=== PATIENT | male | born 1950 | race Caucasian/White ===

== ENCOUNTER 2016-07-05 11:19 | Observation (INO) | payer OTHER ==
[~2016-07-05] VITALS: Ht 162.6 cm; Wt 55.0 kg
[~2016-07-05 11:19] MED LIST: ASPI81TA82 PO; CHOLESTEROL MED PO; GLIP5 PO; GLUCTAB PO; INSULIN SQ; METH2.5 PO
[2016-07-05 11:20] VITALS: BP 139/84; PULSE 98; RESP 17; TEMP 97.7; O2SAT 96
[2016-07-05] MEDS ORDERED: SODIUM CHLOR 0.9% 1000 ML INJ 1,000 ML IV ONE ×2 (11:39→11:45)
[2016-07-05 11:42] VITALS: O2SAT 96
[2016-07-05] MEDS ORDERED: SODIUM CHLORIDE 0.9% FLUSH 5 ML FLUSH IVF PRN (11:45)
[2016-07-05 12:06] LABS: AUTOMATED NEUTROPHIL # 3.7 TH/MM3 (1.8-7.7); BASOPHIL % 0.3 % (0.0-2.0); EOSINOPHIL % 0.6 % (0.0-4.0); HEMO FLAGS DIFF FINAL; LYMPH % 19.2 % (9.0-44.0); MEAN CELL VOLUME 94.9 FL (80.0-100.0); MEAN CORPUSCULAR HGB CONC 32.6 % (32.0-36.0); MONO % 10.9 % (0.0-8.0); PLATELET COUNT 205 TH/MM3 (150-450); RED BLOOD COUNT 4.64 MIL/MM3 (4.50-5.90); RED CELL DISTRIBUTION WIDTH 14.5 % (11.6-17.2); WHITE BLOOD COUNT 5.4 TH/MM3 (4.0-11.0)
[2016-07-05 12:09] LABS: BLOOD GAS VENOUS BASE EXCESS -0.4 mmol/L (-2-2); BLOOD GAS VENOUS HCO3 26 mmol/L (22-26); BLOOD GAS VENOUS O2 CONTENT 3.1 Vol % (9.0-17.0); BLOOD GAS VENOUS O2 HGB SAT 18 % (70-76); BLOOD GAS VENOUS PCO2 59 mmHg (44-48); BLOOD GAS VENOUS PO2 16 mmHg (35-40); BLOOD GAS VENOUS pH 7.27 (7.360-7.400); TEMP CORR TO 98.6
[2016-07-05 12:10] LABS: CRITICAL VALUE YES; DRAW SITE RN; OXYGEN DEVICE ROOM AIR; STAT YES
[2016-07-05 12:21] LABS: ANION GAP 9 MEQ/L (5-15)
[2016-07-05 12:25] LABS: BLOOD GAS BASE EXCESS -3.9 mmol/L (-2-2); BLOOD GAS HCO3 21 mmol/L (22-26); BLOOD GAS METHEMOGLOBIN 1.9 % (0-2); BLOOD GAS O2 HGB SATURATION 92 % (90-100); BLOOD GAS OXYGEN CONTENT 15.2 Vol % (12.0-20.0); BLOOD GAS PCO2 39 mmHg (38-42); BLOOD GAS PO2 83 mmHG (61-120); BLOOD GAS TOTAL HGB 11.8 G/DL (12.0-16.0); CRITICAL VALUE NO; DRAW SITE RT RADIAL; NUMBER OF ARTERIAL PUNCTURES 1; STAT YES; TEMP CORR TO 98.6; ULNAR PULSE PRESENT
[2016-07-05 12:26] LABS: ALKALINE PHOSPHATASE 88 U/L (45-117); ALT (GPT) 47 U/L (12-78); AST (GOT) 28 U/L (15-37); BETA-HYDROXYBUTYRATE 0.54 MMOL/L (0.00-0.39); BLOOD UREA NITROGEN 33 MG/DL (7-18); CHLORIDE 89 MEQ/L (98-107); GLOMERULAR FILTRATION RATE 61 ML/MIN (>89); MAGNESIUM 2.2 MG/DL (1.5-2.5); POTASSIUM 4.6 MEQ/L (3.5-5.1); SODIUM (NA) 126 MEQ/L (136-145); TOTAL BILIRUBIN ADULT 0.4 MG/DL (0.2-1.0)
[2016-07-05 12:36] LABS: BLOOD, URINE LARGE (NEG); COMMENT (UR) CULT NOT INDICATED; CULTURE IF INDICATED CULT NOT INDICATED; GLUCOSE,URINE 1000 mg/dL (NEG); KETONE, URINE TRACE mg/dL (NEG); NITRITE,URINE NEG (NEG); URINE COLOR LIGHT-YELLOW (YELLW/STRAW)
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
[2016-07-05] MEDS ORDERED: METF1000 PO (12:53)
[2016-07-05] MEDS ORDERED: LISI10TA3 PO (12:58)
[2016-07-05] MEDS ORDERED: EMPA1TAB3 PO (12:58)
[2016-07-05] MEDS ORDERED: ATOR40TA16 PO (12:58)
[2016-07-05] MEDS ORDERED: ASPI81TA11 PO (12:58)
[2016-07-05] MEDS ORDERED: GLIP10TA6 PO (12:58)
[2016-07-05] MEDS ORDERED: MOBI7.5T PO (12:58)
[2016-07-05] MEDS ORDERED: LANTUS2P SQ (12:58)
[2016-07-05] MEDS ORDERED: ALFU10TA2 PO (12:58)
[2016-07-05] MEDS ORDERED: GLUCAGON 1 MG/ML VIAL OTHER PRN ×2 (13:00→13:15)
[2016-07-05] MEDS ORDERED: DEXTROSE 50% IN WATER 50 ML VIAL(D50) IV PUSH PRN ×2 (13:00→13:15)
[2016-07-05] MEDS ORDERED: ONDANSETRON HCL 4 MG/2 ML VIAL IV PUSH PRN (13:00)
[2016-07-05] MEDS: SODIUM CHLOR 0.9% 1000 ML INJ 1,000 ML IV SCH ×2 (13:13→22:08)
--- NOTE | 2016-07-05 13:20 | HHI.HP ---
[facility] [place] [facility] Admission Diagnosis critical hyperglycemia Diagnoses: (1) Hyponatremia Diagnosis: Principal (2) Uncontrolled diabetes mellitus Diagnosis: Principal Chief Complaint: ' my sugar is high'. Travel History International Travel<30 Days: No Contact w/Intl Traveler <30 Da: No Traveled to Known Affected Are: No History of Present Illness patient is a 65 y/o male with history of diabetes mellitus, not a good historian and non-compliant with his medical treatment presented to ER stating that he forgot to use his insulin and oral hypoglycemic medications for the past two weeks and now his blood sugar is high. he denies any abdominal pain, nausea, vomiting. he says that he feels thirsty and has had urinary frequency. Review of Systems Constitutional: DENIES: Fever, Weight loss, Chills, Night Sweats Eyes: DENIES: Blurred vision, Diplopia, Vision loss, Double Vision Ears, nose, mouth, throat: DENIES: Tinnitus, Vertigo, Throat pain, Epistaxis Respiratory: DENIES: Apneas, Cough, Snoring, Wheezing, Hemoptysis, Sputum production, Shortness of breath Cardiovascular: DENIES: Chest pain, Palpitations, Syncope, Dyspnea on Exertion , PND, Lower Extremity Edema, Orthopnea, Claudication Gastrointestinal: DENIES: Abdominal pain, Black stools, Bloody stools, Constipation, Diarrhea, Nausea, Vomiting, Difficulty Swallowing, Anorexia Genitourinary: COMPLAINS OF: Urinary frequency, DENIES: Urgency, Hematuria, Dysuria Musculoskeletal: DENIES: Joint pain, Muscle aches, Stiffness, Joint Swelling Integumentary: DENIES: Rash Neurologic: DENIES: Abnormal gait, Headache, Localized weakness, Paresthesias, Seizures, Speech Problems, Tremor, Poor Balance Psychiatric: DENIES: Anxiety, Confusion, Mood changes, Depression, Hallucinations, Agitation, Suicidal Ideation, Homicidal Ideation, Delusions Past Family Social History Past Medical History diabetes mellitus. hypertension. Past Surgical History none reported. Reported Medications Rheumatrex (Methotrexate) Unknown Strength Tab 7 Tabs PO WEEKLY UNKNOWN DOSE Aspir-81 (Aspirin) 81 Mg Tab 81 Mg PO DAILY [Insulin] 30 Units SQ BID Metformin Hcl (Metformin HCl) Unknown Strength Tab 1 Tab PO BIDPC Glipizide Unknown Strength Tab 1 Tab PO BID Allergies: Coded Allergies: No Known Allergies (Verified , 07/05/16) Active Ordered Medications Current Medications IV Flush 2 ml 2 ml UNSCH PRN IVF FLUSH AFTER USING IV ACCESS; Start 07/05/16 at 11:45 Sodium Chloride 1,000 ml @ 2,000 mls/hr Q30M ONCE IV Last administered on 07/05 11:44; Start 07/05/16 at 11:39; Stop 07/05/16 at 12:11; Status DC Sodium Chloride (NS 1000 ml Inj) 1,000 ml @ 999 mls/hr BOLUS ONCE IV Last administered on 07/05/16 11:45; Start 07/05/16 at 11:45; Stop 07/05/16 at 12:45 ; Status DC Ondansetron HCl 4 mg 4 mg Q8HR PRN IV PUSH NAUSEA; Start 07/05/16 at 13:00 Sodium Chloride (NS 1000 ml Inj) 1,000 ml @ 125 mls/hr Q8H IV ; Start 07/05/16 at 13:00 Dextrose (D50w (Vial) Inj) 25 ml UNSCH PRN IV PUSH HYPOGLYCEMIA-SEE COMMENTS; Start 07/05/16 at 13:00 Glucagon (Glucagon Inj) 1 mg UNSCH PRN OTHER HYPOGLYCEMIA-SEE COMMENTS; Start 07/05/16 at 13:00 Insulin Aspart (NovoLOG SUPPLEMENTAL SCALE) 1 ACHS SLIDING SCALE SQ ; Start at 16:00 Social History no smoking or drinking. Physical Exam Vital Signs Vital Signs Date Time Temp Pulse Resp B/P Pulse Ox O2 Delivery O2 Flow Rate FiO2 07/05/16 11:42 96 Room Air 07/05/16 11:20 97.7 98 17 139/84 96 Physical Exam GENERAL: This is a well-nourished, well-developed patient, in no apparent distress. SKIN: No rashes, ecchymoses or lesions. Cool and dry. HEAD: Atraumatic. Normocephalic. No temporal or scalp tenderness. EYES: Pupils equal round and reactive. Extraocular motions intact. No scleral icterus. No injection or drainage. ENT: Nose without bleeding, purulent drainage or septal hematoma. Throat without erythema, tonsillar hypertrophy or exudate. Uvula midline. Airway patent. NECK: Trachea midline. No JVD or lymphadenopathy. Supple, nontender, no meningeal signs. CARDIOVASCULAR: Regular rate and rhythm without murmurs, gallops, or rubs. RESPIRATORY: Clear to auscultation. Breath sounds equal bilaterally. No wheezes , rales, or rhonchi. GASTROINTESTINAL: Abdomen soft, non-tender, nondistended. No hepato-splenomegaly , or palpable masses. No guarding. MUSCULOSKELETAL: Extremities without clubbing, cyanosis, or edema. No joint tenderness, effusion, or edema noted. No calf tenderness. Negative Homans sign bilaterally. NEUROLOGICAL: Awake and alert. Cranial nerves II through XII intact. Motor and sensory grossly within normal limits. Five out of 5 muscle strength in all muscle groups. Normal speech. Laboratory Laboratory Tests Test 07/05/16 07/05/16 07/05/16 11:30 12:00 12:15 White Blood Count 5.4 Red Blood Count 4.64 Hemoglobin 14.4 Hematocrit 44.0 Mean Corpuscular Volume 94.9 Mean Corpuscular Hemoglobin 31.0 Mean Corpuscular Hemoglobin 32.6 Concent Red Cell Distribution Width 14.5 Platelet Count 205 Mean Platelet Volume 9.0 Neutrophils (%) (Auto) 69.0 Lymphocytes (%) (Auto) 19.2 Monocytes (%) (Auto) 10.9 Eosinophils (%) (Auto) 0.6 Basophils (%) (Auto) 0.3 Neutrophils # (Auto) 3.7 Lymphocytes # (Auto) 1.0 Monocytes # (Auto) 0.6 Eosinophils # (Auto) 0.0 Basophils # (Auto) 0.0 CBC Comment DIFF FINAL Differential Comment Sodium Level 126 Potassium Level 4.6 Chloride Level 89 Carbon Dioxide Level 28.0 Anion Gap 9 Blood Urea Nitrogen 33 Creatinine 1.20 Estimat Glomerular Filtration 61 Rate Random Glucose 834 Calcium Level 9.6 Phosphorus Level 3.4 Magnesium Level 2.2 Total Bilirubin 0.4 Aspartate Amino Transf 28 (AST/SGOT) Alanine Aminotransferase 47 (ALT/SGPT) Alkaline Phosphatase 88 Total Protein 8.0 Albumin 4.2 B-Hydroxybutyrate 0.54 Urine Color LIGHT-YELLOW Urine Turbidity CLEAR Urine pH 6.0 Urine Specific [place] 1.025 Urine Protein NEG Urine Glucose (UA) 1000 Urine Ketones TRACE Urine Occult Blood LARGE Urine Nitrite NEG Urine Bilirubin NEG Urine Urobilinogen LESS THAN 2.0 Urine Leukocyte Esterase NEG Urine RBC 63 Microscopic Urinalysis Comment CULT NOT INDICATED Blood Gas Puncture Site RN RT RADIAL Blood Gas Patient Temperature 98.6 98.6 Venous Blood pH 7.27 Venous Blood Partial Pressure 59 CO2 Venous Blood Partial Pressure 16 O2 Venous Blood HCO3 26 Venous Blood Oxygen Saturation 18 Venous Blood Oxygen Content 3.1 Venous Blood Base Excess -0.4 Oxygen Delivery Device ROOM AIR Blood Gas HCO3 21 Blood Gas Base Excess -3.9 Blood Gas Oxygen Saturation 92 Arterial Blood pH 7.35 Arterial Blood Partial 39 Pressure CO2 Arterial Blood Partial 83 Pressure O2 Arterial Blood Oxygen Content 15.2 Arterial Blood 3.0 Carboxyhemoglobin Arterial Blood Methemoglobin 1.9 Blood Gas Hemoglobin 11.8 Result Diagram: 07/05/16 1130 07/05/16 1130 Assessment and Plan Assessment and Plan A/P - uncontrolled diabetes mellitus due to non-compliance resume long acting insulin- accu-check with SSI- start IV hydration and check A1c counselled on compliance with medical treatment -hyponatremia due to hyperglycemia- will start IV fluid and monitor. -hypertension; resume home meds -DVT prophylaxis with lovenox Discussed Condition With ER physician and the patient. Problem Qualifiers (1) Uncontrolled diabetes mellitus: Qualified Code: E11.65 - Uncontrolled type 2 diabetes mellitus without complication, with long-term current use of insulin Chantelle Doll MD Jul 05, 2016 13:19
[2016-07-05] MEDS ORDERED: ACETAMINOPHEN 325 MG TAB PO PRN (13:30)
[2016-07-05] MEDS: INSULIN DETEMIR 100 UNITS/ML VIAL SQ SCH ×2 (13:39→22:04)
[2016-07-05 15:10] VITALS: BP 133/91; PULSE 91; RESP 20; O2SAT 96
[2016-07-05] MEDS ORDERED: INSULIN ASPART SUPPLEMENTAL SCALE SQ SCH (16:00)
[2016-07-05] MEDS: INSULIN ASPART SUPPLEMENTAL SCALE SQ SCH ×2 (16:00→22:07)
[2016-07-05 17:52] VITALS: BP 136/74
[2016-07-05 19:26] VITALS: BP 119/75; PULSE 68; RESP 18; TEMP 98.7; O2SAT 95
[2016-07-05] MEDS: ATORVASTATIN 40 MG TAB PO SCH (22:04)
[2016-07-06] VITALS: BP 117/62; PULSE 68; RESP 18; TEMP 97.8; O2SAT 97
[2016-07-06 04:00] VITALS: BP 120/74; PULSE 60; RESP 18; TEMP 98.4; O2SAT 97
[2016-07-06] MEDS: INSULIN ASPART SUPPLEMENTAL SCALE SQ SCH ×3 (06:58→20:50)
[2016-07-06] MEDS: SODIUM CHLOR 0.9% 1000 ML INJ 1,000 ML IV SCH ×2 (06:58→13:41)
[2016-07-06 07:22] LABS: POTASSIUM 3.3 MEQ/L (3.5-5.1)
[2016-07-06 07:48] VITALS: BP 108/71; PULSE 76; RESP 22; TEMP 97.6; O2SAT 98
[2016-07-06] MEDS ORDERED: ENOXAPARIN SODIUM 40 MG/0.4 ML SYRINGE SQ SCH (09:00)
[2016-07-06] MEDS: INSULIN DETEMIR 100 UNITS/ML VIAL SQ SCH ×2 (10:22→20:09)
[2016-07-06] MEDS: TAMSULOSIN HCL 0.4 MG CAP PO SCH (10:22)
[2016-07-06] MEDS: LISINOPRIL 10 MG TAB PO SCH (10:22)
[2016-07-06 11:34] VITALS: BP 113/66; PULSE 72; RESP 20; TEMP 97.8; O2SAT 100
--- NOTE | 2016-07-06 11:36 | EKG ---
Date Performed: 07/05/2016 Time Performed: 11:57:37 PTAGE: 65 years EKG: Sinus rhythm NORMAL ECG PREVIOUS TRACING : 02/19/2014 17.39 DOCTOR: Anderson Rodríguez Interpretating Date/Time 07/06/2016 11:34:25
[2016-07-06] MEDS ORDERED: LANTUS2P SQ (12:29)
[2016-07-06] MEDS ORDERED: NOVOLOGSS SQ (12:29)
--- NOTE | 2016-07-06 12:29 | HHI.DCPOC ---
Discharge Care Plan Diagnosis: (1) Uncontrolled diabetes mellitus Your Health Problems Are: Fluctuating Blood Sugars Goals to Promote Your Health * To prevent worsening of your condition and complications * To maintain your health at the optimal level Directions to Meet Your Goals Take your medications as prescribed Follow your dietary instruction Follow activity as directed Keep your appointments as scheduled Take your immunizations and boosters as scheduled If your symptoms worsen call your PCP, if no PCP go to Urgent Care Center or Emergency Room Smoking is Dangerous to Your Health. Avoid second hand smoke Call the 24-hour hour crisis hotline for domestic abuse at Chantelle Doll MD Jul 06, 2016 12:29
--- NOTE | 2016-07-06 12:33 | HHI.PR ---
Subjective Remarks resting comfortably with no distress. noted that was hypoglycemic earlier today. d/w the RN ; reportedly had some ' blood-tinged' urine. Objective Vitals Vital Signs Date Time Temp Pulse Resp B/P Pulse Ox O2 Delivery O2 Flow Rate FiO2 07/06/16 11:34 97.8 72 20 113/66 100 07/06/16 07:48 97.6 76 22 108/71 98 07/06/16 04:00 98.4 60 18 120/74 97 07/06/16 00:00 97.8 68 18 117/62 97 07/05/16 19:26 98.7 68 18 119/75 95 07/05/16 17:52 95 20 136/74 98 07/05/16 15:10 91 20 133/91 96 Room Air I/O 07/05/16 07/05/16 07/05/16 07/06/16 07/06/16 07/06/16 07:00 15:00 23:00 07:00 15:00 23:00 Output Total 300 ml 1600 ml Balance -300 ml -1600 ml Output Urine Total 300 ml 1600 ml # Voids 1 2 Result Diagram: 07/05/16 1130 07/06/16 0556 Objective Remarks GENERAL: This is a well-nourished, well-developed patient, in no apparent distress. CARDIOVASCULAR: Regular rate and regular rhythm without murmurs, gallops, or rubs. RESPIRATORY: Clear to auscultation. Breath sounds equal bilaterally. No wheezes , rales, or rhonchi. GASTROINTESTINAL: Abdomen soft, non-tender, nondistended. Normal, active bowel sounds MUSCULOSKELETAL: Extremities without clubbing, cyanosis, or edema. NEURO: awake and alert Procedures none Medications and IVs Current Medications IV Flush 2 ml 2 ml UNSCH PRN IVF FLUSH AFTER USING IV ACCESS; Start 07/05/16 at 11:45 Sodium Chloride 1,000 ml @ 2,000 mls/hr Q30M ONCE IV Last administered on 07/05 11:44; Start 07/05/16 at 11:39; Stop 07/05/16 at 12:11; Status DC Sodium Chloride (NS 1000 ml Inj) 1,000 ml @ 999 mls/hr BOLUS ONCE IV Last administered on 07/05/16 11:45; Start 07/05/16 at 11:45; Stop 07/05/16 at 12:45 ; Status DC Ondansetron HCl 4 mg 4 mg Q8HR PRN IV PUSH NAUSEA; Start 07/05/16 at 13:00 Sodium Chloride (NS 1000 ml Inj) 1,000 ml @ 125 mls/hr Q8H IV Last administered on 07/06/16 06:58; Start 07/05/16 at 13:00 Dextrose (D50w (Vial) Inj) 25 ml UNSCH PRN IV PUSH HYPOGLYCEMIA-SEE COMMENTS; Start 07/05/16 at 13:00; Stop 07/05/16 at 13:32; Status DC Glucagon (Glucagon Inj) 1 mg UNSCH PRN OTHER HYPOGLYCEMIA-SEE COMMENTS; Start 07/05/16 at 13:00; Stop 07/05/16 at 13:32; Status DC Insulin Aspart (NovoLOG SUPPLEMENTAL SCALE) 1 ACHS SLIDING SCALE SQ ; Start at 16:00; Stop 07/05/16 at 16:00; Status DC Atorvastatin Calcium (Lipitor) 40 mg HS PO Last administered on 07/05/16 22:04 ; Start 07/05/16 at 21:00 Insulin Detemir (Levemir Inj) 30 units BID SQ Last administered on 07/06/16 10: 22; Start 07/05/16 at 13:30 Lisinopril (Prinivil) 10 mg DAILY PO Last administered on 07/06/16 10:22; Start 07/06/16 at 09:00 Tamsulosin HCl (Flomax) 0.4 mg DAILY PO Last administered on 07/06/16 10:22; Start 07/06/16 at 09:00 Dextrose (D50w (Vial) Inj) 25 ml UNSCH PRN IV PUSH HYPOGLYCEMIA-SEE COMMENTS; Start 07/05/16 at 13:15 Glucagon (Glucagon Inj) 1 mg UNSCH PRN OTHER HYPOGLYCEMIA-SEE COMMENTS; Start 07/05/16 at 13:15 Insulin Aspart (NovoLOG SUPPLEMENTAL SCALE) 1 ACHS SLIDING SCALE SQ Last administered on 07/05/16 22:07; Start 07/05/16 at 16:00 Enoxaparin Sodium (Lovenox Inj) 40 mg Q24H SQ Last administered on 07/06/16 10: 21; Start 07/06/16 at 09:00 Acetaminophen (Tylenol) 650 mg Q4H PRN PO FEVER/PAIN 1-10; Start 07/05/16 at 13 :30 A/P Assessment and Plan A/P - uncontrolled diabetes mellitus due to non-compliance- with hypoglycemic episode continue long acting insulin- accu-check with SSI; will change to low scale- continue IV hydration - A1c pending. counselled on compliance with medical treatment -hyponatremia due to hyperglycemia- improved- will monitor. -hypokalemia; will replace as needed. -hematuria; will repeat UA-will consider urology consult if no improvement. -hypertension; resumed home meds -DVT prophylaxis ; hold lovenox for possible hematuria- SCD's Discharge Planning possible discharge in am if stable. case management and PT consulted for dc planning-possible SNF. Chantelle Doll MD Jul 06, 2016 12:33 Chantelle Doll MD Jul 06, 2016 12:33
[2016-07-06] MEDS ORDERED: DEXTROSE 50% IN WATER 50 ML VIAL(D50) IV PUSH PRN (12:45)
[2016-07-06] MEDS ORDERED: GLUCAGON 1 MG/ML VIAL OTHER PRN (12:45)
[2016-07-06] MEDS ORDERED: POTASSIUM CHLORIDE 10 MEQ CONTROLLED RELEASE TAB PO ONE (12:45)
[2016-07-06 16:04] VITALS: BP 123/61; PULSE 81; RESP 18; TEMP 97.7; O2SAT 100
[2016-07-06 19:37] VITALS: BP 146/80; PULSE 75; RESP 20; TEMP 97.6; O2SAT 99
[2016-07-06] MEDS: ATORVASTATIN 40 MG TAB PO SCH (20:07)
[2016-07-06 23:19] LABS: BACTERIA, URINE OCC /hpf; BLOOD, URINE MOD (NEG); COMMENT (UR) CULTURE INDICATED; CULTURE IF INDICATED CULTURE INDICATED; GLUCOSE,URINE 1000 mg/dL (NEG); KETONE, URINE TRACE mg/dL (NEG); MUCUS URINE FEW /lpf (OCC); NITRITE,URINE NEG (NEG); PH, URINE 5.5 (5.0-8.5)
[2016-07-06 23:21] LABS: URINE COLOR RED (YELLW/STRAW)
[2016-07-07 00:43] VITALS: BP 147/73; PULSE 79; RESP 20; TEMP 97.4; O2SAT 99
[2016-07-07] MEDS: SODIUM CHLOR 0.9% 1000 ML INJ 1,000 ML IV SCH ×2 (02:36→15:02)
[2016-07-07 04:00] VITALS: BP 156/87; PULSE 78; RESP 20; TEMP 98.3; O2SAT 99
[2016-07-07] MEDS: INSULIN ASPART SUPPLEMENTAL SCALE SQ SCH ×4 (06:06→20:23)
[2016-07-07 07:32] VITALS: BP 150/78; PULSE 80; RESP 19; TEMP 98.1; O2SAT 100
[2016-07-07] MEDS: TAMSULOSIN HCL 0.4 MG CAP PO SCH (08:58)
[2016-07-07] MEDS: INSULIN DETEMIR 100 UNITS/ML VIAL SQ SCH ×2 (08:58→20:23)
[2016-07-07] MEDS: LISINOPRIL 10 MG TAB PO SCH (08:58)
[2016-07-07 11:42] VITALS: BP 126/63; PULSE 79; RESP 18; TEMP 97.6; O2SAT 99
--- NOTE | 2016-07-07 12:43 | HHI.PR ---
Subjective Remarks in no acute distress. denies pain. no dysuria but has urinary frequency along with some hematuria. no fever. Objective Vitals Vital Signs Date Time Temp Pulse Resp B/P Pulse Ox O2 Delivery O2 Flow Rate FiO2 07/07/16 11:42 97.6 79 18 126/63 99 07/07/16 07:32 98.1 80 19 150/78 100 07/07/16 04:00 98.3 78 20 156/87 99 07/07/16 00:43 97.4 79 20 147/73 99 07/06/16 19:37 97.6 75 20 146/80 99 07/06/16 16:04 97.7 81 18 123/61 100 I/O 07/06/16 07/06/16 07/06/16 07/07/16 07/07/16 07/07/16 07:00 15:00 23:00 07:00 15:00 23:00 Output Total 900 ml Balance -900 ml Output Urine Total 900 ml # Voids 2 Result Diagram: 07/05/16 1130 07/06/16 0556 Objective Remarks GENERAL: This is a well-nourished, well-developed patient, in no apparent distress. CARDIOVASCULAR: Regular rate and regular rhythm without murmurs, gallops, or rubs. RESPIRATORY: Clear to auscultation. Breath sounds equal bilaterally. No wheezes , rales, or rhonchi. GASTROINTESTINAL: Abdomen soft, non-tender, nondistended. Normal, active bowel sounds MUSCULOSKELETAL: Extremities without clubbing, cyanosis, or edema. NEURO: awake and alert Procedures none Medications and IVs Current Medications IV Flush 2 ml 2 ml UNSCH PRN IVF FLUSH AFTER USING IV ACCESS; Start 07/05/16 at 11:45 Sodium Chloride 1,000 ml @ 2,000 mls/hr Q30M ONCE IV Last administered on 07/05 11:44; Start 07/05/16 at 11:39; Stop 07/05/16 at 12:11; Status DC Sodium Chloride (NS 1000 ml Inj) 1,000 ml @ 999 mls/hr BOLUS ONCE IV Last administered on 07/05/16 11:45; Start 07/05/16 at 11:45; Stop 07/05/16 at 12:45 ; Status DC Ondansetron HCl 4 mg 4 mg Q8HR PRN IV PUSH NAUSEA; Start 07/05/16 at 13:00 Sodium Chloride (NS 1000 ml Inj) 1,000 ml @ 75 mls/hr [id number] IV Last administered on 07/07/16 02:36; Start 07/05/16 at 13:00 Dextrose (D50w (Vial) Inj) 25 ml UNSCH PRN IV PUSH HYPOGLYCEMIA-SEE COMMENTS; Start 07/05/16 at 13:00; Stop 07/05/16 at 13:32; Status DC Glucagon (Glucagon Inj) 1 mg UNSCH PRN OTHER HYPOGLYCEMIA-SEE COMMENTS; Start 07/05/16 at 13:00; Stop 07/05/16 at 13:32; Status DC Insulin Aspart (NovoLOG SUPPLEMENTAL SCALE) 1 ACHS SLIDING SCALE SQ ; Start at 16:00; Stop 07/05/16 at 16:00; Status DC Atorvastatin Calcium (Lipitor) 40 mg HS PO Last administered on 07/06/16 20:07 ; Start 07/05/16 at 21:00 Insulin Detemir (Levemir Inj) 30 units BID SQ Last administered on 07/07/16 08: 58; Start 07/05/16 at 13:30 Lisinopril (Prinivil) 10 mg DAILY PO Last administered on 07/07/16 08:58; Start 07/06/16 at 09:00 Tamsulosin HCl (Flomax) 0.4 mg DAILY PO Last administered on 07/07/16 08:58; Start 07/06/16 at 09:00 Dextrose (D50w (Vial) Inj) 25 ml UNSCH PRN IV PUSH HYPOGLYCEMIA-SEE COMMENTS; Start 07/05/16 at 13:15 Glucagon (Glucagon Inj) 1 mg UNSCH PRN OTHER HYPOGLYCEMIA-SEE COMMENTS; Start 07/05/16 at 13:15 Insulin Aspart (NovoLOG SUPPLEMENTAL SCALE) 1 ACHS SLIDING SCALE SQ Last administered on 07/05/16 22:07; Start 07/05/16 at 16:00; Stop 07/06/16 at 12:36 ; Status DC Enoxaparin Sodium (Lovenox Inj) 40 mg Q24H SQ Last administered on 07/06/16 10: 21; Start 07/06/16 at 09:00; Status Hold Acetaminophen (Tylenol) 650 mg Q4H PRN PO FEVER/PAIN 1-10; Start 07/05/16 at 13 :30 Potassium Chloride (KCl) 30 meq ONCE ONCE PO Last administered on 07/06/16 13: 40; Start 07/06/16 at 12:45; Stop 07/06/16 at 12:46; Status DC Dextrose (D50w (Vial) Inj) 25 ml UNSCH PRN IV PUSH HYPOGLYCEMIA-SEE COMMENTS; Start 07/06/16 at 12:45 Glucagon (Glucagon Inj) 1 mg UNSCH PRN OTHER HYPOGLYCEMIA-SEE COMMENTS; Start 07/06/16 at 12:45 Insulin Aspart (NovoLOG SUPPLEMENTAL SCALE) 1 ACHS SLIDING SCALE SQ Last administered on 07/07/16 06:06; Start 07/06/16 at 16:00 A/P Assessment and Plan A/P - uncontrolled diabetes mellitus due to non-compliance- with hypoglycemic episode with no recurrence continue long acting insulin- accu-check with SSI; changed to low scale- continue IV hydration - A1c 17.3. counselled on compliance with medical treatment -hyponatremia due to hyperglycemia- improved- will monitor. -hypokalemia; replaced as needed. -hematuria due to UTI- will start IV antibiotic and follow the UC. almanza cath insertion was unsuccessful yesterday and now the patient is refusing any further attempts. -hypertension; resumed home meds -DVT prophylaxis ; hold lovenox due to hematuria- SCD's Discharge Planning dc home within the next one - two days when hematuria is better and UC is finalized. SNF was offered but the patient refused; will consult case management for [facility]. Chantelle Doll MD Jul 07, 2016 12:43
--- NOTE | 2016-07-07 12:44 | HHI.FF ---
Face to Face Verification Diagnosis: (1) Medical non-compliance (2) Uncontrolled diabetes mellitus Home Health Nursing Order: Medical education Signs/symptoms of disease process Diabetic education Nursing assessment with vital signs I have seen patient Jono Martin on 07/07/16. My clinical findings support the need for the requested home health care services because: Limited ability to care for self I certify that my clinical findings support that this patient is homebound because: Impaired cognitive ability/safety Chantelle Doll MD Jul 07, 2016 12:44
[2016-07-07] MEDS ORDERED: cefTRIAXone INJ 1,000 MG in SODIUM CHLORIDE 0.9% INJ 100 ML IV SCH (14:00)
[2016-07-07] MEDS: FLUCONAZOLE 100 MG TAB PO SCH (15:01)
[2016-07-07 15:44] VITALS: BP 110/64; PULSE 88; RESP 20; TEMP 98.2; O2SAT 98
[2016-07-07 19:37] VITALS: BP 120/69; PULSE 84; RESP 18; TEMP 98.3; O2SAT 98
[2016-07-07] MEDS: ATORVASTATIN 40 MG TAB PO SCH (20:23)
[2016-07-08 00:07] VITALS: BP 151/81; PULSE 82; RESP 19; TEMP 98; O2SAT 98
[2016-07-08 03:43] VITALS: BP 121/64; PULSE 86; RESP 19; TEMP 97.9; O2SAT 97
[2016-07-08] MEDS: SODIUM CHLOR 0.9% 1000 ML INJ 1,000 ML IV SCH (05:55)
[2016-07-08] MEDS: INSULIN ASPART SUPPLEMENTAL SCALE SQ SCH ×2 (05:58→11:00)
[2016-07-08 08:15] VITALS: BP 143/80; PULSE 75; RESP 19; RESP 20; TEMP 98; O2SAT 98
[2016-07-08] MEDS: INSULIN DETEMIR 100 UNITS/ML VIAL SQ SCH (09:00)
[2016-07-08] MEDS: FLUCONAZOLE 100 MG TAB PO SCH (10:10)
[2016-07-08] MEDS: LISINOPRIL 10 MG TAB PO SCH (10:10)
[2016-07-08] MEDS: TAMSULOSIN HCL 0.4 MG CAP PO SCH (10:10)
[2016-07-08 12:02] VITALS: BP 135/73; PULSE 80; RESP 18; TEMP 97.6; O2SAT 97
--- NOTE | 2016-07-08 12:38 | HHI.PR ---
Subjective Remarks resting comfortably with no distress. denies pain. no fever. accu-checks better. Objective Vitals Vital Signs Date Time Temp Pulse Resp B/P Pulse Ox O2 Delivery O2 Flow Rate FiO2 07/08/16 12:02 97.6 80 18 135/73 97 07/08/16 08:15 98.0 75 20 143/80 98 07/08/16 03:43 97.9 86 19 121/64 97 07/08/16 00:07 98.0 82 19 151/81 98 07/07/16 19:37 98.3 84 18 120/69 98 07/07/16 15:44 98.2 88 20 110/64 98 I/O 07/07/16 07/07/16 07/07/16 07/08/16 07/08/16 07/08/16 07:00 15:00 23:00 07:00 15:00 23:00 Output Total 900 ml 350 ml Balance -900 ml -350 ml Output Urine Total 900 ml 350 ml # Voids 5 Result Diagram: 07/05/16 1130 07/06/16 0556 Objective Remarks GENERAL: This is a well-nourished, well-developed patient, in no apparent distress. CARDIOVASCULAR: Regular rate and regular rhythm without murmurs, gallops, or rubs. RESPIRATORY: Clear to auscultation. Breath sounds equal bilaterally. No wheezes , rales, or rhonchi. GASTROINTESTINAL: Abdomen soft, non-tender, nondistended. Normal, active bowel sounds MUSCULOSKELETAL: Extremities without clubbing, cyanosis, or edema. NEURO: awake and alert Procedures none Medications and IVs Current Medications IV Flush 2 ml 2 ml UNSCH PRN IVF FLUSH AFTER USING IV ACCESS; Start 07/05/16 at 11:45 Sodium Chloride 1,000 ml @ 2,000 mls/hr Q30M ONCE IV Last administered on 07/05 11:44; Start 07/05/16 at 11:39; Stop 07/05/16 at 12:11; Status DC Sodium Chloride (NS 1000 ml Inj) 1,000 ml @ 999 mls/hr BOLUS ONCE IV Last administered on 07/05/16 11:45; Start 07/05/16 at 11:45; Stop 07/05/16 at 12:45 ; Status DC Ondansetron HCl 4 mg 4 mg Q8HR PRN IV PUSH NAUSEA; Start 07/05/16 at 13:00 Sodium Chloride (NS 1000 ml Inj) 1,000 ml @ 75 mls/hr [id number] IV Last administered on 07/08/16 05:55; Start 07/05/16 at 13:00 Dextrose (D50w (Vial) Inj) 25 ml UNSCH PRN IV PUSH HYPOGLYCEMIA-SEE COMMENTS; Start 07/05/16 at 13:00; Stop 07/05/16 at 13:32; Status DC Glucagon (Glucagon Inj) 1 mg UNSCH PRN OTHER HYPOGLYCEMIA-SEE COMMENTS; Start 07/05/16 at 13:00; Stop 07/05/16 at 13:32; Status DC Insulin Aspart (NovoLOG SUPPLEMENTAL SCALE) 1 ACHS SLIDING SCALE SQ ; Start at 16:00; Stop 07/05/16 at 16:00; Status DC Atorvastatin Calcium (Lipitor) 40 mg HS PO Last administered on 07/07/16 20:23 ; Start 07/05/16 at 21:00 Insulin Detemir (Levemir Inj) 30 units BID SQ Last administered on 07/08/16 09: 00; Start 07/05/16 at 13:30 Lisinopril (Prinivil) 10 mg DAILY PO Last administered on 07/08/16 10:10; Start 07/06/16 at 09:00 Tamsulosin HCl (Flomax) 0.4 mg DAILY PO Last administered on 07/08/16 10:10; Start 07/06/16 at 09:00 Dextrose (D50w (Vial) Inj) 25 ml UNSCH PRN IV PUSH HYPOGLYCEMIA-SEE COMMENTS; Start 07/05/16 at 13:15 Glucagon (Glucagon Inj) 1 mg UNSCH PRN OTHER HYPOGLYCEMIA-SEE COMMENTS; Start 07/05/16 at 13:15 Insulin Aspart (NovoLOG SUPPLEMENTAL SCALE) 1 ACHS SLIDING SCALE SQ Last administered on 07/05/16 22:07; Start 07/05/16 at 16:00; Stop 07/06/16 at 12:36 ; Status DC Enoxaparin Sodium (Lovenox Inj) 40 mg Q24H SQ Last administered on 07/06/16 10: 21; Start 07/06/16 at 09:00; Status Hold Acetaminophen (Tylenol) 650 mg Q4H PRN PO FEVER/PAIN 1-10; Start 07/05/16 at 13 :30 Potassium Chloride (KCl) 30 meq ONCE ONCE PO Last administered on 07/06/16 13: 40; Start 07/06/16 at 12:45; Stop 07/06/16 at 12:46; Status DC Dextrose (D50w (Vial) Inj) 25 ml UNSCH PRN IV PUSH HYPOGLYCEMIA-SEE COMMENTS; Start 07/06/16 at 12:45 Glucagon (Glucagon Inj) 1 mg UNSCH PRN OTHER HYPOGLYCEMIA-SEE COMMENTS; Start 07/06/16 at 12:45 Insulin Aspart 1 1 ACHS SLIDING SCALE SQ Last administered on 07/07/16 20:23; Start 07/06/16 at 16:00 Ceftriaxone Sodium/Sodium Chloride (Rocephin Inj/NS Inj) 100 ml @ 200 mls/hr Q24H IV Last administered on 07/07/16 15:01; Start 07/07/16 at 14:00 Fluconazole (Diflucan) 100 mg DAILY PO Last administered on 07/08/16 10:10; Start 07/07/16 at 13:00 A/P Assessment and Plan A/P - uncontrolled diabetes mellitus due to non-compliance- with hypoglycemic episode - now with no recurrence continue long acting insulin- accu-check with SSI; - continue IV hydration - A1c 17.3. counselled on compliance with medical treatment- diabetes education provided. -hyponatremia due to hyperglycemia- improved- will monitor. -hypokalemia; replaced as needed. -hematuria due to UTI- continue with antibiotic. almanza cath insertion was unsuccessful and the patient is refusing any further attempts. urology evaluation was recommended but the patient wants to go home and [facility]; he does not want any further work-up. -hypertension; resumed home meds Discharge Planning dc home today. see med list. will have HHC. f/u; pcp and urology. d/w the patient. Chantelle Doll MD Jul 08, 2016 12:38
[2016-07-08] MEDS ORDERED: DIFL200T PO (12:41)
[2016-07-08] MEDS ORDERED: CIPR250T52 PO (12:43)
--- NOTE | 2016-07-08 12:49 | HHI.DS ---
Discharge Summary Admission Date Jul 05, 2016 at 12:55 Discharge Date: Jul 08, 2016 Admitting Diagnosis critical hyperglycemia (1) Hyponatremia ICD Code: E87.1 Diagnosis: Principal (2) Uncontrolled diabetes mellitus ICD Code: E11.9 Diagnosis: Principal Procedures none Brief History - From Admission patient is a 65 y/o male with history of diabetes mellitus, not a good historian and non-compliant with his medical treatment presented to ER stating that he forgot to use his insulin and oral hypoglycemic medications for the past two weeks and now his blood sugar is high. he denies any abdominal pain, nausea, vomiting. he says that he feels thirsty and has had urinary frequency. CBC/BMP: 07/05/16 1130 07/06/16 0556 Significant Findings Laboratory Tests Test 07/05/16 07/06/16 07/06/16 21:20 05:56 20:55 Random Glucose 231 MG/DL 64 MG/DL (74-106) (74-106) Potassium Level 3.3 MEQ/L (3.5-5.1) Chloride Level 108 MEQ/L (98-107) Calcium Level 8.3 MG/DL (8.5-10.1) Urine Color RED (YELLW/STRAW) Urine Turbidity HAZY (CLEAR) Urine Protein 30 mg/dL (NEG-TRACE) Urine Glucose (UA) 1000 mg/dL (NEG) Urine Ketones TRACE mg/dL (NEG) Urine Occult Blood MOD (NEG) Urine Leukocyte Esterase SMALL (NEG) Urine Bacteria OCC /hpf (NONE) Urine Mucus FEW /lpf (OCC) Urine Yeast (Budding) MANY (NONE) PE at Discharge GENERAL: This is a well-nourished, well-developed patient, in no apparent distress. CARDIOVASCULAR: Regular rate and regular rhythm without murmurs, gallops, or rubs. RESPIRATORY: Clear to auscultation. Breath sounds equal bilaterally. No wheezes , rales, or rhonchi. GASTROINTESTINAL: Abdomen soft, non-tender, nondistended. Normal, active bowel sounds MUSCULOSKELETAL: Extremities without clubbing, cyanosis, or edema. NEURO: awake and alert Hospital Course - uncontrolled diabetes mellitus due to non-compliance- with hypoglycemic episode - now with no recurrence continue long acting insulin- accu-check with SSI; - continue IV hydration - A1c 17.3. counselled on compliance with medical treatment- diabetes education provided. -hyponatremia due to hyperglycemia- improved- will monitor. -hypokalemia; replaced as needed. -hematuria due to UTI- continue with antibiotic. almanza cath insertion was unsuccessful and the patient is refusing any further attempts. urology evaluation was recommended but the patient wants to go home and [facility]; he does not want any further work-up. -hypertension; resumed home meds Pt Condition on Discharge: Fair Discharge Disposition: Disch w/ Home Health Serv Discharge Time: <= 30 minutes Discharge Instructions DIET: Follow Instructions for: Heart Healthy Diet, Diabetic Diet Activities you can perform: Regular-No Restrictions Follow up Referrals: PCP Follow-up Urology New Medications: Ciprofloxacin (Cipro) 250 Mg Tab 250 MG PO BID Infection Days 3 Ref 0 TAB Fluconazole (Diflucan) 200 Mg Tab 200 MG PO DAILY Infection #12 Ref 0 TAB Insulin Aspart Inj (Novolog Inj) 100 Unit/Ml Inj 1 UNITS SQ ACHS SLIDING SCALE accu-check AC/HS with novolog sliding scale covergae; 150-200 two units 201-250 four units 251-300 six units 301-350 eight units 351- 400 ten units inform PCP if < 70 or > 400. diabetes Days 14 Ref 0 INJECTION Continued Medications: Alfuzosin ER 24 HR (Alfuzosin ER 24 HR) 10 Mg Tab 10 MG PO DAILY BPH #[address] Ref [address] (Aspirin EC) 81 Mg Tabdr 81 MG PO DAILY Ref 0 TAB Atorvastatin (Atorvastatin) 40 Mg Tab 40 MG PO HS Cholesterol Management #30 Ref 0 TAB Empagliflozin (Jardiance) 25 Mg Tab 12.5 MG PO DAILYAC Blood Sugar Management #30 Ref 0 TAB Insulin Glargine Inj (Lantus Inj) 1,000 Unit/10 Ml Vial 30 UNITS SQ BID Blood Sugar Management Days 30 Ref 0 VIAL (This prescription has been renewed) Lisinopril (Lisinopril) 10 Mg Tab 10 MG PO DAILY #30 Ref 0 TAB Discontinued Medications: Glipizide (Glipizide) 10 Mg Tab 20 MG PO BIDAC Take 30 minutes before a meal Blood Sugar Management #60 Ref 0 TAB Meloxicam (Mobic) 7.5 Mg Tab 7.5 MG PO DAILY ARTHRITIS Ref 0 TAB Metformin (Metformin) 1,000 Mg Tab 1000 MG PO BIDAC With meals Blood Sugar Management #60 Ref 0 TAB Chantelle Doll MD Jul 08, 2016 12:49
== END 2016-07-08 21:45 | disposition home or self-care (01) ==
LOC: NEPE 11:19 → NEDA 12:55 → INTOOBSV 12:55 → NEPGCP 17:42
PROVIDERS: ADMIT Internal Medicine; ATTEND Internal Medicine
DX: E11.65 Type 2 diabetes mellitus with hyperglycemia (principal); R31.9 Hematuria, unspecified; E78.00 Pure hypercholesterolemia, unspecified; I10 Essential (primary) hypertension; E87.1 Hypo-osmolality and hyponatremia; R63.1 Polydipsia; R35.0 Frequency of micturition; Z79.4 Long term (current) use of insulin; Z87.891 Personal history of nicotine dependence; Z91.19 Patient's noncompliance with other medical treatment and regimen; Z79.82 Long term (current) use of aspirin
CPT/HCPCS: 36600; 80048; 80053; 81001; 82010; 82805; 82947; 82948; 83036; 83735; 84100; 85025; 87086; 93005; 97163; 99285; G0378; G8987; G8988; J0696; J1650; J1815; J7030

== ENCOUNTER 2017-03-16 14:16 | Inpatient (IN) | payer MEDICARE ==
[~2017-03-16] VITALS: Ht 160 cm; Wt 53.5 kg
[~2017-03-16 14:16] MED LIST changes: +ALFU10TA2 PO; +ASPI81TA23 PO; -ASPI81TA82 PO; +ATOR40TA16 PO; -CHOLESTEROL MED PO; +CIPR250T52 PO; +DIFL200T PO; +EMPA1TAB3 PO; -GLIP5 PO; -GLUCTAB PO; -INSULIN SQ; +KPHOS250 PO; +LANTUS2P SQ; +LEVEMIR SQ; +LISI10TA3 PO; -METH2.5 PO; +NOVOLOGSS SQ
[2017-03-16 14:21] VITALS: BP 110/56; PULSE 112; RESP 12; TEMP 98.2; O2SAT 100
[2017-03-16 16:19] LABS: AUTOMATED NEUTROPHIL # 11.6 TH/MM3 (1.8-7.7); BASOPHIL % 0.1 % (0.0-2.0); LYMPH % 6.2 % (9.0-44.0); LYMPHOCYTE # 0.8 TH/MM3 (1.0-4.8); MEAN CELL VOLUME 91.7 FL (80.0-100.0); MEAN CORPUSCULAR HEMOGLOBIN 27.7 PG (27.0-34.0); MEAN CORPUSCULAR HGB CONC 30.2 % (32.0-36.0); MONO % 5.8 % (0.0-8.0); NEUT % 87.9 % (16.0-70.0); PLATELET COUNT 289 TH/MM3 (150-450); RED BLOOD COUNT 2.04 MIL/MM3 (4.50-5.90); RED CELL DISTRIBUTION WIDTH 15.1 % (11.6-17.2); WHITE BLOOD COUNT 13.2 TH/MM3 (4.0-11.0)
[2017-03-16 16:30] LABS: HEMATOCRIT 18.7 % (39.0-51.0); HEMO FLAGS DIFF FINAL
--- NOTE | 2017-03-16 16:30 | RADRPT ---
EXAM DATE/TIME: 03/16/2017 15:56 [facility] COMPARISON: No previous studies available for comparison. INDICATIONS : Hematuria for two days, calculi. ORAL CONTRAST: No oral contrast ingested. RADIATION DOSE: 6.71 CTDIvol (mGy) MEDICAL HISTORY : Hyperparathyroidism. Cardiovascular disease SURGICAL HISTORY : None. ENCOUNTER: Initial ACUITY: 1 day PAIN SCALE: 4/10 LOCATION: Bilateral lower quadrant TECHNIQUE: Volumetric scanning of the abdomen and pelvis was performed. Using automated exposure control and ad justment of the mA and/or kV according to patient size, radiation dose was kept as low as reasonably achievable to obtain optimal diagnostic quality images. DICOM format image data is available electro nically for review and comparison. FINDINGS: LOWER LUNGS: The visualized lower lungs are clear. LIVER: Homogeneous density without lesion. There is no dilation of the biliary tree. No calcified gallston es. SPLEEN: Normal size without lesion. PANCREAS: Within normal limits. KIDNEYS: Normal in size and shape. Bilateral hydronephrosis and hydroureter, left worse than right. No renal o r ureteral calculi, however. ADRENAL GLANDS: Within normal limits. VASCULAR: There is no aortic aneurysm. Standard arthroscopic calcification. BOWEL/MESENTERY: The stomach, small bowel, and colon demonstrate no acute abnormality. There is no free intraperitone al air or fluid. ABDOMINAL WALL: Within normal limits. Calcified injection granulomas are seen in the subcutaneous tissues of the butt ocks bilaterally. RETROPERITONEUM: There is no lymphadenopathy. BLADDER: Urinary bladder is markedly distended. Centrally, there is a 9.5 x 8.5 x 12.7 cm soft tissue density in the urinary bladder which may represent a large thrombus although an associated mass lesion cannot be excluded.. REPRODUCTIVE: Within normal limits. INGUINAL: There is no lymphadenopathy or hernia. MUSCULOSKELETAL: Within normal limits for patient age. CONCLUSION: 1. Distention of the urinary bladder with a prominent, 12.7 cm soft tissue density in the bladder lum en. Most of this may represent thrombus although an underlying mass lesion cannot be excluded. Urolog y consult with possible cystoscopy is recommended. 2. Resulting bilateral hydronephrosis, slightly worse on the left. No associated stone disease. Jono Pisano MD on March 16, 2017 at 16:17 Board Certified Radiologist. This report was verified electronically.
[2017-03-16 16:41] LABS: ANION GAP 18 MEQ/L (5-15)
[2017-03-16 16:46] LABS: BICARBONATE 15.9 MEQ/L (21.0-32.0); BLOOD UREA NITROGEN 59 MG/DL (7-18); CHLORIDE 95 MEQ/L (98-107); GLOMERULAR FILTRATION RATE 23 ML/MIN (>89); POTASSIUM 4.7 MEQ/L (3.5-5.1); SODIUM (NA) 129 MEQ/L (136-145)
[2017-03-16 17:14] VITALS: BP 134/62; PULSE 94; RESP 20; O2SAT 99
--- NOTE | 2017-03-16 17:18 | PD ---
HPI Chief Complaint: Complaint Time Seen by Provider: 17:14 Travel History International Travel<30 days: No Contact w/Intl Traveler<30days: No Traveled to known affect area: No History of Present Illness HPI 66-year-old male with PMH of DM, HTN, CAD presents to the ED for evaluation of 2 day history of gross hematuria. He endorses increased urgency and dysuria 1 day. He endorses accompanying nausea with a few episodes of nonbloody vomiting. Patient endorses previous difficulties with starting and stopping his stream but has never had bloody urine before. He endorses dyspnea on exertion. He denies fever, chills, abdominal pain, changes in bowel habits. States he is compliant with home medications. PFSH Past Medical History Asthma: No Autoimmune Disease: No Blood Disorders: No Heart Rhythm Problems: No Cancer: No Cardiovascular Problems: No High Cholesterol: Yes Chest Pain: No Congestive Heart Failure: No COPD: No Coronary Artery Disease: Yes (THINKS HE HAS, TAKES ASA DAILY(NON COMPLIANT)) Diabetes: Yes Patient Takes Glucophage: Yes Diminished Hearing: No Endocrine: No GERD: No Glaucoma: No Genitourinary: No Hepatitis: No Hiatal Hernia: No Hypertension: Yes Immune Disorder: No Musculoskeletal: No Neurologic: No Psychiatric: No Reproductive: No Respiratory: No Sleep Apnea: No Thyroid Disease: No Ulcer: No Past Surgical History AICD: No Genitourinary Surgery: No Pacemaker: No Other Surgery: No Social History Alcohol Use: No Tobacco Use: No Substance Use: No Allergies-Medications (Allergen,Severity, Reaction): Coded Allergies: No Known Allergies (Verified Allergy, Unknown, 03/16/17) Reported Meds & Prescriptions Reported Meds & Active Scripts Active Lantus Inj (Insulin Glargine) 1,000 Unit/10 Ml Vial 30 Units SQ BID 30 Days Reported Alfuzosin ER 24 HR 10 Mg Tab 10 Mg PO DAILY Aspirin EC (Aspirin) 81 Mg Tabdr 81 Mg PO DAILY Atorvastatin (Atorvastatin Calcium) 40 Mg Tab 40 Mg PO HS Jardiance (Empagliflozin) 25 Mg Tab 12.5 Mg PO DAILYAC Lisinopril 10 Mg Tab 10 Mg PO DAILY Review of Systems Except as stated in HPI: all other systems reviewed are Neg Physical Exam Narrative GENERAL: Thin, chronically ill appearing male in no acute distress. SKIN: Focused skin assessment warm/dry. Jaundiced. HEAD: Normocephalic. EYES: No scleral icterus. No injection or drainage. NECK: Supple, trachea midline. No JVD or lymphadenopathy. CARDIOVASCULAR: Regular rate and rhythm without murmurs, gallops, or rubs. RESPIRATORY: Breath sounds clear and equal bilaterally. No accessory muscle use. GASTROINTESTINAL: Abdomen tender in the lower quadrants. Bladder is distended to the level of the umbilicus. Active bowel sounds. MUSCULOSKELETAL: No cyanosis, or edema. BACK: Nontender without obvious deformity. No CVA tenderness. Data Data Last Documented VS Vital Signs Date Time Temp Pulse Resp B/P (MAP) Pulse Ox O2 Delivery O2 Flow Rate FiO2 03/16/17 17:14 94 20 134/62 (86) 99 Room Air 03/16/17 14:21 98.2 Orders Orders Complete Blood Count With Diff (03/16/17 14:39) Basic Metabolic Panel (Bmp) (03/16/17 14:39) Urinalysis - C+S If Indicated (03/16/17 14:39) Ct Abd/Pel W/O Iv Contrast (03/16/17 14:39) Children'S Attendant / Telemetry JAIME.Q8H (03/16/17 17:29) ^ Insert Iv (03/16/17 17:29) Diet Npo (03/16/17 Dinner) Sodium Chlor 0.9% 1000 Ml Inj (Ns 1000 M (03/16/17 17:29) Dext 5%-Nacl 0.9% 1000 Ml Inj (D5w-Ns 10 (03/16/17 17:29) Insulin Human Regular Inj (Novolin R Inj (03/16/17 17:30) Insulin Regular (Iv Infusion) (Novolin R (03/16/17 17:30) Potassium Chlor 40 Meq Premix (Kcl 40 Me (03/16/17 17:30) Potassium Chlor 40 Meq Premix (Kcl 40 Me (03/16/17 17:30) Potassium Chlor 20 Meq Premix (Kcl 20 Me (03/16/17 17:30) Potassium Chlor 20 Meq Premix (Kcl 20 Me (03/16/17 17:30) Potassium Chlor 20 Meq Premix (Kcl 20 Me (03/16/17 17:30) Potassium Chlor 20 Meq Premix (Kcl 20 Me (03/16/17 17:30) Potassium Chlor 20 Meq Premix (Kcl 20 Me (03/16/17 17:30) Potassium Chlor 20 Meq Premix (Kcl 20 Me (03/16/17 17:30) Sodium Bicarbonate 8.4% Inj (Sodium Bica (03/16/17 17:30) Sodium Bicarbonate 8.4% Inj (Sodium Bica (03/16/17 17:30) Sodium Phosphate Inj (Sodium Phosphate I (03/16/17 17:30) Hemoglobin (Hgb) A1c (03/16/17 17:29) Basic Metabolic Panel (Bmp) (03/16/17 22:29) Basic Metabolic Panel (Bmp) (03/17/17 04:29) Basic Metabolic Panel (Bmp) (03/17/17 10:29) Basic Metabolic Panel (Bmp) (03/17/17 16:29) Magnesium (Mg) (03/16/17 22:29) Magnesium (Mg) (03/17/17 04:29) Magnesium (Mg) (03/17/17 10:29) Magnesium (Mg) (03/17/17 16:29) Phosphorus (Po4) (03/16/17 22:29) Phosphorus (Po4) (03/17/17 04:29) Phosphorus (Po4) (03/17/17 10:29) Phosphorus (Po4) (03/17/17 16:29) Beta Hydroxybutyrate (Acetone) (03/17/17 04:29) Beta Hydroxybutyrate (Acetone) (03/17/17 16:29) Urinary Catheter Insert/Apply (03/16/17 17:25) Type And Screen (03/16/17 17:25) Red Blood Cells (Rbc) (03/16/17 17:25) Blood Product Administration (03/16/17 17:25) Sodium Chlor 0.9% 250 Ml Inj (Ns 250 Ml (03/16/17 17:30) Resp Blood Gas Venous (03/16/17 ) Hepatic Functional Panel (03/16/17 17:31) Consult Urology (03/16/17 ) Blood Gas Venous (Vbg) (03/16/17 17:32) Admit Order (Ed Use Only) (03/16/17 17:43) Troponin I (03/16/17 15:50) Labs Laboratory Tests Test 03/16/17 15:15 03/16/17 15:50 03/16/17 17:32 White Blood Count 13.2 TH/MM3 Red Blood Count 2.04 MIL/MM3 Hemoglobin 5.6 GM/DL Hematocrit 18.7 % Mean Corpuscular Volume 91.7 FL Mean Corpuscular Hemoglobin 27.7 PG Mean Corpuscular Hemoglobin Concent 30.2 % Red Cell Distribution Width 15.1 % Platelet Count 289 TH/MM3 Mean Platelet Volume 9.1 FL Neutrophils (%) (Auto) 87.9 % Lymphocytes (%) (Auto) 6.2 % Monocytes (%) (Auto) 5.8 % Eosinophils (%) (Auto) 0.0 % Basophils (%) (Auto) 0.1 % Neutrophils # (Auto) 11.6 TH/MM3 Lymphocytes # (Auto) 0.8 TH/MM3 Monocytes # (Auto) 0.8 TH/MM3 Eosinophils # (Auto) 0.0 TH/MM3 Basophils # (Auto) 0.0 TH/MM3 CBC Comment DIFF FINAL Differential Comment Blood Urea Nitrogen 59 MG/DL Creatinine 2.77 MG/DL Random Glucose 813 MG/DL Calcium Level 8.7 MG/DL Sodium Level 129 MEQ/L Potassium Level 4.7 MEQ/L Chloride Level 95 MEQ/L Carbon Dioxide Level 15.9 MEQ/L Anion Gap 18 MEQ/L Estimat Glomerular Filtration Rate 23 ML/MIN Blood Gas Puncture Site CENTRAL LINE Blood Gas Patient Temperature 98.6 Venous Blood pH 7.32 Venous Blood Partial Pressure CO2 38 mmHg Venous Blood Partial Pressure O2 26 mmHg Venous Blood HCO3 19 mmol/L Venous Blood Oxygen Saturation 33 % Venous Blood Oxygen Content 2.5 Vol % Venous Blood Base Excess -6.1 mmol/L Blood Gas Inspired Oxygen 21 % [facility] Medical Decision Making Medical Screen Exam Complete: Yes Emergency Medical Condition: Yes Differential Diagnosis BPH versus urinary obstruction versus stone versus DKA versus liver failure versus other Narrative Course 66-year-old male with PMH of DM, HTN, CAD presents to the ED for evaluation of 2 day history of gross hematuria. He endorses increased urgency and dysuria 1 day. He endorses accompanying nausea with a few episodes of nonbloody vomiting. He endorses dyspnea on exertion. He denies fever, chills, abdominal pain, changes in bowel habits. States he is compliant with home medications. Patient is tachycardic on presentation. Physical exam reveals a jaundiced, ill- appearing male in no acute distress. Chest CTAB. Abdomen soft, tender in the lower quadrants, bladder distended to the level of umbilicus. Blood glucose 813. IV was established. Insulin drip initiated. Crabtree inserted, chalino hematuria noted. CBC: WBC 13.2 with a left shift. Hemoglobin 5.6. Hematocrit 18.7. CBC: Sodium 129, chloride 95. CO2 15.9. Anion gap 18. BUN 59, creatinine 2.77. VBG: PH 7.32., O2 26. CT abdomen and pelvis: 12.7cm mass in the bladder lumen, question old thrombus versus mass. Resulting bilateral hydronephrosis, left greater than right. Dr. Guajardo spoke with Dr. Meyer who will accept the patient to the ICU. See medicine notes for disposition. Ashly Ovalle Mar 16, 2017 17:18
[2017-03-16] MEDS ORDERED: DEXT 5%-NACL 0.9% 1000 ML INJ 1,000 ML IV SCH (17:29)
[2017-03-16] MEDS ORDERED: INSULIN HUMAN REGULAR 1,000 UNITS/10 ML VIAL IV PUSH ONE (17:30)
[2017-03-16] MEDS ORDERED: SODIUM CHLOR 0.9% 250 ML INJ 250 ML IV ONE (17:30)
[2017-03-16] MEDS ORDERED: POTASSIUM CHLOR 40 MEQ PREMIX 100 ML IV PRN ×2 (17:30)
[2017-03-16] MEDS ORDERED: SODIUM PHOSPHATE INJ 15 MMOL in SODIUM CHLORIDE 0.9% INJ 100 ML IV PRN (17:30)
[2017-03-16] MEDS ORDERED: POTASSIUM CHLOR 20 MEQ PREMIX 100 ML IV PRN ×6 (17:30)
[2017-03-16] MEDS ORDERED: INSULIN REGULAR (IV INFUSION) 100 UNITS in SODIUM CHLORIDE 0.9% INJ 99 ML IV PRN (17:30)
[2017-03-16] MEDS ORDERED: SODIUM BICARBONATE 8.4% SOLN 50 MEQ/50 ML VIAL IV PUSH PRN ×2 (17:30)
--- NOTE | 2017-03-16 17:37 | PD ---
Physical Exam Date Seen by Provider: Mar 16, 2017 Time Seen by Provider: 17:32 Narrative The patient is a 66-year-old male was initially evaluated by the mid-level provider. Please refer to the initial history, physical, diagnostic evaluation , and treatment modality plan. Data Data Last Documented VS Vital Signs Date Time Temp Pulse Resp B/P (MAP) Pulse Ox O2 Delivery O2 Flow Rate FiO2 03/16/17 17:14 94 20 134/62 (86) 99 Room Air 03/16/17 14:21 98.2 Orders Orders Complete Blood Count With Diff (03/16/17 14:39) Basic Metabolic Panel (Bmp) (03/16/17 14:39) Urinalysis - C+S If Indicated (03/16/17 14:39) Ct Abd/Pel W/O Iv Contrast (03/16/17 14:39) Vallez Filter Operator / Telemetry JAIME.Q8H (03/16/17 17:29) ^ Insert Iv (03/16/17 17:29) Diet Npo (03/16/17 Dinner) Sodium Chlor 0.9% 1000 Ml Inj (Ns 1000 M (03/16/17 17:29) Dext 5%-Nacl 0.9% 1000 Ml Inj (D5w-Ns 10 (03/16/17 17:29) Insulin Human Regular Inj (Novolin R Inj (03/16/17 17:30) Insulin Regular (Iv Infusion) (Novolin R (03/16/17 17:30) Potassium Chlor 40 Meq Premix (Kcl 40 Me (03/16/17 17:30) Potassium Chlor 40 Meq Premix (Kcl 40 Me (03/16/17 17:30) Potassium Chlor 20 Meq Premix (Kcl 20 Me (03/16/17 17:30) Potassium Chlor 20 Meq Premix (Kcl 20 Me (03/16/17 17:30) Potassium Chlor 20 Meq Premix (Kcl 20 Me (03/16/17 17:30) Potassium Chlor 20 Meq Premix (Kcl 20 Me (03/16/17 17:30) Potassium Chlor 20 Meq Premix (Kcl 20 Me (03/16/17 17:30) Potassium Chlor 20 Meq Premix (Kcl 20 Me (03/16/17 17:30) Sodium Bicarbonate 8.4% Inj (Sodium Bica (03/16/17 17:30) Sodium Bicarbonate 8.4% Inj (Sodium Bica (03/16/17 17:30) Sodium Phosphate Inj (Sodium Phosphate I (03/16/17 17:30) Hemoglobin (Hgb) A1c (03/16/17 17:29) Basic Metabolic Panel (Bmp) (03/16/17 22:29) Basic Metabolic Panel (Bmp) (03/17/17 04:29) Basic Metabolic Panel (Bmp) (03/17/17 10:29) Basic Metabolic Panel (Bmp) (03/17/17 16:29) Magnesium (Mg) (03/16/17 22:29) Magnesium (Mg) (03/17/17 04:29) Magnesium (Mg) (03/17/17 10:29) Magnesium (Mg) (03/17/17 16:29) Phosphorus (Po4) (03/16/17 22:29) Phosphorus (Po4) (03/17/17 04:29) Phosphorus (Po4) (03/17/17 10:29) Phosphorus (Po4) (03/17/17 16:29) Beta Hydroxybutyrate (Acetone) (03/17/17 04:29) Beta Hydroxybutyrate (Acetone) (03/17/17 16:29) Urinary Catheter Insert/Apply (03/16/17 17:25) Type And Screen (03/16/17 17:25) Red Blood Cells (Rbc) (03/16/17 17:25) Blood Product Administration (03/16/17 17:25) Sodium Chlor 0.9% 250 Ml Inj (Ns 250 Ml (03/16/17 17:30) Resp Blood Gas Venous (03/16/17 ) Hepatic Functional Panel (03/16/17 17:31) Consult Urology (03/16/17 ) Blood Gas Venous (Vbg) (03/16/17 17:32) Admit Order (Ed Use Only) (03/16/17 17:43) Admit To Inpatient (03/16/17 ) Code Status (03/16/17 17:42) Vital Signs (Adult) JAIME.Q1H (03/16/17 17:42) Activity Bed Rest (03/16/17 17:42) Elevate Head Of Bed (03/16/17 17:42) Neuro Checks . ORDERED (03/16/17 17:42) Intake + Output Q1H (03/16/17 17:42) Sodium Chloride 0.9% Flush (Ns Flush) (03/16/17 17:45) Sodium Chloride 0.9% Flush (Ns Flush) (03/16/17 21:00) Acetaminophen (Tylenol) (03/16/17 17:45) Acetamin-Hydrocod 325-5 Mg ([place] 5-325 (03/16/17 17:45) Morphine Inj (Morphine Inj) (03/16/17 17:45) Pantoprazole (Protonix) (03/17/17 09:00) Ondansetron Inj (Zofran Inj) (03/16/17 17:45) Complete Blood Count With Diff (03/17/17 04:00) Comprehensive Metabolic Panel (03/17/17 04:00) Magnesium (Mg) (03/17/17 04:00) Phosphorus (Po4) (03/17/17 04:00) Resp Incentive Spirometry (03/16/17 ) Resp Oxygen Samuel C Titrat 1-4 L (03/16/17 ) Vallez Filter Operator / Telemetry JAIME.Q8H (03/16/17 17:42) Scd Bilateral/Knee High JAIME.BID (03/16/17 17:42) Pharmacologic Contraindication (03/16/17 17:42) ^ Initiate Protocol (03/16/17 17:42) Instruction (03/16/17 17:42) [facility] Nursing Information (03/16/17 17:45) Chlorhexidine 2% Cloth (Chlorhexidine 2% (03/17/17 04:00) Chlorhexidine 2% Cloth (Chlorhexidine 2% (03/16/17 17:45) Mrsa Pcr Surveillance (03/16/17 17:42) Docusate Sodium-Senna (Debbie-Colace) (03/16/17 21:00) Magnesium Hydroxide Liq (Milk Of Magnesi (03/16/17 17:45) Sennosides (Senokot) (03/16/17 17:45) Bisacodyl Supp (Dulcolax Supp) (03/16/17 17:45) Lactulose Liq (Lactulose Liq) (03/16/17 17:45) Inpatient Certification (03/16/17 ) Magnesium (Mg) (03/16/17 17:46) Phosphorus (Po4) (03/16/17 17:46) Troponin I (03/16/17 17:46) Creatine Kinase (Cpk) (03/16/17 17:46) Thyroid Stimulating Hormone (03/16/17 17:46) Sodium, Random Urine (03/16/17 17:46) Creatinine, Random Urine (03/16/17 17:46) Urine For Eosinophils (03/16/17 17:46) Act Partial Throm Time (Ptt) (03/16/17 17:47) Fibrinogen (03/16/17 17:47) Prothrombin Time / Inr (Pt) (03/16/17 17:47) Labs Laboratory Tests Test 03/16/17 15:15 03/16/17 15:50 03/16/17 17:32 White Blood Count 13.2 TH/MM3 Red Blood Count 2.04 MIL/MM3 Hemoglobin 5.6 GM/DL Hematocrit 18.7 % Mean Corpuscular Volume 91.7 FL Mean Corpuscular Hemoglobin 27.7 PG Mean Corpuscular Hemoglobin Concent 30.2 % Red Cell Distribution Width 15.1 % Platelet Count 289 TH/MM3 Mean Platelet Volume 9.1 FL Neutrophils (%) (Auto) 87.9 % Lymphocytes (%) (Auto) 6.2 % Monocytes (%) (Auto) 5.8 % Eosinophils (%) (Auto) 0.0 % Basophils (%) (Auto) 0.1 % Neutrophils # (Auto) 11.6 TH/MM3 Lymphocytes # (Auto) 0.8 TH/MM3 Monocytes # (Auto) 0.8 TH/MM3 Eosinophils # (Auto) 0.0 TH/MM3 Basophils # (Auto) 0.0 TH/MM3 CBC Comment DIFF FINAL Differential Comment Blood Urea Nitrogen 59 MG/DL Creatinine 2.77 MG/DL Random Glucose 813 MG/DL Calcium Level 8.7 MG/DL Sodium Level 129 MEQ/L Potassium Level 4.7 MEQ/L Chloride Level 95 MEQ/L Carbon Dioxide Level 15.9 MEQ/L Anion Gap 18 MEQ/L Estimat Glomerular Filtration Rate 23 ML/MIN Blood Gas Puncture Site CENTRAL LINE Blood Gas Patient Temperature 98.6 Venous Blood pH 7.32 Venous Blood Partial Pressure CO2 38 mmHg Venous Blood Partial Pressure O2 26 mmHg Venous Blood HCO3 19 mmol/L Venous Blood Oxygen Saturation 33 % Venous Blood Oxygen Content 2.5 Vol % Venous Blood Base Excess -6.1 mmol/L Blood Gas Inspired Oxygen 21 % MDM Medical Record Reviewed: Yes Supervised Visit with GRACIE: Yes Interpretation(s) EKG reveals normal sinus rhythm with a rate in 90. No ischemic changes or ectopy noted. Laboratory Tests Test 03/16/17 15:15 03/16/17 15:50 White Blood Count 13.2 TH/MM3 Red Blood Count 2.04 MIL/MM3 Hemoglobin 5.6 GM/DL Hematocrit 18.7 % Mean Corpuscular Volume 91.7 FL Mean Corpuscular Hemoglobin 27.7 PG Mean Corpuscular Hemoglobin Concent 30.2 % Red Cell Distribution Width 15.1 % Platelet Count 289 TH/MM3 Mean Platelet Volume 9.1 FL Neutrophils (%) (Auto) 87.9 % Lymphocytes (%) (Auto) 6.2 % Monocytes (%) (Auto) 5.8 % Eosinophils (%) (Auto) 0.0 % Basophils (%) (Auto) 0.1 % Neutrophils # (Auto) 11.6 TH/MM3 Lymphocytes # (Auto) 0.8 TH/MM3 Monocytes # (Auto) 0.8 TH/MM3 Eosinophils # (Auto) 0.0 TH/MM3 Basophils # (Auto) 0.0 TH/MM3 CBC Comment DIFF FINAL Differential Comment Blood Urea Nitrogen 59 MG/DL Creatinine 2.77 MG/DL Random Glucose 813 MG/DL Calcium Level 8.7 MG/DL Sodium Level 129 MEQ/L Potassium Level 4.7 MEQ/L Chloride Level 95 MEQ/L Carbon Dioxide Level 15.9 MEQ/L Anion Gap 18 MEQ/L Estimat Glomerular Filtration Rate 23 ML/MIN Differential Diagnosis Differential diagnosis includes DKA, hyperglycemia, dehydration, acute renal failure, left-sided abnormality, symptomatically anemia, bladder cancer, UTI, hemorrhagic cystitis, GI bleed. Narrative Course I, Dr. Guajardo, have reviewed the advance practice practitioner's documentation and am in agreement, met with the patient face to face, made the diagnosis, and the medical decision making was done by me. *My assessment and Findings: The patient is a 66-year-old male who appears his stated age and is in no acute respiratory distress. The patient was initially evaluated by the mid-level provider, please refer to the initial history, physical, diagnostic evaluation, treatment modality plan. Patient was evaluated , he did appear to have pale conjunctiva, slight jaundice light complexion to the skin. The patient was noted to have gross hematuria, CT revealed an enlarged bladder with possible bladder mass, most likely hematuria is related to bladder mass and/or carcinoma. UA was sent to lab for analysis. The patient 's blood sugar was noted be elevated and 1800s, anion gap is elevated at 18, therefore, the patient was administered insulin and placed on an insulin drip. VBG was obtained. A guaiac exam was performed, there is no gross blood, was guaiac negative. The patient may have symptomatic anemia secondary to bladder mass and hematuria. The patient has been placed on insulin drip, will be transfused 2 units of blood, therefore, will be admitted to the intensive care unit. A call was placed to the on-call post office clerk at 5:35 PM. Critical Care Narrative Aggregate critical care time was 40 minutes. Time to perform other separately billable procedures was not included in the critical care time. My time did not include minutes spent treating any other patients simultaneously or on activities that did not directly contribute to the patient's treatment. The services I provided to this patient were to treat and/or prevent clinically significant deterioration that could result in: Hemorrhagic shock, hypotension, diabetic, electrolyte abnormality, arrhythmia. I provided critical care services requiring my management, as noted below: Chart data review, documentation time, medication orders and management, vital sign assessments/reviewing monitor data, ordering and reviewing lab tests, ordering and interpreting/reviewing x-rays and diagnostic studies, care of the patient and discussion of the patient with the admitting physicians. HemaPrompt Test Point of Care Internal Pos. & Neg. Controls: Passed Fecal Specimen Occult Blood: Negative Physician Communication Physician Communication The on-call post office clerk was paged for admission. Diagnosis Primary Impression: Diabetic ketoacidosis Qualified Codes: E13.10 - Other specified diabetes mellitus with ketoacidosis without coma Additional Impressions: Symptomatic anemia Gross hematuria Admitting Information Admitting Physician Requests: Admit Condition: Serious Ulices Guajardo MD Mar 16, 2017 17:37
[2017-03-16 17:44] LABS: BLOOD GAS VENOUS BASE EXCESS -6.1 mmol/L (-2-2); BLOOD GAS VENOUS HCO3 19 mmol/L (22-26); BLOOD GAS VENOUS O2 CONTENT 2.5 Vol % (9.0-17.0); BLOOD GAS VENOUS O2 HGB SAT 33 % (70-76); BLOOD GAS VENOUS PCO2 38 mmHg (44-48); BLOOD GAS VENOUS PO2 26 mmHg (35-40); BLOOD GAS VENOUS pH 7.32 (7.360-7.400); TEMP CORR TO 98.6
[2017-03-16 17:45] LABS: CRITICAL VALUE YES; DRAW SITE CENTRAL LINE; FIO2 21 %; STAT YES
[2017-03-16] MEDS ORDERED: MAGNESIUM HYDROXIDE SUSP 30 ML CUP PO PRN (17:45)
[2017-03-16] MEDS ORDERED: SODIUM CHLORIDE 0.9% FLUSH 10 ML FLUSH IV FLUSH PRN (17:45)
[2017-03-16] MEDS ORDERED: MISCELLANEOUS NURSING INFORMATION XX SCH (17:45)
[2017-03-16] MEDS ORDERED: LACTULOSE SYRUP 20 GM/30 ML CUP PO PRN (17:45)
[2017-03-16] MEDS ORDERED: CHLORHEXIDINE GLUCONATE 2 % 1 PACK (2 CLOTHS) TOP PRN (17:45)
[2017-03-16] MEDS ORDERED: ACETAMINOPHEN 325 MG TAB PO PRN (17:45)
[2017-03-16] MEDS ORDERED: SENNOSIDES 8.6 MG TAB PO PRN (17:45)
[2017-03-16] MEDS ORDERED: ONDANSETRON HCL 4 MG/2 ML VIAL IV PUSH PRN (17:45)
[2017-03-16] MEDS ORDERED: BISACODYL 10 MG SUPP RECTAL PRN (17:45)
--- NOTE | 2017-03-16 17:52 | HHI.HP ---
[facility] Service Critical Care Medicine Primary Care Physician [facility] Admission Diagnosis DKA, symptomatic anemia, gross hematuria rule out bladder carcinoma Diagnosis: (1) Dyslipidemia Diagnosis: Secondary (2) BPH (benign prostatic hyperplasia) Diagnosis: Principal (3) Hydronephrosis Diagnosis: Principal (4) Bladder mass Diagnosis: Principal (5) Acute kidney injury Diagnosis: Principal (6) Leukocytosis Diagnosis: Principal (7) Gross hematuria Diagnosis: Principal (8) Symptomatic anemia Diagnosis: Principal (9) Diabetic ketoacidosis Diagnosis: Principal (10) Hyperglycemia Diagnosis: Principal (11) Hypertension Diagnosis: Secondary Chief Complaint: Generalized weakness/malaise. 2-3 day of history of gross hematuria. Travel History International Travel<30 Days: No Contact w/Intl Traveler <30 Da: No Traveled to Known Affected Are: No History of Present Illness This is a 66-year-old gentleman. Date of admission 03/16/2017.. Past medical history includes diabetes mellitus, hypertension, dyslipidemia, benign prostatic hypertrophy. Patient has a prior history of admission for diabetic ketoacidosis 10/2016. Patient presents to [place] ED with his 96-year-old father with whom he lives with with malaise, weakness. He is currently on room air. He does not know if hetook his scheduled detemir today. Baseline laboratories reveal an elevated blood sugar 813. History was then transferred from triage toc26. He is also states he has a 2-3 history of bright red blood with urination. CT abdomen/culture revealed at 12.7 cm bladder mass with bilateral hydronephrosis. Hemoglobin is 5.6. Coags currently pending. Liver function tests correlate planning. He has been typed and cross 40s. Seasonal be transfused 2 units. Crabtree catheter has been placed with gross hematuria. Will do generalized flushing to maintain patency. Urology be consulted. We are asked to admit to the ICU. Patient was given 7 units IV insulin is currently on insulin drip per DKA protocol. Review of Systems Constitutional: COMPLAINS OF: Fatigue, Weight loss, DENIES: Fever, Weight gain Endocrine: DENIES: Polydipsia, Polyuria Eyes: DENIES: Blurred vision Ears, nose, mouth, throat: DENIES: Tinnitus Respiratory: DENIES: Apneas Cardiovascular: DENIES: Chest pain Gastrointestinal: DENIES: Abdominal pain, Nausea, Vomiting Genitourinary: COMPLAINS OF: Urgency, Hematuria, DENIES: Urinary incontinence, Dysuria Musculoskeletal: DENIES: Joint pain Integumentary: DENIES: Abnormal pigmentation Hematologic/lymphatic: DENIES: Bruising Immunologic/allergic: DENIES: Eczema Neurologic: DENIES: Abnormal gait, Headache Psychiatric: COMPLAINS OF: Confusion, DENIES: Anxiety, Depression Past Family Social History Allergies: Coded Allergies: No Known Allergies (Verified Allergy, Unknown, 03/16/17) Past Medical History BPH Hypertension Dyslipidemia Diabetes mellitus Past Surgical History Appendix T&A Reported Medications Alfuzosin ER 24 HR 10 Mg Tab 10 Mg PO DAILY Aspirin EC (Aspirin) 81 Mg Tabdr 81 Mg PO DAILY Atorvastatin (Atorvastatin Calcium) 40 Mg Tab 40 Mg PO HS Jardiance (Empagliflozin) 25 Mg Tab 12.5 Mg PO DAILYAC Lisinopril 10 Mg Tab 10 Mg PO DAILY Active Ordered Medications Reviewed in EMR Family History Father is alive at age 96. Mother from Alzheimer's at age 80 Social History Quit tobacco 3 years ago. One fifth pack per day 40 years. Denies alcohol or illicit drug use. Physical Exam Vital Signs Vital Signs Date Time Temp Pulse Resp B/P (MAP) Pulse Ox O2 Delivery O2 Flow Rate FiO2 03/16/17 17:14 94 20 134/62 (86) 99 Room Air 03/16/17 14:21 98.2 112 12 110/56 (74) 100 Physical Exam GENERAL: 66-year-old male, currently resting in bed in no acute distress SKIN: Warm and dry. Well perfused. No rash HEAD: Atraumatic. Normocephalic. EYES: Pupils equal and round about 2 mm bilaterally and reactive. No scleral icterus. No injection or drainage. ENT: No nasal bleeding or discharge. Mucous membranes pink and moist. NECK: Trachea midline. No JVD. CARDIOVASCULAR: Regular rate and rhythm. S1, S2 no S4. No murmur RESPIRATORY: Clear to auscultation. Breath sounds equal bilaterally. GASTROINTESTINAL: Abdomen soft, non-tender, nondistended. Hypoactive bowel sounds are appreciated : Crabtree catheter in place with gross hematuria MUSCULOSKELETAL: Extremities without noted in peripheral edema. No obvious deformities. NEUROLOGICAL: Awake and alert. No obvious cranial nerve deficits. Motor grossly within normal limits. Five out of 5 muscle strength in the arms and legs. Normal speech. Laboratory Laboratory Tests Test 03/16/17 15:15 03/16/17 15:50 03/16/17 17:32 White Blood Count 13.2 Red Blood Count 2.04 Hemoglobin 5.6 Hematocrit 18.7 Mean Corpuscular Volume 91.7 Mean Corpuscular Hemoglobin 27.7 Mean Corpuscular Hemoglobin Concent 30.2 Red Cell Distribution Width 15.1 Platelet Count 289 Mean Platelet Volume 9.1 Neutrophils (%) (Auto) 87.9 Lymphocytes (%) (Auto) 6.2 Monocytes (%) (Auto) 5.8 Eosinophils (%) (Auto) 0.0 Basophils (%) (Auto) 0.1 Neutrophils # (Auto) 11.6 Lymphocytes # (Auto) 0.8 Monocytes # (Auto) 0.8 Eosinophils # (Auto) 0.0 Basophils # (Auto) 0.0 CBC Comment DIFF FINAL Differential Comment Blood Urea Nitrogen 59 Creatinine 2.77 Random Glucose 813 Calcium Level 8.7 Sodium Level 129 Potassium Level 4.7 Chloride Level 95 Carbon Dioxide Level 15.9 Anion Gap 18 Estimat Glomerular Filtration Rate 23 Blood Gas Puncture Site CENTRAL LINE Blood Gas Patient Temperature 98.6 Venous Blood pH 7.32 Venous Blood Partial Pressure CO2 38 Venous Blood Partial Pressure O2 26 Venous Blood HCO3 19 Venous Blood Oxygen Saturation 33 Venous Blood Oxygen Content 2.5 Venous Blood Base Excess -6.1 Blood Gas Inspired Oxygen 21 Result Diagram: 03/16/17 1550 03/16/17 1550 Imaging Last Impressions Abdomen/Pelvis CT 03/16/17 1439 Signed Impressions: Service Date/Time: March 15:56 - CONCLUSION: 1. Distention of the urinary bladder with a prominent, 12.7 cm soft tissue density in the bladder lumen. Most of this may represent thrombus although an underlying mass lesion cannot be excluded. Urology consult with possible cystoscopy is recommended. 2. Resulting bilateral hydronephrosis, slightly worse on the left. No associated stone disease. MD Dolores العراقي VTE Risk Assessment Caprini VTE Risk Assessment: Mod/High Risk (score >= 2) VTE Pharm Contraindication: Hemorrhage Caprini Risk Assessment Model Point Value = 1 Point Value = 2 Point Value = 3 Point Value = 5 Age 41-60 Minor surgery BMI > 25 kg/m2 Swollen legs Varicose veins or History of unexplained or recurrent spontaneous Oral contraceptives or hormone replacement Sepsis (< 1 month) Serious lung disease, including pneumonia (< 1 month) Abnormal pulmonary function Acute myocardial infarction Congestive heart failure (< 1 month) History of inflammatory bowel disease Medical patient at bed rest Age 61-74 Arthroscopic surgery Major open surgery (> 45 min) Laparoscopic surgery (> 45 min) Malignancy Confined to bed (> 72 hours) Immobilizing plaster cast Central venous access Age >= 75 History of VTE Family history of VTE Factor V Leiden Prothrombin [id number] Lupus anticoagulant Anticardiolipin antibodies Elevated serum homocysteine Heparin-induced thrombocytopenia Other congenital or acquired thrombophilia Stroke (< 1 month) Elective arthroplasty Hip, pelvis, or leg fracture Acute spinal cord injury (< 1 month) Prophylaxis Regimen Total Risk Factor Score Risk Level Prophylaxis Regimen 0-1 Low Early ambulation 2 Moderate Order ONE of the following: *Sequential Compression Device (SCD) *Heparin 5000 units SQ BID 3-4 Higher Order ONE of the following medications: *Heparin 5000 units SQ TID *Enoxaparin/Lovenox 40 mg SQ daily (WT < 150 kg, CrCl > 30 mL/min) *Enoxaparin/Lovenox 30 mg SQ daily (WT < 150 kg, CrCl > 10-29 mL/min) *Enoxaparin/Lovenox 30 mg SQ BID (WT < 150 kg, CrCl > 30 mL/min) AND/OR *Sequential Compression Device (SCD) 5 or more Highest Order ONE of the following medications: *Heparin 5000 units SQ TID (Preferred with Epidurals) *Enoxaparin/Lovenox 40 mg SQ daily (WT < 150 kg, CrCl > 30 mL/min) *Enoxaparin/Lovenox 30 mg SQ daily (WT < 150 kg, CrCl > 10-29 mL/min) *Enoxaparin/Lovenox 30 mg SQ BID (WT < 150 kg, CrCl > 30 mL/min) AND *Sequential Compression Device (SCD) Assessment and Plan Assessment and Plan Neuro/Psych: Acetaminophen for fever [place]/morphine for pain management CV: History of hypertension History dyslipidemia Currently on normal saline at 250 cc an hour per DKA protocol Holding lisinopril 10 mill grams by mouth daily light of acute kidney injury Holding atorvastatin 40 mg by mouth daily. Awake liver functions. Resume when clinically indicated Holding aspirin 81 mg by mouth daily light of gross hematuria Resp: History of tobaccoism Nasal cannula to maintain saturations greater than equal to 90% Incentive spirometry while awake As needed albuterol aerosols every 2 hours for dyspnea GI: Patient is currently nothing by mouth Pantoprazole for GI prophylaxis Docusate sodium/senna for bowel regimen Guaiac-negative in ED : BPH Gross hematuria 12.[address] abdomen/pelvis revealed a 12.7 centimeter bladder mass. Possible thrombus but rule out mass with cystoscopy recommended Crabtree catheter is in place. Intermittent flushing Urology consultation for likely cystoscopy Holding home medication alfuzosin 10 mill grams daily Endo: DKA History diabetes Received 5 units insulin bolus and currently an insulin drip Every 1 hour MBS BMP 6 hours with magnesium/phosphorus every 12 hours Holding home medication insulin detemir 30 units twice a day and Ertugliflozin 12.5 mg before meals Multiple laboratory still pending including lipase, blood cultures 2 with troponin. Renal: Acute kidney injury Monitor urine output Accurate I's and O's Maintain Crabtree catheter BMPs every 6 hours and monitor creatinine Heme: Leukocytosis Normocytic anemia Typed and crossed 2 units PRBCs Source of bleeding likely hematuria Hemoccult negative. Check iron studies. ID: Monitor for infection Blood cultures 2, UA currently pending FEN: Replace electrolytes as clinically indicated. Unable to use ICU electrolyte protocol secondary to creatinine 2.77 MSK: Physical therapy evaluate and treat Access - Utilize peripheral IV. Central line if indicated. Prophylaxis - GI -pantoprazole - DVT - SCD/holding pharmacological prophylaxis in light of gross hematuria Critical Care: The total critical care time was 35 minutes. Time to perform other separately billable procedures was not included in the critical care time. Code Status Full code Discussed Condition With Dr. Guajardo. ED physician. Patient. Care plan discussed and all questions answered. Problem Qualifiers (1) BPH (benign prostatic hyperplasia): Qualified Codes: N40.1 - Benign prostatic hyperplasia with lower urinary tract symptoms; R35.0 - Frequency of micturition (2) Hydronephrosis: Qualified Codes: N13.30 - Unspecified hydronephrosis (3) Leukocytosis: Qualified Codes: D72.829 - Elevated white blood cell count, unspecified (4) Diabetic ketoacidosis: Qualified Codes: E13.10 - Other specified diabetes mellitus with ketoacidosis without coma (5) Hypertension: Qualified Codes: I10 - Essential (primary) hypertension Austin Meyer MD Mar 16, 2017 17:52
[2017-03-16] MEDS: SODIUM CHLOR 0.9% 1000 ML INJ 1,000 ML IV SCH ×2 (18:28→23:07)
[2017-03-16 18:35] VITALS: BP 138/64; PULSE 103; RESP 20; O2SAT 100
[2017-03-16 19:33] LABS: APTT (PATIENT) 26.6 SEC (24.3-30.1); PROTHROMBIN TIME - PATIENT 10.7 SEC (9.8-11.6)
[2017-03-16 20:00] VITALS: PULSE 106; PULSE 108; RESP 30; TEMP 97.8; O2SAT 100
[2017-03-16] MEDS: MORPHINE SULFATE 2 MG/ML INJ IV PUSH PRN (20:27)
[2017-03-16] MEDS: DOCUSATE SODIUM 50 MG/SENNA 8.6 MG TAB PO SCH (20:27)
[2017-03-16 20:48] LABS: MAGNESIUM 2.2 MG/DL (1.5-2.5)
[2017-03-16 20:51] LABS: CREATINE KINASE 172 U/L (39-308)
[2017-03-16 21:00] VITALS: BP 125/61; PULSE 96; RESP 21; TEMP 98.1; O2SAT 100
[2017-03-16 21:38] LABS: INDIRECT BILIRUBIN 0.2 MG/DL (0.0-0.8); TOTAL BILIRUBIN ADULT 0.3 MG/DL (0.2-1.0)
[2017-03-16 22:00] VITALS: PULSE 86
[2017-03-16 23:50] LABS: BLOOD, URINE LARGE (NEG); GLUCOSE,URINE 1000 mg/dL (NEG); KETONE, URINE 10 mg/dL (NEG); NITRITE,URINE NEG (NEG)
[2017-03-16 23:51] LABS: COMMENT (UR) CULTURE INDICATED; CULTURE IF INDICATED CULTURE INDICATED; URINE COLOR DARK-RED (YELLW/STRAW)
[2017-03-17] VITALS (20 sets, daily range): BP systolic 89–170; BP diastolic 51–78; PULSE 75–107; RESP 14–25; TEMP 97.8–98.6; O2SAT 95–100
[2017-03-17] MEDS: MORPHINE SULFATE 2 MG/ML INJ IV PUSH PRN ×3 (00:40→09:53)
[2017-03-17 02:55] LABS: ANION GAP 12 MEQ/L (5-15); BICARBONATE 20.6 MEQ/L (21.0-32.0); BLOOD UREA NITROGEN 60 MG/DL (7-18); CHLORIDE 106 MEQ/L (98-107); GLOMERULAR FILTRATION RATE 22 ML/MIN (>89); MAGNESIUM 2.1 MG/DL (1.5-2.5); POTASSIUM 3.8 MEQ/L (3.5-5.1); SODIUM (NA) 139 MEQ/L (136-145); TRANSFERRIN IRON PROFILE 200 MG/DL (200-360)
[2017-03-17] MEDS ORDERED: DEXTROSE 50% IN WATER 50 ML VIAL(D50) IV PUSH PRN ×2 (03:45→05:15)
[2017-03-17] MEDS ORDERED: INSULIN REGULAR (IV INFUSION) 100 UNITS in SODIUM CHLORIDE 0.9% INJ 99 ML IV PRN (03:45)
[2017-03-17] MEDS ORDERED: MISC INFORMATION OTHER ONE (03:45)
[2017-03-17] MEDS: DEXT 5%-NACL 0.45% 1000 ML INJ 1,000 ML IV SCH ×2 (03:48→10:21)
[2017-03-17] MEDS: CHLORHEXIDINE GLUCONATE 2 % 1 PACK (2 CLOTHS) TOP SCH (04:00)
[2017-03-17] MEDS: SODIUM CHLORIDE 0.9% FLUSH 10 ML FLUSH IV FLUSH SCH ×3 (04:14→21:01)
[2017-03-17] MEDS ORDERED: GLUCAGON 1 MG/ML VIAL OTHER PRN (05:15)
[2017-03-17] MEDS: INSULIN ASPART SUPPLEMENTAL SCALE SQ SCH ×6 (05:15→23:35)
--- NOTE | 2017-03-17 08:37 | HHI.CCPN ---
Subjective Remarks/Hospital Course This is a 66-year-old gentleman. Date of admission 03/16/2017.. Past medical history includes diabetes mellitus, hypertension, dyslipidemia, benign prostatic hypertrophy. Patient has a prior history of admission for diabetic ketoacidosis 10/2016. Patient presents to [place] ED with his 96-year-old father with whom he lives with with malaise, weakness. He is currently on room air. He does not know if hetook his scheduled detemir today. Baseline laboratories reveal an elevated blood sugar 813. History was then transferred from triage to c26. He is also states he has a 2-3 history of bright red blood with urination. CT abdomen/culture revealed at 12.7 cm bladder mass with bilateral hydronephrosis. Hemoglobin is 5.6. Coags currently pending. Liver function tests correlate planning. He has been typed and cross 40s. Seasonal be transfused 2 units. Crabtree catheter has been placed with gross hematuria. Will do generalized flushing to maintain patency. Urology be consulted. We are asked to admit to the ICU. Patient was given 7 units IV insulin is currently on insulin drip per DKA protocol. Subjective 03/17: Currently on continuous bladder irrigations. This has clotted off a couple of times. Hemoglobin still not drawn. Was transfused 2 units eventually last night. Hemodynamically stable. BMs are brown. Objective Vital Signs Date Time Temp Pulse Resp B/P (MAP) Pulse Ox O2 Delivery O2 Flow Rate FiO2 03/17/17 08:14 99 21 03/17/17 06:00 93 03/17/17 04:00 98.1 24 133/78 (96) 03/16/17 18:35 Room Air Intake and Output 03/17/17 03/17/17 03/18/17 08:00 16:00 00:00 Intake Total 3430 ml Output Total 6200 ml Balance -2770 ml Result Diagram: 03/16/17 1550 03/17/17 0124 Other Results Microbiology Date/Time Source Procedure Growth Status 03/16/17 18:50 Blood Peripheral Aerobic Blood Culture Pending Received 03/16/17 18:50 Blood Peripheral Anaerobic Blood Culture Pending Received 03/16/17 23:10 Urine Clean Catch Urine Culture Pending Received Imaging Last 72 hours Impressions Abdomen/Pelvis CT 03/16/17 7489 Signed Impressions: Service Date/Time: March 15:56 - CONCLUSION: 1. Distention of the urinary bladder with a prominent, 12.7 cm soft tissue density in the bladder lumen. Most of this may represent thrombus although an underlying mass lesion cannot be excluded. Urology consult with possible cystoscopy is recommended. 2. Resulting bilateral hydronephrosis, slightly worse on the left. No associated stone disease. Jono Pisano MD Objective Remarks GENERAL: 66-year-old male, currently resting in bed in no acute distress SKIN: Warm and dry. Well perfused. No rash HEAD: Atraumatic. Normocephalic. EYES: Pupils equal and round about 2 mm bilaterally and reactive. No scleral icterus. No injection or drainage. ENT: No nasal bleeding or discharge. Mucous membranes pink and moist. NECK: Trachea midline. No JVD. CARDIOVASCULAR: Regular rate and rhythm. S1, S2 no S4. No murmur RESPIRATORY: Clear to auscultation. Breath sounds equal bilaterally. GASTROINTESTINAL: Abdomen is slightly distended. Tender to palpation suprapubically. Normal bowel sounds. : Crabtree catheter in place with gross hematuria MUSCULOSKELETAL: Extremities without noted in peripheral edema. No obvious deformities. NEUROLOGICAL: Awake and alert. No obvious cranial nerve deficits. Motor grossly within normal limits. Five out of 5 muscle strength in the arms and legs. Normal speech. A/P Assessment and Plan Neuro/Psych: Acetaminophen for fever [place]/morphine for pain management CV: History of hypertension History dyslipidemia Currently on D5 1 half normal saline at 150 cc an hour Holding lisinopril 10 mill grams by mouth daily light of acute kidney injury Holding atorvastatin 40 mg by mouth daily. Awake liver functions. Resume when clinically indicated Holding aspirin 81 mg by mouth daily light of gross hematuria Resp: History of tobaccoism Nasal cannula to maintain saturations greater than equal to 90% Incentive spirometry while awake As needed albuterol aerosols every 2 hours for dyspnea GI: Patient is currently nothing by mouth. Okay for clear liquids/juices Pantoprazole for GI prophylaxis Docusate sodium/senna for bowel regimen Guaiac-negative in ED : BPH Gross hematuria 12.7 cm bladder mass 03/16 - CT abdomen/pelvis - Urinary bladder is markedly distended. Centrally, there is a 9.5 x 8.5 x 12.7 cm soft tissue density in the urinary bladder which may represent a large thrombus although an associated mass lesion cannot be excluded.. Crabtree catheter is in place. CBI Urology consultation for likely cystoscopy Holding home medication alfuzosin 10 mill grams daily Endo: DKA History diabetes Received 5 units insulin bolus and initially started on insulin drip Currently on Novulog low-dose Accu-Cheks every 4 hours BMP 6 hours with magnesium/phosphorus every 12 hours to be discontinued once laboratories actually are drawn. Holding home medication insulin detemir 30 units twice a day and Ertugliflozin 12.5 mg before meals Multiple laboratory this a.m. still pending Renal: Acute kidney injury likely obstructive Monitor urine output Accurate I's and O's Maintain Crabtree catheter Heme: Leukocytosis Normocytic anemia Typed and crossed 2 units PRBCs. These were transfuse her repeat hemoglobin not done. Hemoglobin at midnight not done. Hemoglobin at 4 AM not done. Hemoglobin ordered at 7 AM not done. Ordered for the fourth time at 846. Source of bleeding likely hematuria Hemoccult negative. Check iron studies. ID: Cefazolin 500 mg IV every 12 hours/renal dosage Monitor for infection Blood cultures 2, UA currently pending FEN: Replace electrolytes as clinically indicated. Unable to use ICU electrolyte protocol secondary to creatinine 2.9 MSK: Physical therapy evaluate and treat Access - Utilize peripheral IV. Central line if indicated. Prophylaxis - GI -pantoprazole - DVT - SCD/holding pharmacological prophylaxis in light of gross hematuria Critical Care: The total critical care time was 35 minutes. Time to perform other separately billable procedures was not included in the critical care time. Austin Meyer MD Mar 17, 2017 08:37
[2017-03-17] MEDS: PANTOPRAZOLE SOD 40 MG DELAYED RELEASE TAB PO SCH (09:52)
[2017-03-17] MEDS: DOCUSATE SODIUM 50 MG/SENNA 8.6 MG TAB PO SCH ×2 (09:52→21:01)
--- NOTE | 2017-03-17 10:04 | RADRPT ---
EXAM DATE/TIME: 03/17/2017 09:34 [facility] COMPARISON: CHEST SINGLE AP, October 30, 2016, 21:18. INDICATIONS : Shortness of breath. MEDICAL HISTORY : Hyperparathyroidism. Cardiovascular disease SURGICAL HISTORY : None. ENCOUNTER: Initial ACUITY: 1 day PAIN SCORE: 0/10 LOCATION: Bilateral chest FINDINGS: Moderate hyperinflation is evident. There is no failure or infiltrate. The cardiomediastinal contou rs are unremarkable. Osseous structures are intact. CONCLUSION: Stable with moderate hyperinflation.. Marquez Menjivar MD FACR on March 17, 2017 at 10:03 Board Certified Radiologist. This report was verified electronically.
[2017-03-17 11:30] LABS: AUTOMATED NEUTROPHIL # 10.8 TH/MM3 (1.8-7.7); BASOPHIL % 0.1 % (0.0-2.0); EOSINOPHIL % 0.1 % (0.0-4.0); HEMATOCRIT 27.7 % (39.0-51.0); HEMO FLAGS DIFF FINAL; LYMPH % 8.3 % (9.0-44.0); LYMPHOCYTE # 1.1 TH/MM3 (1.0-4.8); MEAN CELL VOLUME 86.5 FL (80.0-100.0); MEAN CORPUSCULAR HEMOGLOBIN 29.9 PG (27.0-34.0); MEAN CORPUSCULAR HGB CONC 34.5 % (32.0-36.0); MONO % 7.1 % (0.0-8.0); NEUT % 84.4 % (16.0-70.0); PLATELET COUNT 175 TH/MM3 (150-450); RED CELL DISTRIBUTION WIDTH 14.6 % (11.6-17.2); WHITE BLOOD COUNT 12.8 TH/MM3 (4.0-11.0)
[2017-03-17] MEDS ORDERED: PHENYLEPH/NS 1000 MCG/10 ML SYR IV ONE (12:00)
[2017-03-17] MEDS ORDERED: LIDOCAINE HCL 1% PF 5 ML AMPULE OTHER ONE (12:00)
[2017-03-17] MEDS ORDERED: ePHEDrine/NS 25 MG/5 ML SYR IV ONE (12:00)
[2017-03-17] MEDS ORDERED: ONDANSETRON HCL 4 MG/2 ML VIAL IV PUSH ONE (12:00)
[2017-03-17] MEDS ORDERED: PROPOFOL 200 MG/20 ML AMP IV ONE (12:00)
[2017-03-17] MEDS ORDERED: DEXAMETHASONE SOD PHOS 4 MG/ML VIAL IV ONE (12:00)
[2017-03-17] MEDS ORDERED: NORMOSOL R INJ 1,000 ML IV ONE (12:00)
[2017-03-17 12:08] LABS: ALKALINE PHOSPHATASE 56 U/L (45-117); ALT (GPT) 18 U/L (12-78); ANION GAP 12 MEQ/L (5-15); AST (GOT) 25 U/L (15-37); BETA-HYDROXYBUTYRATE 0.25 MMOL/L (0.00-0.39); BICARBONATE 19.5 MEQ/L (21.0-32.0); BLOOD UREA NITROGEN 61 MG/DL (7-18); CHLORIDE 108 MEQ/L (98-107); GLOMERULAR FILTRATION RATE 22 ML/MIN (>89); POTASSIUM 3.8 MEQ/L (3.5-5.1); SODIUM (NA) 139 MEQ/L (136-145); TOTAL BILIRUBIN ADULT 1.2 MG/DL (0.2-1.0)
[2017-03-17] MEDS: CALCIUM ACETATE 667 MG CAP PO SCH ×3 (12:27→18:00)
[2017-03-17] MEDS: ceFAZolin INJ 500 MG in SODIUM CHLORIDE 0.9% INJ 100 ML IV SCH ×2 (12:30→23:35)
--- NOTE | 2017-03-17 13:28 | MB ---
cc: ADDI LI MD DATE OF CONSULTATION 03/17/2017 REASON FOR CONSULTATION 1. Gross hematuria 2. Clot retention 3. Possible bladder mass HISTORY OF PRESENT ILLNESS The patient is a 66-year-old male with a history of type one diabetes with general malaise and weakness. During workup, he was found to have an elevated blood sugar of 813. He also was noted to have gross hematuria for the last two to three days. He had a CT of the abdomen and pelvis without contrast done which showed a large 12 cm possible blood clot versus bladder mass versus mass in his bladder with bilateral hydronephrosis and an elevated creatinine of 2.7. His hemoglobin was also found to be 5.6. He was admitted. A three-way Crabtree catheter was inserted. He was admitted to the ICU and then transfused. Overnight, his catheter continue clot off despite continuous bladder irrigation. The patient states he has had blood in his urine before several years ago, but he has never seen a urologist in the past. He denies a history of kidney stones or urinary tract infections. He otherwise denies any problems urinating. He has a good stream. He feels like he empties his bladder. Denies fevers or chills, nausea, vomiting, or flank pain at this time. REVIEW OF SYSTEMS See HPI otherwise all systems reviewed are negative. PAST MEDICAL HISTORY Significant for: 1. BPH 2. Hypertension 3. Gross hematuria 4. Dyslipidemia 5. Diabetes ALLERGIES Known drug allergies. PAST SURGICAL HISTORY He has had appendectomy. REPORTED MEDICATIONS He is on: 1. Uroxatral 10 mg p.o. daily 2. Aspirin 81 mg p.o. daily 3. Lisinopril 10 mg p.o. daily FAMILY HISTORY Father is alive at age 96. Denies urolithiasis or genitourinary malignancies. SOCIAL HISTORY Quit tobacco three years ago. Denies alcohol or illicit drug use. PHYSICAL EXAMINATION VITAL SIGNS: Temperature 98.6, pulse 80, respiration 18, BP 142/72, sating 100% on room air. GENERAL: He is oriented times two in mild distress, pleasant and cooperative. He appears his staged age. HEAD: Normocephalic, atraumatic. LUNGS: Clear to auscultation bilaterally. No wheezes, rales or rhonchi. NECK: Supple. Trachea is midline. EYES: No scleral icterus. Extraocular muscles intact. HEART: Regular rate and rhythm with no murmurs, gallops, or rubs. ABDOMEN: Soft, but distended, bladder is full and palpable and slightly tender to palpation. GENITOURINARY: His penis is circumcised. Testes descended bilaterally. Normal size and consistency. RECTAL: Exam deferred to cysto. EXTREMITIES: Nontender. No clubbing, cyanosis or edema. MUSCULOSKELETAL: Rull range of motion all four extremities. SKIN: [place] and moist. No ulcers or rashes. NEUROLOGIC: Cranial II-XII intact. Strength 5/5 bilateral four extremities. LABS White count 12.8, hemoglobin 9.5, hematocrit 27.7, platelet count 175. Sodium 139, potassium 3.8, chloride 108, bicarb 19.5, BUN is 61, creatinine 2.93, glucose 67. Urine showed large blood, 1000 glucose, moderate leukocyte esterase. Culture currently pending. The CT of the abdomen and pelvis without contrast. Images reviewed. Agree with radiologist report. The patient has bilateral hydronephrosis more significant on the right than the left with a large 12 cm mass in his bladder, possible blood clot versus bladder mass. ASSESSMENT AND PLAN The patient is a 66-year-old male with a history of type one diabetes admitted with gross hematuria, DKA and acute blood loss anemia with clot retention and bilateral hydronephrosis. Plan to keep the patient n.p.o. We will take him to the OR today for cystoscopy, clot evacuation, possible TURBT, possible bilateral ureteral stent insertion. I discussed the risks, benefits, and alternatives of the procedure with him. He elected proceed and understands all these risks. MD LAKEISHA Cartagena/FALLON /12:59 PM /1:17 PM
[2017-03-17 14:39] LABS: BICARBONATE 19.5 MEQ/L (21.0-32.0); FREE T3 1.47 PG/ML (2.18-3.98); FREE T4 1.08 NG/DL (0.76-1.46); POTASSIUM 3.9 MEQ/L (3.5-5.1)
[2017-03-17 14:55] LABS: CALCIUM-PROTEIN CORRECTED 8.2 MG/DL (8.5-10.1)
--- NOTE | 2017-03-17 15:10 | PD.OP ---
Operative Report Date of Surgery: Mar 17, 2017 Preoperative Diagnosis: Gross hematuria with clot retention Postoperative Diagnosis: 1. Gross hematuria with clot retention 2. Bladder Perforation 3. Bladder tumor Procedure: cystoscopy, clot evacuation Surgeon: Eliazar Watson Title Department Manager(s): n/a Operation and Findings: Had large blood clot in bladder, which was removed found large bladder tumor on left lateral wall Has bladder perforation near dome of bladder, likely from retention Due to perforation, bladder tumor cannot be safely resected at this time. Will leave almanza catheter in place in order for bladder to heal on its own. As long as the catheter remains patent, bladder should heal. Will schedule for cystoscopy, TURBT end of next week unless condition warrants earlier intervention, such as open bladder repair. Attempted to contact family, but there was no answer. Eliazar Watson MD Mar 17, 2017 15:10
[2017-03-17] MEDS ORDERED: PHENYLEPHRINE HCL 10 MG/ML VIAL ONE (15:28)
[2017-03-17] MEDS ORDERED: DO NOT ADM ANY ANTICOAGULANT DRUGS PRN (15:30)
[2017-03-17] MEDS: PHENYLEPHRINE 40 MG in D5W 500 ML IV PRN ×2 (15:42→16:05)
[2017-03-17 15:45] LABS: HEMOGLOBIN A1a 1.8 %; HEMOGLOBIN A1b 0.9 %; HEMOGLOBIN Ao 76.8 %; HEMOGLOBIN F 1.8 %; HEMOGLOBIN LA1C 3.6 %; HEMOGLOBIN P3 5.8 %
[2017-03-17 16:13] LABS: AUTOMATED NEUTROPHIL # 13.5 TH/MM3 (1.8-7.7); BASOPHIL % 0.2 % (0.0-2.0); EOSINOPHIL % 0.2 % (0.0-4.0); HEMATOCRIT 29.2 % (39.0-51.0); LYMPH % 7.5 % (9.0-44.0); LYMPHOCYTE # 1.2 TH/MM3 (1.0-4.8); MEAN CELL VOLUME 86.9 FL (80.0-100.0); MEAN CORPUSCULAR HEMOGLOBIN 29.4 PG (27.0-34.0); MEAN CORPUSCULAR HGB CONC 33.9 % (32.0-36.0); NEUT % 85.1 % (16.0-70.0); PLATELET COUNT 193 TH/MM3 (150-450); RED BLOOD COUNT 3.35 MIL/MM3 (4.50-5.90); RED CELL DISTRIBUTION WIDTH 14.9 % (11.6-17.2); WHITE BLOOD COUNT 15.9 TH/MM3 (4.0-11.0)
[2017-03-17] MEDS ORDERED: TERBUTALINE INJ 1 MG/ML AMP SQ PRN (16:15)
[2017-03-17 16:32] LABS: BICARBONATE 16.9 MEQ/L (21.0-32.0); POTASSIUM 3.8 MEQ/L (3.5-5.1)
[2017-03-17 16:35] LABS: HEMO FLAGS AUTO DIFF
[2017-03-17 16:50] LABS: CALCIUM-PROTEIN CORRECTED 8.4 MG/DL (8.5-10.1)
[2017-03-17] MEDS ORDERED: DEXT 5%-NACL 0.45% 1000 ML INJ 1,000 ML IV SCH (17:00)
[2017-03-17 17:19] LABS: BANDS 6 % (0-6); NEUTROPHIL # MANUAL DIFF 14.5 TH/MM3 (1.8-7.7); POLYS (SEG NEUTROPHILS) 85 % (16-70); WBC DIFF SAMPLE 100
[2017-03-17 17:20] LABS: CRENATED RBCS 1+ (NORMAL)
[2017-03-17 17:21] LABS: PLATELET ESTIMATE SMEAR NORMAL (NORMAL); PLATELET MORPHOLOGY NORMAL (NORMAL); SCAN/DIFF FINAL DIFF MANUAL
[2017-03-17 17:22] LABS: OVALOCYTES 1+ (NORMAL)
--- NOTE | 2017-03-17 17:40 | MP ---
cc: ELIAZAR LI MD DATE OF SURGERY 03/17/2017 PREOPERATIVE DIAGNOSIS Gross hematuria with clot retention. POSTOPERATIVE DIAGNOSIS 1. Gross hematuria with clot retention. 2. Bladder perforation. 3. Bladder tumor, left lateral wall. PROCEDURE PERFORMED 1. Cystourethroscopy. 2. Clot evacuation. SURGEON MD Walter. ANESTHESIA General. COMPLICATIONS None. PREOP ANTIBIOTICS Ancef 500 milligrams IV. DRAINS 24-Ugandan three-way Crabtree catheter gravity to drainage. SPECIMENS None. BLOOD LOSS Minimal. DISPOSITION Stable to Recovery. INDICATION The patient is a 66-year-old male who presented to the ER last night with a 3 day history of gross hematuria. He was found to have a hemoglobin of 5.8. CT of abdomen and pelvis without contrast done which showed bilateral hydronephrosis with a large 12 cm mass in the bladder which was a possible blood clot. A Crabtree catheter was inserted by the ER staff and had tried to irrigate throughout the night with continuous bladder irrigation but was unsuccessful as the catheter continued to clot off. The patient received 2 units of blood and his hemoglobin was found appropriately. On examination today he was found to have a completely distended bladder. Therefore, due to these findings he was scheduled for cystoscopy, clot evacuation, possible TURBT. After risks, benefits, alternatives were explained to the patient, patient elected to proceed. Informed consent was obtained DETAILS OF THE PROCEDURE The patient appropriately identified, brought back to the cystoscopy suite. He was laid supine on cystoscopy table. Proper time-out was performed. Under direction of anesthesiology the patient was induced under general anesthetic. Preop antibiotics in the form of Ancef 500 milligrams IV were given within one hour the start of the procedure. The patient was then placed in dorsal lithotomy position, prepped and draped in normal sterile surgical fashion. Rigid cystoscope was then carefully passed into the bladder per urethra without any difficulty. ___ the bladder, the was normal. Bladder mucosa was unable to be visualized as he had a humongous large blood clot in his bladder. Using Ellik Evacuator this was carefully ___ out to get this organized clot out of his bladder. At this time I was able to pass the scope into the bladder and visualization was much improved. I did see both the right ___ ureteral orifice. Just lateral to the left ureteral orifice encompassing the left lateral wall was a large bladder tumor. As I carefully inspected the rest of the bladder I did see that there was a decent sized bladder perforation at the right posterior dome. Perivesical fat was seen as well as some blood clot likely bladder perforation from the non-draining continuous bladder irrigation throughout the night. Therefore, at this time I decided that it was not safe to start resection of this bladder tumor due to the bladder perforation. Due to the location and the size of this perforation I did feel like that may be able to manage it conservatively with bladder drainage. Therefore, I carefully inspected the bladder one more time, I did not see any other further clot or active bleeding. The rigid cystoscope was removed. A 24-Ugandan Silastic catheter was then inserted, light pink urine returned, it was started on light continuous bladder irrigation to irrigate the bladder. This concluded the procedure. The patient was extubated and sent to recovery in stable condition. He will be transferred back to the ICU for further evaluation and care. We will then continue the Crabtree catheter for now to give the chance for the bladder to heal. As long as the catheter is draining the bladder will likely heal on its own. He will then need repeat cystoscopy and TURBT in the future to resect the bladder tumor. The case was discussed with critical care, Dr. Meyer. Eliazar Li MD EMF/EO /4:26 PM /4:34 PM
[2017-03-17] MEDS: WATER STERILE FOR IV SCH (18:02)
[2017-03-17] MEDS: SODIUM BICARBONATE IV SCH (18:02)
[2017-03-17] MEDS: BELLADONNA ALKALOIDS/OPIUM 60 MG SUPP RECTAL SCH ×2 (18:02→23:35)
--- NOTE | 2017-03-17 18:16 | EKG ---
Date Performed: 03/16/2017 Time Performed: 17:45:54 PTAGE: 66 years EKG: Sinus rhythm NORMAL ECG PREVIOUS TRACING : 07/05/2016 11.57 DOCTOR: Judi Montoya Interpretating Date/Time 03/17/2017 18:12:44
[2017-03-17 22:02] LABS: HEMATOCRIT 27.3 % (39.0-51.0); REVIEW FLAG FINAL
[2017-03-18] VITALS (15 sets, daily range): BP systolic 121–163; BP diastolic 66–90; PULSE 93–121; RESP 17–27; TEMP 97.6–98.5; O2SAT 94–100
[2017-03-18] MEDS: WATER STERILE FOR IV SCH ×2 (00:20→05:49)
[2017-03-18] MEDS: SODIUM BICARBONATE IV SCH ×2 (00:20→05:49)
[2017-03-18] MEDS: CHLORHEXIDINE GLUCONATE 2 % 1 PACK (2 CLOTHS) TOP SCH (04:00)
[2017-03-18] MEDS: INSULIN ASPART SUPPLEMENTAL SCALE SQ SCH ×5 (05:15→20:41)
[2017-03-18 05:27] LABS: APTT (PATIENT) 32.2 SEC (24.3-30.1); PROTHROMBIN TIME - PATIENT 10.6 SEC (9.8-11.6)
[2017-03-18 05:46] LABS: BICARBONATE 14.9 MEQ/L (21.0-32.0); CALCIUM-PROTEIN CORRECTED 8.4 MG/DL (8.5-10.1); MAGNESIUM 1.8 MG/DL (1.5-2.5); POTASSIUM 4.8 MEQ/L (3.5-5.1); TOTAL BILIRUBIN ADULT 0.5 MG/DL (0.2-1.0)
[2017-03-18] MEDS: BELLADONNA ALKALOIDS/OPIUM 60 MG SUPP RECTAL SCH ×4 (05:50→23:11)
[2017-03-18 06:14] LABS: BASOPHIL % 0.1 % (0.0-2.0); HEMATOCRIT 24.8 % (39.0-51.0); HEMO FLAGS DIFF FINAL; LYMPH % 6.3 % (9.0-44.0); LYMPHOCYTE # 0.7 TH/MM3 (1.0-4.8); MEAN CORPUSCULAR HEMOGLOBIN 30.4 PG (27.0-34.0); MEAN CORPUSCULAR HGB CONC 34.2 % (32.0-36.0); MONO % 5.8 % (0.0-8.0); NEUT % 87.8 % (16.0-70.0); PLATELET COUNT 159 TH/MM3 (150-450); RED BLOOD COUNT 2.78 MIL/MM3 (4.50-5.90); RED CELL DISTRIBUTION WIDTH 15.1 % (11.6-17.2); WHITE BLOOD COUNT 11.4 TH/MM3 (4.0-11.0)
--- NOTE | 2017-03-18 08:16 | HHI.PR ---
Subjective Patient symptoms today c/o bladder spasms. Denies fevers, chills. No issues with catheter overnight. Objective Vital Signs Vital Signs Date Time Temp Pulse Resp B/P (MAP) Pulse Ox O2 Delivery O2 Flow Rate FiO2 03/18/17 06:00 104 03/18/17 04:00 98.0 108 23 163/79 (107) 100 03/18/17 04:00 108 03/18/17 02:00 100 03/18/17 00:00 101 03/18/17 00:00 98.0 101 22 122/70 (87) 99 03/17/17 22:00 96 03/17/17 20:00 97 03/17/17 20:00 97.8 97 19 91/52 (65) 95 03/17/17 19:06 99 21 03/17/17 18:00 84 14 94/53 (67) 98 03/17/17 17:30 85 14 89/51 (64) 96 03/17/17 17:11 82 16 93/55 (68) 96 03/17/17 16:45 82 14 96/60 (72) 100 Nasal Cannula 2 03/17/17 16:30 80 14 102/59 (73) 100 Nasal Cannula 2 03/17/17 16:30 97.4 03/17/17 16:15 97.4 81 15 104/64 (77) 100 Nasal Cannula 2 03/17/17 16:05 78 117/68 03/17/17 16:00 78 15 116/64 (81) 100 Nasal Cannula 2 03/17/17 15:55 78 14 121/69 (86) 95 Nasal Cannula 2 03/17/17 15:50 79 14 122/69 (86) 97 Nasal Cannula 2 03/17/17 15:45 78 14 112/60 (77) 94 Nasal Cannula 3 03/17/17 15:42 79 79/41 03/17/17 15:40 78 12 92/50 (64) 96 Nasal Cannula 3 03/17/17 15:35 80 16 79/41 (54) 95 Nasal Cannula 3 03/17/17 15:30 96.2 77 15 87/45 (59) 92 Nasal Cannula 3 03/17/17 15:25 78 15 77/44 (55) 92 Nasal Cannula 3 03/17/17 15:20 81 14 71/40 (50) 93 Nasal Cannula 3 03/17/17 14:00 80 18 127/63 (84) 100 03/17/17 13:00 77 15 113/63 (80) 100 03/17/17 12:01 97.8 97 140/59 (86) 100 03/17/17 11:00 75 17 141/70 (93) 100 03/17/17 10:00 80 18 142/72 (95) 100 03/17/17 09:00 92 24 155/76 (102) 100 03/17/17 08:14 99 21 Intake & Output 03/18/17 03/18/17 07:00 19:00 Intake Total 1100 ml Output Total 4200 ml Balance -3100 ml IV Total 1100 ml Output Urine Total 4200 ml Result Diagram: 03/18/1742403/18/17424 Objective Remarks NAD. A/O x 3 abd soft, non distended urine light pink on CBI, draining well. Medications and IVs Current Medications Medications (Trade) Dose Ordered Sig/Светлана Route Start Time Stop Time Status Last Admin (NS Flush) 2 ml UNSCH PRN IV FLUSH 03/16/17 17:45 (NS Flush) 2 ml BID IV FLUSH 03/16/17 21:00 03/17/17 21:01 (Tylenol) 650 mg Q6H PRN PO 03/16/17 17:45 (Oxford 5-325 Mg) 1 tab Q4H PRN PO 03/16/17 17:45 (Morphine Inj) 2 mg Q2H PRN IV PUSH 03/16/17 17:45 03/17/17 09:53 (Protonix) 40 mg DAILY PO 03/17/17 09:00 03/17/17 09:52 (Zofran Inj) 4 mg Q6H PRN IV PUSH 03/16/17 17:45 Miscellaneous Information 1 Q361D XX 03/16/17 17:45 (Chlorhexidine 2% Cloth) 3 pack Taper DAILY@04 TOP 03/17/17 04:00 03/13/18 03:59 03/17/17 04:00 (Chlorhexidine 2% Cloth) 3 pack UNSCH PRN TOP 03/16/17 17:45 (Debbie-Colace) 1 tab BID PO 03/16/17 21:00 03/17/17 21:01 (Milk Of Magnesia Liq) 30 ml Q12H PRN PO 03/16/17 17:45 (Senokot) 17.2 mg Q12H PRN PO 03/16/17 17:45 (Dulcolax Supp) 10 mg DAILY PRN RECTAL 03/16/17 17:45 (Lactulose Liq) 30 ml DAILY PRN PO 03/16/17 17:45 (D50w (Vial) Inj) 50 ml UNSCH PRN IV PUSH 03/17/17 05:15 (Glucagon Inj) 1 mg UNSCH PRN OTHER 03/17/17 05:15 (NovoLOG SUPPLEMENTAL SCALE) 1 Q4H SQ 03/17/17 05:15 Cefazolin Sodium 500 mg/Sodium Chloride 100 ml @ 200 mls/hr Q12H IV 03/17/17 11:00 03/17/17 23:35 (Phoslo) 667 mg TID PO 03/17/17 10:00 03/19/17 08:59 03/17/17 13:00 Miscellaneous Information ALL NURSING DEPARTME... UNSCH PRN .XX 03/17/17 15:30 03/18/17 15:29 Phenylephrine HCl 40 mg/Dextrose 500 ml @ 30 mls/hr TITRATE PRN IV 03/17/17 16:15 03/17/17 16:05 (Brethine Inj) 1 mg UNSCH PRN SQ 03/17/17 16:15 (B & O Supp) 60 mg Q6HR RECTAL 03/17/17 18:00 03/18/17 05:50 Sodium Bicarbonate 75 meq/Sterile Water 1,000 ml @ 150 mls/hr Q6H40M IV 03/17/17 18:00 03/18/17 05:49 Assessment and Plan Assessment and Plan s/p cystoscopy, clot evacuation with bladder tumor, bladder perforation -continue almanza catheter, CBI. -slight drop in Hemoglobin. Hemodynamically stable. Repeat in A.M. -Creatinine improved. Hydronephrosis likely from acute urinary retention due to hematuria -B&O suppository for spasms. Eliazar Watson MD Mar 18, 2017 08:16
[2017-03-18] MEDS: DOCUSATE SODIUM 50 MG/SENNA 8.6 MG TAB PO SCH ×2 (08:27→20:41)
[2017-03-18] MEDS: CALCIUM ACETATE 667 MG CAP PO SCH ×3 (08:28→17:23)
[2017-03-18] MEDS: PANTOPRAZOLE SOD 40 MG DELAYED RELEASE TAB PO SCH (08:28)
[2017-03-18] MEDS: SODIUM CHLORIDE 0.9% FLUSH 10 ML FLUSH IV FLUSH SCH ×2 (08:29→20:41)
--- NOTE | 2017-03-18 08:55 | HHI.CCPN ---
Subjective Remarks/Hospital Course This is a 66-year-old gentleman. Date of admission 03/16/2017.. Past medical history includes diabetes mellitus, hypertension, dyslipidemia, benign prostatic hypertrophy. Patient has a prior history of admission for diabetic ketoacidosis 10/2016. Patient presents to [place] [facility] ED with his 96-year-old father with whom he lives with with malaise, weakness. He is currently on room air. He does not know if hetook his scheduled detemir today. Baseline laboratories reveal an elevated blood sugar 813. History was then transferred from triage to c26. He is also states he has a 2-3 history of bright red blood with urination. CT abdomen/culture revealed at 12.7 cm bladder mass with bilateral hydronephrosis. Hemoglobin is 5.6. Coags currently pending. Liver function tests correlate planning. He has been typed and cross 40s. Seasonal be transfused 2 units. Crabtree catheter has been placed with gross hematuria. Will do generalized flushing to maintain patency. Urology be consulted. We are asked to admit to the ICU. Patient was given 7 units IV insulin is currently on insulin drip per DKA protocol. 03/17: Currently on continuous bladder irrigations. This has clotted off a couple of times. Hemoglobin still not drawn. Was transfused 2 units eventually last night. Hemodynamically stable. BMs are brown. Subjective 03/18: Yesterday, patient underwent cystourethroscopy. Results revealed anterior Bladder perforation large Bladder tumor, left lateral wall.Clot status post evacuation evacuation. 24 Portuguese catheter placed with 3 irrigation/ continuous. Clot only once overnight. Hemoglobin currently safe 0.5. Appears much more comfortable this AM. Creatinine slowly normalizing. Objective Vital Signs Date Time Temp Pulse Resp B/P (MAP) Pulse Ox O2 Delivery O2 Flow Rate FiO2 03/18/17 06:00 104 03/18/17 04:00 98.0 23 163/79 (107) 100 03/17/17 19:06 21 03/17/17 16:45 Nasal Cannula 2 Intake and Output 03/18/17 03/18/17 03/19/17 08:00 16:00 00:00 Intake Total 1100 ml Output Total 4200 ml Balance -3100 ml Result Diagram: 03/18/17 0425 03/18/17 0425 Other Results Microbiology Date/Time Source Procedure Growth Status 03/16/17 18:50 Blood Peripheral Aerobic Blood Culture - Preliminary NO GROWTH IN 1 DAY Resulted 03/16/17 18:50 Blood Peripheral Anaerobic Blood Culture - Preliminary NO GROWTH IN 1 DAY Resulted 03/16/17 23:10 Urine Clean Catch Urine Culture - Preliminary RESULTS PENDING Resulted Imaging Last Impressions Chest X-Ray 03/17/17 0000 Signed Impressions: Service Date/Time: Friday, March 17, 2017 09:34 - CONCLUSION: Stable with moderate hyperinflation.. Marquez Menjivar MD FACR Abdomen/Pelvis CT 03/16/17 1439 Signed Impressions: Service Date/Time: March 15:56 - CONCLUSION: 1. Distention of the urinary bladder with a prominent, 12.7 cm soft tissue density in the bladder lumen. Most of this may represent thrombus although an underlying mass lesion cannot be excluded. Urology consult with possible cystoscopy is recommended. 2. Resulting bilateral hydronephrosis, slightly worse on the left. No associated stone disease. Jono Pisano MD Objective Remarks GENERAL: 66-year-old male, currently resting in bed in no acute distress SKIN: Warm and dry. Well perfused. No rash HEAD: Atraumatic. Normocephalic. EYES: Pupils equal and round about 2 mm bilaterally and reactive. No scleral icterus. No injection or drainage. ENT: No nasal bleeding or discharge. Mucous membranes pink and moist. NECK: Trachea midline. No JVD. CARDIOVASCULAR: Regular rate and rhythm. S1, S2 no S4. No murmur RESPIRATORY: Clear to auscultation. Breath sounds equal bilaterally. GASTROINTESTINAL: Abdomen is slightly distended. Tender to palpation suprapubically. Normal bowel sounds. : Crabtree catheter in place with gross hematuria MUSCULOSKELETAL: Extremities without noted in peripheral edema. No obvious deformities. NEUROLOGICAL: Awake and alert. No obvious cranial nerve deficits. Motor grossly within normal limits. Five out of 5 muscle strength in the arms and legs. Normal speech. A/P Assessment and Plan Neuro/Psych: Acetaminophen for fever Hydrocodone/acetaminophen/morphine for pain management CV: History of hypertension History dyslipidemia Currently on sterile water with 75 mEq sodium bicarbonate level decreased to 50 cc an hour Holding lisinopril 10 mill grams by mouth daily light of acute kidney injury Holding atorvastatin 40 mg by mouth daily. Resume when clinically indicated Holding aspirin 81 mg by mouth daily light of gross hematuria Resp: History of tobaccoism Nasal cannula to maintain saturations greater than equal to 90% Incentive spirometry while awake As needed albuterol aerosols every 2 hours for dyspnea GI: ADA diet Pantoprazole for GI prophylaxis Docusate sodium/senna for bowel regimen Guaiac-negative in ED : BPH Gross hematuria 12.7 and 8 cm 9 cm bladder tumor with thrombus 03/17 - Dr. Watson - status post cystourethroscopy - lateral perforation with bladder mass left lateral wall thrombus - 24 Portuguese continuous bladder irrigations. Continue CBI 03/16 - CT abdomen/pelvis - Urinary bladder is markedly distended. Centrally, there is a 9.5 x 8.5 x 12.7 cm soft tissue density in the urinary bladder which may represent a large thrombus although an associated mass lesion cannot be excluded.. Crabtree catheter is in place. CBI Holding home medication alfuzosin 10 mill grams daily Endo: DKA History diabetes Elevated TSH Received 5 units insulin bolus and initially started on insulin drip Currently on Novulog low-dose Accu-Cheks every 4 hours -We'll start on detemir 8 units subcutaneous twice a day BMP 6 hours with magnesium/phosphorus every 12 hours to be discontinued once laboratories actually are drawn. Holding home medication insulin detemir 30 units twice a day and Ertugliflozin 12.5 mg before meals Multiple laboratory this a.m. still pending Low T3. Normal T4. Recommend rechecking thyroid function tests once acute illness past 3-4 weeks. Renal: Acute kidney injury likely obstructive Monitor urine output Accurate I's and O's Maintain Crabtree catheter Heme: Leukocytosis Normocytic anemia Typed and crossed and transfused 2 units PRBCs. Hemoglobin currently 8.5 Source of bleeding likely hematuria Hemoccult negative. Check iron studies. Pending ID: Cefazolin 500 mg IV every 12 hours/renal dosage Monitor for infection Blood cultures 2, UA currently 03/16 pending FEN: Replace electrolytes as clinically indicated. Unable to use ICU electrolyte protocol secondary to creatinine 2.9 MSK: Physical therapy evaluate and treat Access - Utilize peripheral IV. Central line if indicated. Prophylaxis - GI -pantoprazole - DVT - SCD/holding pharmacological prophylaxis in light of gross hematuria level III follow-up Austin Meyer MD Mar 18, 2017 08:55
[2017-03-18] MEDS ORDERED: SODIUM BICARBONATE 8.4% INJ 50 MEQ/50 ML SYR IV PUSH ONE (10:30)
[2017-03-18] MEDS ORDERED: BUMETANIDE INJ 1 MG/4 ML VIAL IV PUSH ONE (10:30)
[2017-03-18] MEDS ORDERED: RESP: ALBUTEROL 2.5 MG/3 ML NEB (PRN) NEB (10:30)
[2017-03-18] MEDS: MORPHINE SULFATE 2 MG/ML INJ IV PUSH PRN (10:49)
--- NOTE | 2017-03-18 11:09 | RADRPT ---
EXAM DATE/TIME: 03/18/2017 10:37 [facility] COMPARISON: CT ABDOMEN & PELVIS W/O CONTRAST, March 16, 2017, 15:56. CHEST SINGLE AP, March 17, 2017, 9:34 . INDICATIONS : Shortness of breath starting today MEDICAL HISTORY : Hyperparathyroidism. Cardiovascular disease SURGICAL HISTORY : None. ENCOUNTER: Initial ACUITY: 1 day PAIN SCORE: Non-responsive. LOCATION: Bilateral chest FINDINGS: The lungs are hypoaerated with bibasilar airspace disease characteristic of atelectasis. Upper lung f ields are clear. Heart remains normal in size. CONCLUSION: Hypoaerated lungs with bibasilar atelectasis. Arnaldo Cruz MD on March 18, 2017 at 11:04 Board Certified Radiologist. This report was verified electronically.
[2017-03-18 11:25] LABS: BLOOD GAS CARBOXYHEMOGLOBIN 1.1 % (0-4); BLOOD GAS HCO3 14 mmol/L (22-26); BLOOD GAS METHEMOGLOBIN 1.1 % (0-2); BLOOD GAS O2 HGB SATURATION 92 % (90-100); BLOOD GAS OXYGEN CONTENT 12.9 Vol % (12.0-20.0); BLOOD GAS PCO2 26 mmHg (38-42); BLOOD GAS PO2 73 mmHg (61-120); TEMP CORR TO 98.6
[2017-03-18 11:26] LABS: CRITICAL VALUE YES; DRAW SITE RT RADIAL; FIO2 40 %; NUMBER OF ARTERIAL PUNCTURES 1; OXYGEN DEVICE BIPAP; ULNAR PULSE PRESENT; VENT SETTINGS 12/+5/
[2017-03-18 11:27] LABS: STAT NO
[2017-03-18] MEDS: ceFAZolin INJ 500 MG in SODIUM CHLORIDE 0.9% INJ 100 ML IV SCH ×2 (11:50→23:11)
[2017-03-18 13:29] LABS: HEMATOCRIT 27.1 % (39.0-51.0); MEAN CELL VOLUME 88.6 FL (80.0-100.0); MEAN CORPUSCULAR HEMOGLOBIN 30.2 PG (27.0-34.0); PLATELET COUNT 196 TH/MM3 (150-450); RED BLOOD COUNT 3.06 MIL/MM3 (4.50-5.90); RED CELL DISTRIBUTION WIDTH 15.2 % (11.6-17.2); REVIEW FLAG FINAL; WHITE BLOOD COUNT 12.7 TH/MM3 (4.0-11.0)
[2017-03-18 13:43] LABS: BICARBONATE 14.8 MEQ/L (21.0-32.0); POTASSIUM 4.4 MEQ/L (3.5-5.1)
--- NOTE | 2017-03-18 14:09 | ECHRPT ---
Indication: EF assessment of CHF CONCLUSIONS Normal left ventricular size. Mild concentric left ventricular hypertrophy. The left ventricular systolic function is hyperdynamic with an estimated ejection fraction in the ra nge of 65- 70%. There is abnormal septal motion. Trace mitral valve regurgitation. Aortic valve sclerosis is present. Trace to mild aortic valve regurgitation. There is mild tricuspid valve regurgitation. The estimated pulmonary arterial pressure is 37.9 mmHg. BP: 125 / 70 HR: Rhythm: Sinus MEASUREMENTS (Male / Female) Normal Values Technical Quality:Poor 2D ECHO LV Diastolic Diameter PLAX 4.8 cm 4.2 - 5.9 / 3.9 - 5.3 cm LV Systolic Diameter PLAX 3.3 cm IVS Diastolic Thickness 1.0 cm 0.6 - 1.0 / 0.6 - 0.9 cm LVPW Diastolic Thickness 1.0 cm 0.6 - 1.0 / 0.6 - 0.9 cm LV Relative Wall Thickness 0.4 LVOT Diameter 1.8 cm Aortic Root Diameter 2.5 cm LA Systolic Diameter LX 1.9 cm 3.0 - 4.0 / 2.7 - 3.8 cm M-MODE AV Cusp Separation MM 1.9 cm DOPPLER AV Peak Velocity 117.0 cm/s AV Peak Gradient 5.5 mmHg AV Mean Gradient 3.0 mmHg AV Velocity Time Integral 14.9 cm LV E' Lateral Velocity 12.8 cm/s LV E' Septal Velocity 5.5 cm/s TR Peak Velocity 264.0 cm/s TR Peak Gradient 27.9 mmHg Right Atrial Pressure 10.0 mmHg Pulmonary Artery Systolic Pressu 37.9 mmHg Right Ventricular Systolic Press 37.9 mmHg FINDINGS LEFT VENTRICLE Normal left ventricular size. Mild concentric left ventricular hypertrophy. The left ventricular systolic function is hyperdynamic with an estimated ejection fraction in the ra nge of 65- 70%. There is abnormal septal motion. RIGHT VENTRICLE Normal right ventricular size and systolic function. LEFT ATRIUM The left atrial size is normal. RIGHT ATRIUM The right atrial size is normal. ATRIAL SEPTUM Normal atrial septal thickness without atrial level shunting by limited color doppler interrogation. AORTA The aortic root and proximal ascending aorta are normal in size on limited imaging. MITRAL VALVE Trace mitral valve regurgitation. AORTIC VALVE Aortic valve sclerosis is present. Trace to mild aortic valve regurgitation. TRICUSPID VALVE There is mild tricuspid valve regurgitation. The estimated pulmonary arterial pressure is 37.9 mmHg. PULMONARY VALVE The pulmonary valve is not well visualized. VESSELS The inferior vena cava is normal in size. PERICARDIUM No pericardial effusion. Anderson Rodríguez MD, FACC (Electronically Signed) Final Date:18 March 2017 14:08
[2017-03-18 14:16] LABS: CALCIUM-PROTEIN CORRECTED 8.2 MG/DL (8.5-10.1)
--- NOTE | 2017-03-18 16:44 | RADRPT ---
EXAM DATE/TIME: 03/18/2017 16:05 [facility] COMPARISON: CT ABDOMEN & PELVIS W/O CONTRAST, March 16, 2017, 15:56. INDICATIONS : Distention; abdomen pain. ORAL CONTRAST: No oral contrast ingested. RADIATION DOSE: 6.64 CTDIvol (mGy) MEDICAL HISTORY : Hypertension. SURGICAL HISTORY : None. ENCOUNTER: Initial ACUITY: 1 day PAIN SCALE: 5/10 LOCATION: abdomen. TECHNIQUE: Volumetric scanning of the abdomen and pelvis was performed. Using automated exposure control and ad justment of the mA and/or kV according to patient size, radiation dose was kept as low as reasonably achievable to obtain optimal diagnostic quality images. DICOM format image data is available electro nically for review and comparison. FINDINGS: LOWER LUNGS: There are new small bilateral pleural effusions with compressive atelectasis in the lower lobes. Low density of the cardiac blood pool is likely related to anemia. LIVER: Homogeneous density without lesion. There is no dilation of the biliary tree. No calcified gallston es. SPLEEN: Normal size without lesion. PANCREAS: There are punctate calcifications in pancreatic head. Otherwise, no abnormalities appreciated on this noncontrast exam. KIDNEYS: There is mild bilateral hydronephrosis, left greater than right. However, this has decreased since e prior examination. No stones are visualized. ADRENAL GLANDS: No definite abnormality is seen. VASCULAR: There is no aortic aneurysm. There is moderate to severe atherosclerotic disease. BOWEL/MESENTERY: Stomach and proximal small bowel demonstrate no abnormality. A presumed bowel in the right lower quad rant has an atypical appearance but it is not opacified. Colon demonstrates no acute finding. There i s a small volume of free fluid in the abdomen and pelvis with areas of dependent blood in the rectove sical space and in Morison's pouch. There is also free intraperitoneal air, new since the prior study . ABDOMINAL WALL: There is anasarca. RETROPERITONEUM: There is no lymphadenopathy. BLADDER: Crabtree catheter is present within a partially decompressed urinary bladder. There is air in the bladde r lumen as well as high density material likely representing blood products. REPRODUCTIVE: Prostate gland demonstrates no abnormality. INGUINAL: There is no lymphadenopathy or hernia. MUSCULOSKELETAL: There are degenerative changes of the lumbar spine. CONCLUSION: 1. There is new free intraperitoneal air from uncertain etiology. Suggest correlating with the patien t's recent surgical history. This could be related to a recent surgery depending on the procedure per formed but could also indicate perforated bowel. 2. Mild bilateral hydronephrosis, decreased from the study from 2 days ago. Urinary bladder is mostly decompressed with small amount of blood products in the bladder lumen. 3. There is a new small volume of free fluid in the abdomen and pelvis containing a small amount of b lood products. 4. Other new finding since the prior study include anasarca and small bilateral pleural effusions. The above findings were relayed to Dr. Meyer via telephone at 4: 41 PM. Asael Alex MD on March 18, 2017 at 16:26 Board Certified Radiologist. This report was verified electronically.
--- NOTE | 2017-03-18 17:49 | RADRPT ---
EXAM DATE/TIME: 03/18/2017 16:30 [facility] COMPARISON: No previous studies available for comparison. INDICATIONS : Bilateral leg edema. MEDICAL HISTORY : Hypercholesterolemia. Hypertension. Coronary artery disease. Hematuria. Diabetes. Substance use. Ant icoagulant therapy, Aspirin. SURGICAL HISTORY : Left rotator cuff repair. Orthopedic surgery, right knee fracture. ENCOUNTER: Initial ACUITY: 1 day PAIN SCORE: 0/10 LOCATION: Bilateral leg. TECHNIQUE: Venous ultrasound of the left and right leg was performed from the inguinal ligament to the proximal calf. Real-time, color Doppler and spectral tracing, compression and augmentation techniques were us ed. FINDINGS: RIGHT LEG: There is normal compressibility of the deep venous system from the inguinal region to the proximal ca lf. No echogenic clot is seen in the lumen of the common femoral, femoral, popliteal, and posterior tibial veins. There is a normal response of the venous system to proximal and distal augmentation an d respiration. LEFT LEG: There is normal compressibility of the deep venous system from the inguinal region to the proximal ca lf. No echogenic clot is seen in the lumen of the common femoral, femoral, popliteal, and posterior tibial veins. There is a normal response of the venous system to proximal and distal augmentation an d respiration. CONCLUSION: No DVT is identified within either lower extremity. Asael Alex MD on March 18, 2017 at 17:47 Board Certified Radiologist. This report was verified electronically.
[2017-03-18 19:16] LABS: REVIEW FLAG FINAL
[2017-03-18 19:32] LABS: BICARBONATE 18.2 MEQ/L (21.0-32.0); MAGNESIUM 1.7 MG/DL (1.5-2.5); POTASSIUM 4.1 MEQ/L (3.5-5.1)
[2017-03-19] VITALS (16 sets, daily range): BP systolic 117–151; BP diastolic 59–90; PULSE 90–101; RESP 11–18; TEMP 98–99.8; O2SAT 90–99
[2017-03-19 00:36] LABS: REVIEW FLAG FINAL
[2017-03-19 00:38] LABS: HEMATOCRIT 20.4 % (39.0-51.0)
[2017-03-19] MEDS: INSULIN ASPART SUPPLEMENTAL SCALE SQ SCH ×5 (03:23→21:00)
[2017-03-19] MEDS: CHLORHEXIDINE GLUCONATE 2 % 1 PACK (2 CLOTHS) TOP SCH (04:00)
[2017-03-19] MEDS: BELLADONNA ALKALOIDS/OPIUM 60 MG SUPP RECTAL SCH ×4 (05:24→23:17)
[2017-03-19 06:41] LABS: AUTOMATED NEUTROPHIL # 8.1 TH/MM3 (1.8-7.7); BASOPHIL % 0.1 % (0.0-2.0); EOSINOPHIL % 0.2 % (0.0-4.0); HEMATOCRIT 24.1 % (39.0-51.0); HEMO FLAGS DIFF FINAL; LYMPHOCYTE # 0.8 TH/MM3 (1.0-4.8); MEAN CELL VOLUME 87.7 FL (80.0-100.0); MEAN CORPUSCULAR HEMOGLOBIN 30.3 PG (27.0-34.0); MEAN CORPUSCULAR HGB CONC 34.6 % (32.0-36.0); MONO % 7.8 % (0.0-8.0); NEUT % 83.9 % (16.0-70.0); PLATELET COUNT 171 TH/MM3 (150-450); RED BLOOD COUNT 2.75 MIL/MM3 (4.50-5.90); RED CELL DISTRIBUTION WIDTH 14.8 % (11.6-17.2); WHITE BLOOD COUNT 9.7 TH/MM3 (4.0-11.0)
[2017-03-19 06:55] LABS: ANION GAP 11 MEQ/L (5-15); AST (GOT) 28 U/L (15-37); BICARBONATE 18.8 MEQ/L (21.0-32.0); BLOOD UREA NITROGEN 37 MG/DL (7-18); CHLORIDE 110 MEQ/L (98-107); GLOMERULAR FILTRATION RATE 49 ML/MIN (>89); MAGNESIUM 1.7 MG/DL (1.5-2.5); POTASSIUM 3.9 MEQ/L (3.5-5.1); SODIUM (NA) 140 MEQ/L (136-145)
[2017-03-19 06:56] LABS: ALT (GPT) 15 U/L (12-78)
[2017-03-19 07:21] LABS: ALKALINE PHOSPHATASE 53 U/L (45-117); TOTAL BILIRUBIN ADULT 0.8 MG/DL (0.2-1.0)
--- NOTE | 2017-03-19 08:08 | HHI.PR ---
Subjective Patient symptoms today c/o mild lower abdominal pain, 4/10. But improved compared to yesterday. Denies fevers, chills, nausea. Has appetite. Passing flatus. Objective Vital Signs Vital Signs Date Time Temp Pulse Resp B/P (MAP) Pulse Ox O2 Delivery O2 Flow Rate FiO2 03/19/17 06:00 90 03/19/17 04:00 93 03/19/17 04:00 99.5 93 14 143/68 (93) 99 03/19/17 03:09 99.8 92 18 129/67 98 03/19/17 02:00 97 03/19/17 01:28 99.2 96 18 121/66 98 03/19/17 01:10 99.4 98 18 117/60 95 03/19/17 00:00 96 03/19/17 00:00 98.5 96 15 125/59 (81) 98 03/18/17 22:00 97 03/18/17 20:11 100 Nasal Cannula 2.00 03/18/17 20:00 98.2 96 17 133/66 (88) 98 03/18/17 20:00 96 03/18/17 18:00 97 03/18/17 16:00 98.3 98 17 121/77 (92) 100 03/18/17 16:00 99 03/18/17 14:00 110 03/18/17 12:00 121 03/18/17 12:00 97.6 121 27 146/90 (108) 95 03/18/17 10:45 94 40 03/18/17 10:00 101 03/18/17 08:47 98 21 Intake & Output 03/19/17 03/19/17 07:00 19:00 Intake Total 515 ml Output Total 1765 ml Balance -1250 ml IV Total 100 ml Packed Cells 400 ml Blood Product IV Normal Saline Flush 15 ml Output Urine Total 1765 ml Result Diagram: 03/19/1751203/19/17512 Objective Remarks NAD. A/O x 3 abd soft, non distended urine clear on slow CBI. Medications and IVs Current Medications Medications (Trade) Dose Ordered Sig/Светлана Route Start Time Stop Time Status Last Admin (NS Flush) 2 ml UNSCH PRN IV FLUSH 03/16/17 17:45 (NS Flush) 2 ml BID IV FLUSH 03/16/17 21:00 03/18/17 20:41 (Tylenol) 650 mg Q6H PRN PO 03/16/17 17:45 ([place] 5-325 Mg) 1 tab Q4H PRN PO 03/16/17 17:45 (Morphine Inj) 2 mg Q2H PRN IV PUSH 03/16/17 17:45 03/18/17 10:49 (Protonix) 40 mg DAILY PO 03/17/17 09:00 03/18/17 08:28 (Zofran Inj) 4 mg Q6H PRN IV PUSH 03/16/17 17:45 Miscellaneous Information 1 Q361D XX 03/16/17 17:45 (Chlorhexidine 2% Cloth) 3 pack Taper DAILY@04 TOP 03/17/17 04:00 03/13/18 03:59 03/19/17 04:00 (Chlorhexidine 2% Cloth) 3 pack UNSCH PRN TOP 03/16/17 17:45 (Debbie-Colace) 1 tab BID PO 03/16/17 21:00 03/18/17 08:27 (Milk Of Magnesia Liq) 30 ml Q12H PRN PO 03/16/17 17:45 (Senokot) 17.2 mg Q12H PRN PO 03/16/17 17:45 (Dulcolax Supp) 10 mg DAILY PRN RECTAL 03/16/17 17:45 (Lactulose Liq) 30 ml DAILY PRN PO 03/16/17 17:45 (D50w (Vial) Inj) 50 ml UNSCH PRN IV PUSH 03/17/17 05:15 (Glucagon Inj) 1 mg UNSCH PRN OTHER 03/17/17 05:15 Cefazolin Sodium 500 mg/Sodium Chloride 100 ml @ 200 mls/hr Q12H IV 03/17/17 11:00 03/18/17 23:11 (Phoslo) 667 mg TID PO 03/17/17 10:00 03/19/17 08:59 03/18/17 17:23 Phenylephrine HCl 40 mg/Dextrose 500 ml @ 30 mls/hr TITRATE PRN IV 03/17/17 16:15 03/17/17 16:05 (Brethine Inj) 1 mg UNSCH PRN SQ 03/17/17 16:15 (B & O Supp) 60 mg Q6HR RECTAL 03/17/17 18:00 03/19/17 05:24 Sodium Bicarbonate 75 meq/Sterile Water 1,000 ml @ 150 mls/hr Q6H40M IV 03/17/17 18:00 Future Hold 03/18/17 05:49 (Albuterol Neb) 2.5 mg Q2HR NEB PRN NEB 03/18/17 10:30 (NovoLOG SUPPLEMENTAL SCALE) 1 ACHS AND 3AM SQ 03/18/17 12:00 03/19/17 03:23 Assessment and Plan Assessment and Plan s/p cystoscopy, clot evacuation with bladder tumor, bladder perforation -CT images reviewed. All findings c/w bladder perforation. -Continue almanza, CBI for now as urine is clearing. As long as he remains hemodynamically stable and catheter consistently draining, will continue conservative management. -Possible repeat cystoscopy, TURBT end of this week. -Follow Hgb -Appreciate other service input. Eliazar Watson MD Mar 19, 2017 08:08
[2017-03-19] MEDS: DOCUSATE SODIUM 50 MG/SENNA 8.6 MG TAB PO SCH ×2 (08:35→21:00)
[2017-03-19] MEDS: PANTOPRAZOLE SOD 40 MG DELAYED RELEASE TAB PO SCH (08:35)
[2017-03-19] MEDS: SODIUM CHLORIDE 0.9% FLUSH 10 ML FLUSH IV FLUSH SCH ×2 (08:36→21:18)
[2017-03-19] MEDS: ceFAZolin INJ 500 MG in SODIUM CHLORIDE 0.9% INJ 100 ML IV SCH (11:21)
--- NOTE | 2017-03-19 12:58 | HHI.CCPN ---
Subjective Remarks/Hospital Course This is a 66-year-old gentleman. Date of admission 03/16/2017.. Past medical history includes diabetes mellitus, hypertension, dyslipidemia, benign prostatic hypertrophy. Patient has a prior history of admission for diabetic ketoacidosis 10/2016. Patient presents to [facility] ED with his 96-year-old father with whom he lives with with malaise, weakness. He is currently on room air. He does not know if hetook his scheduled detemir today. Baseline laboratories reveal an elevated blood sugar 813. History was then transferred from triage to c26. He is also states he has a 2-3 history of bright red blood with urination. CT abdomen/culture revealed at 12.7 cm bladder mass with bilateral hydronephrosis. Hemoglobin is 5.6. Coags currently pending. Liver function tests correlate planning. He has been typed and cross 40s. Seasonal be transfused 2 units. Crabtree catheter has been placed with gross hematuria. Will do generalized flushing to maintain patency. Urology be consulted. We are asked to admit to the ICU. Patient was given 7 units IV insulin is currently on insulin drip per DKA protocol. 03/17: Currently on continuous bladder irrigations. This has clotted off a couple of times. Hemoglobin still not drawn. Was transfused 2 units eventually last night. Hemodynamically stable. BMs are brown. 03/18: Yesterday, patient underwent cystourethroscopy. Results revealed anterior Bladder perforation large Bladder tumor, left lateral wall.Clot status post evacuation evacuation. 24 Iranian catheter placed with 3 irrigation/ continuous. Clot only once overnight. Hemoglobin currently safe 0.5. Appears much more comfortable this AM. Creatinine slowly normalizing. Subjective 03/19: Yesterday, Crabtree catheter occluded with abdominal pain. CT is performed for that reason due to lack of output. Clot was suctioned out and pain/abdominal discomfort much improved. Tolerating diet. On room air. Objective Vital Signs Date Time Temp Pulse Resp B/P (MAP) Pulse Ox O2 Delivery O2 Flow Rate FiO2 03/19/17 12:00 98.9 92 16 137/73 (94) 96 03/19/17 09:00 Nasal Cannula 2.00 03/18/17 10:45 40 Intake and Output 03/19/17 03/19/17 03/20/17 08:00 16:00 00:00 Intake Total 515 ml Output Total 1000 ml Balance -485 ml Result Diagram: 03/19/1751203/19/17512 Other Results Microbiology Date/Time Source Procedure Growth Status 03/16/17 18:50 Blood Peripheral Aerobic Blood Culture - Preliminary NO GROWTH IN 3 DAYS Resulted 03/16/17 18:50 Blood Peripheral Anaerobic Blood Culture - Preliminary NO GROWTH IN 3 DAYS Resulted 03/16/17 23:10 Urine Clean Catch Urine Culture - Final NO GROWTH IN 48 HOURS. Complete Imaging Last Impressions Lower Extremity Ultrasound 03/18/17 0000 Signed Impressions: Service Date/Time: Saturday, March 18, 2017 16:30 - CONCLUSION: No DVT is identified within either lower extremity. Asael Alex MD Chest X-Ray 03/18/17 0000 Signed Impressions: Service Date/Time: Saturday, March 18, 2017 10:37 - CONCLUSION: Hypoaerated lungs with bibasilar atelectasis. Arnaldo Cruz MD Abdomen/Pelvis CT 03/18/17 0000 Signed Impressions: Service Date/Time: Saturday, March 18, 2017 16:05 - CONCLUSION: 1. There is new free intraperitoneal air from uncertain etiology. Suggest correlating with the patient's recent surgical history. This could be related to a recent surgery depending on the procedure performed but could also indicate perforated bowel. 2. Mild bilateral hydronephrosis, decreased from the study from 2 days ago. Urinary bladder is mostly decompressed with small amount of blood products in the bladder lumen. 3. There is a new small volume of free fluid in the abdomen and pelvis containing a small amount of blood products. 4. Other new finding since the prior study include anasarca and small bilateral pleural effusions. The above findings were relayed to Dr. Meyer via telephone at 4: 41 PM. Asael Alex MD Objective Remarks GENERAL: 66-year-old male, currently resting in bed in no acute distress SKIN: Warm and dry. Well perfused. No rash HEAD: Atraumatic. Normocephalic. EYES: Pupils equal and round about 2 mm bilaterally and reactive. No scleral icterus. No injection or drainage. ENT: No nasal bleeding or discharge. Mucous membranes pink and moist. NECK: Trachea midline. No JVD. CARDIOVASCULAR: Regular rate and rhythm. S1, S2 no S4. No murmur RESPIRATORY: Clear to auscultation. Breath sounds equal bilaterally. GASTROINTESTINAL: Abdomen is slightly distended. Tender to palpation suprapubically. Normal bowel sounds. : Crabtree catheter in place with gross hematuria MUSCULOSKELETAL: Extremities without noted in peripheral edema. No obvious deformities. NEUROLOGICAL: Awake and alert. No obvious cranial nerve deficits. Motor grossly within normal limits. Five out of 5 muscle strength in the arms and legs. Normal speech. A/P Assessment and Plan Neuro/Psych: Acetaminophen for fever Hydrocodone/acetaminophen/morphine for pain management CV: History of hypertension History dyslipidemia Currently on sterile water with 75 mEq sodium bicarbonate currently at 50 cc an hour Holding lisinopril 10 mill grams by mouth daily light of acute kidney injury Holding atorvastatin 40 mg by mouth daily. Resume when clinically indicated Holding aspirin 81 mg by mouth daily light of gross hematuria Resp: History of tobaccoism Nasal cannula to maintain saturations greater than equal to 90% Incentive spirometry while awake As needed albuterol aerosols every 2 hours for dyspnea GI: ADA diet Pantoprazole for GI prophylaxis Docusate sodium/senna for bowel regimen Guaiac-negative in ED : BPH Gross hematuria 12.7 and 8 cm 9 cm bladder tumor with thrombus 03/17 - Dr. Watson - status post cystourethroscopy - lateral perforation with bladder mass left lateral wall thrombus - 24 Iranian continuous bladder irrigations. Continue CBI 03/16 - CT abdomen/pelvis - Urinary bladder is markedly distended. Centrally, there is a 9.5 x 8.5 x 12.7 cm soft tissue density in the urinary bladder which may represent a large thrombus although an associated mass lesion cannot be excluded.. Crabtree catheter is in place. CBI Holding home medication alfuzosin 10 mill grams daily Endo: DKA - resolved History diabetes Elevated TSH Received 5 units insulin bolus and initially started on insulin drip . This is discontinued 03/17. Currently on Novulog low-dose Accu-Cheks every before meals/at bedtime -We'll start on detemir 8 units subcutaneous twice a day continue for now BMP 6 hours with magnesium/phosphorus every 12 hours to be discontinued once laboratories actually are drawn. Holding home medication insulin detemir 30 units twice a day and Ertugliflozin 12.5 mg before meals Multiple laboratory this a.m. still pending Low T3. Normal T4. Recommend rechecking thyroid function tests once acute illness past 3-4 weeks. Renal: Acute kidney injury likely obstructive Monitor urine output Accurate I's and O's Maintain Crabtree catheter Heme: Leukocytosis Normocytic anemia Typed and crossed and transfused3 units PRBCs. Since admission. Repeat hemoglobin this afternoon Source of bleeding likely hematuria Hemoccult negative. Iron studies essentially normal ID: Cefazolin 1000 mg IV every 12 hours day #4 Monitor for infection Blood cultures 2, UA currently 03/16 no growth today FEN: Replace electrolytes as clinically indicated. Unable to use ICU electrolyte protocol secondary to creatinine 2.9 MSK: Physical therapy evaluate and treat Access - Utilize peripheral IV. Central line if indicated. Prophylaxis - GI -pantoprazole - DVT - SCD/holding pharmacological prophylaxis in light of gross hematuria level II follow-up Austin Meyer MD Mar 19, 2017 12:58
[2017-03-19] MEDS: MAGNESIUM SULFATE 1 GM PREMIX 100 ML IV SCH ×2 (15:07→16:14)
[2017-03-19 17:58] LABS: HEMATOCRIT 25.4 % (39.0-51.0); REVIEW FLAG FINAL
[2017-03-19] MEDS: ACETAMINOPHEN/HYDROcodone 325 MG/5 MG TAB PO PRN (21:17)
[2017-03-20] VITALS (20 sets, daily range): BP systolic 121–157; BP diastolic 64–81; PULSE 72–98; RESP 14–20; TEMP 98.1–98.8; O2SAT 97–100
[2017-03-20] MEDS: ACETAMINOPHEN/HYDROcodone 325 MG/5 MG TAB PO PRN (01:14)
[2017-03-20] MEDS: INSULIN ASPART SUPPLEMENTAL SCALE SQ SCH ×5 (02:36→21:00)
[2017-03-20] MEDS: CHLORHEXIDINE GLUCONATE 2 % 1 PACK (2 CLOTHS) TOP SCH (02:38)
[2017-03-20] MEDS: BELLADONNA ALKALOIDS/OPIUM 60 MG SUPP RECTAL SCH ×3 (05:40→18:00)
[2017-03-20 05:45] LABS: AUTOMATED NEUTROPHIL # 6.6 TH/MM3 (1.8-7.7); BASOPHIL % 0.1 % (0.0-2.0); EOSINOPHIL # 0.1 TH/MM3 (0-0.4); EOSINOPHIL % 0.8 % (0.0-4.0); HEMATOCRIT 22.8 % (39.0-51.0); HEMO FLAGS DIFF FINAL; LYMPH % 8.4 % (9.0-44.0); LYMPHOCYTE # 0.7 TH/MM3 (1.0-4.8); MEAN CORPUSCULAR HEMOGLOBIN 29.7 PG (27.0-34.0); MEAN CORPUSCULAR HGB CONC 33.7 % (32.0-36.0); NEUT % 81.7 % (16.0-70.0); PLATELET COUNT 179 TH/MM3 (150-450); RED BLOOD COUNT 2.59 MIL/MM3 (4.50-5.90); RED CELL DISTRIBUTION WIDTH 15.4 % (11.6-17.2); WHITE BLOOD COUNT 8.1 TH/MM3 (4.0-11.0)
[2017-03-20 05:59] LABS: APTT (PATIENT) 35.5 SEC (24.3-30.1); INTERNATIONAL NORMALIZED RATIO 0.9 RATIO; PROTHROMBIN TIME - PATIENT 10.3 SEC (9.8-11.6)
[2017-03-20 06:30] LABS: BICARBONATE 20.5 MEQ/L (21.0-32.0); MAGNESIUM 1.9 MG/DL (1.5-2.5)
--- NOTE | 2017-03-20 07:44 | HHI.PR ---
Subjective Patient symptoms today no issues overnight. catheter draining without issue. Abdominal pain minimal. Having BMs. Denies fevers. Objective Vital Signs Vital Signs Date Time Temp Pulse Resp B/P (MAP) Pulse Ox O2 Delivery O2 Flow Rate FiO2 03/20/17 04:00 98.2 92 17 127/72 (90) 99 03/20/17 00:00 98.1 98 20 143/81 (101) 98 03/19/17 20:17 98 Nasal Cannula 2.00 03/19/17 20:00 98.0 100 16 137/69 (91) 98 03/19/17 19:00 Nasal Cannula 2.00 03/19/17 18:00 101 03/19/17 16:00 98.3 98 13 135/90 (105) 98 03/19/17 16:00 98 03/19/17 14:00 101 03/19/17 12:00 98.9 92 16 137/73 (94) 96 03/19/17 12:00 92 03/19/17 10:00 101 03/19/17 09:00 90 Nasal Cannula 2.00 03/19/17 08:00 92 03/19/17 08:00 99.1 92 11 151/72 (98) 98 Intake & Output 03/20/17 03/20/17 07:00 19:00 Intake Total 580 ml Output Total 3300 ml Balance -2720 ml Intake Oral 480 ml IV Total 100 ml Output Urine Total 3300 ml # Bowel Movements 1 Result Diagram: 03/20/1744103/20/17441 Objective Remarks NAD. A/O x 3 abd soft, non distended urine clear on slow CBI. Medications and IVs Current Medications Medications (Trade) Dose Ordered Sig/Светлана Route Start Time Stop Time Status Last Admin (NS Flush) 2 ml UNSCH PRN IV FLUSH 03/16/17 17:45 (NS Flush) 2 ml BID IV FLUSH 03/16/17 21:00 03/19/17 21:18 (Tylenol) 650 mg Q6H PRN PO 03/16/17 17:45 ([place] 5-325 Mg) 1 tab Q4H PRN PO 03/16/17 17:45 03/20/17 01:14 (Morphine Inj) 2 mg Q2H PRN IV PUSH 03/16/17 17:45 03/18/17 10:49 (Protonix) 40 mg DAILY PO 03/17/17 09:00 03/19/17 08:35 (Zofran Inj) 4 mg Q6H PRN IV PUSH 03/16/17 17:45 Miscellaneous Information 1 Q361D XX 03/16/17 17:45 (Chlorhexidine 2% Cloth) 3 pack Taper DAILY@04 TOP 03/17/17 04:00 03/13/18 03:59 03/20/17 02:38 (Chlorhexidine 2% Cloth) 3 pack UNSCH PRN TOP 03/16/17 17:45 (Debbie-Colace) 1 tab BID PO 03/16/17 21:00 03/19/17 08:35 (Milk Of Magnesia Liq) 30 ml Q12H PRN PO 03/16/17 17:45 (Senokot) 17.2 mg Q12H PRN PO 03/16/17 17:45 (Dulcolax Supp) 10 mg DAILY PRN RECTAL 03/16/17 17:45 (Lactulose Liq) 30 ml DAILY PRN PO 03/16/17 17:45 (D50w (Vial) Inj) 50 ml UNSCH PRN IV PUSH 03/17/17 05:15 (Glucagon Inj) 1 mg UNSCH PRN OTHER 03/17/17 05:15 (B & O Supp) 60 mg Q6HR RECTAL 03/17/17 18:00 03/19/17 17:01 Sodium Bicarbonate 75 meq/Sterile Water 1,000 ml @ 150 mls/hr Q6H40M IV 03/17/17 18:00 Future Hold 03/18/17 05:49 (Albuterol Neb) 2.5 mg Q2HR NEB PRN NEB 03/18/17 10:30 (NovoLOG SUPPLEMENTAL SCALE) 1 ACHS AND 3AM SQ 03/18/17 12:00 03/19/17 11:21 Cefazolin Sodium 1000 mg/Sodium Chloride 100 ml @ 200 mls/hr Q12H IV 03/19/17 23:00 03/19/17 23:00 Assessment and Plan Assessment and Plan s/p cystoscopy, clot evacuation with bladder tumor, bladder perforation -He continues to improve. -Continue almanza, CBI -Drop in hemoglobin do not think is from his urine as his urine is clear. -Renal function normal -Will continue to follow. Possible cystoscopy, TURBT end of this week depending upon patient's clinical condition. Eliazar Watson MD Mar 20, 2017 07:44
[2017-03-20] MEDS: PANTOPRAZOLE SOD 40 MG DELAYED RELEASE TAB PO SCH (08:36)
[2017-03-20] MEDS: DOCUSATE SODIUM 50 MG/SENNA 8.6 MG TAB PO SCH ×2 (08:36→21:37)
[2017-03-20] MEDS: SODIUM CHLORIDE 0.9% FLUSH 10 ML FLUSH IV FLUSH SCH ×2 (08:36→21:00)
--- NOTE | 2017-03-20 13:46 | HHI.PR ---
Subjective Remarks Denies cp/sob. denies fevers or chills. c/o pain in lower abdomen and penis due to the almanza catheter. Objective Vitals Vital Signs Date Time Temp Pulse Resp B/P (MAP) Pulse Ox O2 Delivery O2 Flow Rate FiO2 03/20/17 12:00 83 03/20/17 12:00 98.1 83 14 145/78 97 03/20/17 11:00 92 03/20/17 10:00 92 03/20/17 09:00 86 03/20/17 08:00 87 03/20/17 08:00 98.1 87 15 157/78 (104) 97 03/20/17 07:38 99 Nasal Cannula 1.00 03/20/17 07:00 86 03/20/17 07:00 100 Nasal Cannula 2.00 03/20/17 04:00 98.2 92 17 127/72 (90) 99 03/20/17 00:00 98.1 98 20 143/81 (101) 98 03/19/17 20:17 98 Nasal Cannula 2.00 03/19/17 20:00 98.0 100 16 137/69 (91) 98 03/19/17 19:00 Nasal Cannula 2.00 03/19/17 18:00 101 03/19/17 16:00 98.3 98 13 135/90 (105) 98 03/19/17 16:00 98 03/19/17 14:00 101 I/O 03/19/17 03/19/17 03/19/17 03/20/17 03/20/17 03/20/17 07:00 15:00 23:00 07:00 15:00 23:00 Intake Total 515 ml 100 ml 920 ml 580 ml Output Total 1150 ml 1100 ml 3300 ml Balance -635 ml 100 ml -180 ml -2720 ml Intake Oral 720 ml 480 ml IV Total 100 ml 100 ml 200 ml 100 ml Packed Cells 400 ml Blood Product IV Normal Saline Flush 15 ml Output Urine Total 1150 ml 1100 ml 3300 ml # Bowel Movements 1 Result Diagram: 03/20/17 0442 03/20/17 0442 Imaging Last Impressions Lower Extremity Ultrasound 03/18/17 0000 Signed Impressions: Service Date/Time: Saturday, March 18, 2017 16:30 - CONCLUSION: No DVT is identified within either lower extremity. Asael Alex MD Chest X-Ray 03/18/17 0000 Signed Impressions: Service Date/Time: Saturday, March 18, 2017 10:37 - CONCLUSION: Hypoaerated lungs with bibasilar atelectasis. Arnaldo Cruz MD Abdomen/Pelvis CT 03/18/17 0000 Signed Impressions: Service Date/Time: Saturday, March 18, 2017 16:05 - CONCLUSION: 1. There is new free intraperitoneal air from uncertain etiology. Suggest correlating with the patient's recent surgical history. This could be related to a recent surgery depending on the procedure performed but could also indicate perforated bowel. 2. Mild bilateral hydronephrosis, decreased from the study from 2 days ago. Urinary bladder is mostly decompressed with small amount of blood products in the bladder lumen. 3. There is a new small volume of free fluid in the abdomen and pelvis containing a small amount of blood products. 4. Other new finding since the prior study include anasarca and small bilateral pleural effusions. The above findings were relayed to Dr. Meyer via telephone at 4: 41 PM. Asael Alex MD Objective Remarks AAOx3, NAD PERRLA Clear lungs BL S1S2 RRR, no MRG abdomen soft, tender to palpation of hypogastrium no edema in extremities Procedures Date of Surgery: Mar 17, 2017 Preoperative Diagnosis: Gross hematuria with clot retention Postoperative Diagnosis: 1. Gross hematuria with clot retention 2. Bladder Perforation 3. Bladder tumor Procedure: cystoscopy, clot evacuation Surgeon: Eliazar Feltontrino Had large blood clot in bladder, which was removed found large bladder tumor on left lateral wall Has bladder perforation near dome of bladder, likely from retention Due to perforation, bladder tumor cannot be safely resected at this time. Will leave almanza catheter in place in order for bladder to heal on its own. As long as the catheter remains patent, bladder should heal. Will schedule for cystoscopy, TURBT end of next week unless condition warrants earlier intervention, such as open bladder repair. Medications and IVs Current Medications Medications (Trade) Dose Ordered Sig/Светлана Route Start Time Stop Time Status Last Admin (NS Flush) 2 ml UNSCH PRN IV FLUSH 03/16/17 17:45 (NS Flush) 2 ml BID IV FLUSH 03/16/17 21:00 03/20/17 08:36 (Tylenol) 650 mg Q6H PRN PO 03/16/17 17:45 ([place] 5-325 Mg) 1 tab Q4H PRN PO 03/16/17 17:45 03/20/17 01:14 (Morphine Inj) 2 mg Q2H PRN IV PUSH 03/16/17 17:45 03/18/17 10:49 (Protonix) 40 mg DAILY PO 03/17/17 09:00 03/20/17 08:36 (Zofran Inj) 4 mg Q6H PRN IV PUSH 03/16/17 17:45 Miscellaneous Information 1 Q361D XX 03/16/17 17:45 (Chlorhexidine 2% Cloth) 3 pack Taper DAILY@04 TOP 03/17/17 04:00 03/13/18 03:59 03/20/17 02:38 (Chlorhexidine 2% Cloth) 3 pack UNSCH PRN TOP 03/16/17 17:45 (Debbie-Colace) 1 tab BID PO 03/16/17 21:00 03/19/17 08:35 (Milk Of Magnesia Liq) 30 ml Q12H PRN PO 03/16/17 17:45 (Senokot) 17.2 mg Q12H PRN PO 03/16/17 17:45 (Dulcolax Supp) 10 mg DAILY PRN RECTAL 03/16/17 17:45 (Lactulose Liq) 30 ml DAILY PRN PO 03/16/17 17:45 (D50w (Vial) Inj) 50 ml UNSCH PRN IV PUSH 03/17/17 05:15 (Glucagon Inj) 1 mg UNSCH PRN OTHER 03/17/17 05:15 (B & O Supp) 60 mg Q6HR RECTAL 03/17/17 18:00 03/19/17 17:01 Sodium Bicarbonate 75 meq/Sterile Water 1,000 ml @ 150 mls/hr Q6H40M IV 03/17/17 18:00 Future Hold 03/18/17 05:49 (Albuterol Neb) 2.5 mg Q2HR NEB PRN NEB 03/18/17 10:30 (NovoLOG SUPPLEMENTAL SCALE) 1 ACHS AND 3AM SQ 03/18/17 12:00 03/20/17 11:47 Cefazolin Sodium 1000 mg/Sodium Chloride 100 ml @ 200 mls/hr Q12H IV 03/19/17 23:00 03/20/17 11:43 Urinary Catheter: Yes Assessment to: Continue Almanza insert reason: Obstruction/Retention Vascular Central Line Catheter: No A/P Problem List: (1) Diabetic ketoacidosis ICD Code: E13.10 - Other specified diabetes mellitus with ketoacidosis without coma Status: Acute Plan: Patient was admitted to the intensive care unit and 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 The patient received 5 units of IV insulin bolus and was started on an insulin drip which was later discontinued. DKA has resolved. The patient is currently on SSI with insulin NovoLog and blood sugars are still elevated in the 200s. I will start the patient on insulin Levemir 8 units subcutaneous twice a day. Continue to monitor Accu-Cheks. (2) Bladder mass ICD Code: N32.89 - Other specified disorders of bladder Status: Chronic Plan: Urology consulted and following. Patient underwent cystourethroscopy. Results revealed anterior Bladder perforation large Bladder tumor, left lateral wall.Clot status post evacuation evacuation. 24 Lithuanian catheter placed with 3 irrigation/continuous. For now continue Almanza catheter, CBI. As per urology recommendations possible cystoscopy, TURBT end of this week depending on the patient's clinical condition. (3) BPH (benign prostatic hyperplasia) ICD Code: N40.0 - Benign prostatic hyperplasia without lower urinary tract symptoms (4) Hydronephrosis ICD Code: N13.30 - Unspecified hydronephrosis Status: Acute Plan: As seen on initial CT scan. This is likely secondary to bladder mass and clot which have been removed. Repeat CT abdomen and pelvis obtained on 03/18/17 showed some new free intraperitoneal air. Indicated mild bilateral hydronephrosis which was decreased from a study performed 2 days prior. He also reports anasarca and small bilateral pleural effusions. (5) Acute kidney injury ICD Code: N17.9 - Acute kidney failure, unspecified Plan: Likely due to obstruction. Creatinine trending down and improving. Continue to monitor BUN/creatinine, strict I's and O's and avoid nephrotoxins. (6) Leukocytosis ICD Code: D72.829 - Elevated white blood cell count, unspecified Status: Resolved Plan: Cytosis now resolved. Continue to monitor CBC. (7) Gross hematuria ICD Code: R31.0 - Gross hematuria Status: Acute Plan: Management as above as per urology recommendations. For now continue Almanza catheter and CBI. (8) Hypertension ICD Code: I10 - Hypertension Status: Chronic (9) Dyslipidemia ICD Code: E78.5 - Hyperlipidemia, unspecified Status: Chronic (10) Symptomatic anemia ICD Code: D64.9 - Anemia, unspecified Status: Acute Plan: Also bleeding likely hematuria. Hemoccult negative. And studies essentially normal. Continue to monitor CBC. 03/19 hemoglobin is slowly trending down and today 7.7. There is no other site other than the tract with active bleeding. I will transfuse 1 unit of packed red blood cells. Transfuse as needed for hemoglobin less than 7 or hemoglobin less than 8 if active bleeding to a goal hemoglobin of more than 9. Assessment and Plan GI prophylaxis: Continue PPI. DVT prophylaxis: SCDs, chemoprophylaxis contraindicated secondary to anemia and acute bleeding. Discharge Planning Will transfer ot of ICU after blood transfusion Problem Qualifiers (1) Diabetic ketoacidosis: Qualified Codes: E13.10 - Other specified diabetes mellitus with ketoacidosis without coma (2) BPH (benign prostatic hyperplasia): Qualified Codes: N40.1 - Benign prostatic hyperplasia with lower urinary tract symptoms; R35.0 - Frequency of micturition (3) Hydronephrosis: Qualified Codes: N13.30 - Unspecified hydronephrosis (4) Leukocytosis: Qualified Codes: D72.829 - Elevated white blood cell count, unspecified (5) Hypertension: Qualified Codes: I10 - Essential (primary) hypertension Teddy Cisse MD Mar 20, 2017 13:46
[2017-03-20] MEDS ORDERED: ACETAMINOPHEN 325 MG TAB PO PRN (14:45)
[2017-03-20] MEDS ORDERED: SODIUM CHLOR 0.9% 250 ML INJ 250 ML IV ONE (14:45)
[2017-03-20] MEDS ORDERED: diphenhydrAMINE HCL 25 MG CAP PO PRN (14:45)
[2017-03-20] MEDS ORDERED: FUROSEMIDE 20 MG/2 ML VIAL IV PUSH SCH (16:00)
[2017-03-20] MEDS: FUROSEMIDE 40 MG TAB PO SCH (16:25)
[2017-03-20] MEDS: INSULIN DETEMIR 100 UNITS/ML VIAL SQ SCH (21:00)
[2017-03-21] VITALS (20 sets, daily range): BP systolic 103–159; BP diastolic 56–77; PULSE 67–120; RESP 16–30; TEMP 98–99; O2SAT 96–100
[2017-03-21] MEDS: INSULIN ASPART SUPPLEMENTAL SCALE SQ SCH ×5 (03:00→21:00)
[2017-03-21] MEDS: CHLORHEXIDINE GLUCONATE 2 % 1 PACK (2 CLOTHS) TOP SCH (04:00)
[2017-03-21] MEDS: BELLADONNA ALKALOIDS/OPIUM 60 MG SUPP RECTAL SCH ×5 (06:00→23:14)
[2017-03-21] MEDS: FUROSEMIDE 40 MG TAB PO SCH (08:13)
[2017-03-21] MEDS: INSULIN DETEMIR 100 UNITS/ML VIAL SQ SCH (08:13)
[2017-03-21] MEDS: PANTOPRAZOLE SOD 40 MG DELAYED RELEASE TAB PO SCH (08:13)
[2017-03-21] MEDS: DOCUSATE SODIUM 50 MG/SENNA 8.6 MG TAB PO SCH ×2 (08:14→21:00)
[2017-03-21] MEDS: SODIUM CHLORIDE 0.9% FLUSH 10 ML FLUSH IV FLUSH SCH ×2 (08:14→22:17)
--- NOTE | 2017-03-21 08:30 | HHI.PR ---
Subjective Patient symptoms today no acute issues overnight. Denies fevers. Some crampy abdominal pain. Having BMs. Eating breakfast Objective Vital Signs Vital Signs Date Time Temp Pulse Resp B/P (MAP) Pulse Ox O2 Delivery O2 Flow Rate FiO2 03/21/17 07:52 100 Nasal Cannula 2.00 03/21/17 07:00 100 Nasal Cannula 2.00 03/21/17 06:00 67 03/21/17 04:00 68 03/21/17 04:00 98.9 68 16 103/56 (72) 99 03/21/17 02:00 76 03/21/17 00:00 99.0 77 18 128/69 (88) 98 03/21/17 00:00 77 03/20/17 22:00 72 03/20/17 20:00 79 03/20/17 20:00 98.8 79 18 121/64 (83) 100 03/20/17 19:15 98.6 78 16 121/66 100 03/20/17 19:03 100 Nasal Cannula 2.00 03/20/17 19:00 100 Nasal Cannula 2.00 03/20/17 19:00 98.7 78 17 121/66 100 03/20/17 18:00 91 03/20/17 17:00 79 03/20/17 16:00 80 03/20/17 16:00 98.1 80 15 135/72 (93) 100 03/20/17 15:00 80 03/20/17 14:00 83 03/20/17 13:00 92 03/20/17 12:00 83 03/20/17 12:00 98.1 83 14 145/78 97 03/20/17 11:00 92 03/20/17 10:00 92 03/20/17 09:00 86 Intake & Output 03/21/17 03/21/17 07:00 19:00 Intake Total 550 ml Output Total 150 ml Balance 400 ml IV Total 100 ml Packed Cells 400 ml Blood Product IV Normal Saline Flush 50 ml Output Urine Total 150 ml # Bowel Movements 2 Result Diagram: 03/20/1744103/20/17441 Objective Remarks NAD. A/O x 3 abd soft, non distended urine clear on slow CBI. Medications and IVs Current Medications Medications (Trade) Dose Ordered Sig/Светлана Route Start Time Stop Time Status Last Admin (NS Flush) 2 ml UNSCH PRN IV FLUSH 03/16/17 17:45 (NS Flush) 2 ml BID IV FLUSH 03/16/17 21:00 03/21/17 08:14 (Tylenol) 650 mg Q6H PRN PO 03/16/17 17:45 ([place] 5-325 Mg) 1 tab Q4H PRN PO 03/16/17 17:45 03/20/17 01:14 (Morphine Inj) 2 mg Q2H PRN IV PUSH 03/16/17 17:45 03/18/17 10:49 (Protonix) 40 mg DAILY PO 03/17/17 09:00 03/21/17 08:13 (Zofran Inj) 4 mg Q6H PRN IV PUSH 03/16/17 17:45 Miscellaneous Information 1 Q361D XX 03/16/17 17:45 (Chlorhexidine 2% Cloth) 3 pack Taper DAILY@04 TOP 03/17/17 04:00 03/13/18 03:59 03/21/17 04:00 (Chlorhexidine 2% Cloth) 3 pack UNSCH PRN TOP 03/16/17 17:45 (Debbie-Colace) 1 tab BID PO 03/16/17 21:00 03/20/17 21:37 (Milk Of Magnesia Liq) 30 ml Q12H PRN PO 03/16/17 17:45 (Senokot) 17.2 mg Q12H PRN PO 03/16/17 17:45 (Dulcolax Supp) 10 mg DAILY PRN RECTAL 03/16/17 17:45 (Lactulose Liq) 30 ml DAILY PRN PO 03/16/17 17:45 (D50w (Vial) Inj) 50 ml UNSCH PRN IV PUSH 03/17/17 05:15 03/21/17 08:14 (Glucagon Inj) 1 mg UNSCH PRN OTHER 03/17/17 05:15 (B & O Supp) 60 mg Q6HR RECTAL 03/17/17 18:00 03/19/17 17:01 (Albuterol Neb) 2.5 mg Q2HR NEB PRN NEB 03/18/17 10:30 (NovoLOG SUPPLEMENTAL SCALE) 1 ACHS AND 3AM SQ 03/18/17 12:00 11/13/17 21:00 Cefazolin Sodium 1000 mg/Sodium Chloride 100 ml @ 200 mls/hr Q12H IV 03/19/17 23:00 03/20/17 21:38 (Levemir Inj) 8 units Q12HR SQ 03/20/17 21:00 03/20/17 21:00 (Lasix) 40 mg DAILY PO 03/20/17 14:45 03/21/17 08:13 (Benadryl) 25 mg Q4H PRN PO 03/20/17 14:45 03/20/17 18:50 Assessment and Plan Assessment and Plan s/p cystoscopy, clot evacuation with bladder tumor, bladder perforation -He continues to improve. -Continue almanza. Stop CBI -Irrigate as needed. -F/U H/H. Eliazar Watson MD Mar 21, 2017 08:30
[2017-03-21 08:56] LABS: AUTOMATED NEUTROPHIL # 5.6 TH/MM3 (1.8-7.7); BASOPHIL % 0.2 % (0.0-2.0); EOSINOPHIL # 0.1 TH/MM3 (0-0.4); EOSINOPHIL % 1.6 % (0.0-4.0); HEMATOCRIT 31.2 % (39.0-51.0); HEMO FLAGS DIFF FINAL; LYMPH % 10.2 % (9.0-44.0); LYMPHOCYTE # 0.7 TH/MM3 (1.0-4.8); MEAN CORPUSCULAR HEMOGLOBIN 29.7 PG (27.0-34.0); MEAN CORPUSCULAR HGB CONC 33.3 % (32.0-36.0); MONO % 10.4 % (0.0-8.0); NEUT % 77.6 % (16.0-70.0); PLATELET COUNT 224 TH/MM3 (150-450); RED CELL DISTRIBUTION WIDTH 15.4 % (11.6-17.2); WHITE BLOOD COUNT 7.2 TH/MM3 (4.0-11.0)
[2017-03-21 09:24] LABS: BICARBONATE 22.1 MEQ/L (21.0-32.0); POTASSIUM 3.2 MEQ/L (3.5-5.1)
--- NOTE | 2017-03-21 13:45 | HHI.PR ---
Subjective Remarks Patient c/o some back pain. Still has hematuria. Denies nausea or vomiting. denies cp/sob. Abdominal pain better. eating well. afebrile. Objective Vitals Vital Signs Date Time Temp Pulse Resp B/P (MAP) Pulse Ox O2 Delivery O2 Flow Rate FiO2 03/21/17 09:00 70 03/21/17 08:00 77 03/21/17 08:00 98.1 77 30 137/61 (86) 98 03/21/17 07:52 100 Nasal Cannula 2.00 03/21/17 07:00 69 03/21/17 07:00 100 Nasal Cannula 2.00 03/21/17 06:00 67 03/21/17 04:00 68 03/21/17 04:00 98.9 68 16 103/56 (72) 99 03/21/17 02:00 76 03/21/17 00:00 99.0 77 18 128/69 (88) 98 03/21/17 00:00 77 03/20/17 22:00 72 03/20/17 20:00 79 03/20/17 20:00 98.8 79 18 121/64 (83) 100 03/20/17 19:15 98.6 78 16 121/66 100 03/20/17 19:03 100 Nasal Cannula 2.00 03/20/17 19:00 100 Nasal Cannula 2.00 03/20/17 19:00 98.7 78 17 121/66 100 03/20/17 18:00 91 03/20/17 17:00 79 03/20/17 16:00 80 03/20/17 16:00 98.1 80 15 135/72 (93) 100 03/20/17 15:00 80 03/20/17 14:00 83 I/O 03/20/17 03/20/17 03/20/17 03/21/17 03/21/17 03/21/17 07:00 15:00 23:00 07:00 15:00 23:00 Intake Total 580 ml 100 ml 1265 ml Output Total 3300 ml 105 ml 150 ml Balance -2720 ml 100 ml 1160 ml -150 ml Intake Oral 480 ml 700 ml IV Total 100 ml 100 ml 100 ml Packed Cells 400 ml Blood Product IV Normal Saline Flush 65 ml Output Urine Total 3300 ml 100 ml 150 ml Stool Total 5 ml # Bowel Movements 1 2 Result Diagram: 03/21/17 0835 03/21/17 0835 Imaging Last Impressions Lower Extremity Ultrasound 03/18/17 0000 Signed Impressions: Service Date/Time: Saturday, March 18, 2017 16:30 - CONCLUSION: No DVT is identified within either lower extremity. Asael Alex MD Chest X-Ray 03/18/17 0000 Signed Impressions: Service Date/Time: Saturday, March 18, 2017 10:37 - CONCLUSION: Hypoaerated lungs with bibasilar atelectasis. Arnaldo Cruz MD Abdomen/Pelvis CT 03/18/17 0000 Signed Impressions: Service Date/Time: Saturday, March 18, 2017 16:05 - CONCLUSION: 1. There is new free intraperitoneal air from uncertain etiology. Suggest correlating with the patient's recent surgical history. This could be related to a recent surgery depending on the procedure performed but could also indicate perforated bowel. 2. Mild bilateral hydronephrosis, decreased from the study from 2 days ago. Urinary bladder is mostly decompressed with small amount of blood products in the bladder lumen. 3. There is a new small volume of free fluid in the abdomen and pelvis containing a small amount of blood products. 4. Other new finding since the prior study include anasarca and small bilateral pleural effusions. The above findings were relayed to Dr. Meyer via telephone at 4: 41 PM. Asael Alex MD Objective Remarks AAOx3, NAD PERRLA Clear lungs BL S1S2 RRR, no MRG abdomen soft, tender to palpation of hypogastrium no edema in extremities Procedures Date of Surgery: Mar 17, 2017 Preoperative Diagnosis: Gross hematuria with clot retention Postoperative Diagnosis: 1. Gross hematuria with clot retention 2. Bladder Perforation 3. Bladder tumor Procedure: cystoscopy, clot evacuation Surgeon: Eliazar Watson Had large blood clot in bladder, which was removed found large bladder tumor on left lateral wall Has bladder perforation near dome of bladder, likely from retention Due to perforation, bladder tumor cannot be safely resected at this time. Will leave almanza catheter in place in order for bladder to heal on its own. As long as the catheter remains patent, bladder should heal. Will schedule for cystoscopy, TURBT end of next week unless condition warrants earlier intervention, such as open bladder repair. Medications and IVs Current Medications Medications (Trade) Dose Ordered Sig/Светлана Route Start Time Stop Time Status Last Admin (NS Flush) 2 ml UNSCH PRN IV FLUSH 03/16/17 17:45 (NS Flush) 2 ml BID IV FLUSH 03/16/17 21:00 03/21/17 08:14 (Tylenol) 650 mg Q6H PRN PO 03/16/17 17:45 ([place] 5-325 Mg) 1 tab Q4H PRN PO 03/16/17 17:45 03/20/17 01:14 (Morphine Inj) 2 mg Q2H PRN IV PUSH 03/16/17 17:45 03/18/17 10:49 (Protonix) 40 mg DAILY PO 03/17/17 09:00 03/21/17 08:13 (Zofran Inj) 4 mg Q6H PRN IV PUSH 03/16/17 17:45 Miscellaneous Information 1 Q361D XX 03/16/17 17:45 (Chlorhexidine 2% Cloth) 3 pack Taper DAILY@04 TOP 03/17/17 04:00 03/13/18 03:59 03/21/17 04:00 (Chlorhexidine 2% Cloth) 3 pack UNSCH PRN TOP 03/16/17 17:45 (Debbie-Colace) 1 tab BID PO 03/16/17 21:00 03/20/17 21:37 (Milk Of Magnesia Liq) 30 ml Q12H PRN PO 03/16/17 17:45 (Senokot) 17.2 mg Q12H PRN PO 03/16/17 17:45 (Dulcolax Supp) 10 mg DAILY PRN RECTAL 03/16/17 17:45 (Lactulose Liq) 30 ml DAILY PRN PO 03/16/17 17:45 (D50w (Vial) Inj) 50 ml UNSCH PRN IV PUSH 03/17/17 05:15 03/21/17 08:14 (Glucagon Inj) 1 mg UNSCH PRN OTHER 03/17/17 05:15 (B & O Supp) 60 mg Q6HR RECTAL 03/17/17 18:00 03/19/17 17:01 (Albuterol Neb) 2.5 mg Q2HR NEB PRN NEB 03/18/17 10:30 (NovoLOG SUPPLEMENTAL SCALE) 1 ACHS AND 3AM SQ 03/18/17 12:00 03/21/17 11:50 Cefazolin Sodium 1000 mg/Sodium Chloride 100 ml @ 200 mls/hr Q12H IV 03/19/17 23:00 03/21/17 11:00 (Levemir Inj) 8 units Q12HR SQ 03/20/17 21:00 03/20/17 21:00 (Lasix) 40 mg DAILY PO 03/20/17 14:45 03/21/17 08:13 (Benadryl) 25 mg Q4H PRN PO 03/20/17 14:45 03/20/17 18:50 Urinary Catheter: Yes Assessment to: Continue Almanza insert reason: Obstruction/Retention Vascular Central Line Catheter: No A/P Problem List: (1) Diabetic ketoacidosis ICD Code: E13.10 - Other specified diabetes mellitus with ketoacidosis without coma Status: Acute (2) Bladder mass ICD Code: N32.89 - Other specified disorders of bladder Status: Chronic (3) BPH (benign prostatic hyperplasia) ICD Code: N40.0 - Benign prostatic hyperplasia without lower urinary tract symptoms (4) Hydronephrosis ICD Code: N13.30 - Unspecified hydronephrosis Status: Acute (5) Acute kidney injury ICD Code: N17.9 - Acute kidney failure, unspecified (6) Leukocytosis ICD Code: D72.829 - Elevated white blood cell count, unspecified Status: Resolved (7) Gross hematuria ICD Code: R31.0 - Gross hematuria Status: Acute (8) Hypertension ICD Code: I10 - Hypertension Status: Chronic (9) Dyslipidemia ICD Code: E78.5 - Hyperlipidemia, unspecified Status: Chronic (10) Symptomatic anemia ICD Code: D64.9 - Anemia, unspecified Status: Acute Assessment and Plan (1) Diabetic ketoacidosis Plan: Patient was admitted to the intensive care unit and initially was managed by registry np. The patient received 5 units of IV insulin bolus and was started on an insulin drip which was later discontinued. DKA has resolved. The patient is currently on SSI with insulin NovoLog and blood sugars are still elevated in the 200s. I will start the patient on insulin Levemir 8 units subcutaneous twice a day. Continue to monitor Accu-Cheks. 03/21 Patient's blood sugar in the 60's. Decrease insulin Levemir to 4 units SQ BID. (2) Bladder mass Plan: Urology consulted and following. Patient underwent cystourethroscopy. Results revealed anterior Bladder perforation large Bladder tumor, left lateral wall.Clot status post evacuation evacuation. 24 [place] catheter placed with 3 irrigation/continuous. 03/21 s/p cystoscopy, clot evacuation with bladder tumor, bladder perforation. Improving. Continue Almanza. Off CBI as per urology. (3) BPH (benign prostatic hyperplasia) Plan: Resume Alfuzosin. (4) Hydronephrosis Plan: As seen on initial CT scan. This is likely secondary to bladder mass and clot which have been removed. Repeat CT abdomen and pelvis obtained on 03/18/17 showed some new free intraperitoneal air. Indicated mild bilateral hydronephrosis which was decreased from a study performed 2 days prior. He also reports anasarca and small bilateral pleural effusions. (5) Acute kidney injury ICD Code: N17.9 - Acute kidney failure, unspecified Plan: Likely due to obstruction. Creatinine trending down and improving. Continue to monitor BUN/creatinine, strict I's and O's and avoid nephrotoxins. 03/21 Creatinine increased up to 1.5, likely due to diuresis. Will DC lasix. Continue to monitor BUN/Creatinine. (6) Leukocytosis Plan: Now resolved. Continue to monitor CBC. (7) Gross hematuria Plan: Management as above as per urology recommendations. Continue Almanza, Dc CBI as per urology. (9) Dyslipidemia Resume Statin. (10) Symptomatic anemia Plan: Also bleeding likely hematuria. Hemoccult negative. And studies essentially normal. Continue to monitor CBC. hemoglobin is slowly trending down and today 7.7. There is no other site other than the tract with active bleeding. I will transfuse 1 unit of packed red blood cells. Transfuse as needed for hemoglobin less than 7 or hemoglobin less than 8 if active bleeding to a goal hemoglobin of more than 9. 03/11 Hemoglobin slowly trending down on 03/10. SP transfusion of 1 unit of PRBC' s with improvement of hemoglobin. continue to monitor H/H. GI prophylaxis: Continue PPI. DVT prophylaxis: SCDs, chemoprophylaxis contraindicated secondary to anemia and acute bleeding. Discharge Planning Transfer out of ICU. Needs urology clearance. Problem Qualifiers (1) Diabetic ketoacidosis: Qualified Codes: E13.10 - Other specified diabetes mellitus with ketoacidosis without coma (2) BPH (benign prostatic hyperplasia): Qualified Codes: N40.1 - Benign prostatic hyperplasia with lower urinary tract symptoms; R35.0 - Frequency of micturition (3) Hydronephrosis: Qualified Codes: N13.30 - Unspecified hydronephrosis (4) Leukocytosis: Qualified Codes: D72.829 - Elevated white blood cell count, unspecified (5) Hypertension: Qualified Codes: I10 - Essential (primary) hypertension Teddy Cisse MD Mar 21, 2017 13:45
[2017-03-21] MEDS ORDERED: POTASSIUM CHLORIDE 10 MEQ CONTROLLED RELEASE TAB PO ONE (14:00)
--- NOTE | 2017-03-21 15:26 | PD.CONS ---
HPI History of Present Illness This is a 66 year old male who presented to the emergency room with a 3 day history of polyuria and hematuria. He reports that the day prior to his admission, he started having a constant dull ache in his suprapubic area- that seemed to be aggravated with a full bladder/urinating. CT Scan noted a 12.7 cm soft tissue density in the bladder lumen. He had severe anemia on 5.6/18.7 on admission. He was admitted for DKA/hyperglycemia, bladder mass with hematuria, hydronephrosis, acute kidney injury, leukocytosis, hypertension, hyperlipidemia. He was evaluated by and underwent cystourethroscopy and clot evacuation (03/17/17)---> gross hematuria with clot retention, bladder perforation, bladder tumor left lateral wall. Secondary to the bladder perforation, it was felt that it was not safe to start resection of the bladder tumor. He was treated with continuous bladder irrigation and his hematuria improved. The CBI was stopped today. He has received 6 units of PRBC and his HH is currently 10.4/31.2. A Hemoccult stool was positive on 03/20/17. GI was consulted for further evaluation of hemoccult positive stool and anemia. The patient has not seen any obvious GI blood loss. He does report a 40 lb weight loss over the past few months, but attributes this to his poor dentition and inability to eat like he used to. He denies any nausea, vomiting, heartburn, reflux, melena, hematochezia, or diarrhea. He does have mild constipation and complains of suprapubic abdominal pain as described above. He states that he had a colonoscopy 5 years ago at the [facility] and states that had 3 polyps removed at that time. D/W patient further evaluation with egd/colonoscopy, but the patient declines and states that he would prefer to have this done with his regular psych nurse at the [facility]. (Giuliana Rojas) PFSH Past Medical History BPH HTN Hyperlipidemia [facility] Colon polyps Past Surgical History Colonoscopy Recent cystoscopy at [facility] Appendectomy and Tonsillectomy listed in EMR- pt denies. (Giuliana Rojas) Coded Allergies: No Known Allergies (Verified Allergy, Unknown, 03/16/17) Medications Allergies Coded Allergies Type Severity Reaction Last Updated Verified No Known Allergies Allergy Unknown 03/16/17 Yes Active Scripts Medications Dose Route/Sig Max Daily Dose Days Date Category Lantus Inj (Insulin Glargine) 1,000 Unit/10 Ml Vial 30 Units SQ BID 30 07/06/16 Rx Alfuzosin ER 24 HR 10 Mg Tab 10 Mg PO DAILY 07/05/16 Reported Aspirin EC (Aspirin) 81 Mg Tabdr 81 Mg PO DAILY 07/05/16 Reported Atorvastatin (Atorvastatin Calcium) 40 Mg Tab 40 Mg PO HS 07/05/16 Reported Jardiance (Empagliflozin) 25 Mg Tab 12.5 Mg PO DAILYAC 07/05/16 Reported Lisinopril 10 Mg Tab 10 Mg PO DAILY 07/05/16 Reported Family History Father alive and well at age 96. Mother with alzheimer's disease. No family hx of cancer. Social History Quit smoking 1-2 years ago, smoked 10-15 years prior to that Hx ETOH abuse, none currently No illicit drug use (Giuliana Rojas) Review of Systems Constitutional: COMPLAINS OF: Weight loss, DENIES: Change in appetite Respiratory: DENIES: Cough, Shortness of breath Cardiovascular: DENIES: Chest pain, Palpitations Gastrointestinal: COMPLAINS OF: Abdominal pain, Constipation, Swelling of Abdomen, DENIES: Black stools, Bloody stools, Diarrhea, Nausea, Vomiting, Heartburn, Hematemesis Genitourinary: COMPLAINS OF: Hematuria (polyuria) Integumentary: DENIES: Rash Hematologic/lymphatic: DENIES: Bruising Neurologic: DENIES: Headache Psychiatric: DENIES: Confusion (Giuliana Rojas) GI Exam Vitals I&O Vital Signs Date Time Temp Pulse Resp B/P (MAP) Pulse Ox O2 Delivery O2 Flow Rate FiO2 03/21/17 12:00 98.3 91 25 159/75 (103) 99 03/21/17 09:00 70 03/21/17 08:00 77 03/21/17 08:00 98.1 77 30 137/61 (86) 98 03/21/17 07:52 100 Nasal Cannula 2.00 03/21/17 07:00 69 03/21/17 07:00 100 Nasal Cannula 2.00 03/21/17 06:00 67 03/21/17 04:00 68 03/21/17 04:00 98.9 68 16 103/56 (72) 99 03/21/17 02:00 76 03/21/17 00:00 99.0 77 18 128/69 (88) 98 03/21/17 00:00 77 03/20/17 22:00 72 03/20/17 20:00 79 03/20/17 20:00 98.8 79 18 121/64 (83) 100 03/20/17 19:15 98.6 78 16 121/66 100 03/20/17 19:03 100 Nasal Cannula 2.00 03/20/17 19:00 100 Nasal Cannula 2.00 03/20/17 19:00 98.7 78 17 121/66 100 03/20/17 18:00 91 03/20/17 17:00 79 03/20/17 16:00 80 03/20/17 16:00 98.1 80 15 135/72 (93) 100 03/20/17 15:00 80 I/O 03/20/17 03/20/17 03/20/17 03/21/17 03/21/17 03/21/17 07:00 15:00 23:00 07:00 15:00 23:00 Intake Total 580 ml 100 ml 1265 ml Output Total 3300 ml 105 ml 150 ml Balance -2720 ml 100 ml 1160 ml -150 ml Intake Oral 480 ml 700 ml IV Total 100 ml 100 ml 100 ml Packed Cells 400 ml Blood Product IV Normal Saline Flush 65 ml Output Urine Total 3300 ml 100 ml 150 ml Stool Total 5 ml # Bowel Movements 1 2 Imaging Last Impressions Lower Extremity Ultrasound 03/18/17 0000 Signed Impressions: Service Date/Time: Saturday, March 18, 2017 16:30 - CONCLUSION: No DVT is identified within either lower extremity. Asael Alex MD Chest X-Ray 03/18/17 0000 Signed Impressions: Service Date/Time: Saturday, March 18, 2017 10:37 - CONCLUSION: Hypoaerated lungs with bibasilar atelectasis. Arnaldo Cruz MD Abdomen/Pelvis CT 03/18/17 0000 Signed Impressions: Service Date/Time: Saturday, March 18, 2017 16:05 - CONCLUSION: 1. There is new free intraperitoneal air from uncertain etiology. Suggest correlating with the patient's recent surgical history. This could be related to a recent surgery depending on the procedure performed but could also indicate perforated bowel. 2. Mild bilateral hydronephrosis, decreased from the study from 2 days ago. Urinary bladder is mostly decompressed with small amount of blood products in the bladder lumen. 3. There is a new small volume of free fluid in the abdomen and pelvis containing a small amount of blood products. 4. Other new finding since the prior study include anasarca and small bilateral pleural effusions. The above findings were relayed to Dr. Meyer via telephone at 4: 41 PM. Asael Alex MD Laboratory Test 03/21/17 08:35 White Blood Count 7.2 TH/MM3 Red Blood Count 3.50 MIL/MM3 Hemoglobin 10.4 GM/DL Hematocrit 31.2 % Mean Corpuscular Volume 89.0 FL Mean Corpuscular Hemoglobin 29.7 PG Mean Corpuscular Hemoglobin Concent 33.3 % Red Cell Distribution Width 15.4 % Platelet Count 224 TH/MM3 Mean Platelet Volume 7.9 FL Neutrophils (%) (Auto) 77.6 % Lymphocytes (%) (Auto) 10.2 % Monocytes (%) (Auto) 10.4 % Eosinophils (%) (Auto) 1.6 % Basophils (%) (Auto) 0.2 % Neutrophils # (Auto) 5.6 TH/MM3 Lymphocytes # (Auto) 0.7 TH/MM3 Monocytes # (Auto) 0.7 TH/MM3 Eosinophils # (Auto) 0.1 TH/MM3 Basophils # (Auto) 0.0 TH/MM3 CBC Comment DIFF FINAL Differential Comment Blood Urea Nitrogen 32 MG/DL Creatinine 1.51 MG/DL Random Glucose 158 MG/DL Calcium Level 7.8 MG/DL Sodium Level 138 MEQ/L Potassium Level 3.2 MEQ/L Chloride Level 107 MEQ/L Carbon Dioxide Level 22.1 MEQ/L Anion Gap 9 MEQ/L Estimat Glomerular Filtration Rate 47 ML/MIN Date/Time Source Procedure Growth Status 03/16/17 18:50 Blood Peripheral Aerobic Blood Culture - Final NO GROWTH IN 5 DAYS Complete 03/16/17 18:50 Blood Peripheral Anaerobic Blood Culture - Final NO GROWTH IN 5 DAYS Complete 03/20/17 13:00 Stool Stool Stool Occult Blood (HEATH) - Final HEMOCCULT POSITIVE Complete 03/16/17 23:10 Urine Clean Catch Urine Culture - Final NO GROWTH IN 48 HOURS. Complete Physical Examination HEENT: Normocephalic; atraumatic; no jaundice. CHEST: CTA, diminished CARDIAC: RRR. ABDOMEN: Soft, mildly distended, mild diffuse tenderness, worse in suprapubic area; no hepatosplenomegaly; bowel sounds are present in all four quadrants. EXTREMITIES: No clubbing, cyanosis, or edema. SKIN: Normal; no rash; no jaundice. LATHE SPOTTER: No focal deficits; alert and oriented times three. (Giuliana Rojas) Assessment and Plan Plan ASSESSMENT: - Hemoccult (+) Stool. Pt came in with hematuria and was found to have a bladder mass. Denies heartburn, reflux, nausea, vomiting melena, hematochezia. He last had a colonoscopy 5 years ago at [facility], had 3 polyps removed. S/P 6 units PRBC. HH 10..2. D/W patient further evaluation with egd/colonoscopy, but he declines and states that he would prefer to have this done with his regular psych nurse at the [facility]. - Anemia. Pt presented to ER with hematuria. Had cystourethroscopy and clot evacuation with gross hematuria. S/P 6 units PRBC, HH 10..2. - Bladder Mass, Hematuria. following. S/P cystourethroscopy and clot evacuation (03/17/17)---> gross hematuria with clot retention, bladder perforation, bladder tumor left lateral wall. Secondary to the bladder perforation, it was felt that it was not safe to start resection of the bladder tumor. - DKA, Hyperglycemia. Per attending. - EDNA. Creat. 1.51. - Leukocytosis. WBC 7.2. Blood cx no growth 5 days - HTN, Hyperlipidemia. per attending. PLAN: - BON - Monitor HH - Transfuse as necessary - D/W patient further evaluation with EGD/Colonoscopy; pt is declining, states he would prefer to have done with his regular psych nurse. Given the fact that he is not currently having obvious active GI bleeding, this is reasonable. - GI will sign off, please reconsult as needed - Pt seen and examined by Dr. Rodriguez and myself and this note is written on his behalf (Giuliana Rojas) Physician Comments Patient seen and examined Agree with above Continue with current supportive care Monitor labs Patient declining endoscopy at this point in time Therefore we shall sign off (Juvencio Rodriguez MD) Giuliana Rojas 14, 2017 15:26 Juvencio Rodriguez MD Mar 21, 2017 23:45
[2017-03-21] MEDS: TAMSULOSIN HCL 0.4 MG CAP PO SCH (15:31)
[2017-03-21] MEDS ORDERED: INSULIN DETEMIR 100 UNITS/ML VIAL SQ SCH (21:00)
[2017-03-21] MEDS: ATORVASTATIN 40 MG TAB PO SCH (22:17)
[2017-03-22] VITALS (14 sets, daily range): BP systolic 118–155; BP diastolic 59–81; PULSE 81–100; RESP 18–23; TEMP 97.3–98.6; O2SAT 95–99
[2017-03-22] MEDS: INSULIN ASPART SUPPLEMENTAL SCALE SQ SCH ×5 (03:00→19:56)
[2017-03-22] MEDS: CHLORHEXIDINE GLUCONATE 2 % 1 PACK (2 CLOTHS) TOP SCH ×2 (04:00→19:57)
[2017-03-22] MEDS: BELLADONNA ALKALOIDS/OPIUM 60 MG SUPP RECTAL SCH ×4 (06:00→21:04)
[2017-03-22 07:24] LABS: HEMATOCRIT 31.3 % (39.0-51.0); MEAN CELL VOLUME 89.6 FL (80.0-100.0); MEAN CORPUSCULAR HEMOGLOBIN 30.6 PG (27.0-34.0); MEAN CORPUSCULAR HGB CONC 34.1 % (32.0-36.0); PLATELET COUNT 232 TH/MM3 (150-450); RED BLOOD COUNT 3.49 MIL/MM3 (4.50-5.90); RED CELL DISTRIBUTION WIDTH 15.4 % (11.6-17.2); REVIEW FLAG FINAL; WHITE BLOOD COUNT 10.6 TH/MM3 (4.0-11.0)
[2017-03-22 07:28] LABS: BICARBONATE 23.2 MEQ/L (21.0-32.0)
[2017-03-22] MEDS: INSULIN DETEMIR 100 UNITS/ML VIAL SQ SCH ×2 (08:00→19:56)
[2017-03-22] MEDS: TAMSULOSIN HCL 0.4 MG CAP PO SCH (08:28)
[2017-03-22] MEDS: DOCUSATE SODIUM 50 MG/SENNA 8.6 MG TAB PO SCH ×2 (08:28→19:30)
[2017-03-22] MEDS: PANTOPRAZOLE SOD 40 MG DELAYED RELEASE TAB PO SCH (08:28)
[2017-03-22] MEDS: SODIUM CHLORIDE 0.9% FLUSH 10 ML FLUSH IV FLUSH SCH ×2 (08:29→19:56)
[2017-03-22] MEDS ORDERED: SODIUM CHLOR 0.9% 1000 ML INJ 1,000 ML IV SCH (09:30)
[2017-03-22] MEDS: SODIUM CHLOR 0.9% 1000 ML INJ 1,000 ML IV SCH ×2 (10:38→19:56)
--- NOTE | 2017-03-22 18:17 | HHI.PR ---
Subjective Remarks Patient feels better. Denies cp/sob. hematuria is improving. Creatinine trending up. Objective Vitals Vital Signs Date Time Temp Pulse Resp B/P (MAP) Pulse Ox O2 Delivery O2 Flow Rate FiO2 03/22/17 16:00 98.3 86 20 155/81 (105) 97 03/22/17 16:00 81 03/22/17 14:00 86 03/22/17 12:00 98.3 96 23 118/71 (87) 97 03/22/17 12:00 96 03/22/17 10:10 96 Nasal Cannula 2.00 03/22/17 10:00 99 03/22/17 08:00 98 03/22/17 08:00 96 Nasal Cannula 2.00 03/22/17 08:00 98.6 90 19 139/73 (95) 96 03/22/17 06:00 92 03/22/17 04:00 98.1 100 18 126/67 (86) 95 03/22/17 04:00 100 03/22/17 02:00 97 03/22/17 00:00 97 03/22/17 00:00 97.3 97 18 134/74 (94) 99 03/21/17 22:00 120 03/21/17 20:00 98.6 95 18 146/77 (100) 96 03/21/17 20:00 95 03/21/17 20:00 99 Nasal Cannula 2.00 03/21/17 19:03 96 21 I/O 03/21/17 03/21/17 03/21/17 03/22/17 03/22/17 03/22/17 07:00 15:00 23:00 07:00 15:00 23:00 Intake Total 350 ml 220 ml Output Total 150 ml 650 ml 4400 ml Balance -150 ml -300 ml -4180 ml Intake Oral 350 ml 120 ml IV Total 100 ml Output Urine Total 150 ml 650 ml 4400 ml # Bowel Movements 2 3 1 Result Diagram: 03/22/17 0540 03/22/17 0540 Imaging Last Impressions Lower Extremity Ultrasound 03/18/17 0000 Signed Impressions: Service Date/Time: Saturday, March 18, 2017 16:30 - CONCLUSION: No DVT is identified within either lower extremity. Asael Alex MD Chest X-Ray 03/18/17 0000 Signed Impressions: Service Date/Time: Saturday, March 18, 2017 10:37 - CONCLUSION: Hypoaerated lungs with bibasilar atelectasis. Arnaldo Cruz MD Abdomen/Pelvis CT 03/18/17 0000 Signed Impressions: Service Date/Time: Saturday, March 18, 2017 16:05 - CONCLUSION: 1. There is new free intraperitoneal air from uncertain etiology. Suggest correlating with the patient's recent surgical history. This could be related to a recent surgery depending on the procedure performed but could also indicate perforated bowel. 2. Mild bilateral hydronephrosis, decreased from the study from 2 days ago. Urinary bladder is mostly decompressed with small amount of blood products in the bladder lumen. 3. There is a new small volume of free fluid in the abdomen and pelvis containing a small amount of blood products. 4. Other new finding since the prior study include anasarca and small bilateral pleural effusions. The above findings were relayed to Dr. Meyer via telephone at 4: 41 PM. Asael Alex MD Objective Remarks AAOx3, NAD PERRLA Clear lungs BL S1S2 RRR, no MRG abdomen soft, tender to palpation of hypogastrium no edema in extremities Procedures Date of Surgery: Mar 17, 2017 Preoperative Diagnosis: Gross hematuria with clot retention Postoperative Diagnosis: 1. Gross hematuria with clot retention 2. Bladder Perforation 3. Bladder tumor Procedure: cystoscopy, clot evacuation Surgeon: Eliazar Watson Had large blood clot in bladder, which was removed found large bladder tumor on left lateral wall Has bladder perforation near dome of bladder, likely from retention Due to perforation, bladder tumor cannot be safely resected at this time. Will leave almanza catheter in place in order for bladder to heal on its own. As long as the catheter remains patent, bladder should heal. Will schedule for cystoscopy, TURBT end of next week unless condition warrants earlier intervention, such as open bladder repair. Medications and IVs Current Medications Medications (Trade) Dose Ordered Sig/Светлана Route Start Time Stop Time Status Last Admin (NS Flush) 2 ml UNSCH PRN IV FLUSH 03/16/17 17:45 (NS Flush) 2 ml BID IV FLUSH 03/16/17 21:00 03/22/17 08:29 (Tylenol) 650 mg Q6H PRN PO 03/16/17 17:45 ([place] 5-325 Mg) 1 tab Q4H PRN PO 03/16/17 17:45 03/20/17 01:14 (Morphine Inj) 2 mg Q2H PRN IV PUSH 03/16/17 17:45 03/18/17 10:49 (Protonix) 40 mg DAILY PO 03/17/17 09:00 03/22/17 08:28 (Zofran Inj) 4 mg Q6H PRN IV PUSH 03/16/17 17:45 Miscellaneous Information 1 Q361D XX 03/16/17 17:45 (Chlorhexidine 2% Cloth) Taper DAILY@04 TOP 03/17/17 04:00 03/13/18 03:59 03/22/17 04:00 (Chlorhexidine 2% Cloth) 3 pack UNSCH PRN TOP 03/16/17 17:45 (Debbie-Colace) 1 tab BID PO 03/16/17 21:00 03/22/17 08:28 (Milk Of Magnesia Liq) 30 ml Q12H PRN PO 03/16/17 17:45 (Senokot) 17.2 mg Q12H PRN PO 03/16/17 17:45 (Dulcolax Supp) 10 mg DAILY PRN RECTAL 03/16/17 17:45 (Lactulose Liq) 30 ml DAILY PRN PO 03/16/17 17:45 (D50w (Vial) Inj) 50 ml UNSCH PRN IV PUSH 03/17/17 05:15 03/21/17 08:14 (Glucagon Inj) 1 mg UNSCH PRN OTHER 03/17/17 05:15 (B & O Supp) 60 mg Q6HR RECTAL 03/17/17 18:00 03/21/17 23:14 (Albuterol Neb) 2.5 mg Q2HR NEB PRN NEB 03/18/17 10:30 (NovoLOG SUPPLEMENTAL SCALE) 1 ACHS AND 3AM SQ 03/18/17 12:00 03/22/17 13:24 Cefazolin Sodium 1000 mg/Sodium Chloride 100 ml @ 200 mls/hr Q12H IV 03/19/17 23:00 03/22/17 10:38 (Benadryl) 25 mg Q4H PRN PO 03/20/17 14:45 03/20/17 18:50 (Lipitor) 40 mg HS PO 03/21/17 21:00 03/21/17 22:17 (Flomax) 0.4 mg DAILY PO 03/21/17 14:00 03/22/17 08:28 (Levemir Inj) 6 units Q12HR SQ 03/22/17 09:30 03/22/17 08:00 Sodium Chloride 1,000 ml @ 84 mls/hr [id number] IV 03/22/17 09:00 03/22/17 10:38 Urinary Catheter: Yes Assessment to: Continue Almanza insert reason: Obstruction/Retention A/P Problem List: (1) Diabetic ketoacidosis ICD Code: E13.10 - Other specified diabetes mellitus with ketoacidosis without coma Status: Acute (2) Bladder mass ICD Code: N32.89 - Other specified disorders of bladder Status: Chronic (3) BPH (benign prostatic hyperplasia) ICD Code: N40.0 - Benign prostatic hyperplasia without lower urinary tract symptoms (4) Hydronephrosis ICD Code: N13.30 - Unspecified hydronephrosis Status: Acute (5) Acute kidney injury ICD Code: N17.9 - Acute kidney failure, unspecified (6) Leukocytosis ICD Code: D72.829 - Elevated white blood cell count, unspecified Status: Resolved (7) Gross hematuria ICD Code: R31.0 - Gross hematuria Status: Acute (8) Hypertension ICD Code: I10 - Hypertension Status: Chronic (9) Dyslipidemia ICD Code: E78.5 - Hyperlipidemia, unspecified Status: Chronic (10) Symptomatic anemia ICD Code: D64.9 - Anemia, unspecified Status: Acute Assessment and Plan (1) Diabetic ketoacidosis Plan: Patient was admitted to the intensive care unit and initially was managed by activity aid. The patient received 5 units of IV insulin bolus and was started on an insulin drip which was later discontinued. DKA has resolved. The patient is currently on SSI with insulin NovoLog and blood sugars are still elevated in the 200s. I will start the patient on insulin Levemir 8 units subcutaneous twice a day. 03/21 Patient's blood sugar in the 60's. Decrease insulin Levemir to 4 units SQ BID. 03/22 Blood sugars elevated today - Increase levemir to 6 units SQ BID. Continue to monitor Accu-Cheks. Contineu SSI. (2) Bladder mass Plan: Urology consulted and following. Patient underwent cystourethroscopy. Results revealed anterior Bladder perforation large Bladder tumor, left lateral wall.Clot status post evacuation evacuation. 24 [place] catheter placed with 3 irrigation/continuous. 03/21 s/p cystoscopy, clot evacuation with bladder tumor, bladder perforation. Improving. Continue Almanza. Off CBI as per urology. (3) BPH (benign prostatic hyperplasia) Plan: Resume Alfuzosin. (4) Hydronephrosis Plan: As seen on initial CT scan. This is likely secondary to bladder mass and clot which have been removed. Repeat CT abdomen and pelvis obtained on 03/18/17 showed some new free intraperitoneal air. Indicated mild bilateral hydronephrosis which was decreased from a study performed 2 days prior. He also reports anasarca and small bilateral pleural effusions. (5) Acute kidney injury ICD Code: N17.9 - Acute kidney failure, unspecified Plan: Likely due to obstruction. Creatinine trending down and improving. Continue to monitor BUN/creatinine, strict I's and O's and avoid nephrotoxins. 03/21 Creatinine increased up to 1.5, likely due to diuresis. Will DC lasix. Continue to monitor BUN/Creatinine. 03/22 Start IV normal saline. Patient is - 23 liters negative. (6) Leukocytosis Plan: Now resolved. Continue to monitor CBC. (7) Gross hematuria Plan: Management as above as per urology recommendations. Continue Almanza, Dc CBI as per urology. (9) Dyslipidemia Resume Statin. (10) Symptomatic anemia Plan: Also bleeding likely hematuria. Hemoccult negative. And studies essentially normal. Continue to monitor CBC. hemoglobin is slowly trending down and today 7.7. There is no other site other than the tract with active bleeding. I will transfuse 1 unit of packed red blood cells. Transfuse as needed for hemoglobin less than 7 or hemoglobin less than 8 if active bleeding to a goal hemoglobin of more than 9. 03/21 Hemoglobin slowly trending down on 03/10. SP transfusion of 1 unit of PRBC' s with improvement of hemoglobin. continue to monitor H/H. 03/22 hemoglobin stable at 10. Continue to monitor cbc. Hemoccult positive. GI consulted for EGD/Colonoscopy however patient prefers to have it done as an outpatient at the [place]. GI prophylaxis: Continue PPI. DVT prophylaxis: SCDs, chemoprophylaxis contraindicated secondary to anemia and acute bleeding. Discharge Planning Transfer out of ICU. Needs urology clearance for DC and creatinine improvement. Problem Qualifiers (1) Diabetic ketoacidosis: Qualified Codes: E13.10 - Other specified diabetes mellitus with ketoacidosis without coma (2) BPH (benign prostatic hyperplasia): Qualified Codes: N40.1 - Benign prostatic hyperplasia with lower urinary tract symptoms; R35.0 - Frequency of micturition (3) Hydronephrosis: Qualified Codes: N13.30 - Unspecified hydronephrosis (4) Leukocytosis: Qualified Codes: D72.829 - Elevated white blood cell count, unspecified (5) Hypertension: Qualified Codes: I10 - Essential (primary) hypertension Teddy Cisse MD Mar 22, 2017 18:17
[2017-03-22] MEDS: ATORVASTATIN 40 MG TAB PO SCH (19:56)
[2017-03-23] VITALS (7 sets, daily range): BP systolic 119–150; BP diastolic 62–73; PULSE 79–109; RESP 17–20; TEMP 98.2–98.9; O2SAT 97–100
[2017-03-23] MEDS: INSULIN ASPART SUPPLEMENTAL SCALE SQ SCH ×3 (01:54→13:23)
[2017-03-23] MEDS: BELLADONNA ALKALOIDS/OPIUM 60 MG SUPP RECTAL SCH ×2 (02:36→12:00)
[2017-03-23] MEDS: DOCUSATE SODIUM 50 MG/SENNA 8.6 MG TAB PO SCH (08:15)
[2017-03-23] MEDS: SODIUM CHLOR 0.9% 1000 ML INJ 1,000 ML IV SCH (08:15)
[2017-03-23] MEDS: TAMSULOSIN HCL 0.4 MG CAP PO SCH (08:15)
[2017-03-23] MEDS: PANTOPRAZOLE SOD 40 MG DELAYED RELEASE TAB PO SCH (08:15)
[2017-03-23] MEDS: INSULIN DETEMIR 100 UNITS/ML VIAL SQ SCH (08:15)
[2017-03-23] MEDS: SODIUM CHLORIDE 0.9% FLUSH 10 ML FLUSH IV FLUSH SCH (10:12)
[2017-03-23] MEDS ORDERED: POTASSIUM PHOSPHATE/SODIUM PHOSPHATE 250 MG TAB PO SCH (14:30)
--- NOTE | 2017-03-23 14:33 | HHI.DCPOC ---
Discharge Care Plan Diagnosis: (1) Bladder mass (2) Hypertension (3) Leukocytosis (4) Hydronephrosis (5) Acute kidney injury (6) Hyperglycemia (7) Symptomatic anemia (8) Gross hematuria (9) Diabetic ketoacidosis (10) Medical non-compliance (11) Uncontrolled diabetes mellitus (12) Hyponatremia Goals to Promote Your Health * To prevent worsening of your condition and complications * To maintain your health at the optimal level Directions to Meet Your Goals Take your medications as prescribed Follow your dietary instruction Follow activity as directed Keep your appointments as scheduled Take your immunizations and boosters as scheduled If your symptoms worsen call your PCP, if no PCP go to Urgent Care Center or Emergency Room Smoking is Dangerous to Your Health. Avoid second hand smoke Call the 24-hour hour crisis hotline for domestic abuse at Teddy Cisse MD Mar 23, 2017 14:33
--- NOTE | 2017-03-23 14:44 | HHI.PR ---
Subjective Remarks denies cp/sob hematuria resolved Objective Vitals Vital Signs Date Time Temp Pulse Resp B/P (MAP) Pulse Ox O2 Delivery O2 Flow Rate FiO2 03/23/17 12:00 98.6 109 20 129/73 (91) 100 03/23/17 12:00 109 03/23/17 08:58 98 Nasal Cannula 2.00 03/23/17 08:00 98.2 82 18 119/62 (81) 97 03/23/17 08:00 82 03/23/17 07:00 98 Nasal Cannula 2.00 03/23/17 04:00 79 03/23/17 04:00 98.3 79 18 124/70 (88) 98 03/23/17 03:42 100 03/23/17 00:00 98.5 83 18 150/69 (96) 99 03/23/17 00:00 83 03/22/17 23:31 98 03/22/17 20:01 99 03/22/17 20:00 89 03/22/17 20:00 98.3 89 19 120/59 (79) 99 03/22/17 19:00 96 Nasal Cannula 2.00 03/22/17 18:00 87 03/22/17 16:00 98.3 86 20 155/81 (105) 97 03/22/17 16:00 81 I/O 03/22/17 03/22/17 03/22/17 03/23/17 03/23/17 03/23/17 07:00 15:00 23:00 07:00 15:00 23:00 Intake Total 220 ml 1830 ml 650 ml Output Total 4400 ml 1500 ml 1100 ml Balance -4180 ml 330 ml -450 ml Intake Oral 120 ml 240 ml 550 ml IV Total 100 ml 1590 ml 100 ml Output Urine Total 4400 ml 1500 ml 1100 ml # Bowel Movements 1 3 6 Result Diagram: 03/22/17 0540 03/22/17 0540 Imaging Last Impressions Lower Extremity Ultrasound 03/18/17 0000 Signed Impressions: Service Date/Time: Saturday, March 18, 2017 16:30 - CONCLUSION: No DVT is identified within either lower extremity. Asael Alex MD Chest X-Ray 03/18/17 0000 Signed Impressions: Service Date/Time: Saturday, March 18, 2017 10:37 - CONCLUSION: Hypoaerated lungs with bibasilar atelectasis. Arnaldo Cruz MD Abdomen/Pelvis CT 03/18/17 0000 Signed Impressions: Service Date/Time: Monday, March 18, 2017 16:05 - CONCLUSION: 1. There is new free intraperitoneal air from uncertain etiology. Suggest correlating with the patient's recent surgical history. This could be related to a recent surgery depending on the procedure performed but could also indicate perforated bowel. 2. Mild bilateral hydronephrosis, decreased from the study from 2 days ago. Urinary bladder is mostly decompressed with small amount of blood products in the bladder lumen. 3. There is a new small volume of free fluid in the abdomen and pelvis containing a small amount of blood products. 4. Other new finding since the prior study include anasarca and small bilateral pleural effusions. The above findings were relayed to Dr. Meyer via telephone at 4: 41 PM. Asael Alex MD Objective Remarks AAOx3, NAD PERRLA Clear lungs BL S1S2 RRR, no MRG abdomen soft, tender to palpation of hypogastrium no edema in extremities Procedures Date of Surgery: Mar 17, 2017 Preoperative Diagnosis: Gross hematuria with clot retention Postoperative Diagnosis: 1. Gross hematuria with clot retention 2. Bladder Perforation 3. Bladder tumor Procedure: cystoscopy, clot evacuation Surgeon: Eliazar Walter Had large blood clot in bladder, which was removed found large bladder tumor on left lateral wall Has bladder perforation near dome of bladder, likely from retention Due to perforation, bladder tumor cannot be safely resected at this time. Will leave almanza catheter in place in order for bladder to heal on its own. As long as the catheter remains patent, bladder should heal. Will schedule for cystoscopy, TURBT end of next week unless condition warrants earlier intervention, such as open bladder repair. Medications and IVs Current Medications Medications (Trade) Dose Ordered Sig/Светлана Route Start Time Stop Time Status Last Admin (NS Flush) 2 ml UNSCH PRN IV FLUSH 03/16/17 17:45 (NS Flush) 2 ml BID IV FLUSH 03/16/17 21:00 03/23/17 10:12 (Tylenol) 650 mg Q6H PRN PO 03/16/17 17:45 ([place] 5-325 Mg) 1 tab Q4H PRN PO 03/16/17 17:45 03/20/17 01:14 (Morphine Inj) 2 mg Q2H PRN IV PUSH 03/16/17 17:45 03/18/17 10:49 (Protonix) 40 mg DAILY PO 03/17/17 09:00 03/23/17 08:15 (Zofran Inj) 4 mg Q6H PRN IV PUSH 03/16/17 17:45 Miscellaneous Information 1 Q361D XX 03/16/17 17:45 (Chlorhexidine 2% Cloth) Taper DAILY@04 TOP 03/17/17 04:00 03/13/18 03:59 03/22/17 04:00 (Chlorhexidine 2% Cloth) 3 pack UNSCH PRN TOP 03/16/17 17:45 (Debbie-Colace) 1 tab BID PO 03/16/17 21:00 03/22/17 08:28 (Milk Of Magnesia Liq) 30 ml Q12H PRN PO 03/16/17 17:45 (Senokot) 17.2 mg Q12H PRN PO 03/16/17 17:45 (Dulcolax Supp) 10 mg DAILY PRN RECTAL 03/16/17 17:45 (Lactulose Liq) 30 ml DAILY PRN PO 03/16/17 17:45 (D50w (Vial) Inj) 50 ml UNSCH PRN IV PUSH 03/17/17 05:15 03/21/17 08:14 (Glucagon Inj) 1 mg UNSCH PRN OTHER 03/17/17 05:15 (B & O Supp) 60 mg Q6HR RECTAL 03/17/17 18:00 03/21/17 23:14 (Albuterol Neb) 2.5 mg Q2HR NEB PRN NEB 03/18/17 10:30 (NovoLOG SUPPLEMENTAL SCALE) 1 ACHS AND 3AM SQ 03/18/17 12:00 03/23/17 13:23 Cefazolin Sodium 1000 mg/Sodium Chloride 100 ml @ 200 mls/hr Q12H IV 03/19/17 23:00 03/23/17 10:12 (Benadryl) 25 mg Q4H PRN PO 03/20/17 14:45 03/20/17 18:50 (Lipitor) 40 mg HS PO 03/21/17 21:00 03/22/17 19:56 (Flomax) 0.4 mg DAILY PO 03/21/17 14:00 03/23/17 08:15 (K-Phos Neutral) 250 mg Q8HR PO 03/23/17 14:30 (Levemir Inj) 12 units Q12HR SQ 03/23/17 21:00 A/P Problem List: (1) Diabetic ketoacidosis ICD Code: E13.10 - Other specified diabetes mellitus with ketoacidosis without coma Status: Acute (2) Bladder mass ICD Code: N32.89 - Other specified disorders of bladder Status: Chronic (3) BPH (benign prostatic hyperplasia) ICD Code: N40.0 - Benign prostatic hyperplasia without lower urinary tract symptoms (4) Hydronephrosis ICD Code: N13.30 - Unspecified hydronephrosis Status: Acute (5) Acute kidney injury ICD Code: N17.9 - Acute kidney failure, unspecified (6) Leukocytosis ICD Code: D72.829 - Elevated white blood cell count, unspecified Status: Resolved (7) Gross hematuria ICD Code: R31.0 - Gross hematuria Status: Acute (8) Hypertension ICD Code: I10 - Hypertension Status: Chronic (9) Dyslipidemia ICD Code: E78.5 - Hyperlipidemia, unspecified Status: Chronic (10) Symptomatic anemia ICD Code: D64.9 - Anemia, unspecified Status: Acute Assessment and Plan (1) Diabetic ketoacidosis Plan: Patient was admitted to the intensive care unit and initially was managed by brand analyst. The patient received 5 units of IV insulin bolus and was started on an insulin drip which was later discontinued. DKA has resolved. The patient is currently on SSI with insulin NovoLog and blood sugars are still elevated in the 200s. I will start the patient on insulin Levemir 8 units subcutaneous twice a day. 03/21 Patient's blood sugar in the 60's. Decrease insulin Levemir to 4 units SQ BID. 03/22 Blood sugars elevated today - Increase levemir to 6 units SQ BID. Continue to monitor Accu-Cheks. Contineu SSI. 03/23 Blood sugars still elevated - increase Levemir dose to 12 unts SQ BID. (2) Bladder mass Plan: Urology consulted and following. Patient underwent cystourethroscopy. Results revealed anterior Bladder perforation large Bladder tumor, left lateral wall.Clot status post evacuation evacuation. 24 [place] catheter placed with 3 irrigation/continuous. 03/21 s/p cystoscopy, clot evacuation with bladder tumor, bladder perforation. Improving. Continue Almanza. Off CBI as per urology. 03/[address] Watson. Ok to DC as per urology with almanza catheter. Plan is for patient to get a cystogram on Monday and then urology will decide if almanza can be discontinued. (3) BPH (benign prostatic hyperplasia) Plan: Continue Alfuzosin. (4) Hydronephrosis Plan: As seen on initial CT scan. This is likely secondary to bladder mass and clot which have been removed. Repeat CT abdomen and pelvis obtained on 03/18/17 showed some new free intraperitoneal air. Indicated mild bilateral hydronephrosis which was decreased from a study performed 2 days prior. He also reports anasarca and small bilateral pleural effusions. (5) Acute kidney injury ICD Code: N17.9 - Acute kidney failure, unspecified Plan: Likely due to obstruction. Creatinine trending down and improving. Continue to monitor BUN/creatinine, strict I's and O's and avoid nephrotoxins. 03/21 Creatinine increased up to 1.5, likely due to diuresis. Will DC lasix. Continue to monitor BUN/Creatinine. 03/22 Start IV normal saline. Patient is - 23 liters negative. 03/23 awaiting BMP Dc if creatinine stable (6) Leukocytosis Plan: Now resolved. Continue to monitor CBC. (7) Gross hematuria Plan: Management as above as per urology recommendations. Continue Almanza, Dc CBI as per urology. (9) Dyslipidemia Continue Statin. (10) Symptomatic anemia Plan: Also bleeding likely hematuria. Hemoccult negative. And studies essentially normal. Continue to monitor CBC. hemoglobin is slowly trending down and today 7.7. There is no other site other than the tract with active bleeding. I will transfuse 1 unit of packed red blood cells. Transfuse as needed for hemoglobin less than 7 or hemoglobin less than 8 if active bleeding to a goal hemoglobin of more than 9. 03/21 Hemoglobin slowly trending down on 03/10. SP transfusion of 1 unit of PRBC' s with improvement of hemoglobin. continue to monitor H/H. 03/22 hemoglobin stable at 10. Continue to monitor cbc. Hemoccult positive. GI consulted for EGD/Colonoscopy however patient prefers to have it done as an outpatient at the [facility]. GI prophylaxis: Continue PPI. DVT prophylaxis: SCDs, chemoprophylaxis contraindicated secondary to anemia and acute bleeding. Discharge Planning DC today if creatinine stable. Problem Qualifiers (1) Diabetic ketoacidosis: Qualified Codes: E13.10 - Other specified diabetes mellitus with ketoacidosis without coma (2) BPH (benign prostatic hyperplasia): Qualified Codes: N40.1 - Benign prostatic hyperplasia with lower urinary tract symptoms; R35.0 - Frequency of micturition (3) Hydronephrosis: Qualified Codes: N13.30 - Unspecified hydronephrosis (4) Leukocytosis: Qualified Codes: D72.829 - Elevated white blood cell count, unspecified (5) Hypertension: Qualified Codes: I10 - Essential (primary) hypertension Teddy Cisse MD Mar 23, 2017 14:44
--- NOTE | 2017-03-23 15:11 | HHI.PR ---
Subjective Patient symptoms today denies any new complaints. catheter draining without issue. Denies abdominal pain, fevers. Objective Vital Signs Vital Signs Date Time Temp Pulse Resp B/P (MAP) Pulse Ox O2 Delivery O2 Flow Rate FiO2 03/23/17 12:00 98.6 109 20 129/73 (91) 100 03/23/17 12:00 109 03/23/17 08:58 98 Nasal Cannula 2.00 03/23/17 08:00 98.2 82 18 119/62 (81) 97 03/23/17 08:00 82 03/23/17 07:00 98 Nasal Cannula 2.00 03/23/17 04:00 79 03/23/17 04:00 98.3 79 18 124/70 (88) 98 03/23/17 03:42 100 03/23/17 00:00 98.5 83 18 150/69 (96) 99 03/23/17 00:00 83 03/22/17 23:31 98 03/22/17 20:01 99 03/22/17 20:00 89 03/22/17 20:00 98.3 89 19 120/59 (79) 99 03/22/17 19:00 96 Nasal Cannula 2.00 03/22/17 18:00 87 03/22/17 16:00 98.3 86 20 155/81 (105) 97 03/22/17 16:00 81 Intake & Output 03/23/17 03/23/17 07:00 19:00 Intake Total 1650 ml Output Total 1100 ml Balance 550 ml Intake Oral 550 ml IV Total 1100 ml Output Urine Total 1100 ml # Bowel Movements 6 Result Diagram: 03/22/1753903/22/1740 Objective Remarks NAD. A/O x 3 abd soft, non distended urine dark yellow. Medications and IVs Current Medications Medications (Trade) Dose Ordered Sig/Светлана Route Start Time Stop Time Status Last Admin (NS Flush) 2 ml UNSCH PRN IV FLUSH 03/16/17 17:45 (NS Flush) 2 ml BID IV FLUSH 03/16/17 21:00 03/23/17 10:12 (Tylenol) 650 mg Q6H PRN PO 03/16/17 17:45 ([place] 5-325 Mg) 1 tab Q4H PRN PO 03/16/17 17:45 03/20/17 01:14 (Morphine Inj) 2 mg Q2H PRN IV PUSH 03/16/17 17:45 03/18/17 10:49 (Protonix) 40 mg DAILY PO 03/17/17 09:00 03/23/17 08:15 (Zofran Inj) 4 mg Q6H PRN IV PUSH 03/16/17 17:45 Miscellaneous Information 1 Q361D XX 03/16/17 17:45 (Chlorhexidine 2% Cloth) Taper DAILY@04 TOP 03/17/17 04:00 03/13/18 03:59 03/22/17 04:00 (Chlorhexidine 2% Cloth) 3 pack UNSCH PRN TOP 03/16/17 17:45 (Debbie-Colace) 1 tab BID PO 03/16/17 21:00 03/22/17 08:28 (Milk Of Magnesia Liq) 30 ml Q12H PRN PO 03/16/17 17:45 (Senokot) 17.2 mg Q12H PRN PO 03/16/17 17:45 (Dulcolax Supp) 10 mg DAILY PRN RECTAL 03/16/17 17:45 (Lactulose Liq) 30 ml DAILY PRN PO 03/16/17 17:45 (D50w (Vial) Inj) 50 ml UNSCH PRN IV PUSH 03/17/17 05:15 03/21/17 08:14 (Glucagon Inj) 1 mg UNSCH PRN OTHER 03/17/17 05:15 (B & O Supp) 60 mg Q6HR RECTAL 03/17/17 18:00 03/21/17 23:14 (Albuterol Neb) 2.5 mg Q2HR NEB PRN NEB 03/18/17 10:30 (NovoLOG SUPPLEMENTAL SCALE) 1 ACHS AND 3AM SQ 03/18/17 12:00 03/23/17 13:23 Cefazolin Sodium 1000 mg/Sodium Chloride 100 ml @ 200 mls/hr Q12H IV 03/19/17 23:00 03/23/17 10:12 (Benadryl) 25 mg Q4H PRN PO 03/20/17 14:45 03/20/17 18:50 (Lipitor) 40 mg HS PO 03/21/17 21:00 03/22/17 19:56 (Flomax) 0.4 mg DAILY PO 03/21/17 14:00 03/23/17 08:15 (K-Phos Neutral) 250 mg Q8HR PO 03/23/17 14:30 (Levemir Inj) 12 units Q12HR SQ 03/23/17 21:00 Assessment and Plan Assessment and Plan s/p cystoscopy, clot evacuation with bladder tumor, bladder perforation -ok to d/c home with almanza. F/U next week with cystogram prior to catheter removal. Eliazar Watson MD Mar 23, 2017 15:11
--- NOTE | 2017-03-23 15:12 | HHI.FF ---
Face to Face Verification Diagnosis: (1) Gross hematuria (2) Bladder mass Home Health Nursing Order: [facility] catheter maintenance I have seen patient Jono Martin on 03/23/17. My clinical findings support the need for the requested home health care services because: Deconditioned w/ increased weakness Limited ability to care for self I certify that my clinical findings support that this patient is homebound because: Post-op weakness Eliazar Watson MD Mar 23, 2017 15:12
[2017-03-23] MEDS ORDERED: CIPR-9 PO (15:13)
[2017-03-23] MEDS ORDERED: KPHOS250 PO (15:28)
[2017-03-23] MEDS ORDERED: ATOR40TA16 PO (15:28)
[2017-03-23] MEDS ORDERED: PANT40TA3 PO (15:28)
[2017-03-23] MEDS ORDERED: ALFU10TA2 PO (15:28)
[2017-03-23] MEDS ORDERED: NOVOLOGSS SQ (15:28)
[2017-03-23] MEDS ORDERED: LEVEMIR SQ (15:28)
--- NOTE | 2017-03-23 15:32 | HHI.DS ---
Discharge Summary Admission Date Mar 16, 2017 at 17:44 Discharge Date: Mar 23, 2017 Admitting Diagnosis DKA, symptomatic anemia, gross hematuria rule out bladder carcinoma (1) Diabetic ketoacidosis ICD Code: E13.10 - Other specified diabetes mellitus with ketoacidosis without coma Diagnosis: Principal Status: Resolved (2) Bladder mass ICD Code: N32.89 - Other specified disorders of bladder Diagnosis: Principal Status: Chronic (3) BPH (benign prostatic hyperplasia) ICD Code: N40.0 - Benign prostatic hyperplasia without lower urinary tract symptoms Diagnosis: Secondary Status: Chronic (4) Hydronephrosis ICD Code: N13.30 - Unspecified hydronephrosis Diagnosis: Principal Status: Acute (5) Acute kidney injury ICD Code: N17.9 - Acute kidney failure, unspecified Diagnosis: Principal Status: Acute (6) Leukocytosis ICD Code: D72.829 - Elevated white blood cell count, unspecified Status: Resolved (7) Gross hematuria ICD Code: R31.0 - Gross hematuria Status: Resolved (8) Hypertension ICD Code: I10 - Hypertension Status: Chronic (9) Dyslipidemia ICD Code: E78.5 - Hyperlipidemia, unspecified Status: Chronic (10) Symptomatic anemia ICD Code: D64.9 - Anemia, unspecified Status: Resolved Procedures Date of Surgery: Mar 17, 2017 Preoperative Diagnosis: Gross hematuria with clot retention Postoperative Diagnosis: 1. Gross hematuria with clot retention 2. Bladder Perforation 3. Bladder tumor Procedure: cystoscopy, clot evacuation Surgeon: Eliazar Watson Had large blood clot in bladder, which was removed found large bladder tumor on left lateral wall Has bladder perforation near dome of bladder, likely from retention Due to perforation, bladder tumor cannot be safely resected at this time. Will leave almanza catheter in place in order for bladder to heal on its own. As long as the catheter remains patent, bladder should heal. Will schedule for cystoscopy, TURBT end of next week unless condition warrants earlier intervention, such as open bladder repair. Brief History - From Admission This is a 66-year-old gentleman. Date of admission 03/16/2017.. Past medical history includes diabetes mellitus, hypertension, dyslipidemia, benign prostatic hypertrophy. Patient has a prior history of admission for diabetic ketoacidosis 10/2016. Patient presents to [facility] with his 96-year-old father with whom he lives with with malaise, weakness. He is currently on room air. He does not know if hetook his scheduled detemir today. Baseline laboratories reveal an elevated blood sugar 813. History was then transferred from triage toc26. He is also states he has a 2-3 history of bright red blood with urination. CT abdomen/culture revealed at 12.7 cm bladder mass with bilateral hydronephrosis. Hemoglobin is 5.6. Coags currently pending. Liver function tests correlate planning. He has been typed and cross 40s. Seasonal be transfused 2 units. Almanza catheter has been placed with gross hematuria. Will do generalized flushing to maintain patency. Urology be consulted. We are asked to admit to the ICU. Patient was given 7 units IV insulin is currently on insulin drip per DKA protocol. CBC/BMP: 03/22/17 0540 03/22/17 0540 Significant Findings Laboratory Tests Test 03/21/17 08:35 03/22/17 05:40 Red Blood Count 3.50 MIL/MM3 (4.50-5.90) 3.49 MIL/MM3 (4.50-5.90) Hemoglobin 10.4 GM/DL (13.0-17.0) 10.7 GM/DL (13.0-17.0) Hematocrit 31.2 % (39.0-51.0) 31.3 % (39.0-51.0) Neutrophils (%) (Auto) 77.6 % (16.0-70.0) Monocytes (%) (Auto) 10.4 % (0.0-8.0) Lymphocytes # (Auto) 0.7 TH/MM3 (1.0-4.8) Blood Urea Nitrogen 32 MG/DL (7-18) 35 MG/DL (7-18) Creatinine 1.51 MG/DL (0.60-1.30) 1.56 MG/DL (0.60-1.30) Random Glucose 158 MG/DL (74-106) 206 MG/DL (74-106) Calcium Level 7.8 MG/DL (8.5-10.1) 7.9 MG/DL (8.5-10.1) Potassium Level 3.2 MEQ/L (3.5-5.1) Estimat Glomerular Filtration Rate 47 ML/MIN (>89) 45 ML/MIN (>89) Phosphorus Level 1.4 MG/DL (2.5-4.9) Imaging Last Impressions Lower Extremity Ultrasound 03/18/17 0000 Signed Impressions: Service Date/Time: Saturday, March 18, 2017 16:30 - CONCLUSION: No DVT is identified within either lower extremity. Asael Alex MD Chest X-Ray 03/18/17 0000 Signed Impressions: Service Date/Time: Saturday, March 18, 2017 10:37 - CONCLUSION: Hypoaerated lungs with bibasilar atelectasis. Arnaldo Cruz MD Abdomen/Pelvis CT 03/18/17 0000 Signed Impressions: Service Date/Time: Saturday, March 18, 2017 16:05 - CONCLUSION: 1. There is new free intraperitoneal air from uncertain etiology. Suggest correlating with the patient's recent surgical history. This could be related to a recent surgery depending on the procedure performed but could also indicate perforated bowel. 2. Mild bilateral hydronephrosis, decreased from the study from 2 days ago. Urinary bladder is mostly decompressed with small amount of blood products in the bladder lumen. 3. There is a new small volume of free fluid in the abdomen and pelvis containing a small amount of blood products. 4. Other new finding since the prior study include anasarca and small bilateral pleural effusions. The above findings were relayed to Dr. Meyer via telephone at 4: 41 PM. Asael Alex MD PE at Discharge AAOx3, NAD PERRLA Clear lungs BL S1S2 RRR, no MRG abdomen soft, tender to palpation of hypogastrium no edema in extremities Pt update on day of discharge Hematuria resolved. Denies fevers, chills, no diarrhea. Hospital Course (1) Diabetic ketoacidosis Patient was admitted to the intensive care unit and initially was managed by steel engraver. The patient received 5 units of IV insulin bolus and was started on an insulin drip which was later discontinued. DKA has resolved. Patient was placed SSI with insulin NovoLog and blood sugars are still elevated in the 200s. I will start the patient on insulin Levemir 8 units subcutaneous twice a day. 03/21 Patient's blood sugar in the 60's. Decreased insulin Levemir to 4 units SQ BID. 03/22 Blood sugars elevated - Increase levemir to 6 units SQ BID. Continue to monitor Accu-Cheks. Contineu SSI. 03/23 Blood sugars still elevated - increase Levemir dose to 12 unts SQ BID. (2) Bladder mass Urology consulted and following. Patient underwent cystourethroscopy. Results revealed anterior Bladder perforation large Bladder tumor, left lateral wall.Clot status post evacuation evacuation. 24 Singaporean catheter placed with 3 irrigation/continuous. 03/21 s/p cystoscopy, clot evacuation with bladder tumor, bladder perforation. Improving. Continue Almanza. Off CBI as per urology. 03/[address] Watson. Ok to DC as per urology with almanza catheter. Plan is for patient to get a cystogram on Monday and then urology will decide if almanza can be discontinued. (3) BPH (benign prostatic hyperplasia) Continued Alfuzosin. (4) Hydronephrosis As seen on initial CT scan. This is likely secondary to bladder mass and clot which have been removed. Repeat CT abdomen and pelvis obtained on 03/18/17 showed some new free intraperitoneal air. Indicated mild bilateral hydronephrosis which was decreased from a study performed 2 days prior. He also reports anasarca and small bilateral pleural effusions. (5) Acute kidney injury Likely due to obstruction. Creatinine trending down and improving. Continue to monitor BUN/creatinine, strict I's and O's and avoid nephrotoxins. 03/21 Creatinine increased up to 1.5, likely due to diuresis. Will DC lasix. Continue to monitor BUN/Creatinine. 03/22 Start IV normal saline. Patient is - 23 liters negative. 03/23 awaiting BMP Dc if creatinine stable (6) Leukocytosis Now resolved. Continue to monitor CBC. (7) Gross hematuria Management as above as per urology recommendations. Continue Almanza, Dc CBI as per urology. (9) Dyslipidemia Continue Statin. (10) Symptomatic anemia Plan: Also bleeding likely hematuria. Hemoccult negative. And studies essentially normal. Continue to monitor CBC. hemoglobin is slowly trending down and today 7.7. There is no other site other than the tract with active bleeding. I will transfuse 1 unit of packed red blood cells. Transfuse as needed for hemoglobin less than 7 or hemoglobin less than 8 if active bleeding to a goal hemoglobin of more than 9. 03/21 Hemoglobin slowly trending down on 03/10. SP transfusion of 1 unit of PRBC' s with improvement of hemoglobin. 03/22 hemoglobin monitored and stable. Continue to monitor cbc. Hemoccult positive. GI consulted for EGD/Colonoscopy however patient prefers to have it done as an outpatient at the [facility] prophylaxis: PPI. DVT prophylaxis: SCDs, chemoprophylaxis contraindicated secondary to anemia and acute bleeding. Pt Condition on Discharge: Stable Discharge Disposition: Disch w/ Home Health Serv Discharge Time: > 30 minutes Discharge Instructions DIET: Follow Instructions for: Diabetic Diet Activities you can perform: Regular-No Restrictions Activities to Avoid: Prolonged Standing, Strenuous Activity Other Activity Instructions: out of bed with assistance Follow up Referrals: Gastroenterology - 2 Weeks PCP Follow-up - 2 Weeks Urology - 1 Week New Medications: Ciprofloxacin (Cipro) 500 Mg Tab 500 MG PO BID for Infection for 7 Days, #14 TAB 0 Refills Insulin Aspart Inj (Novolog Inj) 100 Unit/Ml Inj 1 UNIT SQ ACHS AND 3AM for Blood Sugar Management, #1 VIAL Fasting Sugar <200=No coverage Max Dose HS: 4U Max Dose @ 3am=0 U Bld. Sugar <70=No Insulin 150-199=1 U 200-249=3 U 250-299=5 U 300-349=7 U >349=9 U Insulin Detemir Inj (Levemir Inj) 1,000 unit/ 10 ML Vial 12 UNITS SQ Q12HR for Blood Sugar Management, #1 VIAL 1 Refill Do not mix with any other Insulin. Pantoprazole (Pantoprazole) 40 Mg Tab 40 MG PO DAILY for hemocult positive stool, #31 TAB Potassium Phosphate-Sodium Phosphate (K-Phos Neutral) 155-852-130 Mg Tab 250 MG PO Q8HR for low phosphorus, #10 TAB Continued Medications: Alfuzosin ER 24 HR (Alfuzosin ER 24 HR) 10 Mg Tab 10 MG PO DAILY for BPH, #30 TAB 0 Refills (This prescription has been renewed) Atorvastatin (Atorvastatin) 40 Mg Tab 40 MG PO HS for Cholesterol Management, #30 TAB 0 Refills (This prescription has been renewed) Empagliflozin (Jardiance) 25 Mg Tab 12.5 MG PO DAILYAC for Blood Sugar Management, #30 TAB 0 Refills Discontinued Medications: Aspirin DR (Aspirin EC) 81 Mg Tabdr 81 MG PO DAILY, TAB 0 Refills Insulin Glargine Inj (Lantus Inj) 1,000 Unit/10 Ml Vial 30 UNITS SQ BID for Blood Sugar Management for 30 Days, VIAL 0 Refills Lisinopril (Lisinopril) 10 Mg Tab 10 MG PO DAILY, #30 TAB 0 Refills Teddy Cisse MD Mar 23, 2017 15:32
[2017-03-23 16:53] LABS: BICARBONATE 25.2 MEQ/L (21.0-32.0); POTASSIUM 3.9 MEQ/L (3.5-5.1)
[2017-03-23] MEDS ORDERED: INSULIN DETEMIR 100 UNITS/ML VIAL SQ SCH ×3 (21:00)
== END 2017-03-23 17:29 | disposition home health service (06) | DRG 686 ==
LOC: NEPC 14:16 → NEDA 17:44 → HIMN 18:55
PROVIDERS: ADMIT Hospitalist; ATTEND Hospitalist
PROC: 0T9B70Z Drainage of Bladder with Drainage Device, Via Natural or Artificial Opening (ICD-10-PCS; principal; 2017-03-16)
PROC: 30233N1 Transfusion of Nonautologous Red Blood Cells into Peripheral Vein, Percutaneous Approach (ICD-10-PCS; 2017-03-16)
PROC: 0TCB8ZZ Extirpation of Matter from Bladder, Via Natural or Artificial Opening Endoscopic (ICD-10-PCS; 2017-03-17)
DX: D49.4 Neoplasm of unspecified behavior of bladder (principal); E11.10 Type 2 diabetes mellitus with ketoacidosis without coma; N17.9 Acute kidney failure, unspecified; N13.30 Unspecified hydronephrosis; R17 Unspecified jaundice; E87.1 Hypo-osmolality and hyponatremia; N32.89 Other specified disorders of bladder; I10 Essential (primary) hypertension; R31.0 Gross hematuria; I25.10 Atherosclerotic heart disease of native coronary artery without angina pectoris; R06.09 Other forms of dyspnea; D64.9 Anemia, unspecified; E78.5 Hyperlipidemia, unspecified; N40.1 Benign prostatic hyperplasia with lower urinary tract symptoms; R35.0 Frequency of micturition; Z87.891 Personal history of nicotine dependence; K59.00 Constipation, unspecified; Z86.010 Personal history of colon polyps; D72.829 Elevated white blood cell count, unspecified; Z91.19 Patient's noncompliance with other medical treatment and regimen; Z79.4 Long term (current) use of insulin
CPT/HCPCS: 36430; 36600; 51702; 71010; 74176; 80048; 80053; 80076; 81001; 82010; 82272; 82550; 82570; 82805; 82948; 83036; 83540; 83550; 83605; 83690; 83735; 84100; 84155; 84300; 84439; 84443; 84481; 84484; 85007; 85014; 85018; 85025; 85027; 85384; 85610; 85730; 86850; 86900; 86901; 86920; 87040; 87086; 87205; 87641; 93005; 93308; 93970; 94150; J0690; J1100; J1815; J1817; J2270; J2370; J2405; J3010; J3475; J7030; J7042; J7050; J7060; P9016

== ENCOUNTER 2017-03-26 13:56 | Emergency (ER) | payer MEDICARE ==
[~2017-03-26] VITALS: Ht 160 cm; Wt 57.0 kg
[~2017-03-26 13:56] MED LIST changes: -ASPI81TA23 PO; +CIPR-9 PO; -CIPR250T52 PO; -DIFL200T PO; -LANTUS2P SQ; -LISI10TA3 PO; +PANT40TA3 PO
[2017-03-26 13:58] VITALS: BP 132/66; PULSE 87; RESP 18; TEMP 97.9; O2SAT 99
--- NOTE | 2017-03-26 14:46 | PD ---
HPI Chief Complaint: Bleeding Time Seen by Provider: 14:31 Travel History International Travel<30 days: No Contact w/Intl Traveler<30days: No Traveled to known affect area: No History of Present Illness HPI 66-year-old male complains of hematuria. Patient has history of insulin- dependent diabetes, bladder mass. Patient was admitted to [facility] March 16 and discharged March 23 with diagnosis of diabetic ketoacidosis, bladder mass, BPH, hydronephrosis, acute kidney injury, leukocytosis, gross hematuria, hypertension, hyperlipidemia. Patient was seen by urologist and had cystoscopy and blood clot evacuation from the bladder. Patient has indwelling Crabtree catheter. Patient was advised to follow-up with urologist. Patient states that he has not seen any urologist since discharge. Patient noticed hematuria from the Crabtree catheter for the past 2 days. Patient denies any headache. Patient denies any chest pain or shortness of breath. Patient denies abdominal pain. Patient denies any nausea vomiting diarrhea. Patient denies any fever chills. Patient denies any back pain. Patient states that his blood sugar has been running in 200 range. PFSH Past Medical History Hx Anticoagulant Therapy: No Asthma: No Autoimmune Disease: No Blood Disorders: No Heart Rhythm Problems: No Cancer: No Cardiovascular Problems: No High Cholesterol: Yes Chest Pain: No Congestive Heart Failure: No COPD: No Coronary Artery Disease: Yes (THINKS HE HAS, TAKES ASA DAILY(NON COMPLIANT)) Diabetes: Yes Patient Takes Glucophage: No Diminished Hearing: No Endocrine: No Gastrointestinal Disorders: No GERD: No Glaucoma: No Genitourinary: No Hepatitis: No Hiatal Hernia: No Hypertension: Yes Immune Disorder: No Implanted Vascular Access Dvce: No Musculoskeletal: No Neurologic: No Psychiatric: No Reproductive: No Respiratory: No Sleep Apnea: No Thyroid Disease: No Ulcer: No Past Surgical History Abdominal Surgery: No AICD: No Cardiac Surgery: No Ear Surgery: No Endocrine Surgery: No Eye Surgery: No Genitourinary Surgery: No Gynecologic Surgery: No Neurologic Surgery: No Oral Surgery: No Pacemaker: No Thoracic Surgery: No Other Surgery: No Social History Alcohol Use: No Tobacco Use: No Substance Use: Yes Allergies-Medications (Allergen,Severity, Reaction): Coded Allergies: No Known Allergies (Verified Allergy, Unknown, 03/26/17) Reported Meds & Prescriptions Reported Meds & Active Scripts Active K-Phos Neutral (Potassium Phos/Sodium Phos) 155-852-130 Mg Tab 250 Mg PO Q8HR Pantoprazole (Pantoprazole Sodium) 40 Mg Tab 40 Mg PO DAILY Novolog Inj (Insulin Aspart) 100 Unit/Ml Inj 1 Unit SQ ACHS AND 3AM Fasting Sugar <200=No coverage Max Dose HS: 4U Max Dose @ 3am=0 U Bld. Sugar <70=No Insulin 150-199=1 U 200-249=3 U 250-299=5 U 300-349=7 U >349=9 U Levemir Inj (Insulin Detemir) 1,000 unit/ 10 ML Vial 12 Units SQ Q12HR Do not mix with any other Insulin. Alfuzosin ER 24 HR 10 Mg Tab 10 Mg PO DAILY Atorvastatin (Atorvastatin Calcium) 40 Mg Tab 40 Mg PO HS Cipro (Ciprofloxacin HCl) 500 Mg Tab 500 Mg PO BID 7 Days Reported Jardiance (Empagliflozin) 25 Mg Tab 12.5 Mg PO DAILYAC Review of Systems General / Constitutional: No: Fever Eyes: No: Visual changes HENT: No: Headaches Cardiovascular: No: Chest Pain or Discomfort Respiratory: No: Shortness of Breath Gastrointestinal: No: Abdominal Pain Genitourinary: Positive: Hematuria, No: Dysuria Musculoskeletal: No: Pain Skin: No Rash Neurologic: No: Weakness Psychiatric: No: Depression Endocrine: No: Polydipsia Hematologic/Lymphatic: No: Easy Bruising Physical Exam Narrative GENERAL: Well-nourished, well-developed patient. SKIN: Focused skin assessment warm/dry. HEAD: Normocephalic. EYES: No scleral icterus. No injection or drainage. NECK: Supple, trachea midline. No JVD or lymphadenopathy. CARDIOVASCULAR: Regular rate and rhythm without murmurs, gallops, or rubs. RESPIRATORY: Breath sounds equal bilaterally. No accessory muscle use. GASTROINTESTINAL: Abdomen soft, non-tender, nondistended. MUSCULOSKELETAL: No cyanosis, or edema. BACK: Nontender without obvious deformity. No CVA tenderness. exam: Crabtree catheter in place. Patient has reddish urine. Crabtree catheter draining well. Neurologic exam normal. Data Data Last Documented VS Vital Signs Date Time Temp Pulse Resp B/P (MAP) Pulse Ox O2 Delivery O2 Flow Rate FiO2 03/26/17 14:51 97 Nasal Cannula 2.00 03/26/17 14:51 18 03/26/17 13:58 97.9 87 Orders Orders Complete Blood Count With Diff (03/26/17 14:40) Comprehensive Metabolic Panel (03/26/17 14:40) Urinalysis - C+S If Indicated (03/26/17 14:40) Iv Access Insert/Monitor (03/26/17 14:40) Ecg Monitoring (03/26/17 14:40) Oximetry (03/26/17 14:40) Prothrombin Time / Inr (Pt) (03/26/17 14:40) Act Partial Throm Time (Ptt) (03/26/17 14:40) Labs Laboratory Tests Test 03/26/17 14:40 03/26/17 14:45 Urine Color RED Urine Turbidity CLOUDY Urine pH 6.0 Urine Specific [place] 1.029 Urine Protein 100 mg/dL Urine Glucose (UA) 1000 mg/dL Urine Ketones NEG mg/dL Urine Occult Blood LARGE Urine Nitrite NEG Urine Bilirubin NEG Urine Urobilinogen LESS THAN 2.0 MG/DL Urine Leukocyte Esterase NEG Urine RBC /hpf Urine WBC 0-2 /hpf Urine Bacteria FEW /hpf Microscopic Urinalysis Comment CULT NOT INDICATED White Blood Count 7.6 TH/MM3 Red Blood Count 3.26 MIL/MM3 Hemoglobin 10.0 GM/DL Hematocrit 29.5 % Mean Corpuscular Volume 90.5 FL Mean Corpuscular Hemoglobin 30.7 PG Mean Corpuscular Hemoglobin Concent 33.9 % Red Cell Distribution Width 14.9 % Platelet Count 419 TH/MM3 Mean Platelet Volume 7.8 FL Neutrophils (%) (Auto) 76.9 % Lymphocytes (%) (Auto) 13.2 % Monocytes (%) (Auto) 6.7 % Eosinophils (%) (Auto) 2.2 % Basophils (%) (Auto) 1.0 % Neutrophils # (Auto) 5.8 TH/MM3 Lymphocytes # (Auto) 1.0 TH/MM3 Monocytes # (Auto) 0.5 TH/MM3 Eosinophils # (Auto) 0.2 TH/MM3 Basophils # (Auto) 0.1 TH/MM3 CBC Comment DIFF FINAL Differential Comment Prothrombin Time 10.4 SEC Prothromb Time International Ratio 0.9 RATIO Activated Partial Thromboplast Time 25.4 SEC Blood Urea Nitrogen 14 MG/DL Creatinine 1.10 MG/DL Random Glucose 328 MG/DL Total Protein 5.7 GM/DL Albumin 2.1 GM/DL Calcium Level 7.6 MG/DL Alkaline Phosphatase 78 U/L Aspartate Amino Transf (AST/SGOT) 27 U/L Alanine Aminotransferase (ALT/SGPT) 20 U/L Total Bilirubin 0.4 MG/DL Sodium Level 137 MEQ/L Potassium Level 4.2 MEQ/L Chloride Level 107 MEQ/L Carbon Dioxide Level 24.6 MEQ/L Anion Gap 5 MEQ/L Estimat Glomerular Filtration Rate 67 ML/MIN MDM Medical Decision Making Medical Screen Exam Complete: Yes Emergency Medical Condition: Yes Interpretation(s) 1558 PM. CBC WBC 7.6. Hemoglobin 10.0 hematocrit 29.5. 76 neutrophil. GFR 67. Glucose 328. Calcium 7.6. Differential Diagnosis Differential diagnosis including hematuria, UTI, bladder mass with bleeding, anemia, DKA. Narrative Course 66-year-old male with hematuria. History of bladder mass and hematuria. Patient has indwelling Crabtree catheter. Patient also has history of diabetes. Diagnosis Primary Impression: Hematuria Qualified Codes: R31.9 - Hematuria, unspecified Additional Impression: Bladder mass Patient Instructions: General Instructions Additional Instructions: Follow with urologist. Return if worse. Return if not draining urine from the catheter. Med/Other Pt SpecificInfo: No Change to Meds Disposition: 01 DISCHARGE HOME Condition: Stable Patrick Alvarez MD Mar 26, 2017 14:46
[2017-03-26 14:51] VITALS: O2SAT 97
[2017-03-26 15:17] LABS: AUTOMATED NEUTROPHIL # 5.8 TH/MM3 (1.8-7.7); BASOPHIL # 0.1 TH/MM3 (0-0.2); EOSINOPHIL # 0.2 TH/MM3 (0-0.4); EOSINOPHIL % 2.2 % (0.0-4.0); HEMATOCRIT 29.5 % (39.0-51.0); HEMO FLAGS DIFF FINAL; LYMPH % 13.2 % (9.0-44.0); MEAN CELL VOLUME 90.5 FL (80.0-100.0); MEAN CORPUSCULAR HEMOGLOBIN 30.7 PG (27.0-34.0); MEAN CORPUSCULAR HGB CONC 33.9 % (32.0-36.0); MONO % 6.7 % (0.0-8.0); NEUT % 76.9 % (16.0-70.0); PLATELET COUNT 419 TH/MM3 (150-450); RED BLOOD COUNT 3.26 MIL/MM3 (4.50-5.90); RED CELL DISTRIBUTION WIDTH 14.9 % (11.6-17.2); WHITE BLOOD COUNT 7.6 TH/MM3 (4.0-11.0)
[2017-03-26 15:35] LABS: APTT (PATIENT) 25.4 SEC (24.3-30.1); INTERNATIONAL NORMALIZED RATIO 0.9 RATIO; PROTHROMBIN TIME - PATIENT 10.4 SEC (9.8-11.6)
[2017-03-26 15:36] LABS: ALKALINE PHOSPHATASE 78 U/L (45-117); ALT (GPT) 20 U/L (12-78); ANION GAP 5 MEQ/L (5-15); AST (GOT) 27 U/L (15-37); BICARBONATE 24.6 MEQ/L (21.0-32.0); BLOOD UREA NITROGEN 14 MG/DL (7-18); CHLORIDE 107 MEQ/L (98-107); GLOMERULAR FILTRATION RATE 67 ML/MIN (>89); POTASSIUM 4.2 MEQ/L (3.5-5.1); SODIUM (NA) 137 MEQ/L (136-145); TOTAL BILIRUBIN ADULT 0.4 MG/DL (0.2-1.0)
[2017-03-26 15:54] LABS: BLOOD, URINE LARGE (NEG); GLUCOSE,URINE 1000 mg/dL (NEG); KETONE, URINE NEG (NEG); NITRITE,URINE NEG (NEG)
[2017-03-26 15:59] LABS: URINE COLOR RED (YELLW/STRAW)
[2017-03-26 16:11] LABS: BACTERIA, URINE FEW /hpf; COMMENT (UR) CULT NOT INDICATED; CULTURE IF INDICATED CULT NOT INDICATED; WBC, URINE 0-2 /hpf (0-5)
== END 2017-03-26 17:36 | disposition home or self-care (01) ==
LOC: NEPC 13:56
DX: R31.9 Hematuria, unspecified (principal); E11.9 Type 2 diabetes mellitus without complications; E78.00 Pure hypercholesterolemia, unspecified; I25.10 Atherosclerotic heart disease of native coronary artery without angina pectoris; I10 Essential (primary) hypertension; Z46.6 Encounter for fitting and adjustment of urinary device; Z79.4 Long term (current) use of insulin; Z79.899 Other long term (current) drug therapy
CPT/HCPCS: 80053; 81001; 85025; 85610; 85730; 99283

== ENCOUNTER 2017-04-21 13:13 | Inpatient (IN) | payer MEDICARE ==
[~2017-04-21] VITALS: Ht 162.6 cm; Wt 52.6 kg
[2017-04-21 13:16] VITALS: BP 99/57; PULSE 132; RESP 16; TEMP 98.5; O2SAT 97
[2017-04-21] MEDS ORDERED: SODIUM CHLOR 0.9% 1000 ML INJ 1,000 ML IV SCH (13:45)
[2017-04-21] MEDS ORDERED: SODIUM CHLORIDE 0.9% FLUSH 10 ML FLUSH IV FLUSH PRN ×3 (13:45→18:30)
--- NOTE | 2017-04-21 13:52 | PD ---
HPI Chief Complaint: General Weakness Time Seen by Provider: 13:37 Travel History International Travel<30 days: No Contact w/Intl Traveler<30days: No Traveled to known affect area: No History of Present Illness HPI 66-year-old male with bladder cancer, presents to the emergency Department with complaint of hematuria, fatigue, slight paleness, tachycardia. Apparently he was brought in by his brother who is no longer the bedside and history of present illness is somewhat limited. The patient is currently being treated for bladder cancer and sustained a bladder laceration, so the stop treatment of a laceration heals. He has an indwelling [place] catheter. He was admitted in March for symptomatic anemia. Patient denies chest pain, shortness of breath. Denies fevers, abdominal pain, vomiting. Reports bladder pain. Reports decreased appetite and fluid intake. Rates pain 5/10. When asked the patient questions about his medical history and medications he reports he has a "memory problem" and he doesn't know. He doesn't know the name of this urologist. His primary care provider is Dr. Ang. No known allergies. He has history of diabetes. PFSH Past Medical History Hx Anticoagulant Therapy: No Asthma: No Autoimmune Disease: No Blood Disorders: No Heart Rhythm Problems: No Cancer: Yes (BLADDER MASS) Cardiovascular Problems: No High Cholesterol: Yes Chest Pain: No Congestive Heart Failure: No COPD: No Coronary Artery Disease: Yes (THINKS HE HAS, TAKES ASA DAILY(NON COMPLIANT)) Diabetes: Yes Patient Takes Glucophage: No Diminished Hearing: No Endocrine: No Gastrointestinal Disorders: No GERD: No Glaucoma: No Genitourinary: No Hepatitis: No Hiatal Hernia: No Hypertension: Yes Immune Disorder: No Implanted Vascular Access Dvce: No Musculoskeletal: No Neurologic: No Psychiatric: No Reproductive: No Respiratory: No Sleep Apnea: No Thyroid Disease: No Ulcer: No Past Surgical History Abdominal Surgery: No AICD: No Cardiac Surgery: No Ear Surgery: No Endocrine Surgery: No Eye Surgery: No Genitourinary Surgery: No Gynecologic Surgery: No Neurologic Surgery: No Oral Surgery: No Pacemaker: No Thoracic Surgery: No Other Surgery: No Social History Alcohol Use: No Tobacco Use: No Substance Use: Yes (thc) Allergies-Medications (Allergen,Severity, Reaction): Coded Allergies: No Known Allergies (Verified Allergy, Unknown, 04/21/17) Reported Meds & Prescriptions Reported Meds & Active Scripts Active K-Phos Neutral (Potassium Phos/Sodium Phos) 155-852-130 Mg Tab 250 Mg PO Q8HR Pantoprazole (Pantoprazole Sodium) 40 Mg Tab 40 Mg PO DAILY Novolog Inj (Insulin Aspart) 100 Unit/Ml Inj 1 Unit SQ ACHS AND 3AM Fasting Sugar <200=No coverage Max Dose HS: 4U Max Dose @ 3am=0 U Bld. Sugar <70=No Insulin 150-199=1 U 200-249=3 U 250-299=5 U 300-349=7 U >349=9 U Levemir Inj (Insulin Detemir) 1,000 unit/ 10 ML Vial 12 Units SQ Q12HR Do not mix with any other Insulin. Alfuzosin ER 24 HR 10 Mg Tab 10 Mg PO DAILY Atorvastatin (Atorvastatin Calcium) 40 Mg Tab 40 Mg PO HS Cipro (Ciprofloxacin HCl) 500 Mg Tab 500 Mg PO BID 7 Days Reported Jardiance (Empagliflozin) 25 Mg Tab 12.5 Mg PO DAILYAC Review of Systems Except as stated in HPI: all other systems reviewed are Neg Physical Exam Narrative GENERAL: Thin, pale, cachectic male patient, in no acute distress SKIN: Pale. Warm and dry. No rash. HEAD: Atraumatic. Normocephalic. EYES: Pupils equal and round. No scleral icterus. No injection or drainage. ENT: Mucosa pink and moist. NECK: Trachea midline. CARDIOVASCULAR: Tachycardic rate and rhythm. No murmur appreciated. RESPIRATORY: No accessory muscle use. Clear to auscultation. Breath sounds equal bilaterally. GASTROINTESTINAL: Abdomen soft, non-tender, nondistended. Hepatic and splenic margins not palpable. Bowel sounds are active 4 quadrants. Bladder tender and distended. MUSCULOSKELETAL: No obvious deformities. No clubbing. No cyanosis. No edema. NEUROLOGICAL: Awake and alert. Oriented 3. No obvious cranial nerve deficits. Motor grossly within normal limits. Normal speech. Moves all extremities. 5/5 strength to all extremities. PSYCHIATRIC: Appropriate mood and affect; insight and judgment normal. Data Data Last Documented VS Vital Signs Date Time Temp Pulse Resp B/P (MAP) Pulse Ox O2 Delivery O2 Flow Rate FiO2 04/21/17 16:42 95 15 120/68 (85) 99 Room Air 04/21/17 13:16 98.5 Orders Orders Complete Blood Count With Diff (04/21/17 13:45) Comprehensive Metabolic Panel (04/21/17 13:45) Prothrombin Time / Inr (Pt) (04/21/17 13:45) Act Partial Throm Time (Ptt) (04/21/17 13:45) Urinalysis - C+S If Indicated (04/21/17 13:45) Iv Access Insert/Monitor (04/21/17 13:45) Ecg Monitoring (04/21/17 13:45) Oximetry (04/21/17 13:45) Sodium Chlor 0.9% 1000 Ml Inj (Ns 1000 M (04/21/17 13:45) Sodium Chloride 0.9% Flush (Ns Flush) (04/21/17 13:45) Chest, Single Ap (04/21/17 13:45) Lactic Acid Sepsis Protocol (04/21/17 13:54) Blood Culture (04/21/17 13:54) Arterial Blood Gas (Abg) (04/21/17 ) Ct Brain W/O Iv Contrast(Rout) (04/21/17 ) Piperacil-Tazo 3.375 Gm Premix (Zosyn 3. (04/21/17 15:00) Vancomycin Inj (Vancomycin Inj) (04/21/17 15:00) Sodium Chlor 0.9% 1000 Ml Inj (Ns 1000 M (04/21/17 15:15) Beta Hydroxybutyrate (Acetone) (04/21/17 14:10) Morphine Inj (Morphine Inj) (04/21/17 15:45) Ondansetron Inj (Zofran Inj) (04/21/17 15:45) Urine Culture (04/21/17 16:00) Insulin Human Regular Inj (Novolin R Inj (04/21/17 18:00) Electrocardiogram (04/21/17 13:38) Atorvastatin (Lipitor) (04/21/17 21:00) Insulin Detemir Inj (Levemir Inj) (04/21/17 21:00) Pantoprazole (Protonix) (04/22/17 09:00) Potassium Phos-Sodium Phos (K-Phos Neutr (04/21/17 22:00) (Nf) Alfuzosin Er 24 Hr (04/22/17 09:00) Comprehensive Metabolic Panel (04/22/17 06:00) Free Thyroxine (T4) (04/22/17 06:00) Hemoglobin (Hgb) A1c (04/22/17 06:00) Magnesium (Mg) (04/22/17 06:00) Phosphorus (Po4) (04/22/17 06:00) Thyroid Stimulating Hormone (04/22/17 06:00) Complete Blood Count With Diff (04/22/17 06:00) Bedside Glucose JAIME.CSUGAR&03 (04/21/17 18:25) Blood Glucose Goal (Criteria) (04/21/17 18:25) Hypoglycemia 70 Mg/Dl Or < (04/21/17 18:25) Notify Dr: Other (04/21/17 18:25) Dextrose 50% In [place] (Vial) Inj (D50w (Vi (04/21/17 18:30) Glucagon Inj (Glucagon Inj) (04/21/17 18:30) Case Management Consult (04/21/17 ) Insulin Aspart Supplemtl Scale (Novolog (04/21/17 21:00) Admit Order (Ed Use Only) (04/21/17 18:26) Labs Laboratory Tests Test 04/21/17 14:10 04/21/17 14:30 04/21/17 16:00 White Blood Count 25.3 TH/MM3 Red Blood Count 3.66 MIL/MM3 Hemoglobin 10.4 GM/DL Hematocrit 32.0 % Mean Corpuscular Volume 87.4 FL Mean Corpuscular Hemoglobin 28.4 PG Mean Corpuscular Hemoglobin Concent 32.5 % Red Cell Distribution Width 15.2 % Platelet Count 413 TH/MM3 Mean Platelet Volume 8.4 FL Neutrophils (%) (Auto) 92.3 % Lymphocytes (%) (Auto) 1.9 % Monocytes (%) (Auto) 5.0 % Eosinophils (%) (Auto) 0.0 % Basophils (%) (Auto) 0.8 % Neutrophils # (Auto) 23.4 TH/MM3 Lymphocytes # (Auto) 0.5 TH/MM3 Monocytes # (Auto) 1.3 TH/MM3 Eosinophils # (Auto) 0.0 TH/MM3 Basophils # (Auto) 0.2 TH/MM3 CBC Comment DIFF FINAL Differential Comment Prothrombin Time 10.8 SEC Prothromb Time International Ratio 1.1 RATIO Activated Partial Thromboplast Time 34.5 SEC Blood Urea Nitrogen 72 MG/DL Creatinine 3.19 MG/DL Random Glucose 307 MG/DL Total Protein 8.0 GM/DL Albumin 2.6 GM/DL Calcium Level 9.3 MG/DL Alkaline Phosphatase 129 U/L Aspartate Amino Transf (AST/SGOT) 11 U/L Alanine Aminotransferase (ALT/SGPT) 17 U/L Total Bilirubin 0.5 MG/DL Sodium Level 134 MEQ/L Potassium Level 5.2 MEQ/L Chloride Level 102 MEQ/L Carbon Dioxide Level 17.4 MEQ/L Anion Gap 15 MEQ/L Estimat Glomerular Filtration Rate 20 ML/MIN Lactic Acid Level 1.7 mmol/L B-Hydroxybutyrate 1.98 MMOL/L Blood Gas Puncture Site RT RADIAL Blood Gas Patient Temperature 98.6 Blood Gas HCO3 17 mmol/L Blood Gas Base Excess -6.8 mmol/L Blood Gas Oxygen Saturation 96 % Arterial Blood pH 7.40 Arterial Blood Partial Pressure CO2 28 mmHg Arterial Blood Partial Pressure O2 100 mmHG Arterial Blood Oxygen Content 13.1 Vol % Arterial Blood Carboxyhemoglobin 1.5 % Arterial Blood Methemoglobin 0.5 % Blood Gas Hemoglobin 9.6 G/DL Blood Gas Inspired Oxygen 21 % Urine Color RED Urine Turbidity CLOUDY Urine pH 6.0 Urine Specific [place] 1.034 Urine Protein 300 mg/dL Urine Glucose (UA) NEG mg/dL Urine Ketones 10 mg/dL Urine Occult Blood LARGE Urine Nitrite NEG Urine Bilirubin NEG Urine Urobilinogen LESS THAN 2.0 MG/DL Urine Leukocyte Esterase LARGE Urine RBC /hpf Urine WBC /hpf Urine WBC Clumps FEW Urine Bacteria MANY /hpf Urine Hyaline Casts 60 /lpf Microscopic Urinalysis Comment CULTURE INDICATED MDM Medical Decision Making Medical Screen Exam Complete: Yes Emergency Medical Condition: Yes Medical Record Reviewed: Yes Differential Diagnosis Sepsis, metastatic cancer, DKA Narrative Course 56-year-old male with bladder cancer presents with hematuria, fatigue, paleness , and tachycardia. Patient placed on cardiopulmonary monitor. I discussed the patient with Dr. Williamson, the attending physician, and she agrees to plan of care. IV site obtained. CBC, CMP, coags, urinalysis, lactic acid, blood cultures, ABG, CT head, chest x-ray, normal saline bolus ordered. 1454: WBC 25.3. Hgb 10.4. Lactic Acid 1.7. Vancomycin and Zosyn ordered. Chest x-ray concludes: Chest X-Ray 04/21/17 1345 Signed Impressions: Service Date/Time: Friday, April 21, 2017 14:01 - CONCLUSION: No acute disease. Juan Carlos Boss MD 1504: Sodium 134. Potassium 5.2. BUN 72. Creatinine 3.19. GFR 20. Glucose 307. Second normal saline bolus ordered. 1551: CT head concludes: normal examination for patient's age. Morphine 2 mg and Zofran ordered. 1754: Urinalysis was signs of infection and reflux to urine culture. I reviewed patient labs with Dr. Williamson and she recommended 4units IV reg insulin and admission. Orders entered. Call placed to [facility] for admission. 182: I spoke with CARLTON Gamble and report was given for admission. Physician Communication Physician Communication CARTLON Gamble Diagnosis Primary Impression: Sepsis Qualified Codes: A41.9 - Sepsis, unspecified organism Admitting Information Admitting Physician Requests: Admit Emilee Fregoso [facility] Apr 21, 2017 13:52
[2017-04-21 14:24] LABS: AUTOMATED NEUTROPHIL # 23.4 TH/MM3 (1.8-7.7); BASOPHIL # 0.2 TH/MM3 (0-0.2); BASOPHIL % 0.8 % (0.0-2.0); HEMO FLAGS DIFF FINAL; LYMPH % 1.9 % (9.0-44.0); LYMPHOCYTE # 0.5 TH/MM3 (1.0-4.8); MEAN CELL VOLUME 87.4 FL (80.0-100.0); MEAN CORPUSCULAR HEMOGLOBIN 28.4 PG (27.0-34.0); MEAN CORPUSCULAR HGB CONC 32.5 % (32.0-36.0); NEUT % 92.3 % (16.0-70.0); PLATELET COUNT 413 TH/MM3 (150-450); RED BLOOD COUNT 3.66 MIL/MM3 (4.50-5.90); RED CELL DISTRIBUTION WIDTH 15.2 % (11.6-17.2); WHITE BLOOD COUNT 25.3 TH/MM3 (4.0-11.0)
--- NOTE | 2017-04-21 14:26 | RADRPT ---
EXAM DATE/TIME: 04/21/2017 14:01 [facility] COMPARISON: CHEST SINGLE AP, March 18, 2017, 10:37. INDICATIONS : Shortness of breath. MEDICAL HISTORY : Diabetes mellitus type II. Hypercholesterolemia. Hypertension. Coronary artery disease. Hematur ia. SURGICAL HISTORY : Left rotator cuff repair. Orthopedic surgery, right knee fracture. ENCOUNTER: Initial ACUITY: 1 day PAIN SCORE: 0/10 LOCATION: Bilateral chest FINDINGS: A single view of the chest demonstrates the lungs to be symmetrically aerated without evidence of mas s, infiltrate or effusion. The cardiomediastinal contours are unremarkable. Osseous structures are intact. CONCLUSION: No acute disease. Juan Carlos Boss MD on April 21, 2017 at 14:23 Board Certified Radiologist. This report was verified electronically.
[2017-04-21 14:38] LABS: BLOOD GAS BASE EXCESS -6.8 mmol/L (-2-2); BLOOD GAS CARBOXYHEMOGLOBIN 1.5 % (0-4); BLOOD GAS HCO3 17 mmol/L (22-26); BLOOD GAS METHEMOGLOBIN 0.5 % (0-2); BLOOD GAS O2 HGB SATURATION 96 % (90-100); BLOOD GAS OXYGEN CONTENT 13.1 Vol % (12.0-20.0); BLOOD GAS PCO2 28 mmHg (38-42); BLOOD GAS PO2 100 mmHG (61-120); BLOOD GAS TOTAL HGB 9.6 G/DL (12.0-16.0); CRITICAL VALUE NO; DRAW SITE RT RADIAL; FIO2 21 %; NUMBER OF ARTERIAL PUNCTURES 1; STAT YES; TEMP CORR TO 98.6; ULNAR PULSE PRESENT
[2017-04-21 14:50] LABS: APTT (PATIENT) 34.5 SEC (24.3-30.1); INTERNATIONAL NORMALIZED RATIO 1.1 RATIO; PROTHROMBIN TIME - PATIENT 10.8 SEC (9.8-11.6)
[2017-04-21] MEDS ORDERED: PIPERACIL-TAZO 3.375 GM PREMIX 50 ML IV ONE (15:00)
[2017-04-21] MEDS ORDERED: VANCOMYCIN INJ 1,000 MG in SODIUM CHLOR 0.9% 250 ML INJ 250 ML IV ONE ×2 (15:00→18:30)
[2017-04-21 15:01] LABS: ALT (GPT) 17 U/L (12-78); ANION GAP 15 MEQ/L (5-15); AST (GOT) 11 U/L (15-37); BICARBONATE 17.4 MEQ/L (21.0-32.0); BLOOD UREA NITROGEN 72 MG/DL (7-18); CHLORIDE 102 MEQ/L (98-107); GLOMERULAR FILTRATION RATE 20 ML/MIN (>89); POTASSIUM 5.2 MEQ/L (3.5-5.1); SODIUM (NA) 134 MEQ/L (136-145)
[2017-04-21 15:03] LABS: ALKALINE PHOSPHATASE 129 U/L (45-117); TOTAL BILIRUBIN ADULT 0.5 MG/DL (0.2-1.0)
[2017-04-21] MEDS ORDERED: SODIUM CHLOR 0.9% 1000 ML INJ 1,000 ML IV ONE (15:15)
--- NOTE | 2017-04-21 15:30 | RADRPT ---
EXAM DATE/TIME: 04/21/2017 15:17 [facility] COMPARISON: No previous studies available for comparison. INDICATIONS : Altered mental status, generalized weakness. RADIATION DOSE: 46.06 CTDIvol (mGy) MEDICAL HISTORY : Carcinoma, bladder. Diabetes mellitus type 2. Hypertension. SURGICAL HISTORY : None. ENCOUNTER: Initial ACUITY: 1 day PAIN SCALE: 0/10 LOCATION: cranial TECHNIQUE: Multiple contiguous axial images were obtained of the head. Using automated exposure control and adj ustment of the mA and/or kV according to patient size, radiation dose was kept as low as reasonably a chievable to obtain optimal diagnostic quality images. DICOM format image data is available electro nically for review and comparison. FINDINGS: CEREBRUM: The ventricles are normal for age. No evidence of midline shift, mass lesion, hemorrhage or acute in farction. No extra-axial fluid collections are seen. POSTERIOR FOSSA: The cerebellum and brainstem are intact. The 4th ventricle is midline. The cerebellopontine angle i s unremarkable. EXTRACRANIAL: The visualized portion of the orbits is intact. SKULL: The calvaria is intact. No evidence of skull fracture. CONCLUSION: Normal examination for a patient of this age. Juan Carlos Boss MD on April 21, 2017 at 15:27 Board Certified Radiologist. This report was verified electronically.
[2017-04-21] MEDS ORDERED: ONDANSETRON HCL 4 MG/2 ML VIAL IV PUSH ONE (15:45)
[2017-04-21] MEDS ORDERED: MORPHINE SULFATE 2 MG/ML INJ IV PUSH ONE (15:45)
[2017-04-21 16:34] LABS: BETA-HYDROXYBUTYRATE 1.98 MMOL/L (0.00-0.39)
[2017-04-21 16:42] VITALS: BP 120/68; PULSE 95; RESP 15; O2SAT 99
[2017-04-21 16:48] LABS: BACTERIA, URINE MANY /hpf; BLOOD, URINE LARGE (NEG); COMMENT (UR) CULTURE INDICATED; CULTURE IF INDICATED CULTURE INDICATED; GLUCOSE,URINE NEG (NEG); HYALINE CAST, URINE 60 /lpf (RARE); KETONE, URINE 10 mg/dL (NEG); NITRITE,URINE NEG (NEG)
[2017-04-21 16:49] LABS: URINE COLOR RED (YELLW/STRAW)
[2017-04-21] MEDS ORDERED: INSULIN HUMAN REGULAR 1,000 UNITS/10 ML VIAL IV PUSH ONE (18:00)
[2017-04-21] MEDS ORDERED: ACETAMINOPHEN 325 MG TAB PO PRN ×2 (18:30)
[2017-04-21] MEDS ORDERED: DEXTROSE 50% IN WATER 50 ML VIAL(D50) IV PUSH PRN (18:30)
[2017-04-21] MEDS ORDERED: LACTULOSE SYRUP 20 GM/30 ML CUP PO PRN (18:30)
[2017-04-21] MEDS ORDERED: METOCLOPRAMIDE HCL 10 MG/2 ML VIAL IV PUSH PRN (18:30)
[2017-04-21] MEDS ORDERED: SENNOSIDES 8.6 MG TAB PO PRN (18:30)
[2017-04-21] MEDS ORDERED: PIPERACIL-TAZO 4.5 GM PREMIX 100 ML IV SCH (18:30)
[2017-04-21] MEDS ORDERED: MORPHINE SULFATE 4 MG/ML INJ IV PUSH PRN ×3 (18:30)
[2017-04-21] MEDS ORDERED: GLUCAGON 1 MG/ML VIAL OTHER PRN (18:30)
[2017-04-21] MEDS ORDERED: MAGNESIUM HYDROXIDE SUSP 30 ML CUP PO PRN (18:30)
[2017-04-21] MEDS ORDERED: ONDANSETRON HCL 4 MG/2 ML VIAL IVP PRN (18:30)
[2017-04-21] MEDS ORDERED: BISACODYL 10 MG SUPP RECTAL PRN (18:30)
[2017-04-21] MEDS ORDERED: Vancomycin Consult Pharmacy 1 EA OTHER SCH (18:30)
[2017-04-21] MEDS ORDERED: NALOXONE HCL 0.4 MG/ML AMP IV PUSH PRN (18:30)
--- NOTE | 2017-04-21 19:02 | HHI.HP ---
HPI Service [facility] Hospitalists Primary Care Physician [facility] Admission Diagnosis Sepsis Diagnoses: Chief Complaint: Generalized weakness Travel History International Travel<30 Days: No Contact w/Intl Traveler <30 Da: No Traveled to Known Affected Are: No History of Present Illness Patient is a 66-year-old male, With known history of bladder cancer, who presents to the emergency department here at [facility] with complaint of hematuria, fatigue, feeling weak and pale, as well as tachycardia. Patient was brought in by his brother, Who is no longer at the bedside. History is limited. Patient is being treated for bladder cancer and sustained a bladder laceration so they stopped treatment until the laceration heals. Has a chronic indwelling Crabtree catheter. Had recently been admitted in March for symptomatic anemia. Denies any chest pain or shortness breath denies any fever abdominal pain or vomiting has bladder pain. Has decreased appetite and decreased fluid intake pain is 5 out of 10 primary care provider is a Dr. Sav Damon believe at the [place]. Patient has a history of diabetes that is recently been poorly controlled Review of Systems Constitutional: COMPLAINS OF: Fatigue, Weight loss, Change in appetite, DENIES : Diaphoretic episodes, Fever, Weight gain, Chills, Dizziness Endocrine: DENIES: Heat/cold intolerance, Polydipsia, Polyuria Eyes: DENIES: Blurred vision, Diplopia, Eye inflammation, Eye pain Ears, nose, mouth, throat: DENIES: Tinnitus, Hearing loss Respiratory: DENIES: Apneas, Cough, Snoring, Wheezing Cardiovascular: DENIES: Chest pain, Palpitations, Syncope, Dyspnea on Exertion Gastrointestinal: DENIES: Abdominal pain, Black stools, Bloody stools, Constipation, Diarrhea, Nausea Genitourinary: COMPLAINS OF: Urinary incontinence, Hematuria, DENIES: Urgency, Dysuria, Nocturia, Penile Discharge Musculoskeletal: COMPLAINS OF: Back pain, DENIES: Joint pain, Muscle aches, Stiffness, Joint Swelling Integumentary: DENIES: Abnormal pigmentation, Nail changes Hematologic/lymphatic: DENIES: Bruising, Lymphadenopathy Immunologic/allergic: DENIES: Eczema, Urticaria Neurologic: COMPLAINS OF: Abnormal gait, DENIES: Headache, Localized weakness, Paresthesias, Seizures, Speech Problems Psychiatric: COMPLAINS OF: Depression, DENIES: Anxiety, Confusion, Mood changes Except as stated in HPI: all other systems reviewed are Neg Past Family Social History Past Medical History Bladder cancer and bladder mass Hyperlipidemia hypercholesterolemia Diabetes mellitus Hypertension Dyslipidemia Hematuria History of BPH Bladder mass and bilateral hydronephrosis Past Surgical History Appendix and tonsils and adenoids Reported Medications Reported Meds & Active Scripts Active K-Phos Neutral (Potassium Phos/Sodium Phos) 155-852-130 Mg Tab 250 Mg PO Q8HR Pantoprazole (Pantoprazole Sodium) 40 Mg Tab 40 Mg PO DAILY Novolog Inj (Insulin Aspart) 100 Unit/Ml Inj 1 Unit SQ ACHS AND 3AM Fasting Sugar <200=No coverage Max Dose HS: 4U Max Dose @ 3am=0 U Bld. Sugar <70=No Insulin 150-199=1 U 200-249=3 U 250-299=5 U 300-349=7 U >349=9 U Levemir Inj (Insulin Detemir) 1,000 unit/ 10 ML Vial 12 Units SQ Q12HR Do not mix with any other Insulin. Alfuzosin ER 24 HR 10 Mg Tab 10 Mg PO DAILY Atorvastatin (Atorvastatin Calcium) 40 Mg Tab 40 Mg PO HS Cipro (Ciprofloxacin HCl) 500 Mg Tab 500 Mg PO BID 7 Days Reported Jardiance (Empagliflozin) 25 Mg Tab 12.5 Mg PO DAILYAC Allergies: Coded Allergies: No Known Allergies (Verified Allergy, Unknown, 04/21/17) Active Ordered Medications Current Medications Sodium Chloride 1,000 ml @ 1,000 mls/hr Q1H IV Last administered on 14:56; Start 04/21/17 at 13:45; Stop 04/21/17 at 14:44; Status DC Sodium Chloride (NS Flush) 2 ml UNSCH PRN IV FLUSH FLUSH AFTER USING IV ACCESS ; Start 04/21/17 at 13:45 Piperacillin Sod/ Tazobactam Sod 50 ml @ 100 mls/hr ONCE ONCE IV Last administered on 04/21/17 15:35; Start 04/21/17 at 15:00; Stop 04/21/17 at 15 :29; Status DC Vancomycin HCl 1000 mg/Sodium Chloride 250 ml @ 250 mls/hr ONCE ONCE IV Last administered on 04/21/17 15:36; Start 04/21/17 at 15:00; Stop 04/21/17 at 15 :59; Status DC Sodium Chloride 1,000 ml @ 999 mls/hr BOLUS ONCE IV Last administered on 15:51; Start 04/21/17 at 15:15; Stop 04/21/17 at 16:15; Status DC Morphine Sulfate (Morphine Inj) 2 mg ONCE ONCE IV PUSH Last administered on 16:14; Start 04/21/17 at 15:45; Stop 04/21/17 at 15:46; Status DC Ondansetron HCl (Zofran Inj) 4 mg ONCE ONCE IV PUSH Last administered on 04/21 16:14; Start 04/21/17 at 15:45; Stop 04/21/17 at 15:46; Status DC Insulin Human Regular (NovoLIN R INJ) 4 units ONCE ONCE IV PUSH ; Start at 18:00; Stop 04/21/17 at 18:01; Status DC Atorvastatin Calcium (Lipitor) 40 mg HS PO ; Start 04/21/17 at 21:00; Status UNV Insulin Detemir (Levemir Inj) 12 units Q12HR SQ ; Start 04/21/17 at 21:00; Status UNV Pantoprazole Sodium (Protonix) 40 mg DAILY PO ; Start 04/22/17 at 09:00; Status UNV Potassium Phos/ Sodium Phos (K-Phos Neutral) 250 mg Q8HR PO ; Start 04/21/17 at 22:00; Stop 04/21/17 at 22:00; Status DC Non-Formulary Medication 10 mg DAILY PO ; Start 04/22/17 at 09:00; Status UNV Dextrose (D50w (Vial) Inj) 50 ml UNSCH PRN IV PUSH HYPOGLYCEMIA-SEE COMMENTS; Start 04/21/17 at 18:30; Status UNV Glucagon (Glucagon Inj) 1 mg UNSCH PRN OTHER HYPOGLYCEMIA-SEE COMMENTS; Start 04/21/17 at 18:30; Status UNV Insulin Aspart (NovoLOG SUPPLEMENTAL SCALE) 1 ACHS SLIDING SCALE SQ ; Start at 21:00; Status UNV Sodium Chloride 1,000 ml @ 150 mls/hr Q6H40M IV ; Start 04/21/17 at 18:26; Status UNV Sodium Chloride (NS Flush) 2 ml UNSCH PRN IV FLUSH FLUSH AFTER USING IV ACCESS ; Start 04/21/17 at 18:30; Status UNV Sodium Chloride (NS Flush) 2 ml BID IV FLUSH ; Start 04/21/17 at 21:00; Status UNV Acetaminophen (Tylenol) 650 mg Q4H PRN PO TEMP > 100.4; Start 04/21/17 at 18: 30; Status UNV Ondansetron HCl (Zofran Inj) 4 mg Q6H PRN IVP NAUSEA OR VOMITING; Start at 18:30; Status UNV Metoclopramide HCl (Reglan Inj) 5 mg Q6H PRN IV PUSH NAUSEA OR VOMITING; Start 04/21/17 at 18:30; Status UNV Acetaminophen (Tylenol) 650 mg Q6H PRN PO PAIN SCALE 1 TO 2; Start 04/21/17 at 18:30; Status UNV Oxycodone/ Acetaminophen (Percocet 5-325 Mg) 1 tab Q6H PRN PO PAIN SCALE 3 TO 5; Start 04/21/17 at 18:30; Status UNV Oxycodone/ Acetaminophen (Percocet 10-325 Mg) 1 tab Q6H PRN PO PAIN SCALE 6 TO 10; Start 04/21/17 at 18:30; Status UNV Morphine Sulfate (Morphine Inj) 2 mg Q3H PRN IV PUSH Pain 3-5; if unable to take PO; Start 04/21/17 at 18:30; Status UNV Morphine Sulfate (Morphine Inj) 4 mg Q3H PRN IV PUSH Pain 6-10;if unable to take PO; Start 04/21/17 at 18:30; Status UNV Morphine Sulfate (Morphine Inj) 4 mg Q3H PRN IV PUSH BREAKTHROUGH PAIN; Start 04/21/17 at 18:30; Status UNV Naloxone HCl (Narcan Inj) 0.4 mg UNSCH PRN IV PUSH SEE LABEL COMMENTS; Start 04/21/17 at 18:30; Status UNV Senna/Docusate Sodium (Debbie-Colace) 1 tab BID PO ; Start 04/21/17 at 21:00; Status UNV Magnesium Hydroxide (Milk Of Magnesia Liq) 30 ml Q12H PRN PO Mild constipation ; Start 04/21/17 at 18:30; Status UNV Sennosides (Senokot) 17.2 mg Q12H PRN PO Moderate constipation; Start at 18:30; Status UNV Bisacodyl (Dulcolax Supp) 10 mg DAILY PRN RECTAL SEVERE CONSITIPATION; Start 04/21/17 at 18:30; Status UNV Lactulose (Lactulose Liq) 30 ml DAILY PRN PO SEVERE CONSITIPATION; Start 04/21 at 18:30; Status UNV Sodium Chloride (NS Flush) 2 ml UNSCH PRN IV FLUSH FLUSH AFTER USING IV ACCESS ; Start 04/21/17 at 18:30; Status UNV Sodium Chloride (NS Flush) 2 ml BID IV FLUSH ; Start 04/21/17 at 21:00; Status UNV Famotidine (Pepcid Inj) 20 mg Q12HR IV PUSH ; Start 04/21/17 at 21:00; Status UNV Piperacillin Sod/ Tazobactam Sod 100 ml @ 200 mls/hr Q6H IV ; Start 04/21/17 at 18:30; Status UNV Vancomycin HCl 1000 mg/Sodium Chloride 250 ml @ 250 mls/hr ONCE ONCE IV ; Start 04/21/17 at 18:30; Stop 04/21/17 at 19:29; Status UNV Pharmacy Profile Note 0 ml @ 0 mls/hr UNSCH XX ; Start 04/21/17 at 18:30; Status UNV Family History Father is alive at 96 Mother at Alzheimer's at age 80 Social History Quit tobacco 3 years ago Used to smoke about one fifth a pack per day for 40 years Denies any alcohol or illicit drug use Physical Exam Vital Signs Vital Signs Date Time Temp Pulse Resp B/P (MAP) Pulse Ox O2 Delivery O2 Flow Rate FiO2 04/21/17 16:42 95 15 120/68 (85) 99 Room Air 04/21/17 16:42 95 15 120/68 (85) 99 Room Air 04/21/17 16:20 15 04/21/17 13:43 115 95 Room Air 04/21/17 13:16 98.5 132 16 99/57 (71) 97 Physical Exam GENERAL: This is a very cachectic gentleman who appears older than stated age, in moderate distress. SKIN: No rashes, ecchymoses or lesions. Cool and dry. HEAD: Atraumatic. Normocephalic. No temporal or scalp tenderness. EYES: Pupils equal round and reactive. Extraocular motions intact. No scleral icterus. No injection or drainage. ENT: Nose without bleeding, purulent drainage or septal hematoma. Throat without erythema, tonsillar hypertrophy or exudate. Uvula midline. Airway patent. NECK: Trachea midline. No JVD or lymphadenopathy. Supple, nontender, no meningeal signs. CARDIOVASCULAR: Regular rate and rhythm without murmurs, gallops, or rubs. S1 and S2 no S3 or S4 no heave or thrill or rub or gallop RESPIRATORY: Clear to auscultation. Breath sounds equal bilaterally. No wheezes , rales, or rhonchi. GASTROINTESTINAL: Abdomen soft, non-tender, nondistended. No hepato-splenomegaly , or palpable masses. No guarding. Crabtree catheter is in place hematuria MUSCULOSKELETAL: Extremities without clubbing, cyanosis, or edema. No joint tenderness, effusion, or edema noted. No calf tenderness. Negative Homans sign bilaterally. NEUROLOGICAL: Awake and alert. Cranial nerves II through XII intact. Motor and sensory grossly within normal limits. 4 out of 5 muscle strength in all muscle groups. Normal speech. Insight and judgment is limited Mood and behavior is somewhat appropriate Laboratory Laboratory Tests Test 04/21/17 14:10 04/21/17 14:30 04/21/17 16:00 White Blood Count 25.3 Red Blood Count 3.66 Hemoglobin 10.4 Hematocrit 32.0 Mean Corpuscular Volume 87.4 Mean Corpuscular Hemoglobin 28.4 Mean Corpuscular Hemoglobin Concent 32.5 Red Cell Distribution Width 15.2 Platelet Count 413 Mean Platelet Volume 8.4 Neutrophils (%) (Auto) 92.3 Lymphocytes (%) (Auto) 1.9 Monocytes (%) (Auto) 5.0 Eosinophils (%) (Auto) 0.0 Basophils (%) (Auto) 0.8 Neutrophils # (Auto) 23.4 Lymphocytes # (Auto) 0.5 Monocytes # (Auto) 1.3 Eosinophils # (Auto) 0.0 Basophils # (Auto) 0.2 CBC Comment DIFF FINAL Differential Comment Prothrombin Time 10.8 Prothromb Time International Ratio 1.1 Activated Partial Thromboplast Time 34.5 Blood Urea Nitrogen 72 Creatinine 3.19 Random Glucose 307 Total Protein 8.0 Albumin 2.6 Calcium Level 9.3 Alkaline Phosphatase 129 Aspartate Amino Transf (AST/SGOT) 11 Alanine Aminotransferase (ALT/SGPT) 17 Total Bilirubin 0.5 Sodium Level 134 Potassium Level 5.2 Chloride Level 102 Carbon Dioxide Level 17.4 Anion Gap 15 Estimat Glomerular Filtration Rate 20 Lactic Acid Level 1.7 B-Hydroxybutyrate 1.98 Blood Gas Puncture Site RT RADIAL Blood Gas Patient Temperature 98.6 Blood Gas HCO3 17 Blood Gas Base Excess -6.8 Blood Gas Oxygen Saturation 96 Arterial Blood pH 7.40 Arterial Blood Partial Pressure CO2 28 Arterial Blood Partial Pressure O2 100 Arterial Blood Oxygen Content 13.1 Arterial Blood Carboxyhemoglobin 1.5 Arterial Blood Methemoglobin 0.5 Blood Gas Hemoglobin 9.6 Blood Gas Inspired Oxygen 21 Urine Color RED Urine Turbidity CLOUDY Urine pH 6.0 Urine Specific [place] 1.034 Urine Protein 300 Urine Glucose (UA) NEG Urine Ketones 10 Urine Occult Blood LARGE Urine Nitrite NEG Urine Bilirubin NEG Urine Urobilinogen LESS THAN 2.0 Urine Leukocyte Esterase LARGE Urine RBC Urine WBC Urine WBC Clumps FEW Urine Bacteria MANY Urine Hyaline Casts 60 Microscopic Urinalysis Comment CULTURE INDICATED Date/Time Source Procedure Growth Status 04/21/17 14:50 Blood Peripheral Aerobic Blood Culture Pending Received 04/21/17 14:50 Blood Peripheral Anaerobic Blood Culture Pending Received 04/21/17 16:00 Urine Clean Catch Urine Culture Pending Received Result Diagram: 04/21/17 1410 04/21/17 1410 Imaging Last Impressions Chest X-Ray 04/21/17 1345 Signed Impressions: Service Date/Time: Friday, April 21, 2017 14:01 - CONCLUSION: No acute disease. Juan Carlos Boss MD Head CT 04/21/17 0000 Signed Impressions: Service Date/Time: Friday, April 21, 2017 15:17 - CONCLUSION: Normal examination for a patient of this age. MD Dania Crouchi VTE Risk Assessment lForinsybil VTE Risk Assessment: Mod/High Risk (score >= 2) Caprini Risk Assessment Model Point Value = 1 Point Value = 2 Point Value = 3 Point Value = 5 Age 41-60 Minor surgery BMI > 25 kg/m2 Swollen legs Varicose veins or History of unexplained or recurrent spontaneous Oral contraceptives or hormone replacement Sepsis (< 1 month) Serious lung disease, including pneumonia (< 1 month) Abnormal pulmonary function Acute myocardial infarction Congestive heart failure (< 1 month) History of inflammatory bowel disease Medical patient at bed rest Age 61-74 Arthroscopic surgery Major open surgery (> 45 min) Laparoscopic surgery (> 45 min) Malignancy Confined to bed (> 72 hours) Immobilizing plaster cast Central venous access Age >= 75 History of VTE Family history of VTE Factor V Leiden Prothrombin [id number] Lupus anticoagulant Anticardiolipin antibodies Elevated serum homocysteine Heparin-induced thrombocytopenia Other congenital or acquired thrombophilia Stroke (< 1 month) Elective arthroplasty Hip, pelvis, or leg fracture Acute spinal cord injury (< 1 month) Prophylaxis Regimen Total Risk Factor Score Risk Level Prophylaxis Regimen 0-1 Low Early ambulation 2 Moderate Order ONE of the following: *Sequential Compression Device (SCD) *Heparin 5000 units SQ BID 3-4 Higher Order ONE of the following medications: *Heparin 5000 units SQ TID *Enoxaparin/Lovenox 40 mg SQ daily (WT < 150 kg, CrCl > 30 mL/min) *Enoxaparin/Lovenox 30 mg SQ daily (WT < 150 kg, CrCl > 10-29 mL/min) *Enoxaparin/Lovenox 30 mg SQ BID (WT < 150 kg, CrCl > 30 mL/min) AND/OR *Sequential Compression Device (SCD) 5 or more Highest Order ONE of the following medications: *Heparin 5000 units SQ TID (Preferred with Epidurals) *Enoxaparin/Lovenox 40 mg SQ daily (WT < 150 kg, CrCl > 30 mL/min) *Enoxaparin/Lovenox 30 mg SQ daily (WT < 150 kg, CrCl > 10-29 mL/min) *Enoxaparin/Lovenox 30 mg SQ BID (WT < 150 kg, CrCl > 30 mL/min) AND *Sequential Compression Device (SCD) Assessment and Plan Assessment and Plan Sepsis and urinary tract infection. Continue on fluid rehydration aggressively continue on vancomycin and Zosyn Consult infectious disease History of hypertension and dyslipidemia. Continue on aggressive fluid rehydration with normal saline at 150 ML's per hour Hold lisinopril, hold atorvastatin, aspirin will heLD History tobacco abuse smoking cessation recommended incentive spirometry Diabetic diet Pepcid twice a day BPH and gross hematuria with bladder mass Continue on Crabtree catheter and aggressive rehydration continue on antibiotics a.m. labs Diabetes mellitus poorly controlled continue on sliding scale coverage. Continue on his detemir Renal insufficiency continue on aggressive fluid rehydration continue accurate I's and O's continue on Crabtree catheter Leukocytosis and anemia consult infectious disease continue on Zosyn and vancomycin PT and OT to eval and treat Remains a full code at this time SCDs and JH graves. DVT prophylaxis Code Status Full code consult palliative care Discussed Condition With Patient and RN and emergency room physician Physician Certification 2 Midnight Certification Type: Admission for Inpatient Services Order for Inpatient Services The services are ordered in accordance with Medicare regulations or non- Medicare payer requirements, as applicable. In the case of services not specified as inpatient-only, they are appropriately provided as inpatient services in accordance with the 2-midnight benchmark. Estimated LOS (days): 5 5 days is the estimated time the patient will need to remain in the hospital, assuming treatment plan goals are met and no additional complications. Post-Hospital Plan: Not yet determined Marquez Casas DO Apr 21, 2017 19:02
[2017-04-21] MEDS: oxyCODONE/ACETAMINOPHEN 5 MG/325 MG TAB PO PRN (20:26)
[2017-04-21 20:45] VITALS: BP 138/71; PULSE 104; RESP 18; TEMP 100.3; O2SAT 99
[2017-04-21] MEDS ORDERED: MORPHINE SULFATE 2 MG/ML INJ IV PRN (21:00)
[2017-04-21] MEDS ORDERED: SODIUM CHLORIDE 0.9% FLUSH 10 ML FLUSH IV FLUSH SCH (21:00)
--- NOTE | 2017-04-21 21:34 | EKG ---
Date Performed: 04/21/2017 Time Performed: 13:38:25 PTAGE: 66 years EKG: NORMAL Sinus rhythm NORMAL RHYTHM ECG PREVIOUS TRACING : 03/16/2017 17.45 No significant change from previous tracing noted. DOCTOR: Dominic Solorzano Interpretating Date/Time 04/21/2017 21:34:10
[2017-04-21] MEDS ORDERED: POTASSIUM PHOSPHATE/SODIUM PHOSPHATE 250 MG TAB PO SCH (22:00)
[2017-04-21 22:17] VITALS: PULSE 94
[2017-04-21] MEDS: DOCUSATE SODIUM 50 MG/SENNA 8.6 MG TAB PO SCH (22:32)
[2017-04-21] MEDS: ATORVASTATIN 40 MG TAB PO SCH (22:32)
[2017-04-21] MEDS: INSULIN ASPART SUPPLEMENTAL SCALE SQ SCH (22:42)
[2017-04-21] MEDS: INSULIN DETEMIR 100 UNITS/ML VIAL SQ SCH (22:42)
[2017-04-21] MEDS: SODIUM CHLORIDE 0.9% FLUSH 10 ML FLUSH IV FLUSH SCH (22:43)
[2017-04-21] MEDS: FAMOTIDINE 20 MG/2 ML VIAL IV PUSH SCH (22:45)
[2017-04-21] MEDS: PIPERACIL-TAZO 2.25 GM PREMIX 50 ML IV SCH (23:03)
[2017-04-21] MEDS: SODIUM CHLOR 0.9% 1000 ML INJ 1,000 ML IV SCH (23:17)
[2017-04-21 23:52] LABS: CREATINE KINASE 24 U/L (39-308)
[2017-04-22] VITALS (14 sets, daily range): BP systolic 90–124; BP diastolic 50–59; PULSE 81–109; RESP 16–18; TEMP 97.6–100.1; O2SAT 96–100
[2017-04-22] MEDS: SODIUM CHLOR 0.9% 1000 ML INJ 1,000 ML IV SCH ×4 (03:40→22:58)
[2017-04-22] MEDS: PIPERACIL-TAZO 2.25 GM PREMIX 50 ML IV SCH ×4 (04:05→22:56)
--- NOTE | 2017-04-22 06:45 | EKG ---
Date Performed: 04/21/2017 Time Performed: 22:53:37 PTAGE: 66 years EKG: Sinus rhythm NORMAL ECG PREVIOUS TRACING : 04/21/2017 13.38 No change from previous tracing noted. DOCTOR: Dominic Solorzano Interpretating Date/Time 04/22/2017 06:44:16
[2017-04-22] MEDS: oxyCODONE/ACETAMINOPHEN 5 MG/325 MG TAB PO PRN ×2 (07:28→17:50)
[2017-04-22] MEDS: INSULIN ASPART SUPPLEMENTAL SCALE SQ SCH ×4 (08:00→20:36)
[2017-04-22] MEDS: INSULIN DETEMIR 100 UNITS/ML VIAL SQ SCH ×2 (09:00→21:00)
[2017-04-22] MEDS: TAMSULOSIN HCL 0.4 MG CAP PO SCH (09:10)
[2017-04-22] MEDS: DOCUSATE SODIUM 50 MG/SENNA 8.6 MG TAB PO SCH ×2 (09:10→20:34)
[2017-04-22] MEDS: PANTOPRAZOLE SOD 40 MG DELAYED RELEASE TAB PO SCH (09:10)
[2017-04-22] MEDS: FAMOTIDINE 20 MG/2 ML VIAL IV PUSH SCH (09:13)
[2017-04-22] MEDS: SODIUM CHLORIDE 0.9% FLUSH 10 ML FLUSH IV FLUSH SCH ×2 (09:14→20:36)
[2017-04-22] MEDS ORDERED: INFLUENZA VIRUS VACCINE (QUADRIVALENT) 0.5 ML SYR IM ONE (10:00)
[2017-04-22] MEDS ORDERED: PNEUMOCOCCAL POLYVALENT INJ 25 MCG/0.5 ML SYR IM ONE (10:00)
[2017-04-22 10:23] LABS: AUTOMATED NEUTROPHIL # 16.8 TH/MM3 (1.8-7.7); BASOPHIL % 0.2 % (0.0-2.0); HEMATOCRIT 23.6 % (39.0-51.0); HEMO FLAGS DIFF FINAL; LYMPH % 2.4 % (9.0-44.0); LYMPHOCYTE # 0.4 TH/MM3 (1.0-4.8); MEAN CELL VOLUME 86.5 FL (80.0-100.0); MEAN CORPUSCULAR HEMOGLOBIN 28.8 PG (27.0-34.0); MEAN CORPUSCULAR HGB CONC 33.3 % (32.0-36.0); MONO % 5.1 % (0.0-8.0); NEUT % 92.3 % (16.0-70.0); PLATELET COUNT 289 TH/MM3 (150-450); RED BLOOD COUNT 2.73 MIL/MM3 (4.50-5.90); RED CELL DISTRIBUTION WIDTH 14.9 % (11.6-17.2); WHITE BLOOD COUNT 18.3 TH/MM3 (4.0-11.0)
[2017-04-22 10:44] LABS: ALKALINE PHOSPHATASE 109 U/L (45-117); ALT (GPT) 10 U/L (12-78); ANION GAP 8 MEQ/L (5-15); AST (GOT) 10 U/L (15-37); BICARBONATE 19.5 MEQ/L (21.0-32.0); BLOOD UREA NITROGEN 71 MG/DL (7-18); CHLORIDE 110 MEQ/L (98-107); FREE T4 0.99 NG/DL (0.76-1.46); GLOMERULAR FILTRATION RATE 22 ML/MIN (>89); MAGNESIUM 1.9 MG/DL (1.5-2.5); SODIUM (NA) 137 MEQ/L (136-145); TOTAL BILIRUBIN ADULT 0.3 MG/DL (0.2-1.0)
[2017-04-22 10:45] LABS: CREATINE KINASE 24 U/L (39-308)
--- NOTE | 2017-04-22 11:00 | HHI.PR ---
Subjective Remarks T max 100.3 last evening T down this am complains of low back discomfort on admission- per staff- clots almanza in place- now draining cloudy dark yellow urine- no gross hematuria Objective Vitals Vital Signs Date Time Temp Pulse Resp B/P (MAP) Pulse Ox O2 Delivery O2 Flow Rate FiO2 04/22/17 08:22 99 21 04/22/17 08:00 98.4 93 18 97/54 (68) 98 04/22/17 06:04 98 04/22/17 05:55 98.4 98 18 124/59 (80) 98 04/22/17 00:27 97.6 81 18 102/57 (72) 100 04/22/17 00:00 83 04/21/17 22:17 94 04/21/17 20:45 100.3 104 18 138/71 (93) 99 04/21/17 19:02 04/21/17 16:42 95 15 120/68 (85) 99 Room Air 04/21/17 16:42 95 15 120/68 (85) 99 Room Air 04/21/17 16:20 15 04/21/17 13:43 115 95 Room Air 04/21/17 13:16 98.5 132 16 99/57 (71) 97 I/O 04/21/17 04/21/17 04/21/17 04/22/17 04/22/17 04/22/17 07:00 15:00 23:00 07:00 15:00 23:00 Intake Total 2300 ml 700 ml 1000 ml Output Total 850 ml Balance 2300 ml -150 ml 1000 ml Intake IV Total 2300 ml 700 ml 1000 ml Output Urine Total 850 ml Result Diagram: 04/22/17 0845 04/22/17 0845 Imaging Last Impressions Chest X-Ray 04/21/17 1345 Signed Impressions: Service Date/Time: Friday, April 21, 2017 14:01 - CONCLUSION: No acute disease. Juan Carlos Boss MD Head CT 04/21/17 0000 Signed Impressions: Service Date/Time: Friday, April 21, 2017 15:17 - CONCLUSION: Normal examination for a patient of this age. Juan Carlos Boss MD Objective Remarks awake and alert, oriented x 3 anicteric, palpe palpebral conjucntivae no nuchal rigidity no rales regular rhythm abdomen soft, nontender almanza in place extremities no edema moves all extremities spontaneously Urinary Catheter: Yes Assessment to: Continue A/P Assessment and Plan 66 years old male Gram negative Sepsis secondary to urinary tract infection underlying Bladder tumor S/P recent cystoscopy 03/23 for clot evacuation ff final c and S. continue on vancomycin and Zosyn Infectious disease consulted Urology consult-known to Dr. Watson Acute Anemia secondary to Gross hematuria almanza now draining grossly clear urine will give 1 unit RBC History of hypertension and dyslipidemia. Continue on aggressive fluid rehydration Hold lisinopril, hold atorvastatin, aspirin will heLD Diabetic Mellitus- insulin requiring- uncontrolled last A1C 8.9 ff blood sugars and adjust insulin Acute on chronic kidney insufficiency secondary to underlying DM nephropathy and obstructive uropathy continue on fluid rehydration continue accurate I's and O's , ff BMP continue on Almanza catheter PT and OT to eval and treat Remains a full code at this time SCDs and JH graves. DVT prophylaxis Code Status Full code consult palliative care Elder Felix MD Apr 22, 2017 11:00
[2017-04-22] MEDS ORDERED: VANCOMYCIN 1,000 MG/NS 250 ML IV ONE ×2 (14:00)
--- NOTE | 2017-04-22 16:12 | MB ---
cc: MYRON NINO MD DATE OF CONSULTATION: 04/22/2017. REASON FOR CONSULTATION: Sepsis with leukocytosis and urinary tract infection. REQUESTING PHYSICIAN: Dr. Casas. HISTORY OF PRESENT ILLNESS: This is a 56-year-old white male who was admitted to the hospital with gross hematuria. The patient recently underwent cystoscopy. The patient is a very poor historian. He answers questions with simple yes/no answers and I am unable to get any meaningful history from him. Information is obtained from the medical record. The patient has history of bladder cancer. When he presented he also had tachycardia. Blood cultures were taken on admission and have gram-negative rods in all four bottles. He also a urinalysis on presentation, and it showed a large amount of leukocyte esterase and many bacteria and a few white cells and the culture has gram-negative rods. The white blood cell count was elevated at 25.3. His estimated GFR is 20. The patient is currently on antibiotics. PAST MEDICAL HISTORY: 1. Bladder cancer and bladder mass. 2. Diabetes mellitus. 3. Hypertension. 4. Hematuria. 5. History of benign prostate hypertrophy. 6. Dyslipidemia. 7. Appendectomy. ALLERGIES: NO KNOWN DRUG ALLERGIES. MEDICATIONS: 1. Vancomycin. 2. Protonix. 3. Flomax. 4. Lipitor. 5. Piperacillin / tazobactam. 6. Levemir insulin. 7. Pepcid. 8. Percocet 5 PRN. SOCIAL HISTORY: No tobacco. No alcohol. Reportedly the patient uses marijuana. FAMILY HISTORY: Noncontributory. REVIEW OF SYSTEMS: Difficult to obtain because the patient is a poor historian and answers no to most of the questions asked. The only pertinent positive in the review of systems is tiredness. PHYSICAL EXAMINATION: GENERAL: This is a slender male who appears somewhat disheveled. He is awake. He also appears alert. VITAL SIGNS: Temperature 97.9, blood pressure 100/57, respirations 18, heart rate 94. HEAD, EYES, EARS, NOSE, THROAT: Head is atraumatic. Extraocular movements grossly intact, pupils are reactive to light and has no icterus. Oropharynx has moist mucosa without lesions. NECK: The neck is supple. No adenopathy. LUNGS: Clear breath sounds. HEART: Regular S1 and S2. No murmurs. No rubs or gallops. ABDOMEN: Bowel sounds present, flat, soft, nontender. RECTAL: Not performed. : Normal genitalia. Crabtree catheter in place and has slightly turbid urine. RECTAL: Not performed. EXTREMITIES: No clubbing or cyanosis or edema. SKIN: No rash. NEUROLOGIC: Nonfocal. PSYCHIATRIC: The patient is calm and cooperative. LABORATORY DATA: WBC 18.3, platelets 289,000, 92% neutrophils, hemoglobin 7.9, creatinine 2.87, BUN 71, estimated GFR 22. IMAGING STUDIES: CT scan of the head showed normal examination. IMPRESSION: 1. Septicemia due to gram-negative bacteria preliminary identification of Enterobacter species in the blood. 2. Urinary tract infection due to gram-negative bacteria. 3. Acute kidney disease. 4. Leukocytosis secondary to sepsis. 5. History of bladder carcinoma. RECOMMENDATIONS: 1. Continue piperacillin / tazobactam 2. Discontinue vancomycin. 3. Monitor sensitivity and identity of the bacteria in both the blood and the urine. 4. Monitor white blood cell count. 5. Monitor clinical status. Thank you for this consultation. The patient's progress will be followed and further recommendations will be given upon followup. Myron Nino MD FD/RILEY /2:40 PM /3:53 PM
[2017-04-22] MEDS: ATORVASTATIN 40 MG TAB PO SCH (20:34)
[2017-04-23] VITALS (10 sets, daily range): BP systolic 96–116; BP diastolic 54–62; PULSE 58–93; RESP 16–20; TEMP 97.6–99.1; O2SAT 95–99
[2017-04-23] MEDS: PIPERACIL-TAZO 2.25 GM PREMIX 50 ML IV SCH ×4 (03:30→23:04)
[2017-04-23] MEDS: INSULIN ASPART SUPPLEMENTAL SCALE SQ SCH ×4 (07:37→20:24)
[2017-04-23] MEDS: INSULIN DETEMIR 100 UNITS/ML VIAL SQ SCH ×2 (07:37→20:24)
[2017-04-23] MEDS: FAMOTIDINE 20 MG/2 ML VIAL IV PUSH SCH (08:17)
[2017-04-23] MEDS: DOCUSATE SODIUM 50 MG/SENNA 8.6 MG TAB PO SCH ×2 (08:17→20:24)
[2017-04-23] MEDS: TAMSULOSIN HCL 0.4 MG CAP PO SCH (08:17)
[2017-04-23] MEDS: SODIUM CHLORIDE 0.9% FLUSH 10 ML FLUSH IV FLUSH SCH ×2 (08:17→20:24)
[2017-04-23] MEDS: PANTOPRAZOLE SOD 40 MG DELAYED RELEASE TAB PO SCH (08:17)
[2017-04-23] MEDS: SODIUM CHLOR 0.9% 1000 ML INJ 1,000 ML IV SCH (09:01)
--- NOTE | 2017-04-23 09:56 | PD.CONS ---
[facility] Service Urology Consult Requested By Dr. Felix Primary Care Physician [facility] Diagnosis: History of Present Illness 66-year-old gentleman who was recently diagnosed as having a bladder tumor and presented to emergency room with symptoms of hematuria, fatigue and weakness. Patient was diagnosed with sepsis and admitted for antibiotic therapy. He was recently admitted in March of this year for symptomatic anemia and had a urologic workup by that included cystoscopic evaluation. The procedure was performed on March 17 and demonstrated a large bladder tumor originating from the left wall also noted was a perforation involving the bladder dome. Patient had a Crabtree catheter placed and was advised to follow up with as an outpatient to schedule a transurethral resection of the bladder tumor once the bladder perforation had healed. At the time of consultation the patient was resting quietly in bed and in no acute distress. He did have an indwelling Crabtree catheter which was draining clear yellow urine. Preliminary urine cultures grew out gram-negative rods. Review of Systems Constitutional: COMPLAINS OF: Fatigue, Weight loss, Change in appetite, DENIES : Fever Musculoskeletal: COMPLAINS OF: Back pain Except as stated in HPI: all other systems reviewed are Neg Past Family Social History Past Medical History Recently diagnosed with a bladder mass Diabetes mellitus Hypertension BPH Hyperlipidemia Past Surgical History Status post appendectomy Status post tonsillectomy/adenoidectomy Reported Medications Refer to EMR Allergies: Coded Allergies: No Known Allergies (Verified Allergy, Unknown, 04/21/17) Active Ordered Medications Refer to EMR Family History Reviewed and noncontributory Social History Former smoker who quit approximately 3 years ago Denies alcohol abuse Denies history intravenous drug abuse Physical Exam Vital Signs Date Time Temp Pulse Resp B/P (MAP) Pulse Ox O2 Delivery O2 Flow Rate FiO2 04/23/17 08:05 98.5 89 16 109/58 (75) 96 04/23/17 06:27 89 04/23/17 04:15 97.6 75 20 96/56 (69) 98 04/23/17 00:15 98.1 80 19 100/54 (69) 99 04/23/17 00:00 81 04/22/17 21:00 98.7 83 18 90/50 (63) 99 04/22/17 20:00 89 04/22/17 17:15 98.7 88 16 111/59 96 04/22/17 17:00 99.2 98 17 107/52 97 04/22/17 16:43 100.1 109 18 111/59 97 04/22/17 16:00 100.1 104 18 111/59 (76) 97 04/22/17 13:32 94 04/22/17 12:00 97.9 89 18 100/57 (71) 98 Physical Exam GENERAL: This is a well-nourished, well-developed patient, in no apparent distress. SKIN: No rashes, ecchymoses or lesions. Cool and dry. HEAD: Atraumatic. Normocephalic. No temporal or scalp tenderness. EYES: Pupils equal round and reactive. Extraocular motions intact. No scleral icterus. No injection or drainage. ENT: Nose without bleeding, purulent drainage or septal hematoma. Throat without erythema, tonsillar hypertrophy or exudate. Uvula midline. Airway patent. NECK: Trachea midline. No JVD or lymphadenopathy. Supple, nontender, no meningeal signs. GASTROINTESTINAL: Abdomen soft, non-tender, nondistended. No hepato-splenomegaly , or palpable masses. No guarding. GENITOURINARY: Indwelling Crabtree draining clear yellow urine, bladder not distended MUSCULOSKELETAL: Extremities without clubbing, cyanosis, or edema. No joint tenderness, effusion, or edema noted. No calf tenderness. Negative Homans sign bilaterally. NEUROLOGICAL: Awake and alert. Cranial nerves II through XII intact. Motor and sensory grossly within normal limits. Five out of 5 muscle strength in all muscle groups. Normal speech. Lab results reviewed: Yes Date/Time Source Procedure Growth Status 04/21/17 14:50 Blood Peripheral Aerobic Blood Culture - Preliminary Gram Negative Sanket Resulted 04/21/17 14:50 Anaerobic Blood Culture - Preliminary Gram Negative Sanket Resulted 04/21/17 16:00 Urine Clean Catch Urine Culture - Preliminary Gram Negative Sanket Resulted Result Diagram: 04/22/17 0845 04/22/17 0845 Personally reviewed images: Yes Imaging Last Impressions Chest X-Ray 04/21/17 1345 Signed Impressions: Service Date/Time: Friday, April 21, 2017 14:01 - CONCLUSION: No acute disease. Juan Carlos Boss MD Head CT 04/21/17 0000 Signed Impressions: Service Date/Time: Friday, April 21, 2017 15:17 - CONCLUSION: Normal examination for a patient of this age. Juan Carlos Boss MD Assessment and Plan Assessment and Plan Urologic impression: #1 hematuria related to bladder tumor (now resolved) #2 urinary tract infection likely related to long-standing Crabtree catheter Recommendations: #1 replace Crabtree catheter and continue to gravity drainage #2 agree with present management of urinary tract infection #3 patient to follow up with his established urologist Dr. Watson after hospital discharge for ongoing urologic management to include transurethral resection of bladder tumor. #4 will be available as needed during present hospitalization. Juan Woods MD Apr 23, 2017 09:56
[2017-04-23 10:53] LABS: HEMOGLOBIN A1a 1.3 %; HEMOGLOBIN A1b 0.9 %; HEMOGLOBIN Ao 80.4 %; HEMOGLOBIN F 1.4 %; HEMOGLOBIN LA1C 2.1 %
--- NOTE | 2017-04-23 10:58 | HHI.PR ---
Subjective Remarks no complains except for constipation afebrile almanza draining- grossly clear urine no more hematuria Objective Vitals Vital Signs Date Time Temp Pulse Resp B/P (MAP) Pulse Ox O2 Delivery O2 Flow Rate FiO2 04/23/17 10:03 93 04/23/17 08:05 98.5 89 16 109/58 (75) 96 04/23/17 06:27 89 04/23/17 04:15 97.6 75 20 96/56 (69) 98 04/23/17 00:15 98.1 80 19 100/54 (69) 99 04/23/17 00:00 81 04/22/17 21:00 98.7 83 18 90/50 (63) 99 04/22/17 20:00 89 04/22/17 17:15 98.7 88 16 111/59 96 04/22/17 17:00 99.2 98 17 107/52 97 04/22/17 16:43 100.1 109 18 111/59 97 04/22/17 16:00 100.1 104 18 111/59 (76) 97 04/22/17 13:32 94 04/22/17 12:00 97.9 89 18 100/57 (71) 98 I/O 04/22/17 04/22/17 04/22/17 04/23/17 04/23/17 04/23/17 07:00 15:00 23:00 07:00 15:00 23:00 Intake Total 700 ml 1300 ml 1150 ml 600 ml Output Total 850 ml 0 ml 300 ml Balance -150 ml 1300 ml 1150 ml 300 ml Intake Oral 650 ml 600 ml IV Total 700 ml 1300 ml 50 ml Packed Cells 400 ml Blood Product IV Normal Saline Flush 50 ml Output Urine Total 850 ml 0 ml 300 ml # Bowel Movements 0 0 Result Diagram: 04/22/17 0845 04/22/17 0845 Imaging Last Impressions Chest X-Ray 04/21/17 1345 Signed Impressions: Service Date/Time: Friday, April 21, 2017 14:01 - CONCLUSION: No acute disease. Juan Carlos Boss MD Head CT 04/21/17 0000 Signed Impressions: Service Date/Time: Friday, April 21, 2017 15:17 - CONCLUSION: Normal examination for a patient of this age. Juan Carlos Boss MD Objective Remarks awake and alert, oriented x 3 anicteric, no nuchal rigidity no rales regular rhythm abdomen soft, nontender almanza in place extremities no edema moves all extremities spontaneously Urinary Catheter: Yes Assessment to: Continue Almanza insert reason: Obstruction/Retention Date of Insertion: Apr 21, 2017 A/P Assessment and Plan 66 years old male Gram negative Sepsis secondary to urinary tract infection underlying Bladder tumor S/P recent cystoscopy 03/23 for clot evacuation Leukocytosis secondary to above ff final c and S. continue on Zosyn Infectious disease consulted Urology consult-seen by Dr. Woods- almanza ordered to be changed today Acute Anemia secondary to Gross hematuria S/P 1 unit RBC no further hematuria CBC now History of hypertension and dyslipidemia. Continue on aggressive fluid rehydration Hold lisinopril, hold atorvastatin, aspirin will held Diabetic Mellitus- insulin requiring- uncontrolled last A1C 8.9 good readings- continue on Levemer 6 units q 12 SQ ff blood sugars and adjust insulin Acute on chronic kidney insufficiency secondary to underlying DM nephropathy and obstructive uropathy non oliguric. FF BMP- creatinine stabilizing continue accurate I's and O's , ff BMP continue on Almanza catheter PT and OT to eval and treat- per patient baseline uses a walker Remains a full code at this time SCDs and JH graves. DVT prophylaxis Code Status Full code consult palliative care Elder Felix MD Apr 23, 2017 10:58
--- NOTE | 2017-04-23 11:39 | HHI.IDPN ---
Note Infectious Disease Note Patient feels better. Has some pain at the suprapubic area. Denies chills. Afebrile. Admitted to the hospital with gross hematuria. The patient recently underwent cystoscopy. PAST MEDICAL HISTORY: 1. Bladder cancer and bladder mass. 2. Diabetes mellitus. 3. Hypertension. 4. Hematuria. 5. History of benign prostate hypertrophy. 6. Dyslipidemia. 7. Appendectomy. ALLERGIES: NO KNOWN DRUG ALLERGIES. ANTIBIOTICS: Piperacillin / tazobactam. Current Medications Medications (Trade) Dose Ordered Sig/Светлана Route PRN Reason Start Time Stop Time Status Last Admin Dose Admin Atorvastatin Calcium (Lipitor) 40 mg HS PO 04/21/17 21:00 04/22/17 20:34 Pantoprazole Sodium (Protonix) 40 mg DAILY PO 04/22/17 09:00 04/23/17 08:17 Tamsulosin HCl (Flomax) 0.4 mg DAILY PO 04/22/17 09:00 04/23/17 08:17 Dextrose (D50w (Vial) Inj) 50 ml UNSCH PRN IV PUSH HYPOGLYCEMIA-SEE COMMENTS 04/21/17 18:30 Glucagon (Glucagon Inj) 1 mg UNSCH PRN OTHER HYPOGLYCEMIA-SEE COMMENTS 04/21/17 18:30 Insulin Aspart (NovoLOG SUPPLEMENTAL SCALE) 1 ACHS SLIDING SCALE SQ 04/21/17 21:00 04/22/17 08:00 Sodium Chloride 1,000 ml @ 125 mls/hr Q8H IV 04/21/17 21:00 04/22/17 22:58 Acetaminophen (Tylenol) 650 mg Q4H PRN PO TEMP > 100.4 04/21/17 18:30 04/22/17 16:42 Ondansetron HCl (Zofran Inj) 4 mg Q6H PRN IVP NAUSEA OR VOMITING 04/21/17 18:30 Metoclopramide HCl (Reglan Inj) 5 mg Q6H PRN IV PUSH NAUSEA OR VOMITING 04/21/17 18:30 Acetaminophen (Tylenol) 650 mg Q6H PRN PO PAIN SCALE 1 TO 2 04/21/17 18:30 Oxycodone/ Acetaminophen (Percocet 5-325 Mg) 1 tab Q6H PRN PO PAIN SCALE 3 TO 5 04/21/17 18:30 04/22/17 17:50 Oxycodone/ Acetaminophen (Percocet 10-325 Mg) 1 tab Q6H PRN PO PAIN SCALE 6 TO 10 04/21/17 18:30 Morphine Sulfate (Morphine Inj) 4 mg Q3H PRN IV PUSH Pain 6-10;if unable to take PO 04/21/17 18:30 Morphine Sulfate (Morphine Inj) 4 mg Q3H PRN IV PUSH BREAKTHROUGH PAIN 04/21/17 18:30 Naloxone HCl (Narcan Inj) 0.4 mg UNSCH PRN IV PUSH SEE LABEL COMMENTS 04/21/17 18:30 Senna/Docusate Sodium (Debbie-Colace) 1 tab BID PO 04/21/17 21:00 04/23/17 08:17 Magnesium Hydroxide (Milk Of Magnesia Liq) 30 ml Q12H PRN PO Mild constipation 04/21/17 18:30 Sennosides (Senokot) 17.2 mg Q12H PRN PO Moderate constipation 04/21/17 18:30 Bisacodyl (Dulcolax Supp) 10 mg DAILY PRN RECTAL SEVERE CONSITIPATION 04/21/17 18:30 Lactulose (Lactulose Liq) 30 ml DAILY PRN PO SEVERE CONSITIPATION 04/21/17 18:30 Sodium Chloride (NS Flush) 2 ml UNSCH PRN IV FLUSH FLUSH AFTER USING IV ACCESS 04/21/17 18:30 Sodium Chloride (NS Flush) 2 ml BID IV FLUSH 04/21/17 21:00 04/22/17 09:14 Famotidine (Pepcid Inj) 20 mg DAILY IV PUSH 04/21/17 21:00 04/23/17 08:17 Morphine Sulfate (Morphine Inj) 2 mg Q3H PRN IV Pain 3-5; if unable to take PO 04/21/17 21:00 Piperacillin Sod/ Tazobactam Sod 50 ml @ 100 mls/hr Q6H IV 04/21/17 22:00 04/23/17 09:01 Insulin Detemir (Levemir Inj) 6 units Q12HR SQ 04/22/17 21:00 OBJECTIVE: Vital Signs Date Time Temp Pulse Resp B/P (MAP) Pulse Ox O2 Delivery O2 Flow Rate FiO2 04/23/17 10:03 93 04/23/17 08:05 98.5 89 16 109/58 (75) 96 12/17/17 06:27 89 04/23/17 04:15 97.6 75 20 96/56 (69) 98 04/23/17 00:15 98.1 80 19 100/54 (69) 99 04/23/17 00:00 81 04/22/17 21:00 98.7 83 18 90/50 (63) 99 04/22/17 20:00 89 04/22/17 17:15 98.7 88 16 111/59 96 04/22/17 17:00 99.2 98 17 107/52 97 04/22/17 16:43 100.1 109 18 111/59 97 04/22/17 16:00 100.1 104 18 111/59 (76) 97 04/22/17 13:32 94 04/22/17 12:00 97.9 89 18 100/57 (71) 98 Laboratory Tests Test 04/21/17 14:10 04/22/17 08:45 White Blood Count 25.3 TH/MM3 18.3 TH/MM3 Red Blood Count 3.66 MIL/MM3 2.73 MIL/MM3 Hemoglobin 10.4 GM/DL 7.9 GM/DL Hematocrit 32.0 % 23.6 % Mean Corpuscular Volume 87.4 FL 86.5 FL Mean Corpuscular Hemoglobin 28.4 PG 28.8 PG Mean Corpuscular Hemoglobin Concent 32.5 % 33.3 % Red Cell Distribution Width 15.2 % 14.9 % Platelet Count 413 TH/MM3 289 TH/MM3 Mean Platelet Volume 8.4 FL 8.3 FL Neutrophils (%) (Auto) 92.3 % 92.3 % Lymphocytes (%) (Auto) 1.9 % 2.4 % Monocytes (%) (Auto) 5.0 % 5.1 % Eosinophils (%) (Auto) 0.0 % 0.0 % Basophils (%) (Auto) 0.8 % 0.2 % Neutrophils # (Auto) 23.4 TH/MM3 16.8 TH/MM3 Lymphocytes # (Auto) 0.5 TH/MM3 0.4 TH/MM3 Monocytes # (Auto) 1.3 TH/MM3 0.9 TH/MM3 Eosinophils # (Auto) 0.0 TH/MM3 0.0 TH/MM3 Basophils # (Auto) 0.2 TH/MM3 0.0 TH/MM3 CBC Comment DIFF FINAL DIFF FINAL Differential Comment Laboratory Tests Test 04/21/17 14:10 04/21/17 23:10 04/22/17 08:45 Blood Urea Nitrogen 72 MG/DL 71 MG/DL Creatinine 3.19 MG/DL 2.87 MG/DL Random Glucose 307 MG/DL 163 MG/DL Total Protein 8.0 GM/DL 6.1 GM/DL Albumin 2.6 GM/DL 1.8 GM/DL Calcium Level 9.3 MG/DL 7.9 MG/DL Alkaline Phosphatase 129 U/L 109 U/L Aspartate Amino Transf (AST/SGOT) 11 U/L 10 U/L Alanine Aminotransferase (ALT/SGPT) 17 U/L 10 U/L Total Bilirubin 0.5 MG/DL 0.3 MG/DL Sodium Level 134 MEQ/L 137 MEQ/L Potassium Level 5.2 MEQ/L 5.0 MEQ/L Chloride Level 102 MEQ/L 110 MEQ/L Carbon Dioxide Level 17.4 MEQ/L 19.5 MEQ/L Anion Gap 15 MEQ/L 8 MEQ/L Estimat Glomerular Filtration Rate 20 ML/MIN 22 ML/MIN Lactic Acid Level 1.7 mmol/L 0.8 mmol/L Total Creatine Kinase 24 U/L 24 U/L Troponin I LESS THAN 0.02 NG/ML LESS THAN 0.02 NG/ML C-Reactive Protein 29.00 MG/DL Phosphorus Level 4.2 MG/DL Magnesium Level 1.9 MG/DL Hemoglobin A1c 8.4 % Free Thyroxine 0.99 NG/DL Thyroid Stimulating Hormone 3rd Gen 4.110 uIU/ML Microbiology Date/Time Source Procedure Growth Status 04/21/17 14:50 Blood Peripheral Aerobic Blood Culture - Preliminary Gram Negative Sanket Resulted 04/21/17 14:50 Anaerobic Blood Culture - Preliminary Gram Negative Sanket Resulted 04/21/17 14:10 Blood Peripheral Aerobic Blood Culture - Preliminary Enterobacter Species Resulted 04/21/17 14:10 Anaerobic Blood Culture - Preliminary Gram Negative Sanket Resulted 04/21/17 16:00 Urine Clean Catch Urine Culture - Preliminary Gram Negative Sanket Resulted IMAGING: Chest X-Ray 04/21/17 1345 Signed Impressions: Service Date/Time: Friday, April 21, 2017 14:01 - CONCLUSION: No acute disease. Juan Carlos Boss MD Head CT 04/21/17 0000 Signed Impressions: Service Date/Time: Friday, April 21, 2017 15:17 - CONCLUSION: Normal examination for a patient of this age. Juan Carlos Boss MD PHYSICAL EXAMINATION: GENERAL: awake and alert. No distress. HEAD, EYES, EARS, NOSE, THROAT: Head is atraumatic. Extraocular movements grossly intact, pupils are reactive to light and has no icterus. Oropharynx has moist mucosa without lesions. NECK: The neck is supple. No adenopathy. LUNGS: Clear breath sounds. HEART: Regular S1 and S2. No murmurs. No rubs or gallops. ABDOMEN: Bowel sounds present, flat, soft, nontender. : Normal genitalia. Crabtree catheter in place and has very turbid urine. EXTREMITIES: No clubbing or cyanosis or edema. SKIN: No rash. NEUROLOGIC: Nonfocal. PSYCHIATRIC: The patient is calm and cooperative. IMPRESSION: 1. Septicemia due to gram-negative bacteria preliminary identification of Enterobacter species in the blood. 2. Urinary tract infection due to gram-negative bacteria. 3. Acute kidney disease. 4. Leukocytosis secondary to sepsis. 5. History of bladder carcinoma. RECOMMENDATIONS: 1. Continue piperacillin / tazobactam 2. Monitor sensitivity and identity of the bacteria in both the blood and the urine. 3. Follow the white blood cell count. 4. Monitor clinical status. Jacques Moore MD Apr 23, 2017 11:39
[2017-04-23 13:29] LABS: AUTOMATED NEUTROPHIL # 14.1 TH/MM3 (1.8-7.7); BASOPHIL # 0.1 TH/MM3 (0-0.2); BASOPHIL % 0.5 % (0.0-2.0); EOSINOPHIL # 0.1 TH/MM3 (0-0.4); EOSINOPHIL % 0.5 % (0.0-4.0); HEMATOCRIT 25.8 % (39.0-51.0); HEMO FLAGS DIFF FINAL; LYMPH % 3.8 % (9.0-44.0); LYMPHOCYTE # 0.6 TH/MM3 (1.0-4.8); MEAN CELL VOLUME 85.2 FL (80.0-100.0); MEAN CORPUSCULAR HEMOGLOBIN 29.3 PG (27.0-34.0); MEAN CORPUSCULAR HGB CONC 34.3 % (32.0-36.0); MONO % 6.6 % (0.0-8.0); NEUT % 88.6 % (16.0-70.0); PLATELET COUNT 239 TH/MM3 (150-450); RED BLOOD COUNT 3.03 MIL/MM3 (4.50-5.90); WHITE BLOOD COUNT 15.9 TH/MM3 (4.0-11.0)
[2017-04-23] MEDS: oxyCODONE/ACETAMINOPHEN 10 MG/325 MG TAB PO PRN ×2 (13:42→20:23)
[2017-04-23 13:50] LABS: BICARBONATE 18.1 MEQ/L (21.0-32.0); POTASSIUM 5.1 MEQ/L (3.5-5.1)
[2017-04-23] MEDS: ATORVASTATIN 40 MG TAB PO SCH (20:23)
[2017-04-24] MEDS: SODIUM CHLOR 0.9% 1000 ML INJ 1,000 ML IV SCH (01:01)
[2017-04-24 04:45] VITALS: BP 110/60; PULSE 64; RESP 22; TEMP 98.8; O2SAT 99
[2017-04-24] MEDS: PIPERACIL-TAZO 2.25 GM PREMIX 50 ML IV SCH ×4 (05:10→23:36)
[2017-04-24 07:50] LABS: AUTOMATED NEUTROPHIL # 12.9 TH/MM3 (1.8-7.7); BASOPHIL # 0.1 TH/MM3 (0-0.2); BASOPHIL % 0.5 % (0.0-2.0); EOSINOPHIL # 0.2 TH/MM3 (0-0.4); EOSINOPHIL % 1.1 % (0.0-4.0); HEMATOCRIT 25.8 % (39.0-51.0); HEMO FLAGS DIFF FINAL; LYMPH % 2.7 % (9.0-44.0); LYMPHOCYTE # 0.4 TH/MM3 (1.0-4.8); MEAN CELL VOLUME 85.8 FL (80.0-100.0); MEAN CORPUSCULAR HEMOGLOBIN 27.8 PG (27.0-34.0); MEAN CORPUSCULAR HGB CONC 32.4 % (32.0-36.0); NEUT % 89.7 % (16.0-70.0); PLATELET COUNT 244 TH/MM3 (150-450); RED BLOOD COUNT 3.01 MIL/MM3 (4.50-5.90); RED CELL DISTRIBUTION WIDTH 15.7 % (11.6-17.2); WHITE BLOOD COUNT 14.4 TH/MM3 (4.0-11.0)
[2017-04-24] MEDS: DOCUSATE SODIUM 50 MG/SENNA 8.6 MG TAB PO SCH ×2 (08:05→20:51)
[2017-04-24] MEDS: TAMSULOSIN HCL 0.4 MG CAP PO SCH (08:05)
[2017-04-24] MEDS: FAMOTIDINE 20 MG/2 ML VIAL IV PUSH SCH (08:05)
[2017-04-24] MEDS: PANTOPRAZOLE SOD 40 MG DELAYED RELEASE TAB PO SCH (08:07)
[2017-04-24 08:11] VITALS: BP 126/67; PULSE 82; RESP 17; TEMP 98.2
[2017-04-24] MEDS: INSULIN ASPART SUPPLEMENTAL SCALE SQ SCH ×4 (08:12→21:00)
[2017-04-24] MEDS: SODIUM CHLORIDE 0.9% FLUSH 10 ML FLUSH IV FLUSH SCH ×2 (08:12→20:52)
[2017-04-24] MEDS: INSULIN DETEMIR 100 UNITS/ML VIAL SQ SCH ×2 (08:12→20:53)
[2017-04-24 08:14] LABS: BICARBONATE 18.7 MEQ/L (21.0-32.0); POTASSIUM 5.4 MEQ/L (3.5-5.1)
[2017-04-24] MEDS ORDERED: MORPHINE SULFATE 2 MG/ML INJ IV PUSH PRN ×2 (10:00)
--- NOTE | 2017-04-24 11:20 | HHI.PR ---
Subjective Remarks no complains almanza- draining- grossly clear yellow urine Objective Vitals Vital Signs Date Time Temp Pulse Resp B/P (MAP) Pulse Ox O2 Delivery O2 Flow Rate FiO2 04/24/17 08:11 98.2 82 17 126/67 (86) 04/24/17 04:45 98.8 64 22 110/60 (77) 99 04/23/17 22:54 79 04/23/17 21:00 98.0 58 20 99/59 (72) 98 04/23/17 17:17 99.1 84 18 116/60 (78) 96 04/23/17 12:50 98.3 84 18 112/62 (79) 95 I/O 04/23/17 04/23/17 04/23/17 04/24/17 04/24/17 04/24/17 07:00 15:00 23:00 07:00 15:00 23:00 Intake Total 600 ml 900 ml 825 ml Output Total 300 ml 1300 ml 100 ml 2000 ml Balance 300 ml -1300 ml 800 ml -1175 ml Intake Oral 600 ml 800 ml 825 ml IV Total 100 ml Output Urine Total 300 ml 1300 ml 100 ml 2000 ml # Bowel Movements 0 0 0 Result Diagram: 04/24/17 0625 04/24/17 0625 Imaging Last Impressions Chest X-Ray 04/21/17 1345 Signed Impressions: Service Date/Time: Friday, April 21, 2017 14:01 - CONCLUSION: No acute disease. Juan Carlos Boss MD Head CT 04/21/17 0000 Signed Impressions: Service Date/Time: Friday, April 21, 2017 15:17 - CONCLUSION: Normal examination for a patient of this age. Juan Carlos Boss MD Objective Remarks awake and alert, oriented x 3 anicteric, no nuchal rigidity no rales regular rhythm abdomen soft, nontender almanza in place extremities no edema moves all extremities spontaneously Urinary Catheter: Yes Assessment to: Continue Almanza insert reason: Obstruction/Retention Date of Insertion: Apr 21, 2017 A/P Assessment and Plan 66 years old male Enterobacter Sepsis secondary to urinary tract infection underlying Bladder tumor S/P recent cystoscopy 03/23 for clot evacuation Leukocytosis secondary to above ff final c and S. continue on Zosyn Infectious disease ff Urology ff t-seen by Dr. Scaglia- almanza changed 04/23- OP ff up with Dr kaur Acute Anemia secondary to Gross hematuria S/P 1 unit RBC no further hematuria Hand H stable History of hypertension and dyslipidemia. - heplcok IV and monitor Hold lisinopril, hold atorvastatin, aspirin will held Diabetic Mellitus- insulin requiring- uncontrolled last A1C 8.9 good readings- continue on Levemer 6 units q 12 SQ ff blood sugars and adjust insulin Acute on chronic kidney insufficiency secondary to underlying DM nephropathy and obstructive uropathy non oliguric. FF BMP- creatinine stabilizing continue accurate I's and O's , ff BMP continue on Almanza catheter PT and OT to eval and treat- per patient baseline uses a walker Remains a full code at this time SCDs and JH graves. DVT prophylaxis Code Status Full code consult palliative care Elder Felix MD Apr 24, 2017 11:20
[2017-04-24] MEDS: oxyCODONE/ACETAMINOPHEN 10 MG/325 MG TAB PO PRN ×2 (12:50→23:36)
[2017-04-24 12:51] VITALS: BP 129/66; PULSE 81; RESP 17; TEMP 98.2; O2SAT 97
--- NOTE | 2017-04-24 14:03 | PD.CONS ---
Consult Service Palliative Care Consult Requested By Dr Casas . Primary Care Physician [facility] Reason for Consultation a. To assist with evaluation and management of symptoms including: weakness , pain b. To assist medical decision maker(s) with: better understanding of current medical conditions; weighing benefits/burdens of medical treatment options; making medical treatment decisions. HPI History of Present Illness This 66 yr old presented to the ED on 04/21/17 with c/o hematuria, fatigue, tachycardia. He was brought by his brother, pt hx noted to be somewhat limited per ED provider. Pt was apparently undergoing tx for bladder cancer, and had sustained laceration to bladder, so treatment stopped to allow healing. Has chronic indwelling catheter. Recent admission in March for symptomatic anemia. Denied CP, SOB, fever, abdominal pain or vomiting. +reports decreased appetite and decreased PO fluids, + bladder pain. Patient follows at the [facility] for primary care, bladder cancer.recent cystoscopy 03/23 for clot evacuation * CXR with no acute process. CT head no acute process. Potassium elevated 5.2 , you and 72/creatinine 3.19. GFR 20. Glucose 307. UA indicative of possible infection, cultures obtained. Started on vancomycin, Zosyn. WBC 25.3. Lactic acid 1.7. Afebrile in ED. Patient was admitted for further evaluation and management of sepsis. * Palliative care consulted to assist with clarification of goals of treatment. Patient with fevers over the weekend, transfuse 1 unit RBC. * ID consulted for leukocytosis, UTI--continue patient on Zosyn, discontinues Vanco; follow micro. Hematuria clearing. * Urology also consulted: Further urology history:" He was recently admitted in March of this year for symptomatic anemia and had a urologic workup by that included cystoscopic evaluation. The procedure was performed on March 17 and demonstrated a large bladder tumor originating from the left wall also noted was a perforation involving the bladder dome. Patient had a Crabtree catheter placed and was advised to follow up with as an outpatient to schedule a transurethral resection of the bladder tumor once the bladder perforation had healed". Hematuria now resolved; UTI likely secondary to technician terminal and repeater Crabtree catheter- recommends replace Crabtree catheter, otherwise continue current management of UTI. Patient to follow with urology outpatient. * 04/24 WBC trending down 14.4, hemoglobin down very slightly from yesterday 8.4. K+ 5.4, BUN remains elevated at 72/creatinine trending up 3.04. Urine output remains adequate. Of note patient was several recent hospitalizations: --03/26- hematuria, ED visit -- 03/16- 03/23 DKA, anemia, hematuria, underwent cystoscopy-discharged with home health per the [facility] --10/30/16 diabetic ketoacidosis, acute renal failure, at this admission [facility] --07/05- 07/08 -hyperglycemia, ED visit Pt seen In room with brother Estrada present. Patient is awake and mostly oriented however forgetful at times. He appears to have somewhat limited insight into illness and recent hospitalizations. Patient does fall asleep often during conversation with him and brother at bedside. Denies most complaints upon ROS. Does endorse + pain to bladder he rates it / . Endorses poor appetite today though generally feels he has a good appetite. Met with patient and brother at length at bedside though again patient with limited participation 2/2 to lethargy. . Function/Cognitive Trajectory Lives at home with his brother Estrada who assists in the home as needed, independent with general ADLs. Brother completes driving, grocery shopping etc. Patient able to cook for himself. Does not always remember to take medication . Some general cognitive decline forgetfulness, short-term memory impairments noted about for the past 1 year . Mother 2/2 Alzheimer, possible patient may have early dementia. Used a quad cane at home. Ambulating short distances around home recently room to room, not able to tolerate longer distance. Of note per recent GI consult patient reported 40 pound weight loss over a few months which are being it to poor dentition and inability to eat like he formerly did [recorded weight this admission 54 kg, that admission recorded at 56 kg, October admission recorded at 55 kg, 2002 admission recorded at 83 kg]. Patient and brother today reports he has lost between 40 and 60 pounds over the past 2-3 years. During last admission patient [facility]. . Review of Systems ROS Limitations: Poor Historian (patient with forgetfulness) Constitutional: COMPLAINS OF: Fatigue, Weight loss (4060 pounds in the past few years), Pain (bladder), Generalized weakness, DENIES: Fever, Chills, Change in appetite Eyes: DENIES: Vision loss Ears, nose, mouth, throat: DENIES: Oral lesions, Throat pain Respiratory: DENIES: Cough, Shortness of breath Cardiovascular: DENIES: Chest pain, Lower Extremity Edema Gastrointestinal: DENIES: Abdominal pain, Black stools, Bloody stools, Constipation, Diarrhea, Nausea, Vomiting, Difficulty Swallowing, Anorexia Genitourinary: COMPLAINS OF: Hematuria, DENIES: Urinary frequency Musculoskeletal: DENIES: Joint pain, Back pain Integumentary: DENIES: Rash Neurologic: DENIES: Abnormal gait, Headache Psychiatric: COMPLAINS OF: Confusion (mild per pt brother x past 1 year) Past Family Social History Coded Allergies: No Known Allergies (Verified Allergy, Unknown, 04/21/17) Past Medical History Bladder cancer and bladder mass Hyperlipidemia hypercholesterolemia Diabetes mellitus Hypertension Dyslipidemia Hematuria History of BPH Bladder mass and bilateral hydronephrosis . Past Surgical History cystoscopy 03/23 for clot evacuation Appendix tonsils and adenoids . Reported Medications K-Phos Neutral (Potassium Phos/Sodium Phos) [id number] Mg Tab 250 Mg PO Q8HR Pantoprazole (Pantoprazole Sodium) 40 Mg Tab 40 Mg PO DAILY Novolog Inj (Insulin Aspart) 100 Unit/Ml Inj 1 Unit/sliding scale/ SQ ACHS AND 3AM Levemir Inj (Insulin Detemir) 1,000 unit/ 10 ML Vial 12 Units SQ Q12HR Do not mix with any other Insulin. Alfuzosin ER 24 HR 10 Mg Tab 10 Mg PO DAILY Atorvastatin (Atorvastatin Calcium) 40 Mg Tab 40 Mg PO HS Cipro (Ciprofloxacin HCl) 500 Mg Tab 500 Mg PO BID 7 Days Reported Jardiance (Empagliflozin) 25 Mg Tab 12.5 Mg PO DAILYAC . Current Medications Medications (Trade) Dose Ordered Sig/Светлана Route Start Time Stop Time Status Last Admin (Lipitor) 40 mg HS PO 04/21/17 21:00 04/23/17 20:23 (Protonix) 40 mg DAILY PO 04/22/17 09:00 04/24/17 08:07 (Flomax) 0.4 mg DAILY PO 04/22/17 09:00 04/24/17 08:05 (D50w (Vial) Inj) 50 ml UNSCH PRN IV PUSH 04/21/17 18:30 (Glucagon Inj) 1 mg UNSCH PRN OTHER 04/21/17 18:30 (NovoLOG SUPPLEMENTAL SCALE) 1 ACHS SLIDING SCALE SQ 04/21/17 21:00 04/24/17 08:12 (Tylenol) 650 mg Q4H PRN PO 04/21/17 18:30 04/22/17 16:42 (Zofran Inj) 4 mg Q6H PRN IVP 04/21/17 18:30 (Reglan Inj) 5 mg Q6H PRN IV PUSH 04/21/17 18:30 (Tylenol) 650 mg Q6H PRN PO 04/21/17 18:30 (Percocet 5-325 Mg) 1 tab Q6H PRN PO 04/21/17 18:30 04/22/17 17:50 (Percocet 10-325 Mg) 1 tab Q6H PRN PO 04/21/17 18:30 04/24/17 12:50 (Narcan Inj) 0.4 mg UNSCH PRN IV PUSH 04/21/17 18:30 (Debbie-Colace) 1 tab BID PO 04/21/17 21:00 04/24/17 08:05 (Milk Of Magnesia Liq) 30 ml Q12H PRN PO 04/21/17 18:30 (Senokot) 17.2 mg Q12H PRN PO 04/21/17 18:30 (Dulcolax Supp) 10 mg DAILY PRN RECTAL 04/21/17 18:30 (Lactulose Liq) 30 ml DAILY PRN PO 04/21/17 18:30 (NS Flush) 2 ml UNSCH PRN IV FLUSH 04/21/17 18:30 (NS Flush) 2 ml BID IV FLUSH 04/21/17 21:00 04/22/17 09:14 (Morphine Inj) 2 mg Q3H PRN IV 04/21/17 21:00 Piperacillin Sod/ Tazobactam Sod 50 ml @ 100 mls/hr Q6H IV 04/21/17 22:00 04/24/17 10:40 (Morphine Inj) 4 mg Q3H PRN IV PUSH 04/24/17 10:00 (Morphine Inj) 4 mg Q3H PRN IV PUSH 04/24/17 10:00 (Levemir Inj) 10 units Q12HR SQ 04/24/17 21:00 Family History Father is alive, well at 96 Mother of Alzheimer's at age 80 . Substance Use Tobacco: Former smoker, 1/5th pack 40 years quit 3 years ago Alcohol: None Prescription med abuse: None Illicits: None . Psychosocial History Not . Does have 2 children whom he has not remained in contact with has no contact information for them. Lives at home with his brother and father. 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 Served in the [employer] in the 1970s. Supported by his brother, father as well as several other siblings. His family is originally from [place] , they have lived in the [place] for much of his life. . Spiritual/Cultural Factors No particular restoration affiliation does not want director data management visits Living Will: Never completed Health Care Surrogate: Copy in medical record Date completed: 04/24/17 Health Care Surrogate(s): Brother Estrada Arias Today's verbally stated goals: Patient, supported by brother, wishes to continue to try to restore his health to obtain treatment for his bladder malignancy Ethical and Legal Issues Patient is alert and for the most part oriented however seems to have limited insight into does have periods of forgetfulness and mild confusion. Would be best supported by shared decision making, today has indicated he would entrust his brother Estrada, designated his brother Estrada as healthcare surrogate. Copies given to patient and brother will scan to [facility] Physical Exam Vital Signs Date Time Temp Pulse Resp B/P (MAP) Pulse Ox O2 Delivery O2 Flow Rate FiO2 04/24/17 12:51 98.2 81 17 129/66 (87) 97 04/24/17 08:11 98.2 82 17 126/67 (86) 04/24/17 04:45 98.8 64 22 110/60 (77) 99 04/23/17 22:54 79 04/23/17 21:00 98.0 58 20 99/59 (72) 98 04/23/17 17:17 99.1 84 18 116/60 (78) 96 Exam CONSTITUTIONAL/GENERAL: This is very frail ill-appearing patient TUBES/LINES/DRAINS: Peripheral IV right upper extremity. Crabtree catheter SKIN: No jaundice, rashes, or lesions. No wounds seen anteriorly. Skin warm and dry. HEAD: Atraumatic. Normocephalic. EYES: Pupils equal and round and reactive. Extraocular motions intact. No scleral icterus. No injection or drainage. Fundi not examined. ENT: Hearing grossly normal. Nose without bleeding or purulent drainage. Edentulous. Throat without visible erythema, exudates, masses, or lesions. NECK: Trachea midline. Supple, nontender. No palpable thyroid enlargement or nodularity. CARDIOVASCULAR: Regular rate and rhythm without murmur. No JVD. Peripheral pulses symmetric. RESPIRATORY/CHEST: Symmetric, unlabored respirations. On room air. Clear to auscultation. Breath sounds equal bilaterally. GASTROINTESTINAL: Abdomen soft, flat, non-tender, nondistended. No palpable masses. No guarding. Bowel sounds present. GENITOURINARY: Without palpable bladder distension,+ tenderness with lower abdomen/pelvis palpation. Crabtree catheter in place. MUSCULOSKELETAL: Extremities without clubbing, cyanosis, or edema. No joint tenderness or effusion noted. No mottling or clubbing. Extremities with muscle atrophy 4. LYMPHATICS: No palpable cervical or supraclavicular adenopathy. NEUROLOGICAL: Awake and alert-oriented x2-3. Forgetful at times. Some limited insight. Follows all commands. Moves all 4 extremities. PSYCHIATRIC: No obvious anxiety/depression. no apparent hallucinations or other psychotic thought process. Diagnostic Tests Laboratory Laboratory Tests Test 04/21/17 14:10 04/21/17 14:30 04/21/17 16:00 04/21/17 23:10 White Blood Count 25.3 TH/MM3 (4.0-11.0) Red Blood Count 3.66 MIL/MM3 (4.50-5.90) Hemoglobin 10.4 GM/DL (13.0-17.0) Hematocrit 32.0 % (39.0-51.0) Mean Corpuscular Volume 87.4 FL (80.0-100.0) Mean Corpuscular Hemoglobin 28.4 PG (27.0-34.0) Mean Corpuscular Hemoglobin Concent 32.5 % (32.0-36.0) Red Cell Distribution Width 15.2 % (11.6-17.2) Platelet Count 413 TH/MM3 (150-450) Mean Platelet Volume 8.4 FL (7.0-11.0) Neutrophils (%) (Auto) 92.3 % (16.0-70.0) Lymphocytes (%) (Auto) 1.9 % (9.0-44.0) Monocytes (%) (Auto) 5.0 % (0.0-8.0) Eosinophils (%) (Auto) 0.0 % (0.0-4.0) Basophils (%) (Auto) 0.8 % (0.0-2.0) Neutrophils # (Auto) 23.4 TH/MM3 (1.8-7.7) Lymphocytes # (Auto) 0.5 TH/MM3 (1.0-4.8) Monocytes # (Auto) 1.3 TH/MM3 (0-0.9) Eosinophils # (Auto) 0.0 TH/MM3 (0-0.4) Basophils # (Auto) 0.2 TH/MM3 (0-0.2) CBC Comment DIFF FINAL Differential Comment Prothrombin Time 10.8 SEC (9.8-11.6) Prothromb Time International Ratio 1.1 RATIO Activated Partial Thromboplast Time 34.5 SEC (24.3-30.1) Blood Urea Nitrogen 72 MG/DL (7-18) Creatinine 3.19 MG/DL (0.60-1.30) Random Glucose 307 MG/DL (74-106) Total Protein 8.0 GM/DL (6.4-8.2) Albumin 2.6 GM/DL (3.4-5.0) Calcium Level 9.3 MG/DL (8.5-10.1) Alkaline Phosphatase 129 U/L (45-117) Aspartate Amino Transf (AST/SGOT) 11 U/L (15-37) Alanine Aminotransferase (ALT/SGPT) 17 U/L (12-78) Total Bilirubin 0.5 MG/DL (0.2-1.0) Sodium Level 134 MEQ/L (136-145) Potassium Level 5.2 MEQ/L (3.5-5.1) Chloride Level 102 MEQ/L (98-107) Carbon Dioxide Level 17.4 MEQ/L (21.0-32.0) Anion Gap 15 MEQ/L (5-15) Estimat Glomerular Filtration Rate 20 ML/MIN (>89) Lactic Acid Level 1.7 mmol/L (0.4-2.0) 0.8 mmol/L (0.4-2.0) B-Hydroxybutyrate 1.98 MMOL/L (0.00-0.39) Blood Gas Puncture Site RT RADIAL Blood Gas Patient Temperature 98.6 Blood Gas HCO3 17 mmol/L (22-26) Blood Gas Base Excess -6.8 mmol/L (-2-2) Blood Gas Oxygen Saturation 96 % (90-100) Arterial Blood pH 7.40 (7.380-7.420) Arterial Blood Partial Pressure CO2 28 mmHg (38-42) Arterial Blood Partial Pressure O2 100 mmHG (61-120) Arterial Blood Oxygen Content 13.1 Vol % (12.0-20.0) Arterial Blood Carboxyhemoglobin 1.5 % (0-4) Arterial Blood Methemoglobin 0.5 % (0-2) Blood Gas Hemoglobin 9.6 G/DL (12.0-16.0) Blood Gas Inspired Oxygen 21 % Urine Color RED (YELLW/STRAW) Urine Turbidity CLOUDY (CLEAR) Urine pH 6.0 (5.0-8.5) Urine Specific [place] 1.034 (1.002-1.035) Urine Protein 300 mg/dL (NEG-TRACE) Urine Glucose (UA) NEG mg/dL (NEG) Urine Ketones 10 mg/dL (NEG) Urine Occult Blood LARGE (NEG) Urine Nitrite NEG (NEG) Urine Bilirubin NEG (NEG) Urine Urobilinogen LESS THAN 2.0 MG/DL (LESS Urine Leukocyte Esterase LARGE (NEG) Urine RBC /hpf (0-3) Urine WBC /hpf (0-5) Urine WBC Clumps FEW (NONE) Urine Bacteria MANY /hpf (NONE) Urine Hyaline Casts 60 /lpf (RARE) Microscopic Urinalysis Comment CULTURE INDICATED Total Creatine Kinase 24 U/L (39-308) Troponin I LESS THAN 0.02 NG/ML C-Reactive Protein 29.00 MG/DL (0.00-0.30) Test 04/22/17 08:35 04/22/17 08:45 04/23/17 13:08 04/24/17 06:25 Random Vancomycin Level 10.7 COMMENT White Blood Count 18.3 TH/MM3 (4.0-11.0) 15.9 TH/MM3 (4.0-11.0) 14.4 TH/MM3 (4.0-11.0) Red Blood Count 2.73 MIL/MM3 (4.50-5.90) 3.03 MIL/MM3 (4.50-5.90) 3.01 MIL/MM3 (4.50-5.90) Hemoglobin 7.9 GM/DL (13.0-17.0) 8.9 GM/DL (13.0-17.0) 8.4 GM/DL (13.0-17.0) Hematocrit 23.6 % (39.0-51.0) 25.8 % (39.0-51.0) 25.8 % (39.0-51.0) Mean Corpuscular Volume 86.5 FL (80.0-100.0) 85.2 FL (80.0-100.0) 85.8 FL (80.0-100.0) Mean Corpuscular Hemoglobin 28.8 PG (27.0-34.0) 29.3 PG (27.0-34.0) 27.8 PG (27.0-34.0) Mean Corpuscular Hemoglobin Concent 33.3 % (32.0-36.0) 34.3 % (32.0-36.0) 32.4 % (32.0-36.0) Red Cell Distribution Width 14.9 % (11.6-17.2) 16.0 % (11.6-17.2) 15.7 % (11.6-17.2) Platelet Count 289 TH/MM3 (150-450) 239 TH/MM3 (150-450) 244 TH/MM3 (150-450) Mean Platelet Volume 8.3 FL (7.0-11.0) 8.2 FL (7.0-11.0) 8.4 FL (7.0-11.0) Neutrophils (%) (Auto) 92.3 % (16.0-70.0) 88.6 % (16.0-70.0) 89.7 % (16.0-70.0) Lymphocytes (%) (Auto) 2.4 % (9.0-44.0) 3.8 % (9.0-44.0) 2.7 % (9.0-44.0) Monocytes (%) (Auto) 5.1 % (0.0-8.0) 6.6 % (0.0-8.0) 6.0 % (0.0-8.0) Eosinophils (%) (Auto) 0.0 % (0.0-4.0) 0.5 % (0.0-4.0) 1.1 % (0.0-4.0) Basophils (%) (Auto) 0.2 % (0.0-2.0) 0.5 % (0.0-2.0) 0.5 % (0.0-2.0) Neutrophils # (Auto) 16.8 TH/MM3 (1.8-7.7) 14.1 TH/MM3 (1.8-7.7) 12.9 TH/MM3 (1.8-7.7) Lymphocytes # (Auto) 0.4 TH/MM3 (1.0-4.8) 0.6 TH/MM3 (1.0-4.8) 0.4 TH/MM3 (1.0-4.8) Monocytes # (Auto) 0.9 TH/MM3 (0-0.9) 1.1 TH/MM3 (0-0.9) 0.9 TH/MM3 (0-0.9) Eosinophils # (Auto) 0.0 TH/MM3 (0-0.4) 0.1 TH/MM3 (0-0.4) 0.2 TH/MM3 (0-0.4) Basophils # (Auto) 0.0 TH/MM3 (0-0.2) 0.1 TH/MM3 (0-0.2) 0.1 TH/MM3 (0-0.2) CBC Comment DIFF FINAL DIFF FINAL DIFF FINAL Differential Comment Blood Urea Nitrogen 71 MG/DL (7-18) 73 MG/DL (7-18) 72 MG/DL (7-18) Creatinine 2.87 MG/DL (0.60-1.30) 2.80 MG/DL (0.60-1.30) 3.04 MG/DL (0.60-1.30) Random Glucose 163 MG/DL (74-106) 169 MG/DL (74-106) 343 MG/DL (74-106) Total Protein 6.1 GM/DL (6.4-8.2) Albumin 1.8 GM/DL (3.4-5.0) Calcium Level 7.9 MG/DL (8.5-10.1) 7.6 MG/DL (8.5-10.1) 8.0 MG/DL (8.5-10.1) Phosphorus Level 4.2 MG/DL (2.5-4.9) Magnesium Level 1.9 MG/DL (1.5-2.5) Alkaline Phosphatase 109 U/L (45-117) Aspartate Amino Transf (AST/SGOT) 10 U/L (15-37) Alanine Aminotransferase (ALT/SGPT) 10 U/L (12-78) Total Bilirubin 0.3 MG/DL (0.2-1.0) Sodium Level 137 MEQ/L (136-145) 136 MEQ/L (136-145) 137 MEQ/L (136-145) Potassium Level 5.0 MEQ/L (3.5-5.1) 5.1 MEQ/L (3.5-5.1) 5.4 MEQ/L (3.5-5.1) Chloride Level 110 MEQ/L (98-107) 109 MEQ/L (98-107) 110 MEQ/L (98-107) Carbon Dioxide Level 19.5 MEQ/L (21.0-32.0) 18.1 MEQ/L (21.0-32.0) 18.7 MEQ/L (21.0-32.0) Anion Gap 8 MEQ/L (5-15) 9 MEQ/L (5-15) 8 MEQ/L (5-15) Estimat Glomerular Filtration Rate 22 ML/MIN (>89) 23 ML/MIN (>89) 21 ML/MIN (>89) Hemoglobin A1c 8.4 % (4.3-6.0) Total Creatine Kinase 24 U/L (39-308) Troponin I LESS THAN 0.02 NG/ML Free Thyroxine 0.99 NG/DL (0.76-1.46) Thyroid Stimulating Hormone 3rd Gen 4.110 uIU/ML (0.358-3.740) Result Diagram: 04/24/1725 04/24/1725 Microbiology Microbiology Date/Time Source Procedure Growth Status 04/21/17 14:50 Blood Peripheral Aerobic Blood Culture - Final Enterobacter Cloacae Complete 04/21/17 14:50 Anaerobic Blood Culture - Final Enterobacter Cloacae Complete 04/21/17 14:10 Blood Peripheral Aerobic Blood Culture - Final Enterobacter Cloacae Complete 04/21/17 14:10 Anaerobic Blood Culture - Final Enterobacter Cloacae Complete 04/21/17 16:00 Urine Clean Catch Urine Culture - Final Enterobacter Cloacae Complete Imaging Last Impressions Chest X-Ray 04/21/17 1345 Signed Impressions: Service Date/Time: Friday, April 21, 2017 14:01 - CONCLUSION: No acute disease. Juan Carlos Boss MD Head CT 04/21/17 0000 Signed Impressions: Service Date/Time: Friday, April 21, 2017 15:17 - CONCLUSION: Normal examination for a patient of this age. Juan Carlos Boss MD Patient/Family Conference Present at Family Conference: Patient, brother Family Conference Time (mins): 30 Family Conference Location: Bedside Issues Discussed: Met with patient and brother at bedside at length. Patient with limited participation as he falls asleep often. Included the following: * Palliative care role, purpose, approach * Additional medical, psychosocial, and spiritual history * Patients general health, functional status, and cognitive changes in the months leading up to the current hospitalization * Patient/family understanding of the current medical problems * Patient/family understanding of prognosis * Patients goals of care as best understood from advance directives and/or conversations and/or values * Current medical treatment options and benefits/burdens of those options * Care surrogate designation-patient does appear to have reasonable insight and understanding to name whom he would trust to make medical decisions for him, he elects to designate brother Estrada Arias as HCS * CODE STATUS-review of what resuscitation entails patient appears to understand benefits/burdens requests DNR status his brother is supportive of this * Likely scenarios comparing ongoing aggressive care with a transition to comfort measures only * Questions answered to the best of my ability * Palliative care contact information provided Patient brother details that over the past year or so patient with general decline. He has had short-term memory impairment, during the day forgets to take medications, will forget simple instructions was told by his brother, and at times is inattentive or does not recognize his own needs. He has lost between 40 and 60 pounds over the past 2-3 years despite having a good appetite and reportedly eating his usual hearty meals. He has become progressively weak and fatigues easier in the past weeks to months. He did well during the most recent rehabilitation course following March hospitalization however seemed to again decline soon as he was at home. His brother has concerns that he may need longer-term assistance/SNF placement to ensure that he will take his medications etc. and adhere to recommended treatments. Much review that if patient continues to experience weakness, complications that he may not get well enough to treat and/or possibly overcome bladder malignancy issues; and that patient does remain at risk for ongoing complications and setbacks. Gently and briefly explore that in the event that the patient did not desire ongoing aggressive/invasive treatments that he may be appropriate for comfort measures only via a hospice organization. For now patient and brother wish to maximize current treatments and try to help restore patient's health so that he may pursue treatment for bladder malignancy. Open to ongoing conversations as clinical course evolves. Assessment and Plan Disease Oriented Problem List: (1) Type 2 diabetes mellitus with hyperosmolar nonketotic hyperglycemia (2) Uncontrolled diabetes mellitus (3) Hypertension (4) Acute kidney injury (5) Bladder mass (6) Sepsis Symptom Scale: (1) Malnutrition 0-10 Scale: Unable to quantify (2) Weakness 0-10 Scale: Unable to quantify (3) Pain 0-10 Scale: 8 Pertinent Non-Medical Issues Psychosocial:Not . Does have 2 children whom he has not remained in contact with has no contact information for them. Lives at home with his brother and father. 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 Served in the [employer] in the 1970s. Supported by his brother, father as well as several other siblings. His family is originally from [place] , they have lived in the [place] for much of his life. Spiritual: No particular restoration affiliation does not want director data management visits Legal:Patient is alert and for the most part oriented however seems to have limited insight into does have periods of forgetfulness and mild confusion. Would be best supported by shared decision making, today has indicated he would entrust his brother Estrada, designated his brother Estrada as healthcare surrogate. Copies given to patient and brother will scan to [facility] Ethical issues impacting care: None identified Important Contacts Estrada Arias Brother / [facility] [phone] SHERIDAN ARIAS BROTHER [phone] . Prognosis This patient was admitted for hematuria. He has had multiple hospitalizations this year related to bladder mass, diabetic complications. He appears to have had general decline over the past year or so as per additional history per brother. oncology records not available at time of my consultation in regards to prognosis and treatment options of bladder malignancy. Patient UTI should respond to treatment, patient can likely get through current hospitalization and to most recent functional status; however he appears to have continued debility and decline in the past months he remains high risk for ongoing complications and continued decline, which would further limit any ability to treat bladder malignancy. If goals aggressive may benefit from SNF placement to ensure the patient able to adhere to recommended treatments/vacations, and recondition/ maintain strength. He may be appropriate for hospice if goals were comfort oriented. . Code Status: No Code Plan * Legal decision maker:Patient is alert and for the most part oriented however seems to have limited insight into does have periods of forgetfulness and mild confusion. Would be best supported by shared decision making, today has indicated he would entrust his brother Estrada, designated his brother Estrada as healthcare surrogate. Copies given to patient and brother will scan to [facility]. * Goals:For now patient and brother wish to maximize current treatments (short of resuscitation) and try to help restore patient's health so that he may pursue treatment for bladder malignancy. Open to ongoing conversations as clinical course evolves. * CODE STATUS: DNR * SYMPTOMS: --Malnutrition-during recent GI consultation patient recorded approximately 40 pound weight loss; albumin currently 1.8., Same during March admission; 3.4 during October 2016 admission. Patient and brother endorse good appetite and eating normal portioned meals --Debility/generalized weakness- patient with weight loss, muscle loss and increased fatigue with any activity; likely multifactorial patient with underlying bladder malignancy which she is not had treatment for yet, general deconditioning, multiple hospitalizations are for chronic medical conditions. Goals aggressive--Benefit from maximize PT/OT --Bladder pain- endorses as ongoing dull aching bladder pain. Has not utilized any pain medications for it in the home setting. Has prn percocet 5-10 mg available here, as well as IV morphine. Has note required IV morphine. Has required 1-2 doses of percocet a day, appears effective. Did review balance of pain relief w sedation w pt, brother . Will cont to evaluate. * Palliative care will continue to follow during hospital course as condition evolves, to assist patient/decision-maker with understanding of medical conditions, weighing benefits/burdens of treatment options, for clarification of goals of treatment. Additionally will assist with any symptoms of palliative concern Time Spent Total Floor Time (mins): 60 (Chart review, PE, discussion with patient and family, discussion with nursing) Thank you for the opportunity to participate in the care of Mr. Martin. Attestation To help prompt me to consider important information that might be impacting today's encounter and assessment, information from prior notes written by myself or my colleagues may have been "brought forward" into today's note. My signature on this note, however, is an attestation that I personally performed the exam, history, and/or decision-making noted today, and, unless otherwise indicated, the interactions with patient, family, and staff as well as the review of records all occurred today. I also attest that the listed assessment and stated plan reflect my best clinical judgment today based on the combination of historical information, prior notes, and today's exam/ interactions. When time spent is documented, it refers only to time spent today by the signer, or if indicated, combined time spent today by collaborating physician/nurse practitioner. Sabrina Gonzalez Apr 24, 2017 14:03
--- NOTE | 2017-04-24 15:47 | HHI.IDPN ---
Note Infectious Disease Note Patient feels better. Has pain at the suprapubic area. No chills. Afebrile. Crabtree bag has specs of blood and some whits sediment. Admitted to the hospital with gross hematuria. The patient recently underwent cystoscopy. PAST MEDICAL HISTORY: 1. Bladder cancer and bladder mass. 2. Diabetes mellitus. 3. Hypertension. 4. Hematuria. 5. History of benign prostate hypertrophy. 6. Dyslipidemia. 7. Appendectomy. ALLERGIES: NO KNOWN DRUG ALLERGIES. ANTIBIOTICS: Piperacillin / tazobactam. Current Medications Medications (Trade) Dose Ordered Sig/Светлана Route PRN Reason Start Time Stop Time Status Last Admin Dose Admin Atorvastatin Calcium (Lipitor) 40 mg HS PO 04/21/17 21:00 04/23/17 20:23 Pantoprazole Sodium (Protonix) 40 mg DAILY PO 04/22/17 09:00 04/24/17 08:07 Tamsulosin HCl (Flomax) 0.4 mg DAILY PO 04/22/17 09:00 04/24/17 08:05 Dextrose (D50w (Vial) Inj) 50 ml UNSCH PRN IV PUSH HYPOGLYCEMIA-SEE COMMENTS 04/21/17 18:30 Glucagon (Glucagon Inj) 1 mg UNSCH PRN OTHER HYPOGLYCEMIA-SEE COMMENTS 04/21/17 18:30 Insulin Aspart (NovoLOG SUPPLEMENTAL SCALE) 1 ACHS SLIDING SCALE SQ 04/21/17 21:00 04/24/17 08:12 Acetaminophen (Tylenol) 650 mg Q4H PRN PO TEMP > 100.4 04/21/17 18:30 04/22/17 16:42 Ondansetron HCl (Zofran Inj) 4 mg Q6H PRN IVP NAUSEA OR VOMITING 04/21/17 18:30 Metoclopramide HCl (Reglan Inj) 5 mg Q6H PRN IV PUSH NAUSEA OR VOMITING 04/21/17 18:30 Acetaminophen (Tylenol) 650 mg Q6H PRN PO PAIN SCALE 1 TO 2 04/21/17 18:30 Oxycodone/ Acetaminophen (Percocet 5-325 Mg) 1 tab Q6H PRN PO PAIN SCALE 3 TO 5 04/21/17 18:30 04/22/17 17:50 Oxycodone/ Acetaminophen (Percocet 10-325 Mg) 1 tab Q6H PRN PO PAIN SCALE 6 TO 10 04/21/17 18:30 04/24/17 12:50 Naloxone HCl (Narcan Inj) 0.4 mg UNSCH PRN IV PUSH SEE LABEL COMMENTS 04/21/17 18:30 Senna/Docusate Sodium (Debbie-Colace) 1 tab BID PO 04/21/17 21:00 04/24/17 08:05 Magnesium Hydroxide (Milk Of Magnesia Liq) 30 ml Q12H PRN PO Mild constipation 04/21/17 18:30 Sennosides (Senokot) 17.2 mg Q12H PRN PO Moderate constipation 04/21/17 18:30 Bisacodyl (Dulcolax Supp) 10 mg DAILY PRN RECTAL SEVERE CONSITIPATION 04/21/17 18:30 Lactulose (Lactulose Liq) 30 ml DAILY PRN PO SEVERE CONSITIPATION 04/21/17 18:30 Sodium Chloride (NS Flush) 2 ml UNSCH PRN IV FLUSH FLUSH AFTER USING IV ACCESS 04/21/17 18:30 Sodium Chloride (NS Flush) 2 ml BID IV FLUSH 04/21/17 21:00 04/22/17 09:14 Morphine Sulfate (Morphine Inj) 2 mg Q3H PRN IV Pain 3-5; if unable to take PO 04/21/17 21:00 Piperacillin Sod/ Tazobactam Sod 50 ml @ 100 mls/hr Q6H IV 04/21/17 22:00 04/24/17 10:40 Morphine Sulfate (Morphine Inj) 4 mg Q3H PRN IV PUSH Pain 6-10;if unable to take PO 04/24/17 10:00 Morphine Sulfate (Morphine Inj) 4 mg Q3H PRN IV PUSH BREAKTHROUGH PAIN 04/24/17 10:00 Insulin Detemir (Levemir Inj) 10 units Q12HR SQ 04/24/17 21:00 OBJECTIVE: Vital Signs Date Time Temp Pulse Resp B/P (MAP) Pulse Ox O2 Delivery O2 Flow Rate FiO2 04/24/17 12:51 98.2 81 17 129/66 (87) 97 04/24/17 08:11 98.2 82 17 126/67 (86) 04/24/17 04:45 98.8 64 22 110/60 (77) 99 04/23/17 22:54 79 04/23/17 21:00 98.0 58 20 99/59 (72) 98 04/23/17 17:17 99.1 84 18 116/60 (78) 96 Laboratory Tests Test 04/23/17 13:08 04/24/17 06:25 White Blood Count 15.9 TH/MM3 14.4 TH/MM3 Red Blood Count 3.03 MIL/MM3 3.01 MIL/MM3 Hemoglobin 8.9 GM/DL 8.4 GM/DL Hematocrit 25.8 % 25.8 % Mean Corpuscular Volume 85.2 FL 85.8 FL Mean Corpuscular Hemoglobin 29.3 PG 27.8 PG Mean Corpuscular Hemoglobin Concent 34.3 % 32.4 % Red Cell Distribution Width 16.0 % 15.7 % Platelet Count 239 TH/MM3 244 TH/MM3 Mean Platelet Volume 8.2 FL 8.4 FL Neutrophils (%) (Auto) 88.6 % 89.7 % Lymphocytes (%) (Auto) 3.8 % 2.7 % Monocytes (%) (Auto) 6.6 % 6.0 % Eosinophils (%) (Auto) 0.5 % 1.1 % Basophils (%) (Auto) 0.5 % 0.5 % Neutrophils # (Auto) 14.1 TH/MM3 12.9 TH/MM3 Lymphocytes # (Auto) 0.6 TH/MM3 0.4 TH/MM3 Monocytes # (Auto) 1.1 TH/MM3 0.9 TH/MM3 Eosinophils # (Auto) 0.1 TH/MM3 0.2 TH/MM3 Basophils # (Auto) 0.1 TH/MM3 0.1 TH/MM3 CBC Comment DIFF FINAL DIFF FINAL Differential Comment Laboratory Tests Test 04/23/17 13:08 04/24/17 06:25 Blood Urea Nitrogen 73 MG/DL 72 MG/DL Creatinine 2.80 MG/DL 3.04 MG/DL Random Glucose 169 MG/DL 343 MG/DL Calcium Level 7.6 MG/DL 8.0 MG/DL Sodium Level 136 MEQ/L 137 MEQ/L Potassium Level 5.1 MEQ/L 5.4 MEQ/L Chloride Level 109 MEQ/L 110 MEQ/L Carbon Dioxide Level 18.1 MEQ/L 18.7 MEQ/L Anion Gap 9 MEQ/L 8 MEQ/L Estimat Glomerular Filtration Rate 23 ML/MIN 21 ML/MIN Microbiology Date/Time Source Procedure Growth Status 04/21/17 16:00 Urine Clean Catch Urine Culture - Final Enterobacter Cloacae Complete IMAGING: Chest X-Ray 04/21/17 1345 Signed Impressions: Service Date/Time: Friday, April 21, 2017 14:01 - CONCLUSION: No acute disease. Juan Carlos Boss MD Head CT 04/21/17 0000 Signed Impressions: Service Date/Time: Friday, April 21, 2017 15:17 - CONCLUSION: Normal examination for a patient of this age. Juan Carlos Boss MD PHYSICAL EXAMINATION: GENERAL: awake and alert. No distress. HEAD, EYES, EARS, NOSE, THROAT: Head is atraumatic. Extraocular movements grossly intact, pupils are reactive to light and has no icterus. Oropharynx has moist mucosa without lesions. NECK: The neck is supple. No adenopathy. LUNGS: Clear breath sounds. HEART: Regular S1 and S2. No murmurs. No rubs or gallops. ABDOMEN: Bowel sounds present, flat, soft, nontender. : Normal genitalia. EXTREMITIES: No clubbing or cyanosis or edema. SKIN: No rash. NEUROLOGIC: Nonfocal. PSYCHIATRIC: Calm and cooperative. IMPRESSION: 1. Septicemia due to Enterobacter cloacae. 2. Urinary tract infection due to Enterobacter cloacae. 3. Acute kidney disease. 4. Leukocytosis secondary to sepsis. WBC improving. 5. History of bladder carcinoma. RECOMMENDATIONS: 1. Continue piperacillin / tazobactam 2. If he remains afebrile and WBC comes down further he can be discharged on PO Levaquin 250 mg daily x 10 days since the Enterobacter is sensitive. Jacques Moore MD Apr 24, 2017 15:47
[2017-04-24] MEDS: LEVOFLOXACIN 250 MG TAB PO SCH (16:32)
[2017-04-24 16:34] VITALS: BP 129/76; PULSE 82; RESP 17; TEMP 98.6; O2SAT 98
[2017-04-24 20:00] VITALS: PULSE 78
[2017-04-24] MEDS: ATORVASTATIN 40 MG TAB PO SCH (20:51)
[2017-04-24 20:54] VITALS: BP 154/70; PULSE 79; RESP 18; TEMP 98.2; O2SAT 97
[2017-04-25] VITALS (10 sets, daily range): BP systolic 131–154; BP diastolic 67–75; PULSE 65–88; RESP 17–18; TEMP 97.2–98.7; O2SAT 93–98
[2017-04-25] MEDS: PIPERACIL-TAZO 2.25 GM PREMIX 50 ML IV SCH ×4 (04:00→22:00)
[2017-04-25] MEDS: oxyCODONE/ACETAMINOPHEN 10 MG/325 MG TAB PO PRN (06:30)
[2017-04-25] MEDS: INSULIN ASPART SUPPLEMENTAL SCALE SQ SCH ×4 (08:00→21:00)
[2017-04-25] MEDS: SODIUM CHLORIDE 0.9% FLUSH 10 ML FLUSH IV FLUSH SCH ×2 (09:00→21:00)
[2017-04-25] MEDS: INSULIN DETEMIR 100 UNITS/ML VIAL SQ SCH ×2 (09:00→21:00)
[2017-04-25] MEDS: PANTOPRAZOLE SOD 40 MG DELAYED RELEASE TAB PO SCH (09:06)
[2017-04-25] MEDS: DOCUSATE SODIUM 50 MG/SENNA 8.6 MG TAB PO SCH ×2 (09:07→21:00)
[2017-04-25] MEDS: LEVOFLOXACIN 250 MG TAB PO SCH (09:07)
[2017-04-25] MEDS: TAMSULOSIN HCL 0.4 MG CAP PO SCH (09:07)
--- NOTE | 2017-04-25 13:18 | HHI.PR ---
Subjective Remarks feeling better almanza draining- grossly clear urine good po afebrile Objective Vitals Vital Signs Date Time Temp Pulse Resp B/P (MAP) Pulse Ox O2 Delivery O2 Flow Rate FiO2 04/25/17 11:47 98.3 80 18 153/72 (99) 98 04/25/17 11:17 77 04/25/17 08:01 98.6 78 17 145/70 (95) 97 04/25/17 04:29 98.7 84 18 140/72 (94) 98 04/25/17 00:49 97.2 65 18 154/70 (98) 93 04/25/17 00:00 77 04/24/17 20:54 98.2 79 18 154/70 (98) 97 04/24/17 20:00 78 04/24/17 16:34 98.6 82 17 129/76 (93) 98 I/O 04/24/17 04/24/17 04/24/17 04/25/17 04/25/17 04/25/17 07:00 15:00 23:00 07:00 15:00 23:00 Intake Total 825 ml 50 ml 530 ml 200 ml 50 ml Output Total 2000 ml 800 ml 700 ml Balance -1175 ml 50 ml -270 ml -500 ml 50 ml Intake Oral 825 ml 480 ml IV Total 50 ml 50 ml 200 ml 50 ml Output Urine Total 2000 ml 800 ml 700 ml # Bowel Movements 0 Result Diagram: 04/24/17 0625 04/24/17 0625 Imaging Last Impressions Chest X-Ray 04/21/17 1345 Signed Impressions: Service Date/Time: Friday, April 21, 2017 14:01 - CONCLUSION: No acute disease. Juan Carlos Boss MD Head CT 04/21/17 0000 Signed Impressions: Service Date/Time: Friday, April 21, 2017 15:17 - CONCLUSION: Normal examination for a patient of this age. Juan Carlos Boss MD Objective Remarks awake and alert, oriented x 3 anicteric, no nuchal rigidity no rales regular rhythm abdomen soft, nontender almanza in place- draining grossly clear urine extremities no edema moves all extremities spontaneously Date of Insertion: Apr 21, 2017 A/P Assessment and Plan 66 years old male Enterobacter Sepsis secondary to urinary tract infection underlying Bladder tumor S/P recent cystoscopy 03/23 for clot evacuation Leukocytosis secondary to above continue on Zosyn + Levaquin Infectious disease ff Urology ff t-seen by Dr. Woods- almanza changed 04/23- OP ff up with Dr kaur Acute Anemia secondary to Gross hematuria S/P 1 unit RBC no further hematuria Hand H stable History of hypertension and dyslipidemia. - heplcok IV and monitor Hold lisinopril, hold atorvastatin, aspirin will held Diabetic Mellitus- insulin requiring- uncontrolled- better readings last A1C 8.9 good readings- continue on Levemer 6 units q 12 SQ ff blood sugars and adjust insulin Acute on chronic kidney insufficiency secondary to underlying DM nephropathy and obstructive uropathy non oliguric. FF BMP- creatinine stabilizing continue accurate I's and O's , ff BMP continue on Almanza catheter PT and OT to eval and treat- per patient baseline uses a walker SCDs and JH hose. DVT prophylaxis Code Status Pa;lliative care ff CM consult DC planning- home with home health care patient refused rehab Elder Felix MD Apr 25, 2017 13:18
--- NOTE | 2017-04-25 13:20 | HHI.FF ---
Face to Face Verification Diagnosis: (1) Bladder mass (2) Weakness (3) Hyperglycemia (4) Sepsis Physical Therapy Order: Evaluate and Treat, Improve ambulation Home Health Nursing Order: Medical education Signs/symptoms of disease process Diabetic education Nursing assessment with vital signs Crabtree catheter maintenance Machine Driller Order: To Evaluate: Living conditions/environment, Support services I have seen patient Jono Martin on 04/25/17. My clinical findings support the need for the requested home health care services because: Ltd mobility - disease progression Limited ability to care for self Infection w/ risk of complications I certify that my clinical findings support that this patient is homebound because: Need for psychosocial assistance Elder Felix MD Apr 25, 2017 13:19
[2017-04-25 16:27] LABS: MEAN CELL VOLUME 85.4 FL (80.0-100.0); MEAN CORPUSCULAR HEMOGLOBIN 27.8 PG (27.0-34.0); MEAN CORPUSCULAR HGB CONC 32.6 % (32.0-36.0); PLATELET COUNT 270 TH/MM3 (150-450); RED BLOOD COUNT 3.16 MIL/MM3 (4.50-5.90); RED CELL DISTRIBUTION WIDTH 15.6 % (11.6-17.2); REVIEW FLAG FINAL; WHITE BLOOD COUNT 8.7 TH/MM3 (4.0-11.0)
[2017-04-25 16:51] LABS: BICARBONATE 18.6 MEQ/L (21.0-32.0); POTASSIUM 4.9 MEQ/L (3.5-5.1)
[2017-04-25] MEDS: ATORVASTATIN 40 MG TAB PO SCH (21:00)
[2017-04-26] VITALS (8 sets, daily range): BP systolic 115–158; BP diastolic 58–77; PULSE 82–110; RESP 18; TEMP 97.9–99.3; O2SAT 96–98
[2017-04-26] MEDS: PIPERACIL-TAZO 2.25 GM PREMIX 50 ML IV SCH ×3 (03:47→15:36)
--- NOTE | 2017-04-26 07:35 | HHI.PR ---
Subjective Remarks no complains patient taking po well, no nausea or vomiting no abdominal or suprapubic pain almanza= draining grossly clear yellow urine Objective Vitals Vital Signs Date Time Temp Pulse Resp B/P (MAP) Pulse Ox O2 Delivery O2 Flow Rate FiO2 04/26/17 05:32 99.3 91 18 131/69 (89) 96 04/26/17 04:00 89 04/26/17 01:23 98.5 93 18 115/58 (77) 98 04/26/17 00:00 93 04/25/17 21:45 98.7 86 18 131/67 (88) 95 04/25/17 20:00 88 04/25/17 17:32 80 04/25/17 16:32 98.7 85 18 142/75 (97) 97 04/25/17 11:47 98.3 80 18 153/72 (99) 98 04/25/17 11:17 77 04/25/17 08:01 98.6 78 17 145/70 (95) 97 I/O 04/25/17 04/25/17 04/25/17 04/26/17 04/26/17 04/26/17 07:00 15:00 23:00 07:00 15:00 23:00 Intake Total 200 ml 530 ml 50 ml 50 ml Output Total 700 ml 550 ml 1400 ml 500 ml Balance -500 ml -20 ml 50 ml -1350 ml -500 ml Intake Oral 480 ml IV Total 200 ml 50 ml 50 ml 50 ml Output Urine Total 700 ml 550 ml 1400 ml 500 ml # Bowel Movements 1 Result Diagram: 04/25/17 1541 04/25/17 1541 Imaging Last Impressions Chest X-Ray 04/21/17 1345 Signed Impressions: Service Date/Time: Friday, April 21, 2017 14:01 - CONCLUSION: No acute disease. Juan Carlos Boss MD Head CT 04/21/17 0000 Signed Impressions: Service Date/Time: Friday, April 21, 2017 15:17 - CONCLUSION: Normal examination for a patient of this age. Juan Carlos Boss MD Objective Remarks awake and alert, oriented x 3 anicteric, no nuchal rigidity no rales regular rhythm abdomen soft, nontender almanza in place- draining grossly clear yellow urine extremities no edema moves all extremities spontaneously Urinary Catheter: Yes Assessment to: Continue Almanza insert reason: Obstruction/Retention Date of Insertion: Apr 21, 2017 A/P Assessment and Plan 66 years old male Enterobacter Sepsis secondary to urinary tract infection underlying Bladder tumor S/P recent cystoscopy 03/23 for clot evacuation Leukocytosis secondary to above continue on Zosyn + Levaquin Infectious disease ff- Urology ff t-seen by Dr. Woods- almanza changed 04/23- OP ff up with Dr vincent MARQUEZ on Levaquin 250 mg po x 10 days Acute Anemia secondary to Gross hematuria S/P 1 unit RBC no further hematuria Hand H stable History of hypertension and dyslipidemia. - heplcok IV and monitor Hold lisinopril, hold atorvastatin, aspirin will held Diabetic Mellitus- insulin requiring- some readins occasional 200s last A1C 8.9 good readings- continue on Levemer 10 units Sq q 12 ff blood sugars and adjust insulin Acute on chronic kidney insufficiency secondary to underlying DM nephropathy and obstructive uropathy non oliguric. FF BMP- creatinine stabilizing continue accurate I's and O's , ff BMP continue on Almanza catheter PT and OT to eval and treat- per patient baseline uses a walker SCDs and JH hose. DVT prophylaxis Code Status Pa;lliative care ff CM consult DC planning- home with home health care patient refused rehab Elder Felix MD Apr 26, 2017 07:35
[2017-04-26] MEDS ORDERED: LEVA250T14 PO (07:41)
[2017-04-26] MEDS ORDERED: LEVEMIR SQ (07:44)
[2017-04-26] MEDS ORDERED: OXYC1TAB63 PO (07:46)
--- NOTE | 2017-04-26 07:48 | HHI.DS ---
Discharge Summary Admission Date Apr 21, 2017 at 18:28 Discharge Date: Apr 26, 2017 Admitting Diagnosis Sepsis (1) Enterobacter sepsis ICD Code: A41.59 - Other Gram-negative sepsis Diagnosis: Principal (2) Bladder tumor ICD Code: D49.4 - Neoplasm of unspecified behavior of bladder Diagnosis: Secondary (3) Acute kidney injury ICD Code: N17.9 - Acute kidney failure, unspecified Diagnosis: Secondary Status: Acute Procedures none Brief History - From Admission Patient is a 66-year-old male, With known history of bladder cancer, who presents to the emergency department here at [facility] with complaint of hematuria, fatigue, feeling weak and pale, as well as tachycardia. Patient was brought in by his brother, Who is no longer at the bedside. History is limited. Patient is being treated for bladder cancer and sustained a bladder laceration so they stopped treatment until the laceration heals. Has a chronic indwelling Almanza catheter. Had recently been admitted in March for symptomatic anemia. Denies any chest pain or shortness breath denies any fever abdominal pain or vomiting has bladder pain. Has decreased appetite and decreased fluid intake pain is 5 out of 10 primary care provider is a Dr. Sav Damon believe at the [facility]. Patient has a history of diabetes that is recently been poorly controlled CBC/BMP: 04/25/17 1541 04/25/17 1541 Significant Findings Laboratory Tests Test 04/23/17 13:08 04/24/17 06:25 04/25/17 15:41 White Blood Count 15.9 TH/MM3 (4.0-11.0) 14.4 TH/MM3 (4.0-11.0) Red Blood Count 3.03 MIL/MM3 (4.50-5.90) 3.01 MIL/MM3 (4.50-5.90) 3.16 MIL/MM3 (4.50-5.90) Hemoglobin 8.9 GM/DL (13.0-17.0) 8.4 GM/DL (13.0-17.0) 8.8 GM/DL (13.0-17.0) Hematocrit 25.8 % (39.0-51.0) 25.8 % (39.0-51.0) 27.0 % (39.0-51.0) Neutrophils (%) (Auto) 88.6 % (16.0-70.0) 89.7 % (16.0-70.0) Lymphocytes (%) (Auto) 3.8 % (9.0-44.0) 2.7 % (9.0-44.0) Neutrophils # (Auto) 14.1 TH/MM3 (1.8-7.7) 12.9 TH/MM3 (1.8-7.7) Lymphocytes # (Auto) 0.6 TH/MM3 (1.0-4.8) 0.4 TH/MM3 (1.0-4.8) Monocytes # (Auto) 1.1 TH/MM3 (0-0.9) Blood Urea Nitrogen 73 MG/DL (7-18) 72 MG/DL (7-18) 64 MG/DL (7-18) Creatinine 2.80 MG/DL (0.60-1.30) 3.04 MG/DL (0.60-1.30) 2.76 MG/DL (0.60-1.30) Random Glucose 169 MG/DL (74-106) 343 MG/DL (74-106) 67 MG/DL (74-106) Calcium Level 7.6 MG/DL (8.5-10.1) 8.0 MG/DL (8.5-10.1) 8.1 MG/DL (8.5-10.1) Chloride Level 109 MEQ/L (98-107) 110 MEQ/L (98-107) 112 MEQ/L (98-107) Carbon Dioxide Level 18.1 MEQ/L (21.0-32.0) 18.7 MEQ/L (21.0-32.0) 18.6 MEQ/L (21.0-32.0) Estimat Glomerular Filtration Rate 23 ML/MIN (>89) 21 ML/MIN (>89) 23 ML/MIN (>89) Potassium Level 5.4 MEQ/L (3.5-5.1) Imaging Last Impressions Chest X-Ray 04/21/17 2533 Signed Impressions: Service Date/Time: Friday, April 21, 2017 14:01 - CONCLUSION: No acute disease. Juan Carlos Boss MD Head CT 04/21/17 0000 Signed Impressions: Service Date/Time: Friday, April 21, 2017 15:17 - CONCLUSION: Normal examination for a patient of this age. Juan Carlos Boss MD PE at Discharge awake and alert, oriented x 3 anicteric, no nuchal rigidity no rales regular rhythm abdomen soft, nontender almanza in place- draining grossly clear yellow urine extremities no edema moves all extremities spontaneously Pt update on day of discharge afebrile no complains VS stable Hospital Course 66 years old male Enterobacter Sepsis secondary to urinary tract infection underlying Bladder tumor S/P recent cystoscopy 03/23 for clot evacuation Leukocytosis secondary to above continue on Zosyn + Levaquin Infectious disease ff- Urology ff t-seen by Dr. Woods- almanza changed 04/23- OP ff up with Dr vincent MARQUEZ on Levaquin 250 mg po x 10 days Acute Anemia secondary to Gross hematuria S/P 1 unit RBC no further hematuria Hand H stable History of hypertension and dyslipidemia. - heplcok IV and monitor Hold lisinopril, hold atorvastatin, aspirin will held Diabetic Mellitus- insulin requiring- some readings occasional 200s last A1C 8.9 good readings- continue on Levemer 10 units Sq q 12 ff blood sugars and adjust insulin Acute on chronic kidney insufficiency secondary to underlying DM nephropathy and obstructive uropathy non oliguric. FF BMP- creatinine stabilizing continue accurate I's and O's , ff BMP continue on Almanza catheter PT and OT to eval and treat- per patient baseline uses a walker SCDs and JH hose. DVT prophylaxis Code Status Pa;lliative care ff CM consult DC planning- home with home health care patient refused rehab Pt Condition on Discharge: Stable Discharge Disposition: Disch w/ Home Health Serv Discharge Time: <= 30 minutes Discharge Instructions DIET: Follow Instructions for: Heart Healthy Diet, Diabetic Diet Speech Therapy-Diet Recommends: Regular Activities you can perform: Weight Bearing as Suni Activities to Avoid: Strenuous Activity Follow up Referrals: PCP Follow-up - 05/01/17 with [facility] - 1 Week with Eliazar Watson MD New Medications: Insulin Detemir Inj (Levemir Inj) 1,000 unit/ 10 ML Vial 10 UNITS SQ Q12HR for DM for 30 Days, INJECTION Do not mix with any other Insulin. Levofloxacin (Levaquin) 250 Mg Tablet 250 MG PO DAILY for Infection for 9 Days, #9 TAB Oxycodone HCl/Acetaminophen (Oxycodone-Acetaminophen 5-325) 5 Mg-325 Mg Tablet 1 TAB PO Q6H PRN for PAIN SCALE 4 TO 10, #25 TAB 0 Refills Continued Medications: Alfuzosin ER 24 HR (Alfuzosin ER 24 HR) 10 Mg Tab 10 MG PO DAILY for BPH, #30 TAB 0 Refills Atorvastatin (Atorvastatin) 40 Mg Tab 40 MG PO HS for Cholesterol Management, #30 TAB 0 Refills Insulin Aspart Inj (Novolog Inj) 100 Unit/Ml Inj 1 UNIT SQ ACHS AND 3AM for Blood Sugar Management, #1 VIAL Fasting Sugar <200=No coverage Max Dose HS: 4U Max Dose @ 3am=0 U Bld. Sugar <70=No Insulin 150-199=1 U 200-249=3 U 250-299=5 U 300-349=7 U >349=9 U Pantoprazole (Pantoprazole) 40 Mg Tab 40 MG PO DAILY for hemocult positive stool, #31 TAB Discontinued Medications: Ciprofloxacin (Cipro) 500 Mg Tab 500 MG PO BID for Infection for 7 Days, #14 TAB 0 Refills Empagliflozin (Jardiance) 25 Mg Tab 12.5 MG PO DAILYAC for Blood Sugar Management, #30 TAB 0 Refills Insulin Detemir Inj (Levemir Inj) 1,000 unit/ 10 ML Vial 12 UNITS SQ Q12HR for Blood Sugar Management, #1 VIAL 1 Refill Do not mix with any other Insulin. Potassium Phosphate-Sodium Phosphate (K-Phos Neutral) 155-852-130 Mg Tab 250 MG PO Q8HR for low phosphorus, #10 TAB Elder Felix MD Apr 26, 2017 07:48
[2017-04-26] MEDS: INSULIN ASPART SUPPLEMENTAL SCALE SQ SCH ×2 (08:00→12:00)
[2017-04-26] MEDS: INSULIN DETEMIR 100 UNITS/ML VIAL SQ SCH (08:44)
[2017-04-26] MEDS: PANTOPRAZOLE SOD 40 MG DELAYED RELEASE TAB PO SCH (08:53)
[2017-04-26] MEDS: LEVOFLOXACIN 250 MG TAB PO SCH (08:53)
[2017-04-26] MEDS: TAMSULOSIN HCL 0.4 MG CAP PO SCH (08:53)
[2017-04-26] MEDS: SODIUM CHLORIDE 0.9% FLUSH 10 ML FLUSH IV FLUSH SCH (08:53)
[2017-04-26] MEDS: DOCUSATE SODIUM 50 MG/SENNA 8.6 MG TAB PO SCH (08:54)
[2017-04-26] MEDS: oxyCODONE/ACETAMINOPHEN 10 MG/325 MG TAB PO PRN (12:04)
== END 2017-04-26 17:25 | disposition home health service (06) | DRG 698 ==
LOC: NEPC 13:13 → NEDA 18:28 → N05B 19:19
PROVIDERS: ADMIT Internal Medicine; ATTEND Internal Medicine
PROC: 30233N1 Transfusion of Nonautologous Red Blood Cells into Peripheral Vein, Percutaneous Approach (ICD-10-PCS; principal; 2017-04-22)
DX: T83.511A Infection and inflammatory reaction due to indwelling urethral catheter, initial encounter (principal); A41.59 Other Gram-negative sepsis; N17.9 Acute kidney failure, unspecified; R64 Cachexia; D50.0 Iron deficiency anemia secondary to blood loss (chronic); F12.90 Cannabis use, unspecified, uncomplicated; N13.8 Other obstructive and reflux uropathy; Z68.1 Body mass index [BMI] 19.9 or less, adult; I10 Essential (primary) hypertension; N39.0 Urinary tract infection, site not specified; E11.21 Type 2 diabetes mellitus with diabetic nephropathy; E11.22 Type 2 diabetes mellitus with diabetic chronic kidney disease; N18.9 Chronic kidney disease, unspecified; E11.65 Type 2 diabetes mellitus with hyperglycemia; Z79.4 Long term (current) use of insulin; R31.0 Gross hematuria; Z85.51 Personal history of malignant neoplasm of bladder; E78.5 Hyperlipidemia, unspecified; Z66 Do not resuscitate; K59.00 Constipation, unspecified; Z23 Encounter for immunization
CPT/HCPCS: 36430; 36600; 70450; 71010; 80048; 80053; 80202; 81001; 82010; 82550; 82805; 82948; 83036; 83605; 83735; 84100; 84439; 84443; 84484; 85025; 85027; 85610; 85730; 86140; 86850; 86900; 86901; 86920; 87040; 87077; 87086; 87186; 87205; 90686; 90732; 93005; 96361; 96365; 96368; 96375; J1815; J2270; J2405; J2543; J3370; J7030; J7050; P9016; Q2038

== ENCOUNTER 2017-05-13 07:09 | Emergency (ER) | payer MEDICARE ==
[~2017-05-13] VITALS: Ht 172.7 cm; Wt 55.0 kg
[~2017-05-13 07:09] MED LIST changes: -CIPR-9 PO; -EMPA1TAB3 PO; -KPHOS250 PO; +LEVA250T14 PO; +OXYC1TAB63 PO
[2017-05-13 07:18] VITALS: O2SAT 0
--- NOTE | 2017-05-13 07:33 | PD ---
HPI Chief Complaint: Code Blue Time Seen by Provider: 07:18 Travel History International Travel<30 days: No Contact w/Intl Traveler<30days: No Traveled to known affect area: No History of Present Illness HPI 66-year-old male came to the emergency room brought in as a cardiac arrest getting CPR. As per EMS patient was found down by the family members. Last time somebody spoke with him was 15 minutes prior to him being found down. Patient had not received any CPR by the family members since this was not a witnessed arrest. EMS was called and by the time they arrived and started CPR since then it has been 75 minutes until they arrived to the emergency room. Patient was intubated by the paramedics at the scene. He had received multiple rounds of epinephrine and 3 shocks delivered. As per EMS patient had ROSC for 5 minutes and then lost the pulse again. This was 30 minutes prior to arrival. The family members told the paramedics the patient is a DNR but they could not produce any paperwork and hence a full code was initiated. Patient was pulseless upon arrival and GCS of 3. As per the paramedics patient has multiple medical problems including severe emphysema. [facility] Past Medical History Narrative Medical List of his past medical, surgical, social and family history was reviewed from the nursing note. Hx Anticoagulant Therapy: No Asthma: No Autoimmune Disease: No Blood Disorders: No Heart Rhythm Problems: No Cancer: Yes (BLADDER MASS) Cardiovascular Problems: No High Cholesterol: Yes Chest Pain: No Congestive Heart Failure: No COPD: No Coronary Artery Disease: Yes (THINKS HE HAS, TAKES ASA DAILY(NON COMPLIANT)) Diabetes: Yes Diminished Hearing: No Endocrine: No Gastrointestinal Disorders: No GERD: No Glaucoma: No Genitourinary: No Hepatitis: No Hiatal Hernia: No Hypertension: Yes Immune Disorder: No Implanted Vascular Access Dvce: No Musculoskeletal: No Neurologic: No Psychiatric: No Reproductive: No Respiratory: No Sleep Apnea: No Thyroid Disease: No Ulcer: No Past Surgical History Abdominal Surgery: No AICD: No Cardiac Surgery: No Ear Surgery: No Endocrine Surgery: No Eye Surgery: No Genitourinary Surgery: No Gynecologic Surgery: No Neurologic Surgery: No Oral Surgery: No Pacemaker: No Thoracic Surgery: No Other Surgery: No Social History Alcohol Use: No Tobacco Use: No Substance Use: Yes (thc) Allergies-Medications (Allergen,Severity, Reaction): Coded Allergies: No Known Allergies (Verified Allergy, Unknown, 05/13/17) Comments No known drug allergies. Reported Meds & Prescriptions Reported Meds & Active Scripts Active Oxycodone-Acetaminophen 5-325 (Oxycodone HCl/Acetaminophen) 5 Mg-325 Mg Tablet 1 Tab PO Q6H PRN Levemir Inj (Insulin Detemir) 1,000 unit/ 10 ML Vial 10 Units SQ Q12HR 30 Days Do not mix with any other Insulin. Levaquin (Levofloxacin) 250 Mg Tablet 250 Mg PO DAILY 9 Days Pantoprazole (Pantoprazole Sodium) 40 Mg Tab 40 Mg PO DAILY Novolog Inj (Insulin Aspart) 100 Unit/Ml Inj 1 Unit SQ ACHS AND 3AM Fasting Sugar <200=No coverage Max Dose HS: 4U Max Dose @ 3am=0 U Bld. Sugar <70=No Insulin 150-199=1 U 200-249=3 U 250-299=5 U 300-349=7 U >349=9 U Alfuzosin ER 24 HR 10 Mg Tab 10 Mg PO DAILY Atorvastatin (Atorvastatin Calcium) 40 Mg Tab 40 Mg PO HS Narrative Medication List of his home medications reviewed from the nursing note. Review of Systems ROS Limitations: Intubated Except as stated in HPI: all other systems reviewed are Neg Physical Exam Narrative GENERAL: Unresponsive, intubated, cardiac arrest SKIN: Focused skin assessment warm/dry. Pale HEAD: Atraumatic. Normocephalic. EYES: Pupils equal and round and nonreactive to light. No scleral icterus. No injection or drainage. ENT: No nasal bleeding or discharge. Mucous membranes pink and moist. ET tube NECK: Trachea midline. No JVD. CARDIOVASCULAR: Pulseless RESPIRATORY: No spontaneous respirations GASTROINTESTINAL: Abdomen soft, non-tender, nondistended. Hepatic and splenic margins not palpable. MUSCULOSKELETAL: No obvious deformities. No clubbing. No cyanosis. No edema. NEUROLOGICAL: GCS of 3 PSYCHIATRIC: Unable to assess Data Data Last Documented VS Vital Signs Date Time Temp Pulse Resp B/P (MAP) Pulse Ox O2 Delivery O2 Flow Rate FiO2 05/13/17 07:18 0 15.00 [facility] Medical Decision Making Medical Screen Exam Complete: Yes Emergency Medical Condition: Yes Medical Record Reviewed: Yes Differential Diagnosis Cardiorespiratory arrest Narrative Course 7:30 AM after patient arrived to the emergency room given the medical futility of this cold which has been going on for more than one hour I did not feel it was indicated to give any further medications at this point. After CPR was continued for another 2 minutes pulse was checked again. Patient was asystole on the monitor. There was no pulse felt. I pronounced the patient at 7:11 AM. The charge nurse is trying to locate the family member and primary care to sign the certificate. None of the family members are in the department currently and hence I have not spoken with anybody yet. 7:48 AM I was able to locate the DNR in the medical record. This was signed on April 24, 2017. Procedures EKG Prior to Arrival: No Diagnosis Primary Impression: Cardiorespiratory arrest Disposition: 20 Condition: Era Merchant MD May 13, 2017 07:33
== END 2017-05-13 09:14 | disposition expired ==
LOC: NEPC 07:09
DX: I46.9 Cardiac arrest, cause unspecified (principal); E78.00 Pure hypercholesterolemia, unspecified; I25.10 Atherosclerotic heart disease of native coronary artery without angina pectoris; E11.9 Type 2 diabetes mellitus without complications; I10 Essential (primary) hypertension; Z79.899 Other long term (current) drug therapy
CPT/HCPCS: 92950